=== PATIENT | male | born 1970 | race Caucasian/White ===

== ENCOUNTER 2024-06-27 10:22 | Emergency (ER) | payer OTHER, SELFPAY ==
[2024-06-27 10:22] VITALS: BP 138/88; PULSE 119; RESP 16; TEMP 35.9; O2SAT 100; BMI 27.1
[2024-06-27 11:01] LABS: Absolute Lymphocyte Count 0.71 X10^3/uL (0.83-4.51); Absolute Neutrophil Count 8.7 X10^3/uL (2.0-7.7); Basophil# 0.05 X10^3/uL; Basophil% 0.5 % (0-1); Eosinophil# 0.11 X10^3/uL; Eosinophils% 1.1 % (0-5); Hematocrit 41.7 % (40-54); Hemoglobin 13.8 g/dL (13.0-16.5); Lymphocyte # 0.71 X10^3/ul (0.83-4.51); Mean Corp Hgb Conc 33.1 g/dL (32-36); Mean Corpuscular Hgb 28.6 pg (27.0-32.0); Mean Corpuscular Volume 86.3 fL (80-94); Mean Platelet Vol. 8.3 fl (6.2-12.0); Monocyte# 0.51 X10^3/uL; NRBC Flagged by Analyzer 0 % (0-5); Neutrophil # 8.68 X10^3/uL (2.7-7.7); Neutrophil % 85.8 % (47-70); Platelet Count 387 K/mm3 (150-450); RBC Distribution Width CV 12.7 % (11.6-14.6); RBC Distribution Width SD 40.2 fl (35.1-43.9); Red Blood Count 4.83 M/mm3 (4.6-6.2); White Blood Count 10.1 K/mm3 (4.4-11.0)
[2024-06-27 11:06] LABS: ALB/GLOB Ratio 0.9 RATIO (0.9-2.4); AST(SGOT) 32 U/L (15-37); Alanine Aminotransfer ALT/SGPT 59 U/L (16-61); Albumin, Serum 3.4 g/dL (3.2-5.0); Alkaline Phosphatase 182 U/L (45-117); Anion Gap 4 (5-15); BUN 12 mg/dL (7-18); BUN/Creat Ratio 11.1 RATIO (10-20); Calcium,Total 9.3 mg/dL (8.5-10.1); Chloride 102 mmol/L (98-107); Creatinine, Serum 1.08 mg/dL (0.70-1.30); EST Glomerular Filtration Rate 76 mL/min (>60); Est Glom Filt Rate - Afr Amer 92 mL/min (>60); Estimated Creatinine Clearance 77.41 ml/min; Globulin 3.9 g/dL (2.2-4.2); Glucose 132 mg/dL (74-106); Potassium 3.4 mmol/L (3.5-5.1); Protein, Total 7.3 g/dL (6.4-8.2); Sodium Level 136 mmol/L (136-145)
--- NOTE | 2024-06-27 11:39 | EDS_ITS ---
HPI History of Present Illness Chief Complaint: Flank Pain Informant: patient Onset/Context/Timing Onset: Weeks (1) Context: Gradual Onset Timing: Continuous Quality: Aching Location: Left lower lumbar area Worsened by: Nothing Relieved by: Medication Narrative Narrative: Patient presents with back and flank pain that has been getting worse over the last week. Patient states it is mainly over the lower lumbar area on the left. The patient states it has been constant. Patient states nothing makes it better nothing makes it worse. Patient states he has been alternating Tylenol and ibuprofen every 3 hours without any improvement. Patient went to the emergency department in [place] 3 days ago and had a CT scan done there which was negative. Patient had lab work done there which was negative. Patient admits to some subjective fevers and chills. Patient admits to some nausea but denies any vomiting. Patient denies any dysuria, frequency, or hematuria. PFSH PFS Medical History (Updated 06/27/24 @ 15:[address] Kofi Posada DO) GERD (gastroesophageal reflux disease) Home Medications ?Medication ?Instructions ?Recorded ?Last Taken ?Type cyclobenzaprine 10 mg tablet 10 mg PO TID PRN PRN muscle spasm 06/27/24 Unknown History hydrocodone-acetaminophen 5-325mg 1 tab PO Q6H PRN PRN Pain 3 days 06/27/24 Unknown Rx 5mg-325mg #10 TABLETS ondansetron 4 mg disintegrating 4 mg PO Q8H PRN PRN Nausea #10 tabs 06/27/24 Unknown Rx tablet sumatriptan succinate 50 mg tablet 50 mg PO PRN PRN migraine 06/27/24 Unknown History Allergy/AdvReac Type Severity Reaction Status Date / Time No Known Allergies Allergy Verified 06/27/24 10:24 Surgical History (Updated 06/27/24 @ 11:[address] Kofi Posada DO) Hx of elbow surgery Social History (Updated 06/27/24 @ 11:[address] Kofi Posada DO) Smoking Status: Never smoker alcohol intake: current alcohol intake frequency: a few times a month ROS ROS ED Constitutional Constitutional ED: Reports chills, fever(s) and subjective Eyes Eyes: Denies blurry vision or change in vision ENT ENT ED: Denies rhinorrhea or sore throat Cardiovascular Cardiovascular: Denies chest pain or palpitations Respiratory/Chest Respiratory/Chest: Denies cough or dyspnea Gastrointestinal Gastrointestinal: Reports nausea; Denies vomiting Genitourinary Genitourinary ED: Denies dysuria or hematuria Musculoskeletal Musculoskeletal: Reports back pain; Denies neck pain Integumentary Denies abscess or rash Neurologic Neurologic: Reports headache(s); Denies weakness Allergic/Immunologic Allergic/Immunologic ED: Denies mouth swelling or urticaria EXAM Physical Exam Const Vital Signs: 06/27/24 10:22 06/27/24 12:22 06/27/24 13:55 Temperature 96.7 F L Temperature Source Temporal Pulse Rate 119 H 74 69 Respiratory Rate 16 14 14 Blood Pressure 138/88 H 131/90 H 129/81 H Blood Pressure Mean 104 103 97 Pulse Ox 100 98 98 Oxygen Delivery Method Room Air Room Air Room Air 06/27/24 15:00 Temperature Temperature Source Pulse Rate 69 Respiratory Rate 14 Blood Pressure 126/78 H Blood Pressure Mean 94 Pulse Ox 98 Oxygen Delivery Method Positive well nourished and well developed General Appearance ED: well developed and NAD HEENT Reports moist mucous membranes Neck supple and no JVD Resp normal respiratory effort and clear to auscultation bilaterally Cardio regular rate and regular rhythm GI non-tender and non-distended Palpation: soft Back/Spine Back/Spine Narrative: There is tenderness over the left lower lumbar paraspinal area. There is no midline tenderness. There is no bony crepitance or step-off noted. Range of motion was limited in all motions of the lumbar spine secondary to pain. Strength is 5/5 bilaterally in upper and lower extremities. There are no sensory deficits noted. Extremity normal to inspection Neuro oriented x3, CN's II-XII intact bilaterally and no sensory deficits noted Sensorium / Orientation: alert Motor Exam: strength 5/5 throughout MDM MDM MDM Narrative Medical decision making narrative: Differential diagnosis includes musculoskeletal pain, ureteral calculus, pyelonephritis, diverticulitis, gastroenteritis, electrolyte abnormality, pancreatitis, and viral illness. CBC will be obtained to assess for leukocytosis and anemia. Comprehensive metabolic profile will be obtained to assess for hepatic function, renal function, and electrolyte abnormality. Urinalysis will be obtained to assess for urinary tract infection and hematuria. Lipase will be obtained to assess for pancreatitis. COVID-19, influenza, and RSV PCR will be obtained to assess for viral illness. Lab Data Attestation: I reviewed the patient's lab results. Lab results narrative: CBC was reviewed and was within normal limits. Comprehensive metabolic profile was reviewed and was essentially within normal limits. Lipase was reviewed and was slightly elevated at 89. Urinalysis was reviewed. There is no evidence of urinary tract infection or hematuria. Labs: Laboratory Results - last 24 hr 06/27/24 06/27/24 10:40 12:03 WBC 10.1 RBC 4.83 Hgb 13.8 Hct 41.7 MCV 86.3 MCH 28.6 MCHC 33.1 RDW Std Deviation 40.2 RDW Coeff of Kiya 12.7 Plt Count 387 MPV 8.3 Immature Gran % (Auto) 0.600 Neut % (Auto) 85.8 H Lymph % (Auto) 7.0 L [place] % (Auto) 5.0 Eos % (Auto) 1.1 Baso % (Auto) 0.5 Absolute Neuts (auto) 8.7 H Absolute Lymphs (auto) 0.71 L Nucleated RBC % 0 Sodium 136 Potassium 3.4 L Chloride 102 Carbon Dioxide 30.0 Anion Gap 4 L BUN 12 Creatinine 1.08 Estim Creat Clear Calc 77.41 Est GFR (MDRD) Af Amer 92 Est GFR (MDRD) Non-Af 76 BUN/Creatinine Ratio 11.1 Glucose 132 H Calcium 9.3 Total Bilirubin 0.60 AST 32 ALT 59 Alkaline Phosphatase 182 H Total Protein 7.3 Albumin 3.4 Globulin 3.9 Albumin/Globulin Ratio 0.9 Lipase 89 H Urine Color Yellow Urine Clarity Clear Urine pH 6.0 Ur Specific [place] 1.015 Urine Protein 30 H Urine Glucose (UA) Normal Urine Ketones Negative Urine Occult Blood 10 H Urine Nitrite Negative Urine Bilirubin Negative Urine Urobilinogen 4 H Ur Leukocyte Esterase 25 H Urine RBC 0-5 SEEN Urine WBC 0-5 SEEN Ur Squamous Epith Cells 0-5 SEEN Amorphous Sediment 1+ Urine Bacteria 1+ Urine Mucus 3+ Radiography Diagnostic Testing: Clinical Impression(s) from Imaging Studies Abdomen/Pelvis CT 06/27/24 13:50 IMPRESSION: (NOT LISTED IN ORDER OF SIGNIFICANCE) Mild constipation. No renal stones. Other findings as above. Electronically Signed: Enrique Glaser MD at 14:41 EDT , CT scan of the abdomen and pelvis was obtained. There is no acute abnormality noted. There is some mild constipation noted. There is no ureteral calculus. There is no free air or free fluid. This was interpreted by the radiologist and was also independently reviewed by myself. Treatment and Re-Evaluation :: Patient was given IV fluids, morphine, and Zofran. Patient was given a repeat dose of morphine. Patient was feeling better on reevaluation. Patient was advised of his findings. Patient was advised that his back pain could be coming from early inflammation of his pancreas. Patient was given prescriptions for Zofran and [place]. Patient was instructed to continue using laxatives as needed for his constipation. Patient was instructed to follow-up with his primary care physician in 5 to 7 days. Patient was instructed to return if worse in any way. Patient understood and was agreeable with the plan. All questions were answered. Discharge Plan Triage Chief Complaint: Flank Pain ED Provider: Kofi Posada Dx/Rx/DC Orders Clinical Impression: Low back pain, Elevated lipase Instructions: ED Pain, Acute, Uncertain Cause, ED Pancreatitis Prescriptions: New hydrocodone-acetaminophen 5-325 mg tablet 1 tab PO Q6H PRN PRN (Reason: Pain) 3 Days Qty: 10 0RF ondansetron 4 mg tablet,disintegrating 4 mg PO Q8H PRN PRN (Reason: Nausea) Qty: 10 0RF No Action cyclobenzaprine 10 mg tablet 10 mg PO TID PRN PRN (Reason: muscle spasm) sumatriptan succinate 50 mg tablet 50 mg PO PRN PRN (Reason: migraine) Primary Care Provider: Lonnie Mars Referrals: Lonnie Mars MD [Primary Care Provider] - 3-5 Days Print Language: Hungarian Disposition Disposition: Home, Self Care
[2024-06-27] MEDS: 0.9% Normal Saline (1000mL) 1,000 ML 1000 ML IV (11:56)
[2024-06-27] MEDS: Morphine 4 MG/ML Syringe IV ×2 (11:57→13:42)
[2024-06-27] MEDS: Ondansetron 4 MG/2 ML Vial IV (11:57)
[2024-06-27 12:11] LABS: Color, Urine Yellow (Yellow); Glucose, Dipstick Normal (Normal); Ketone-Dipstick Negative (Negative); Leukocyte Esterase-Dipstick 25 /ul (Negative); Nitrite-Dipstick Negative (Negative); Occult Blood-Urine 10 /ul (Negative); Protein-Dipstick 30 mg/dl (Negative); Specific Gravity, Urine 1.015 (1.002-1.030); Urine Bilirubin Dipstick Negative (Negative); Urine Clarity Clear (Clear); Urine Urobilinogen 4 mg/dl (Normal)
[2024-06-27 12:12] LABS: Lipase 89 U/L (13-75)
[2024-06-27 12:22] VITALS: BP 131/90; PULSE 74; RESP 14; O2SAT 98
[2024-06-27 12:24] LABS: Mucous, Urine 3+ /hpf (<or=2+); Squamous Epithelial Cells - UA 0-5 SEEN /hpf (0-5)
[2024-06-27 12:25] LABS: Amorphous Sediment 1+; Bacteria 1+ /hpf (None Seen); Red Blood Cells-Urine 0-5 SEEN /hpf (0-5); White Blood Cells 0-5 SEEN /hpf (0-5)
--- NOTE | 2024-06-27 13:50 | CT_ITS ---
STUDY: CT Abdomen And Pelvis W/O Contrast Injection 06/27/2024 2:38 PM REASON FOR EXAM: Male, 53 years old. ABDOMINAL PAIN Flank pain-LEFT TECHNIQUE: Transaxial images were obtained without oral contrast, and without intravenous contrast. Individualized dose optimization techniques were used for this CT. COMPARISON: None FINDINGS: Small left pleural effusion. The visualized portions of the heart are within normal limits. Unremarkable liver. Unremarkable gallbladder and extrahepatic biliary system. Unremarkable spleen. Unremarkable pancreas. Unremarkable bilateral adrenal glands. No acute findings of the right kidney. No acute findings of the left kidney. Unremarkable visualized stomach. Unremarkable small intestine. Stool in the ascending colon and transverse colon. The appendix is visualized and appears unremarkable. There are no acute findings of the abdominal aorta. Unremarkable inferior vena cava. Subcentimeter mesenteric lymph nodes. Unremarkable urinary bladder. There are prostatic calcifications. There is an umbilical hernia containing fat. Unremarkable osseous structures. CT/Abdomen/Pelvis without Cont IMPRESSION: (NOT LISTED IN ORDER OF SIGNIFICANCE) Mild constipation. No renal stones. Other findings as above. Electronically Signed: Enrique Glaser MD at 14:41 EDT ,
[2024-06-27 13:55] VITALS: BP 129/81; PULSE 69; RESP 14; O2SAT 98
[2024-06-27 15:00] VITALS: BP 126/78; PULSE 69; RESP 14; O2SAT 98
[2024-06-27 15:55] VITALS: BP 110/68; PULSE 72; RESP 14; TEMP 36.6; O2SAT 99
== END 2024-06-27 15:59 | disposition home or self-care (01) ==
PROVIDERS: Emergency Provider Emergency Medicine; PCP Family Medicine; Visit Provider Emergency Medicine
DX: M54.50 Low back pain, unspecified (principal); R10.9 Unspecified abdominal pain; Z11.52 Encounter for screening for COVID-19; R50.9 Fever, unspecified; K59.00 Constipation, unspecified; R74.8 Abnormal levels of other serum enzymes; K21.9 Gastro-esophageal reflux disease without esophagitis
CPT/HCPCS: 74176; 80053; 81001; 83690; 85025; 87631; 96361; 96374; 96375; 96376; 99283; J7030; A4216; J2405

== ENCOUNTER 2024-06-28 13:19 | Emergency (ER) | payer OTHER, SELFPAY ==
[2024-06-28 13:21] VITALS: BP 126/102; PULSE 98; RESP 16; TEMP 36.2; O2SAT 98; BMI 27.3
== END 2024-06-28 14:19 | disposition left against medical advice (07) ==
LOC: ED 14:23
PROVIDERS: PCP Family Medicine
DX: R10.9 Unspecified abdominal pain (principal); Z53.21 Procedure and treatment not carried out due to patient leaving prior to being seen by health care provider

== ENCOUNTER 2024-07-05 03:37 | Observation (INO) | payer OTHER, SELFPAY ==
[2024-07-05 03:38] VITALS: BP 145/92; PULSE 89; RESP 18; TEMP 36.8; O2SAT 98; BMI 26.4
[2024-07-05] MEDS: Ondansetron 4 MG/2 ML Vial IV (04:26)
[2024-07-05] MEDS: HYDROmorphone 1 MG/ML Syringe IV (04:26)
--- NOTE | 2024-07-05 04:33 | EDS_ITS ---
HPI History of Present Illness Chief Complaint: Back Informant: patient and spouse/S.O. Narrative Narrative: 53-year-old male presenting to the emergency department with back pain. 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 He had some constitutional symptoms including subjective fever which eventually developed into a left flank pain. He was seen at [facility] where he had a CT scan that was negative. He was seen in this emergency department on 27 June. At that time his lipase was minimally elevated he had 1+ bacteria but no overt infection and a CT with IV contrast was obtained which did not show acute pathology. He followed up with primary care and his urine culture was negative. He issues with constipation which she feels is related to the pain medication has been taken. He states he looks asymmetric with the left side appearing swollen compared to right. No further fevers. No known trauma. He notes decreased sensation in the skin in that left side abdomen left flank area. He states multiple people have suggested he could have Lyme's disease but he does not recall any tick bites no bull's-eye rash. He can occasionally find a position of comfort that is better than others but cannot stay in that position for very long. He denies any radicular symptoms. He denies any loss of bowel or bladder control. He does note some discomfort in the medial proximal left thigh which he attributes to altering the way that he ambulates currently. For constipation the patient has been using senna as well as magnesium citrate. [facility] Medical History GERD (gastroesophageal reflux disease) Home Medications ?Medication ?Instructions ?Recorded ?Last Taken ?Type cyclobenzaprine 10 mg tablet 10 mg PO TID PRN PRN muscle spasm 06/27/24 Unknown History hydrocodone-acetaminophen 5-325mg 1 tab PO Q6H PRN PRN Pain 3 days 06/27/24 Unknown Rx 5mg-325mg #10 TABLETS ondansetron 4 mg disintegrating 4 mg PO Q8H PRN PRN Nausea #10 tabs 06/27/24 Unknown Rx tablet sumatriptan succinate 50 mg tablet 50 mg PO PRN PRN migraine 06/27/24 Unknown History Allergy/AdvReac Type Severity Reaction Status Date / Time No Known Allergies Allergy Verified 07/05/24 03:37 Surgical History Hx of elbow surgery Social History Smoking Status: Never smoker alcohol intake: current alcohol intake frequency: a few times a month ROS ROS ED Constitutional Constitutional ED: Denies chills or weight loss Eyes Eyes: Denies change in vision or diplopia ENT ENT ED: Denies ear pain, rhinorrhea or sore throat Cardiovascular Cardiovascular: Denies chest pain, orthopnea, palpitations or racing heartbeat Respiratory/Chest Respiratory/Chest: Denies cough, dyspnea or orthopnea Gastrointestinal Gastrointestinal: Reports abdominal pain and constipation; Denies diarrhea, na usea or vomiting Genitourinary Genitourinary ED: Denies dysuria, hematuria or urinary frequency Musculoskeletal Musculoskeletal: Reports back pain; Denies arthralgias or myalgias Integumentary Denies abscess or rash Neurologic Neurologic: Reports paresthesias; Denies headache(s) or weakness Psychiatric Psychiatric: Denies anxiety, depression, suicidal ideation or suicidal thoughts Endocrine Endocrinology: Denies polydipsia, polyphagia or polyuria Allergic/Immunologic Allergic/Immunologic ED: Denies mouth swelling, tongue swelling or urticaria EXAM Physical Exam Const Vital Signs: 07/05/24 03:38 Temperature 98.2 F Temperature Source Oral Pulse Rate 89 Respiratory Rate 18 Blood Pressure 145/92 H Blood Pressure Mean 109 Pulse Ox 98 Oxygen Delivery Method Room Air Positive well nourished and well developed General Appearance ED: well developed; Negative for pallor HEENT Reports normocephalic, head/scalp atraumatic and moist mucous membranes Eyes PERRL and EOMs intact bilaterally Neck no lymphadenopathy, supple and no JVD Resp normal respiratory effort and clear to auscultation bilaterally Cardio regular rate, regular rhythm and no murmurs GI GI Narrative: Left lateral abdominal wall tender to palpation extending to the left flank. I do not appreciate focal swelling but does not appear as concave as the right. There is a very faint erythematous area that blanches in this area as well. The lumbar paraspinal musculature is tender to palpation. Pain seems to be worse with movement. Palpation: soft Back/Spine Cervical Spine: Negative for cervical spine tenderness Thoracic Spine / Upper Back: Negative for thoracic spinal tenderness Extremity normal to inspection General Extremety ED: Negative for edema General Extremity: Negative for edema Neuro oriented x3 and CN's II-XII intact bilaterally Neuro Narrative: Patient reports decreased sensation but no loss of sensation on the left side of the abdomen left flank area. +2 patellar and Achilles reflexes. Sensorium / Orientation: alert Sensory Exam: No sensory level loss detected Motor Exam: strength 5/5 throughout Psych mental status grossly normal Mood & Affect: Negative for depressed or tearful Skin no wounds General Skin Exam: elasticity normal; Negative for jaundice or pallor MDM MDM MDM Narrative Medical decision making narrative: Differential diagnosis includes but not limited to bowel obstruction intra- abdominal abscess retroperitoneal bleed psoas muscle abscess this renal cyst muscular spasm White count 10.7 hemoglobin 14.2 platelet count is 469. Sodium 135 potassium 3 point radiolabeled total bilirubin is 0.7 direct bilirubin 0.31 alkaline phosphatase 159 lipase 96 urinalysis shows 0 white cells 0-5 red cells rare bacteria negative nitrates. I did send off a Lyme screen. Patient received Zofran and a dose of Dilaudid. He required some supplemental oxygen after the Dilaudid. CT abdomen pelvis with oral and IV contrast was obtained. I do not see anything that should explain his symptoms. He has fluid-filled loops of bowel but he has been taking magnesium citrate stool softeners. I do not see any renal or splenic infarcts. No large fluid collections or cyst. Patient continues to have pain. I will give him some Toradol. I will speak with the hospitalist regarding admission as the patient and his do not feel comfortable with continued outpatient evaluation as he is not improving and no diagnoses have been found. History & Record Review Discussion w/independent historian: Patient and Family Lab Data Attestation: I reviewed the patient's lab results. Labs: Laboratory Results - last 24 hr 07/05/24 04:34 WBC 10.7 RBC 5.03 Hgb 14.2 Hct 43.0 MCV 85.5 MCH 28.2 MCHC 33.0 RDW Std Deviation 38.6 RDW Coeff of Kiya 12.4 Plt Count 469 H MPV 8.3 Immature Gran % (Auto) 0.500 Neut % (Auto) 82.9 H Lymph % (Auto) 11.0 L [place] % (Auto) 4.1 Eos % (Auto) 0.8 Baso % (Auto) 0.7 Absolute Neuts (auto) 8.9 H Absolute Lymphs (auto) 1.18 Nucleated RBC % 0 Sodium 135 L Potassium 3.1 L Chloride 97 L Carbon Dioxide 29.0 Anion Gap 9 BUN 14 Creatinine 1.00 Estim Creat Clear Calc 83.60 Est GFR (MDRD) Af Amer 101 Est GFR (MDRD) Non-Af 83 BUN/Creatinine Ratio 14.0 Glucose 121 H Calcium 9.6 Total Bilirubin 0.70 Direct Bilirubin 0.31 H AST 22 ALT 43 Alkaline Phosphatase 159 H Total Protein 8.1 Albumin 3.7 Globulin 4.4 H Lipase 96 H Urine Color Yellow Urine Clarity Clear Urine pH 8.0 Ur Specific [place] 1.015 Urine Protein 30 H Urine Glucose (UA) Normal Urine Ketones 50 H Urine Occult Blood 10 H Urine Nitrite Negative Urine Bilirubin Negative Urine Urobilinogen Normal Ur Leukocyte Esterase 25 H Urine RBC 0-5 SEEN Urine WBC 0 SEEN Ur Squamous Epith Cells 0 SEEN Urine Bacteria RARE Urine Mucus 0 SEEN Radiography Diagnostic Testing: Clinical Impression(s) from Imaging Studies Abdomen/Pelvis CT 07/05/24 05:11 IMPRESSION: Fluid distended small bowel and fluid levels in the colon nonspecific, can be seen with enteritis or gastroenteritis. Electronically Signed: Agatha Forrest MD at 7:44 EDT , Management Discussion w/another healthcare provider: Hospitalist Discharge Plan Triage Chief Complaint: Back ED Provider: Doni Irby Dx/Rx/DC Orders Clinical Impression: Left flank pain, Acute hypokalemia, Paresthesia Prescriptions: No Action cyclobenzaprine 10 mg tablet 10 mg PO TID PRN PRN (Reason: muscle spasm) sumatriptan succinate 50 mg tablet 50 mg PO PRN PRN (Reason: migraine) hydrocodone-acetaminophen 5-325 mg tablet 1 tab PO Q6H PRN PRN (Reason: Pain) 3 Days Qty: 10 0RF ondansetron 4 mg tablet,disintegrating 4 mg PO Q8H PRN PRN (Reason: Nausea) Qty: 10 0RF Primary Care Provider: Lonnie Mars Referrals: Lonnie Mars MD [Primary Care Provider] - Print Language: Romanian
[2024-07-05 04:42] LABS: Mucous, Urine 0 SEEN /hpf (<or=2+); Squamous Epithelial Cells - UA 0 SEEN /hpf (0-5); White Blood Cells 0 SEEN /hpf (0-5)
[2024-07-05 04:46] LABS: Absolute Lymphocyte Count 1.18 X10^3/uL (0.83-4.51); Absolute Neutrophil Count 8.9 X10^3/uL (2.0-7.7); Basophil# 0.07 X10^3/uL; Basophil% 0.7 % (0-1); Eosinophil# 0.09 X10^3/uL; Eosinophils% 0.8 % (0-5); Hemoglobin 14.2 g/dL (13.0-16.5); Lymphocyte # 1.18 X10^3/ul (0.83-4.51); Mean Corpuscular Hgb 28.2 pg (27.0-32.0); Mean Corpuscular Volume 85.5 fL (80-94); Mean Platelet Vol. 8.3 fl (6.2-12.0); Monocyte# 0.44 X10^3/uL; Monocyte% 4.1 % (0-10); NRBC Flagged by Analyzer 0 % (0-5); Neutrophil # 8.86 X10^3/uL (2.7-7.7); Neutrophil % 82.9 % (47-70); Platelet Count 469 K/mm3 (150-450); RBC Distribution Width CV 12.4 % (11.6-14.6); RBC Distribution Width SD 38.6 fl (35.1-43.9); Red Blood Count 5.03 M/mm3 (4.6-6.2); White Blood Count 10.7 K/mm3 (4.4-11.0)
[2024-07-05 04:47] LABS: Color, Urine Yellow (Yellow); Glucose, Dipstick Normal (Normal); Ketone-Dipstick 50 mg/dl (Negative); Leukocyte Esterase-Dipstick 25 /ul (Negative); Nitrite-Dipstick Negative (Negative); Occult Blood-Urine 10 /ul (Negative); Protein-Dipstick 30 mg/dl (Negative); Specific Gravity, Urine 1.015 (1.002-1.030); Urine Bilirubin Dipstick Negative (Negative); Urine Clarity Clear (Clear); Urine Urobilinogen Normal (Normal)
[2024-07-05 05:03] LABS: AST(SGOT) 22 U/L (15-37); Alanine Aminotransfer ALT/SGPT 43 U/L (16-61); Albumin, Serum 3.7 g/dL (3.2-5.0); Alkaline Phosphatase 159 U/L (45-117); Anion Gap 9 (5-15); BUN 14 mg/dL (7-18); Bilirubin, Direct 0.31 mg/dL (0.00-0.30); Calcium,Total 9.6 mg/dL (8.5-10.1); Chloride 97 mmol/L (98-107); EST Glomerular Filtration Rate 83 mL/min (>60); Est Glom Filt Rate - Afr Amer 101 mL/min (>60); Globulin 4.4 g/dL (2.2-4.2); Glucose 121 mg/dL (74-106); Lipase 96 U/L (13-75); Potassium 3.1 mmol/L (3.5-5.1); Protein, Total 8.1 g/dL (6.4-8.2); Sodium Level 135 mmol/L (136-145)
[2024-07-05 05:04] LABS: Bacteria RARE /hpf (None Seen); Red Blood Cells-Urine 0-5 SEEN /hpf (0-5)
--- NOTE | 2024-07-05 05:11 | CT_ITS ---
EXAM: CT Abdomen And Pelvis W/ Contrast Injection HISTORY: left abdominal pain ABD PAIN X3 WEEKS TECHNIQUE: Routine protocol CT abdomen pelvis. IV Contrast: Oral and amp; IV Gastrografin and amp; 100mL [id number]-[id number] . Oral Contrast: with. Sagittal and coronal images were reconstructed. RADIATION DOSAGE (If Supplied By Facility): CTDIvol = ( 12.5 ) mGy, DLP = ( 842.43 ) mGycm Individualized dose optimization techniques were used for this CT. COMPARISON: CT abdomen and pelvis 06/27/2024. LIMITATIONS: None. FINDINGS: LOWER CHEST: Dependent atelectasis in the lung bases. LIVER: Tiny cyst in the right lobe. GALLBLADDER/BILE DUCTS: Unremarkable. PANCREAS: Unremarkable. SPLEEN: Unremarkable. ADRENAL GLANDS: Unremarkable. KIDNEYS / URETERS: Unremarkable. BOWEL / MESENTERY: Fluid distended nondilated small bowel in the mid to lower abdomen. Nonspecific fluid levels in the colon to the rectum. No bowel obstruction. APPENDIX: Identified and normal. No evidence of acute appendicitis. PERITONEUM: No free air. No free fluid. VESSELS: Abdominal aorta is normal caliber. RETROPERITONEUM: Unremarkable. REPRODUCTIVE ORGANS: Unremarkable. BLADDER: Unremarkable. ABDOMINAL WALL: Unremarkable. BONES: No acute abnormality. OTHER: None. CT/Abdomen/Pelvis WITH Contrast IMPRESSION: Fluid distended small bowel and fluid levels in the colon nonspecific, can be seen with enteritis or gastroenteritis. Electronically Signed: Agatha Forrest MD at 7:44 EDT ,
[2024-07-05 07:37] VITALS: BP 111/89; PULSE 82; RESP 18; O2SAT 100
[2024-07-05] MEDS: Ketorolac 30 MG/ML Syringe IV (08:00)
--- NOTE | 2024-07-05 08:15 | PCM.HP.STD ---
HPI - General General Date of Admission: 07/05/24 Date of Service: 07/05/24 Chief Complaint: Intractable low back pain HPI Narrative NAM WILLINGHAM, is a 53 M who presented to [facility] ED on 07/05/2024 with intractable low back pain. Saw patient at bedside in the ED, present. Patient appeared to be in mild to moderate discomfort when I saw him due to ongoing low back pain. He stated the pain was primarily in the left low back and wrapping around the flank region. 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 The symptoms have now been ongoing since the end of May. He first went to [place] ED on 06/24. CT abdomen pelvis showed mild constipation but was otherwise negative for kidney stones or other acute pathology and noted no low thoracic or lumbar spinal issues. Was discharged home with recommendation for conservative treatment for pain and treatment for constipation. He then came to our ED on 06/27 with continuing symptoms. He had another CT abdomen pelvis done that again showed mild constipation but was otherwise unremarkable. He had some improvement with IV fluids, morphine and Zofran and was given prescription for [place] and Zofran and discharged home. He saw his primary on 07/01 who had x-rays of the thoracic and lumbar regions done that were unremarkable. Today he continues to report similar symptoms as before. States that nothing seems to make the back pain much better. The dose of IV morphine given to him in the ED here today did seem to help a little bit. He had another CT abdomen pelvis done that showed fluid-filled loops of bowel concerning for a possible gastroenteritis. However, was noted that patient took 2 doses of magnesium citrate over the past few days in addition to Senna to help facilitate bowel movements. Notes that he has had some soft and liquidy bowel movements over the past few days and does not feel distended or bloated in the abdomen. Does states that he has not been eating drinking much and has lost about 10 pounds. He denies any fevers or chills. Denies any recent traumas. Given his ongoing symptoms of unclear etiology, patient was admitted for further management. [facility] Medical History (Updated 07/06/24 @ 09:[address] Osmar Villeda, DO) GERD (gastroesophageal reflux disease) Home Medications ?Medication ?Instructions ?Recorded ?Last Taken ?Type cyclobenzaprine 10 mg tablet 10 mg PO TID PRN PRN muscle spasm 06/27/24 Unknown History hydrocodone-acetaminophen 5-325mg 1 tab PO Q6H PRN PRN Pain 3 days 06/27/24 07/04/24 Rx 5mg-325mg #10 TABLETS ondansetron 4 mg disintegrating 4 mg PO Q8H PRN PRN Nausea #10 tabs 06/27/24 06/28/24 Rx tablet sumatriptan succinate 50 mg tablet 50 mg PO PRN PRN migraine 06/27/24 Unknown History acetaminophen 325 mg tablet 650 mg PO Q6H 07/05/24 07/05/24 02:30 History (Tylenol) ibuprofen 200 mg tablet (Advil) 400 mg PO Q6H 07/05/24 Unknown History omeprazole 40 mg capsule,delayed 40 mg PO DAILY gerd 07/05/24 07/04/24 History release polyethylene glycol 3350 17 17 g PO DAILY 07/05/24 Unknown History gram/dose oral powder (Miralax) sennosides 8.6 mg-docusate sodium 1 tab-cap PO DAILY 07/05/24 Unknown History 50 mg tablet (Senna-S) sildenafil 50 mg tablet 50 mg PO PRN 07/05/24 Unknown History simethicone 80 mg chewable tablet 80 mg PO BID 07/05/24 Unknown History (Gas Relief 80 (simethicone)) Allergy/AdvReac Type Severity Reaction Status Date / Time No Known Allergies Allergy Verified 07/05/24 03:37 Surgical History (Updated 07/05/24 @ 13:50 by Taty Albarran) H/O vasectomy S/P dilatation of esophageal stricture Hx of elbow surgery Social History Smoking Status: Never smoker alcohol intake: current alcohol intake frequency: a few times a month ROS Constitutional Constitutional: Denies chills, fatigue, fever(s) or weakness Eyes Eyes: Denies change in vision Cardiovascular Cardiovascular: Denies chest pain Respiratory/Chest Respiratory/Chest: Denies shortness of breath at rest Gastrointestinal Gastrointestinal: Reports abdominal pain and loose stools; Denies constipation, diarrhea, nausea or vomiting Genitourinary Genitourinary: Denies dysuria Musculoskeletal Musculoskeletal: Reports back pain; Denies arthralgias, joint pain, joint swelling or myalgias Neurologic Neurologic: Denies dizziness, focal weakness or headache(s) Vital Signs Vital Signs Vital Signs: 07/05/24 03:38 07/05/24 07:37 Temperature 98.2 F Temperature Source Oral Pulse Rate 89 82 Respiratory Rate 18 18 Blood Pressure 145/92 H 111/89 H Blood Pressure Mean 109 96 Pulse Ox 98 100 Oxygen Delivery Method Room Air Nasal Cannula Oxygen Flow Rate (L/min) 2 Weight Weight: 78.8 kg Body Mass Index (BMI) 26.4 Physical Exam Const alert, oriented x3, no apparent distress and average body habitus Constitutional Narrative: Middle-age male, appears somewhat comfortable due to ongoing low back pain, otherwise sitting up in bed and conversing normally. General Appearance: cooperative HEENT normocephalic, head/scalp atraumatic, hearing grossly normal bilaterally and nasal mucous membranes and turbinates normal Eyes PERRL, EOMs intact bilaterally and conjunctivae normal Neck full ROM Chest inspection of chest normal Resp normal respiratory effort, normal air movement, no use of accessory muscles and clear to auscultation bilaterally Cardio regular rate, regular rhythm, no murmurs and peripheral pulses 2+ throughout GI GI Narrative: Abdomen mildly distended but otherwise soft and nontender. Hypoactive bowel sounds noted. Back/Spine Back/Spine Narrative: Mild tenderness to palpation in low back diffusely, worse in left paramuscular area. No significant decreased range of motion noted. No external abnormalities noted. Extremity normal to inspection, full ROM and no pedal edema Skin no rashes or lesions noted Neuro moves all extremities and no focal motor deficits Speech: speech normal Psych mental status grossly normal Mood & Affect: anxious Results Lab / Micro Data 07/06/24 06:00 07/06/24 06:00 Labs: Laboratory Results - last 24 hr 07/05/24 04:34: WBC 10.7, RBC 5.03, Hgb 14.2, Hct 43.0, MCV 85.5, MCH 28.2, MCHC 33.0, RDW Std Deviation 38.6, RDW Coeff of Kiya 12.4, Plt Count 469 H, MPV 8.3, Immature Gran % (Auto) 0.500, Neut % (Auto) 82.9 H, Lymph % (Auto) 11.0 L, [place] % (Auto) 4.1, Eos % (Auto) 0.8, Baso % (Auto) 0.7, Absolute Neuts (auto) 8.9 H, Absolute Lymphs (auto) 1.18, Nucleated RBC % 0, Sodium 135 L, Potassium 3.1 L, Chloride 97 L, Carbon Dioxide 29.0, Anion Gap 9, BUN 14, Creatinine 1.00, Estim Creat Clear Calc 83.60, Est GFR (MDRD) Af Amer 101, Est GFR (MDRD) Non-Af 83, BUN/Creatinine Ratio 14.0, Glucose 121 H, Calcium 9.6, Total Bilirubin 0.70, Direct Bilirubin 0.31 H, AST 22, ALT 43, Alkaline Phosphatase 159 H, Total Protein 8.1, Albumin 3.7, Globulin 4.4 H, Lipase 96 H, Urine Color Yellow, Urine Clarity Clear, Urine pH 8.0, Ur Specific [place] 1.015, Urine Protein 30 H, Urine Glucose (UA) Normal, Urine Ketones 50 H, Urine Occult Blood 10 H, Urine Nitrite Negative, Urine Bilirubin Negative, Urine Urobilinogen Normal, Ur Leukocyte Esterase 25 H, Urine RBC 0-5 SEEN, Urine WBC 0 SEEN, Ur Squamous Epith Cells 0 SEEN, Urine Bacteria RARE, Urine Mucus 0 SEEN Imaging Radiology Impression Abdomen/Pelvis CT 07/05/24 05:11 IMPRESSION: Fluid distended small bowel and fluid levels in the colon nonspecific, can be seen with enteritis or gastroenteritis. Electronically Signed: Agatha Forrest MD at 7:44 EDT , Assessment & Plan Assessment/Plan (1) Intractable low back pain: (2) Abdominal pain: (3) Elevated lipase: (4) Acute hypokalemia: PLAN: Plan Patient is a 53-year-old male who presented [facility] ED on 07/05/2024 with intractable low back pain. 1. Intractable low back pain ? Admit under inpatient status to [facility]. Unclear etiology at this time. MRI T-spine and L-spine on 07/05 were unremarkable. Will treat with scheduled tizanidine for now. If no improvement, may need to consider a pain management consult. 2. Mild abdominal pain with distention ? CT abdomen pelvis showed fluid-filled bowel loops possibly concerning for gastroenteritis, though patient notably had been taking magnesium citrate. Mild leukocytosis noted and patient reported subjective fevers. Stool studies and celiac studies ordered. Notably had colonoscopy done 2 to 3 years ago that was normal with recommended repeat in 10 years. Will treat with IV Zosyn for now. 3. Hypokalemia ? Potassium 3.1 on admit. Suspect due to poor p.o. intake recently. Mag and Phos ordered. Replete as needed. 4. Mild normocytic anemia ? Hemoglobin 14.2 on admit, dropped to 12.7 on hospital day 2 likely due to IV fluid resuscitation. MCV 86. Will send iron studies with ferritin, B12 and folate for further evaluation. 5. Elevated lipase ? Lipase 89 in the ED on 06/27 and lipase 96 in ED on this admission. Unclear etiology. Multiple CTs of abdomen pelvis recently with no pancreatic or right upper quadrant findings. Minimal alcohol use. Lipid profile ordered. Amylase ordered. DVT prophylaxis: Lovenox CODE STATUS: Full code, verified Expected disposition: Home, 2 to 3 days Total clinical time spent by myself addressing the patient's medical issues, reviewing all the data, and collaborating with patient's care team: 55 minutes. Charges/Coding Visit Charges Inpatient E&M: 09470 Init Hosp L2
--- NOTE | 2024-07-05 08:51 | ED.RN ---
Patient informed of need for stool sample. Patient stated he took mag citrate last night and cannot currently give stool sample.
[2024-07-05 10:24] VITALS: BP 131/89; PULSE 92; RESP 22; TEMP 37; O2SAT 100
[2024-07-05 11:07] VITALS: BMI 11.6
[2024-07-05 11:35] VITALS: BP 129/89; PULSE 79; RESP 16; TEMP 36.8; O2SAT 100
--- NOTE | 2024-07-05 12:30 | MRI_ITS ---
STUDY: MRI LUMBAR SPINE WITHOUT CONTRAST REASON FOR EXAM: Male, 53 years old. persis severe LBP w/ no signif findings on xray TECHNIQUE: Standardized fat and water weighted pulse sequences were obtained in the sagittal and axial planes. COMPARISON: None FINDINGS: T12-L1: Normal endplates. Normal disc height, hydration and morphology. Normal bilateral facet joints. Normal central canal and bilateral lateral recesses. Normal bilateral intervertebral neural foramina. Normal lumbar lordosis. There is no substantial scoliosis. Normal conus medullaris that terminates at the L1 level. L1-2: Normal endplates. Normal disc height, hydration and morphology. Normal bilateral facet joints. Normal central canal and bilateral lateral recesses. Normal bilateral intervertebral neural foramina. L2-3: Normal endplates. Normal disc height, hydration and morphology. Normal bilateral facet joints. Normal central canal and bilateral lateral recesses. Normal bilateral intervertebral neural foramina. L3-4: Normal endplates. Normal disc height, hydration and morphology. Normal bilateral facet joints. Normal central canal and bilateral lateral recesses. Normal bilateral intervertebral neural foramina. L4-5: Normal endplates. Normal disc height, hydration and morphology. Normal bilateral facet joints. Normal central canal and bilateral lateral recesses. Normal bilateral intervertebral neural foramina. L5-S1: Normal endplates. Normal disc height, hydration and morphology. Normal bilateral facet joints. Normal central canal and bilateral lateral recesses. Normal bilateral intervertebral neural foramina. Normal visualized sacral ala. Normal visualized paraspinous soft tissue structures. MRI/Spine Lumbar (Routine) IMPRESSION: Normal unenhanced MR examination of the lumbar spine. Electronically Signed: Kobe Smith MD at 0:14 EDT ,
--- NOTE | 2024-07-05 13:06 | RAD_ITS ---
STUDY: X-RAY CHEST REASON FOR EXAM: Male, 53 years old. Left effusion. Hypoxia. TECHNIQUE: 6 COMPARISON: None. FINDINGS: The lungs are clear and expanded. There is no demonstrated pleural abnormality. Normal size heart. Normal mediastinum and demetrio. Normal visualized pulmonary arteries. Normal visualized aortic arch and descending thoracic aorta. No abnormality of the visualized soft tissue structures of the upper abdomen. RAD/Chest 1 View (Portable) IMPRESSION: Normal x-ray examination of the chest. Electronically Signed: John Farha MD at 13:20 EDT ,
[2024-07-05] MEDS: Pantoprazole Sodium 40 MG in 0.9% Normal Saline (100mL MB+) 100 ML 330 MG IV ×2 (13:34→20:28)
[2024-07-05] MEDS: 0.9% Saline Lock 10 ML Syringe IV (13:34)
[2024-07-05] MEDS: Acetaminophen 325 MG Tablet 650 MG PO (13:35)
[2024-07-05] MEDS: Enoxaparin 40 MG/0.4 ML Syringe SC (13:35)
[2024-07-05] MEDS: tiZANidine HCl 2 MG Tablet 4 MG PO ×2 (13:35→20:28)
[2024-07-05] MEDS: Piperacil/Tazobactam 3.375 GM in 0.9% Normal Saline (50mL MB+) 50 ML IV ×2 (13:57→22:30)
[2024-07-05] MEDS: Morphine 2 MG/ML Syringe IV (14:49)
[2024-07-05] MEDS: Metoclopramide 10 MG/2 ML Vial 5 MG IV ×2 (14:49→20:28)
[2024-07-05] MEDS: Bisacodyl 10 MG Suppository RC (14:50)
[2024-07-05] MEDS: LORazepam 0.5 MG Tablet PO (16:02)
[2024-07-05 16:03] VITALS: BP 102/70; PULSE 67; RESP 16; TEMP 36.7; O2SAT 95
[2024-07-05 20:15] VITALS: BP 132/80; PULSE 113; RESP 18; TEMP 37.3; O2SAT 100
[2024-07-05] MEDS: Senna Tablet 1 TABLET PO (20:28)
[2024-07-06] MEDS: Acetaminophen 325 MG Tablet 650 MG PO ×4 (03:21→22:14)
[2024-07-06 03:23] VITALS: BP 128/81; PULSE 96; RESP 18; TEMP 36.7; O2SAT 98
[2024-07-06] MEDS: Piperacil/Tazobactam 3.375 GM in 0.9% Normal Saline (50mL MB+) 50 ML IV ×2 (05:44→13:17)
[2024-07-06] MEDS: 0.9% Saline Lock 10 ML Syringe IV ×2 (05:44→22:16)
[2024-07-06] MEDS: tiZANidine HCl 2 MG Tablet 4 MG PO ×3 (05:48→22:13)
[2024-07-06 07:08] LABS: Hematocrit 38.5 % (40-54); Hemoglobin 12.7 g/dL (13.0-16.5); Mean Corpuscular Hgb 28.5 pg (27.0-32.0); Mean Corpuscular Volume 86.3 fL (80-94); Mean Platelet Vol. 8.5 fl (6.2-12.0); Platelet Count 400 K/mm3 (150-450); RBC Distribution Width CV 12.5 % (11.6-14.6); RBC Distribution Width SD 39.7 fl (35.1-43.9); Red Blood Count 4.46 M/mm3 (4.6-6.2); White Blood Count 12.2 K/mm3 (4.4-11.0)
[2024-07-06 07:18] VITALS: O2SAT 98
[2024-07-06 07:55] LABS: ALB/GLOB Ratio 0.8 RATIO (0.9-2.4); AST(SGOT) 18 U/L (15-37); Alanine Aminotransfer ALT/SGPT 29 U/L (16-61); Albumin, Serum 3.1 g/dL (3.2-5.0); Alkaline Phosphatase 130 U/L (45-117); Anion Gap 9 (5-15); BUN 11 mg/dL (7-18); BUN/Creat Ratio 10.3 RATIO (10-20); Chloride 99 mmol/L (98-107); Creatinine, Serum 1.07 mg/dL (0.70-1.30); EST Glomerular Filtration Rate 77 mL/min (>60); Est Glom Filt Rate - Afr Amer 93 mL/min (>60); Estimated Creatinine Clearance 78.13 ml/min; Globulin 3.9 g/dL (2.2-4.2); Glucose 108 mg/dL (74-106); Potassium 3.4 mmol/L (3.5-5.1); Sodium Level 135 mmol/L (136-145)
[2024-07-06 09:09] VITALS: BP 122/71; PULSE 89; RESP 18; TEMP 36.9; O2SAT 98
[2024-07-06] MEDS: Senna Tablet 1 TABLET PO ×2 (09:31→22:12)
[2024-07-06] MEDS: Pantoprazole Sodium 40 MG in 0.9% Normal Saline (100mL MB+) 100 ML 330 MG IV ×2 (09:31→22:12)
[2024-07-06 09:47] LABS: Amylase 66 U/L (25-115); Cholesterol 108 mg/dL (200); High Density Lipoprotein 30 mg/dL; Triglycerides 136 mg/dL; Very Low Density Lipoprotein 27 mg/dL (5-40)
[2024-07-06 10:28] LABS: Magnesium 2.5 mg/dL (1.6-2.6); Phosphorus 4.7 mg/dL (2.5-4.9)
[2024-07-06] MEDS: Dicyclomine 10 MG Capsule PO ×2 (10:29→15:11)
--- NOTE | 2024-07-06 11:33 | PCM.PN.HOSP ---
Reason for Visit Reason for Visit: Diagnoses Hypokalemia (07/05/24) Other low back pain (07/05/24) Unspecified abdominal pain (07/05/24) Abnormal levels of other serum enzymes (07/05/24) Subjective Subjective Saw patient at bedside this morning, present. Patient was sitting up in bedside chair and appeared moderately more comfortable today compared to yesterday. He continued report mild low back pain but improved from yesterday. He did have 2 primarily liquid bowel movements yesterday with the Dulcolax suppository, has had no further bowel movement since then. Given the negative MRI thoracic and lumbar spine yesterday, noted to them that musculoskeletal etiology is highly unlikely. Given his ongoing GI concerns, patient and requested that GI be consulted to assist with further evaluation. They noted that patient previously saw Dr. Milton several years ago and has apparently had esophageal dilations with him in the past. No other new concerns today. Objective Data Objective Data Vital Signs: Vital Signs Temp Pulse Resp BP Pulse Ox O2 Del Method O2 Flow Rate 98.4 F 89 18 122/71 H 98 Room Air 2 07/06/24 09:09 07/06/24 09:09 07/06/24 09:09 07/06/24 09:09 07/06/24 09:09 07/06/24 10:00 07/05/24 07:37 Oxygen Flow Rate (L/min) 2 Oxygen Delivery Method Room Air Weight: 76.5 kg Body Mass Index (BMI) 11.6 Intake & Output: Intake and Output for Last 24 Hours 07/04/24 07/05/24 07/06/24 23:59 23:59 23:59 Intake Total 270.00 / 270.00 210 / 210 Balance 270.00 / 270.00 210 / 210 Lab / Micro Data 07/06/24 06:00 07/06/24 06:00 Labs: Laboratory Results - last 24 hr 07/06/24 06:00: WBC 12.2 H, RBC 4.46 L, Hgb 12.7 L, Hct 38.5 L, MCV 86.3, MCH 28.5, MCHC 33.0, RDW Std Deviation 39.7, RDW Coeff of Kiya 12.5, Plt Count 400, MPV 8.5, Sodium 135 L, Potassium 3.4 L, Chloride 99, Carbon Dioxide 27.0, Anion Gap 9, BUN 11, Creatinine 1.07, Estim Creat Clear Calc 78.13, Est GFR (MDRD) Af Amer 93, Est GFR (MDRD) Non-Af 77, BUN/Creatinine Ratio 10.3, Glucose 108 H, Calcium 9.0, Phosphorus 4.7, Magnesium 2.5, Total Bilirubin 0.70, AST 18, ALT 29, Alkaline Phosphatase 130 H, Total Protein 7.0, Albumin 3.1 L, Globulin 3.9, Albumin/Globulin Ratio 0.8 L, Triglycerides 136, Cholesterol 108, LDL Cholesterol 51, VLDL Cholesterol 27, HDL Cholesterol 30 L, Amylase 66 Radiography Diagnostic Testing: Radiology Impression Lumbar Spine MRI 07/05/24 12:30 IMPRESSION: Normal unenhanced MR examination of the lumbar spine. Electronically Signed: Kobe Smith MD at 0:14 EDT , Chest X-Ray 07/05/24 13:06 IMPRESSION: Normal x-ray examination of the chest. Electronically Signed: John Farah MD at 13:20 EDT , Physical Exam Const alert, oriented x3, no apparent distress and average body habitus Constitutional Narrative: Middle-age male, appears much more comfortable today, sitting up in bedside chair, conversing normally, in no acute distress. General Appearance: cooperative HEENT normocephalic, head/scalp atraumatic, hearing grossly normal bilaterally and nasal mucous membranes and turbinates normal Eyes PERRL, EOMs intact bilaterally and conjunctivae normal Neck full ROM Chest inspection of chest normal Resp normal respiratory effort, normal air movement, no use of accessory muscles and clear to auscultation bilaterally Cardio regular rate, regular rhythm, no murmurs and peripheral pulses 2+ throughout GI GI Narrative: Abdomen mildly distended but otherwise soft and nontender. Hypoactive bowel sounds noted. Stable. Back/Spine Back/Spine Narrative: Mild tenderness to palpation in low back diffusely, improving. No significant decreased range of motion noted. No external abnormalities noted. Extremity normal to inspection, full ROM and no pedal edema Skin no rashes or lesions noted Neuro moves all extremities and no focal motor deficits Speech: speech normal Psych mental status grossly normal Assessment & Plan Assessment/Plan (1) Intractable low back pain: (2) Abdominal pain: (3) Elevated lipase: (4) Acute hypokalemia: PLAN: Plan Patient is a 53-year-old male who presented [facility] ED on 07/05/2024 with intractable low back pain. 1. Intractable low back pain ? Unclear etiology at this time. MRI T-spine and L-spine on 07/05 were unremarkable. Started on scheduled tizanidine on admission and patient does report improvement on hospital day 2. Will continue tizanidine and continue to monitor for now. 2. Mild abdominal pain with distention; concern for celiac disease ? GI consulted. CT abdomen pelvis showed fluid-filled bowel loops possibly concerning for gastroenteritis, though patient notably had been taking magnesium citrate. Mild leukocytosis noted and patient reported subjective fevers. Stool studies unremarkable. Celiac studies showed > 100 TTG IgG antibody, but negative TTG IgA antibody and slightly low IgA. Notably had colonoscopy done 2 to 3 years ago that was normal with recommended repeat in 10 years. Appreciate GI recs on further evaluation for possible celiac disease. Unclear if this could be related to suspected Lyme disease noted below. 3. Lyme disease ? Lyme disease IgG antibody and total antibody positive on 07/06. Testing was obtained on admission per patient's request as family and friends had noted his symptoms could fit with Lyme disease. Patient notably denies known tick bite or rash. Unclear if patient has active infection versus recent infection, or to what degree his symptoms could be related to possible Lyme disease. Treated with IV Zosyn on admission, switched to p.o. doxycycline on 07/06. 4. Hypokalemia ? Potassium 3.1 on admit. Suspect due to poor p.o. intake recently. Mag and Phos normal. Replete as needed. 5. Mild normocytic anemia ? Hemoglobin 14.2 on admit, dropped to 12.7 on hospital day 2 likely due to IV fluid resuscitation. MCV 86. Will send iron studies with ferritin, B12 and folate for further evaluation. 6. Elevated lipase ? Lipase 89 in the ED on 06/27 and lipase 96 in ED on this admission. Unclear etiology. Multiple CTs of abdomen pelvis recently with no pancreatic or right upper quadrant findings. Minimal alcohol use. Lipid profile unremarkable. Amylase normal. Appreciate further GI recs. DVT prophylaxis: Lovenox CODE STATUS: Full code, verified Expected disposition: Home, 2 to 3 days Total clinical time spent by myself addressing the patient's medical issues, reviewing all the data, and collaborating with patient's care team: 35 minutes. Charges/Coding Visit Charges Inpatient E&M: 41368 Subs Hosp L2
[2024-07-06] MEDS: Enoxaparin 40 MG/0.4 ML Syringe SC (13:17)
[2024-07-06 15:08] LABS: Lyme IGG CIA Positive (Negative); Lyme IGM CIA Positive (Negative); Lyme Scn Total Ab w/Rflx Positive (Negative)
[2024-07-06 15:16] VITALS: BP 95/67; PULSE 72; RESP 18; TEMP 36.3; O2SAT 96
[2024-07-06 16:10] LABS: Endomysial Antibody IgA Negative (Negative); Immunoglobulin A 78 mg/dL (90-386); t-Transglutaminase IgA <2 U/mL (0-3)
--- NOTE | 2024-07-06 17:32 | EX.PCM.CON.G ---
HPI Consult Data Date of Consult: 07/06/24 HPI Narrative Reason for Consultation: Abdominal pain HPI Narrative: NAM WILLINGHAM, is a 53-year-old male presenting to the emergency department with back pain. 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 He had some constitutional symptoms including subjective fever which eventually developed into a left flank pain. He was seen at [facility] where he had a CT scan that was negative. He was seen in this emergency department on 27 June. At that time his lipase was minimally elevated he had 1+ bacteria but no overt infection and a CT with IV contrast was obtained which did not show acute pathology. He had a repeat CT scan of the abdomen pelvis on 07/05/2024 that displayed Fluid distended small bowel and fluid levels in the colon nonspecific, can be seen with enteritis or gastroenteritis. He followed up with primary care and his urine culture was negative. He issues with constipation which she feels is related to the pain medication has been taken. He states he looks asymmetric with the left side appearing swollen compared to right. He also had a normal MRI of the spine on 07/05/2024. He notes decreased sensation in the skin in that left side abdomen left flank area. He states multiple people have suggested he could have Lyme's disease but he does not recall any tick bites no bull's-eye rash. He can occasionally find a position of comfort that is better than others but cannot stay in that position for very long. He denies any radicular symptoms. He denies any loss of bowel or bladder control. He does note some discomfort in the medial proximal left thigh which he attributes to altering the way that he ambulates currently. For constipation the patient has been using senna as well as magnesium citrate. He did undergo Lyme testing and was antibody positive. He had blood work to check for celiac disease when his hospitalization and he is very high for IgG titers of tissue transglutaminase but normal titers for IgA tissue transglutaminase. 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 [facility] Medical History (Updated 07/06/24 @ 09:[address] Osmar Villeda, DO) GERD (gastroesophageal reflux disease) Home Medications ?Medication ?Instructions ?Recorded ?Last Taken ?Type cyclobenzaprine 10 mg tablet 10 mg PO TID PRN PRN muscle spasm 06/27/24 Unknown History hydrocodone-acetaminophen 5-325mg 1 tab PO Q6H PRN PRN Pain 3 days 06/27/24 07/04/24 Rx 5mg-325mg #10 TABLETS ondansetron 4 mg disintegrating 4 mg PO Q8H PRN PRN Nausea #10 tabs 06/27/24 06/28/24 Rx tablet sumatriptan succinate 50 mg tablet 50 mg PO PRN PRN migraine 06/27/24 Unknown History acetaminophen 325 mg tablet 650 mg PO Q6H 07/05/24 07/05/24 02:30 History (Tylenol) ibuprofen 200 mg tablet (Advil) 400 mg PO Q6H 07/05/24 Unknown History omeprazole 40 mg capsule,delayed 40 mg PO DAILY gerd 07/05/24 07/04/24 History release polyethylene glycol 3350 17 17 g PO DAILY 07/05/24 Unknown History gram/dose oral powder (Miralax) sennosides 8.6 mg-docusate sodium 1 tab-cap PO DAILY 07/05/24 Unknown History 50 mg tablet (Senna-S) sildenafil 50 mg tablet 50 mg PO PRN 07/05/24 Unknown History simethicone 80 mg chewable tablet 80 mg PO BID 07/05/24 Unknown History (Gas Relief 80 (simethicone)) Allergy/AdvReac Type Severity Reaction Status Date / Time No Known Allergies Allergy Verified 07/05/24 03:37 Surgical History (Updated 07/05/24 @ 13:50 by Taty Albarran) H/O vasectomy S/P dilatation of esophageal stricture Hx of elbow surgery Social History Smoking Status: Never smoker alcohol intake: current alcohol intake frequency: a few times a month ROS Constitutional Constitutional: Denies chills, fatigue, fever(s) or weakness Eyes Eyes: Denies change in vision Cardiovascular Cardiovascular: Denies chest pain Respiratory/Chest Respiratory/Chest: Denies shortness of breath at rest Gastrointestinal Gastrointestinal: Reports abdominal pain and loose stools; Denies constipation, diarrhea, nausea or vomiting Genitourinary Genitourinary: Denies dysuria Musculoskeletal Musculoskeletal: Reports back pain; Denies arthralgias, joint pain, joint swelling or myalgias Neurologic Neurologic: Denies dizziness, focal weakness or headache(s) Physical Exam Const alert, oriented x3, no apparent distress and average body habitus General Appearance: cooperative HEENT normocephalic, head/scalp atraumatic, hearing grossly normal bilaterally and nasal mucous membranes and turbinates normal Eyes PERRL, EOMs intact bilaterally and conjunctivae normal Neck full ROM Chest inspection of chest normal Resp normal respiratory effort, normal air movement, no use of accessory muscles and clear to auscultation bilaterally Cardio regular rate, regular rhythm, no murmurs and peripheral pulses 2+ throughout GI GI Narrative: Abdomen mildly distended but otherwise soft and nontender. Hypoactive bowel sounds noted. Back/Spine Back/Spine Narrative: Mild tenderness to palpation in low back diffusely, worse in left paramuscular area. No significant decreased range of motion noted. No external abnormalities noted. Extremity normal to inspection, full ROM and no pedal edema Skin no rashes or lesions noted Neuro moves all extremities and no focal motor deficits Speech: speech normal Psych mental status grossly normal Mood & Affect: anxious Lab / Micro Data 07/06/24 06:00 07/06/24 06:00 Labs: Laboratory Results - last 24 hr 07/05/24 04:34: CSF Lyme IgM Antibody Positive, IgA 78 L, Endomysial IgA Ab Negative, Tiss Transglutamin IgG >100 H, Tiss Transglutamin IgA <2, Lyme Disease IgG Ab Positive, Lyme Total Antibody Positive, Lyme Disease Ab Note Comment H 07/06/24 06:00: WBC 12.2 H, RBC 4.46 L, Hgb 12.7 L, Hct 38.5 L, MCV 86.3, MCH 28.5, MCHC 33.0, RDW Std Deviation 39.7, RDW Coeff of Kiya 12.5, Plt Count 400, MPV 8.5, Sodium 135 L, Potassium 3.4 L, Chloride 99, Carbon Dioxide 27.0, Anion Gap 9, BUN 11, Creatinine 1.07, Estim Creat Clear Calc 78.13, Est GFR (MDRD) Af Amer 93, Est GFR (MDRD) Non-Af 77, BUN/Creatinine Ratio 10.3, Glucose 108 H, Calcium 9.0, Phosphorus 4.7, Magnesium 2.5, Total Bilirubin 0.70, AST 18, ALT 29, Alkaline Phosphatase 130 H, Total Protein 7.0, Albumin 3.1 L, Globulin 3.9, Albumin/Globulin Ratio 0.8 L, Triglycerides 136, Cholesterol 108, LDL Cholesterol 51, VLDL Cholesterol 27, HDL Cholesterol 30 L, Amylase 66 Imaging Radiology Impression Lumbar Spine MRI 07/05/24 12:30 IMPRESSION: Normal unenhanced MR examination of the lumbar spine. Electronically Signed: Kobe Smith MD at 0:14 EDT , Assessment & Plan Assessment/Plan (1) Abdominal pain: (2) Intractable low back pain: (3) Paresthesia: (4) Elevated lipase: (5) Acute hypokalemia: PLAN: Plan Patient is a 53-year-old male who presented [facility] ED on 07/05/2024 with intractable low back pain. Mild abdominal pain with distention; concern for celiac disease ? An autoimmune condition that can cause abdominal pain, bloating, diarrhea, and other digestive symptoms.?Other symptoms include muscle cramps, bone pain, joint pain, and a painful rash.?Some people with celiac disease may not have any symptoms. He has severe celiac disease by blood work due to his very high titers of IgG associated tissue transglutaminase. He equally would have high titers of tissue transglutaminase via IgA but he is IgA deficient. Celiac studies showed > 100 TTG IgG antibody, but negative TTG IgA antibody and slightly low IgA. He he is at risk for celiac disease crisis. He is also at risk for autoimmune enteropathy. He should be started on steroids. I would also check vitamin D levels because he could get bone pain due to malabsorption of fat-soluble vitamins in his small bowel. I will also check B12 and folic acid levels due to autoimmune gastritis (with antintrinsic factor and antiparietal cell antibodies) associated with celiac disease which could lead to some of his fatigue and weakness. A gluten-free diet (GFD) is the standard of care in the management of patients with celiac disease, but clinical and histological recovery are often delayed. In newly diagnosed patients, strict compliance to GFD is difficult to achieve; this is especially true in developing countries where gluten-free food is often difficult to obtain. Steroids, when used alone, can be effective in inducing recovery in patients with celiac disease.? I will start him on Solu-Medrol 40 mg in the hospital per day and transition to 40 mg/day x 1 month then 20 mg x 1 month then 10 mg x 1 month and then 5 mg x 1 month and stop. He should undergo an upper endoscopy with biopsies to establish Parker criteria for celiac disease. He should also have a capsule endoscopy as an outpatient. Lyme disease IgG antibody and total antibody positive on 07/06. Testing was obtained on admission per patient's request as family and friends had noted his symptoms could fit with Lyme disease. I do not think he has Lyme's disease. A false positive Lyme disease test can occur when the test detects antibodies that fight other bacteria or diseases, such as those caused by autoimmune disorders, rheumatologic conditions, or viral and bacterial infections. Other infections:?Acute infections, such as Betsy-Agustin virus (EBV), can cause false positives in Lyme disease tests. He should be checked for Betsy-Agustin virus with EBV IgG and IgM antibodies and PCR. He is current being treated with IV Zosyn on admission, switched to p.o. doxycycline on 07/06. Charges/Coding Visit Charges Inpatient E&M: 87471 Init Hosp L3
[2024-07-06] MEDS: Doxycycline 100 MG CAPSULE PO (20:09)
[2024-07-06 22:08] VITALS: BP 128/95; PULSE 88; RESP 18; TEMP 36.8; O2SAT 99
[2024-07-06 22:40] LABS: Vitamin B12 382 pg/mL (211-911)
[2024-07-06 22:55] LABS: Ferritin 636 ng/mL (26-388); Iron 56 ug/dL (65-175); Iron Binding Capacity,Total 236 ug/dL (250-450); PERCENT IRON SATURATION 23.7 % (15.0-55.0)
[2024-07-07] VITALS (14 sets, daily range): BP systolic 113–144; BP diastolic 68–91; PULSE 66–89; RESP 14–18; TEMP 36–36.7; O2SAT 96–100; BMI 25.4
[2024-07-07] MEDS: Acetaminophen 325 MG Tablet 650 MG PO ×2 (06:03→15:41)
[2024-07-07] MEDS: Dicyclomine 10 MG Capsule PO ×2 (06:03→14:48)
[2024-07-07] MEDS: tiZANidine HCl 2 MG Tablet 4 MG PO ×3 (06:04→21:07)
[2024-07-07] MEDS: Morphine 2 MG/ML Syringe IV (08:17)
[2024-07-07 08:31] LABS: Hematocrit 39.8 % (40-54); Hemoglobin 13.3 g/dL (13.0-16.5); Mean Corp Hgb Conc 33.4 g/dL (32-36); Mean Corpuscular Hgb 28.9 pg (27.0-32.0); Mean Corpuscular Volume 86.3 fL (80-94); Mean Platelet Vol. 8.4 fl (6.2-12.0); Platelet Count 423 K/mm3 (150-450); RBC Distribution Width CV 12.5 % (11.6-14.6); RBC Distribution Width SD 39.5 fl (35.1-43.9); Red Blood Count 4.61 M/mm3 (4.6-6.2); White Blood Count 4.7 K/mm3 (4.4-11.0)
[2024-07-07] MEDS: Pantoprazole Sodium 40 MG in 0.9% Normal Saline (100mL MB+) 100 ML 330 MG IV (08:40)
[2024-07-07 09:00] LABS: Anion Gap 10 (5-15); BUN 12 mg/dL (7-18); BUN/Creat Ratio 10.9 RATIO (10-20); Calcium,Total 9.2 mg/dL (8.5-10.1); Chloride 102 mmol/L (98-107); EST Glomerular Filtration Rate 75 mL/min (>60); Est Glom Filt Rate - Afr Amer 90 mL/min (>60); Glucose 97 mg/dL (74-106); Potassium 3.6 mmol/L (3.5-5.1); Sodium Level 137 mmol/L (136-145)
--- NOTE | 2024-07-07 11:04 | PCM.PN.HOSP ---
Reason for Visit Reason for Visit: Diagnoses Hypokalemia (07/06/24) Other low back pain (07/06/24) Unspecified abdominal pain (07/06/24) Paresthesia of skin (07/06/24) Abnormal levels of other serum enzymes (07/06/24) Subjective Subjective Saw patient at bedside this morning, present. Patient appeared similar this morning to yesterday. Appeared mildly fatigued but was otherwise sitting up fairly comfortably in bedside chair. He did have significant difficulty sleeping last night due to pain and had ongoing pain this morning. Was given a dose of IV morphine this morning with improvement in pain. He was asking about medications for sleep tonight. He otherwise is planned to have EGD this afternoon. No other new concerns today. Objective Data Objective Data Vital Signs: Vital Signs Temp Pulse Resp BP Pulse Ox O2 Del Method O2 Flow Rate 96.8 F L 69 16 118/88 H 99 Room Air 2 07/07/24 08:15 07/07/24 08:15 07/07/24 08:15 07/07/24 08:15 07/07/24 08:15 07/07/24 08:15 07/05/24 07:37 Oxygen Flow Rate (L/min) 2 Oxygen Delivery Method Room Air Weight: 76 kg Body Mass Index (BMI) 25.4 Intake & Output: Intake and Output for Last 24 Hours 07/05/24 07/06/24 07/07/24 23:59 23:59 23:59 Intake Total 270.00 / 270.00 970 / 970 Balance 270.00 / 270.00 970 / 970 Lab / Micro Data 07/07/24 08:16 07/07/24 08:16 Labs: Laboratory Results - last 24 hr 07/05/24 04:34: CSF Lyme IgM Antibody Positive, IgA 78 L, Endomysial IgA Ab Negative, Tiss Transglutamin IgG >100 H, Tiss Transglutamin IgA <2, Lyme Disease IgG Ab Positive, Lyme Total Antibody Positive, Lyme Disease Ab Note Comment H 07/06/24 06:00: Vitamin B12 382 07/06/24 22:16: Iron 56 L, TIBC 236 L, Iron Saturation 23.7, Ferritin 636 H, Folate 18.20 07/07/24 08:16: WBC 4.7, RBC 4.61, Hgb 13.3, Hct 39.8 L, MCV 86.3, MCH 28.9, MCHC 33.4, RDW Std Deviation 39.5, RDW Coeff of Kiya 12.5, Plt Count 423, MPV 8.4, Sodium 137, Potassium 3.6, Chloride 102, Carbon Dioxide 25.0, Anion Gap 10, BUN 12, Creatinine 1.10, Estim Creat Clear Calc 76.00, Est GFR (MDRD) Af Amer 90, Est GFR (MDRD) Non-Af 75, BUN/Creatinine Ratio 10.9, Glucose 97, Calcium 9.2 Micro: Microbiology 07/05/24 04:34 Blood Culture (Wb) - Anticubital Left Blood Culture - Preliminary No growth in 48 hours. Physical Exam Const alert, oriented x3, no apparent distress and average body habitus Constitutional Narrative: Middle-age male, mildly fatigued appearing but otherwise appears comfortable, sitting up in bedside chair, conversing normally, in no acute distress. Stable. General Appearance: cooperative HEENT normocephalic, head/scalp atraumatic, hearing grossly normal bilaterally and nasal mucous membranes and turbinates normal Eyes PERRL, EOMs intact bilaterally and conjunctivae normal Neck full ROM Chest inspection of chest normal Resp normal respiratory effort, normal air movement, no use of accessory muscles and clear to auscultation bilaterally Cardio regular rate, regular rhythm, no murmurs and peripheral pulses 2+ throughout GI GI Narrative: Abdomen nondistended, soft and nontender. Hypoactive bowel sounds noted. Improving. Back/Spine Back/Spine Narrative: Mild tenderness to palpation in low back diffusely, improved from admission. No significant decreased range of motion noted. No external abnormalities noted. Stable. Extremity normal to inspection, full ROM and no pedal edema Skin no rashes or lesions noted Neuro moves all extremities and no focal motor deficits Speech: speech normal Psych mental status grossly normal Assessment & Plan Assessment/Plan (1) Intractable low back pain: (2) Abdominal pain: (3) Elevated lipase: (4) Acute hypokalemia: PLAN: Plan Patient is a 53-year-old male who presented [facility] ED on 07/05/2024 with intractable low back pain. 1. Intractable low back pain ? Unclear etiology but suspect referred pain secondary to abdominal pain from likely celiac disease as noted below. MRI T-spine and L-spine on 07/05 were unremarkable. Started on scheduled tizanidine on admission and patient does report improvement. Continue tizanidine. Continue to monitor. 2. Mild abdominal pain with distention; suspected severe celiac disease ? GI following. CT abdomen pelvis showed fluid-filled bowel loops possibly concerning for gastroenteritis, though patient notably had been taking magnesium citrate. Mild leukocytosis noted and patient reported subjective fevers. Stool studies unremarkable. Celiac studies showed > 100 TTG IgG antibody which is strongly positive for celiac disease. 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 EGD planned for 07/07 for further evaluation. If celiac disease confirmed with EGD, planning to start steroids for treatment. 3. Concern for Lyme disease ? Lyme disease IgG antibody and total antibody positive on 07/06. Testing was obtained on admission per patient's request as family and friends had noted his symptoms could fit with Lyme disease. Patient notably denies known tick bite or rash. Suspected that patient either had prior infection or Lyme antibodies are positive due to cross reaction; low likelihood that patient has active infection. Will continue treatment with p.o. doxycycline for now but low threshold to discontinue. 4. Hypokalemia ? Potassium 3.1 on admit. Suspect due to poor p.o. intake recently. Mag and Phos normal. Replete as needed. 5. Mild normocytic anemia ? Hemoglobin 14.2 on admit, dropped to 12.7 on hospital day 2 likely due to IV fluid resuscitation. MCV 86. Iron studies consistent with anemia of chronic disease. No need to monitor further CBCs. 6. Elevated lipase ? Lipase 89 in the ED on 06/27 and lipase 96 in ED on this admission. Suspect this is related to his likely celiac disease as noted above. Notably no pancreatitis findings on CT abdomen pelvis, amylase normal and lipid panel unremarkable. Further management as above. DVT prophylaxis: Lovenox CODE STATUS: Full code, verified Expected disposition: Home, 1 to 2 days Total clinical time spent by myself addressing the patient's medical issues, reviewing all the data, and collaborating with patient's care team: 35 minutes. Charges/Coding Visit Charges Inpatient E&M: 06041 Subs Hosp L2
[2024-07-07] MEDS: Lactated Ringers 1,000 ML 15 ML IV (12:07)
--- NOTE | 2024-07-07 12:10 | PCM.PRE.AN2 ---
ASA Classification* ASA Classification ASA Classification: 2 Assessment & Plan Anesthesia* Anesthesia Assessment Anesthesia Assessment: Discussed sedation and/or anesthesia options, risks, benefits, and alternatives with patient/parents/legal guardian/POA. Questions invited. The patient/parents/legal guardian/POA seems to understand and agrees to proceed with anesthesia plan. Reviewed the physical assessment, medical history, allergy history and patient home medications list prior to surgery/procedure/anesthetic and documented any changes. Performed airway and anesthesia risk assessments. Anesthesia Type Anesthesia Type: MAC Anesthesia Focused Assessment* Temperature: 96.8 F Pulse Rate: 69 Blood Pressure: 118/88 Respiratory Rate: 16 Pulse Ox: 99 Airway Assessment Mouth opens: >3 cm Mallampati Score: II Focused Labs Anesthesia Preop lab: CBC WBC 4.7 K/mm3 (4.4-11.0) 07/07/24 08:16 RBC 4.61 M/mm3 (4.6-6.2) 07/07/24 08:16 Hgb 13.3 g/dL (13.0-16.5) 07/07/24 08:16 Hct 39.8 % (40-54) L 07/07/24 08:16 Plt Count 423 K/mm3 (150-450) 07/07/24 08:16 CHEMISTRY Potassium 3.6 mmol/L (3.5-5.1) 07/07/24 08:16 Sodium 137 mmol/L (136-145) 07/07/24 08:16 Magnesium 2.5 mg/dL (1.6-2.6) 07/06/24 06:00 Phosphorus 4.7 mg/dL (2.5-4.9) 07/06/24 06:00 BUN 12 mg/dL (7-18) 07/07/24 08:16 Creatinine 1.10 mg/dL (0.70-1.30) 07/07/24 08:16 Glucose 97 mg/dL (74-106) 07/07/24 08:16 COAG Pre-Assessment Diagnosis/Proposed Procedure Planned Operative Procedure(s): EGD Anesthesia History 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 When Was Last Pacemaker Check QUESTION #4 FULL TEXT: You/Your Family Experience fever (hyperthermia) with Anesthesia Last Oral Intake Last Oral intake: Last Oral Intake NPO since 00:00 07/07/24 11:36 Meds taken in AM with sips of No 07/07/24 11:36 water? 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 Female HX of Motion Sickness HX of N/V After Surgery Non-Smoker Duration of Surgery greater than 60 minutes Number of Risk Factors PONV Score Height & Weight Height & Weight: Anesthesia: Height & Weight Height 5 ft 8 in 07/07/24 11:36 Weight: 76 kg 07/07/24 11:36 Body Mass Index (BMI) 25.4 07/07/24 11:36 Respiratory Assessment Respiratory Assessment - rubber stamps and dies supervisor: Respiratory Tract Infection Hx - rubber stamps and dies supervisor Hx Respiratory Tract Infection No 07/07/24 01:43 STOP Sleep Apnea STOP Sleep Apnea - rubber stamps and dies supervisor: STOP Sleep Apnea - rubber stamps and dies supervisor Hx Hypertension No 07/05/24 11:07 Hx Sleep Apnea No 07/05/24 11:07 CPAP BIPAP Do you snore loudly (louder Yes 07/05/24 11:07 than talking or can be heard Do you often feel tired/ No 07/05/24 11:07 fatigued/ sleepy during daytime? Has anyone observed you stop No 07/05/24 11:07 breathing during sleep? STOP Results Negative 07/05/24 11:07 QUESTION #5 FULL TEXT : Do you snore loudly (louder than talking or can be heard through closed doors)? 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 Specify any problems Hx of Preganancy in last 3 N/A 07/05/24 11:07 Months Nurse Filling Out Transfusion [email or web address] 07/05/24 11:07 & Questions: Date: 07/05/24 07/05/24 11:07 Time: 13:47 07/05/24 11:07 Patient unable to answer at this time (ie. confused, unrespo /Reproduction History /Reproductive History - rubber stamps and dies supervisor: /Reproductive Hx- rubber stamps and dies supervisor Hx Now No 07/07/24 01:43 Gestational Age (in weeks): EDC: Hx Hx Para Hx Section SAB No 07/07/24 01:43 Active Medications Active Medications: Current Medications Generic Name Dose Route Start Last Admin Trade Name Freq PRN Reason Stop Dose Admin Acetaminophen 650 mg 07/05/24 11:04 07/07/24 06:03 Acetaminophen 325 Mg Tablet PO 650 mg Q6H PRN PRN Administration Pain 1-10 Or Fever>100.7 Dicyclomine HCl 10 mg 07/06/24 09:25 07/07/24 06:03 Dicyclomine 10 Mg Capsule PO 10 mg TIDAC HINA Administration Doxycycline Monohydrate 100 mg 07/06/24 17:20 07/06/24 20:09 Doxycycline 100 Mg Capsule PO 100 mg BID HINA Administration Enoxaparin Sodium 40 mg 07/05/24 11:04 07/07/24 07:52 Enoxaparin 40 Mg/0.4 Ml Syringe SC Not Given DAILY HNIA Pantoprazole Sodium 40 mg/ 110 mls @ 330 mls/hr 07/05/24 12:20 07/07/24 08:40 Sodium Chloride IV 330 mls/hr Q12 HINA Administration Lactated Ringer's 1,000 mls @ 15 mls/hr 07/07/24 12:15 07/07/24 12:07 IV 15 mls/hr .Q48H HINA Administration Lorazepam 0.5 mg 07/05/24 14:17 07/05/24 16:02 Lorazepam 0.5 Mg Tablet PO 0.5 mg X1 PRN Administration claustrophobia Melatonin 3 mg 07/05/24 11:04 Melatonin 3 Mg Tablet PO QHS PRN PRN INSOMNIA Ondansetron HCl 4 mg 07/05/24 11:04 Ondansetron 4 Mg/2 Ml Vial IV Q8H PRN PRN NAUSEA/VOMITING Senna 1 tablet 07/05/24 22:00 07/06/24 22:12 Senna Tablet PO 1 tablet BID HINA Administration Sodium Chloride 10 - 40 ml 07/05/24 11:52 07/06/24 22:16 0.9% Saline Lock 10 Ml Syringe IV 10 ml UD PRN Administration SALINE FLUSH Tizanidine HCl 4 mg 07/05/24 14:00 07/07/24 06:04 Tizanidine Hcl 2 Mg Tablet PO 4 mg TID HINA Administration PFSH Medical History GERD (gastroesophageal reflux disease) Home Medications ?Medication ?Instructions ?Recorded ?Last Taken ?Type cyclobenzaprine 10 mg tablet 10 mg PO TID PRN PRN muscle spasm 06/27/24 Unknown History hydrocodone-acetaminophen 5-325mg 1 tab PO Q6H PRN PRN Pain 3 days 06/27/24 07/04/24 Rx 5mg-325mg #10 TABLETS ondansetron 4 mg disintegrating 4 mg PO Q8H PRN PRN Nausea #10 tabs 06/27/24 06/28/24 Rx tablet sumatriptan succinate 50 mg tablet 50 mg PO PRN PRN migraine 06/27/24 Unknown History acetaminophen 325 mg tablet 650 mg PO Q6H 07/05/24 07/05/24 02:30 History (Tylenol) ibuprofen 200 mg tablet (Advil) 400 mg PO Q6H 07/05/24 Unknown History omeprazole 40 mg capsule,delayed 40 mg PO DAILY gerd 07/05/24 07/04/24 History release polyethylene glycol 3350 17 17 g PO DAILY 07/05/24 Unknown History gram/dose oral powder (Miralax) sennosides 8.6 mg-docusate sodium 1 tab-cap PO DAILY 07/05/24 Unknown History 50 mg tablet (Senna-S) sildenafil 50 mg tablet 50 mg PO PRN 07/05/24 Unknown History simethicone 80 mg chewable tablet 80 mg PO BID 07/05/24 Unknown History (Gas Relief 80 (simethicone)) Allergy/AdvReac Type Severity Reaction Status Date / Time No Known Allergies Allergy Verified 07/05/24 03:37 Surgical History H/O vasectomy S/P dilatation of esophageal stricture Hx of elbow surgery Social History Smoking Status: Never smoker alcohol intake: current alcohol intake frequency: a few times a month Review of Systems (Anesthesia) ROS Narrative System reviewed and no additional complaints, except as documented.
--- NOTE | 2024-07-07 13:15 | EGD_PTH ---
PATIENT: NAM WILLINGHAM LOC: [facility] U#:[id number] AGE/SX: 53/M ROOM: [facility] RE07/05/[address]: Dr. Osmar Villeda DO : 1970 BED: 1 DIS: 07/10/2024 SPEC #: [id number] RECD: 07/08/24 08:18 STATUS: CINDY REuLdivina #: [id number] WESTON: 07/07/24 13:[address]: Patrick Garcia DEPT: SURGICAL PATHOLOGY RECD BY: Royal Gutierrez ENTERED: 07/08/24 10:28 SP TYPE: EGD BIOPSY OTHR DR: DO Dr. Lonnie Chopra MD Tissues: A - Duodenum, NOS B - Esophagus, NOS Procedures: Special Stain Group I Surgery Specimen Level IV Alcian Blue/PAS (control) Comments: @ Ordering doctor for SUIV edited from to @ lulu ROBERSON at 07/08/24 1242 @ Submitting doctor edited from to @ by KAROL at 07/08/24 1242 HEADER OPERATION: EGD with biopsy PRE-OP DIAGNOSIS: Abdominal pain TISSUE SUBMITTED: A- Duodenum biopsy, B- Distal esophagus biopsy MICROSCOPIC DIAGNOSIS A. Duodenum, biopsy: Mild non-specific chronic inflammation and focal acute inflammation. B. Distal esophagus, biopsy: Gastroesophageal junctional mucosa with mild chronic inflammation. No evidence of goblet cell metaplasia. See comment. 07/09/2024 COMMENT B. Alcian blue/PAS stain with matched control is used in the evaluation of the specimen. MICROSCOPIC DESCRIPTION Slides are reviewed. GROSS DESCRIPTION A. Received in fixative is one container labeled with the patient's name and designated Duodenum biopsy. The specimen consists of multiple irregular fragments of light lewis soft tissue that in aggregate measure 1.0 x 0.5 x 0.1 cm. The specimen is totally submitted in one cassette. B. Received in fixative is one container labeled with the patient's name and designated Distal esophagus biopsy. The specimen consists of two irregular fragments of light lewis soft tissue that in aggregate measure 0.6 x 0.6 x 0.1 cm. The specimen is totally submitted in one cassette. 07/08/2024 TC:3 CPT:72732q6,57953
--- NOTE | 2024-07-07 13:29 | OP.EGD_ITS ---
Patient Name: Fede Turcios Procedure Date: 07/07/2024 1:05 PM Date of : 1970 Age: 53 Procedure: Upper GI endoscopy Indications: Epigastric abdominal pain, Failure to respond to medical treatment Providers: Patrick Garcia DO Medicines: Monitored Anesthesia Care Patient Profile: This is a 53 year old male. Refer to note in patient chart for documentation of history and physical. Patient has symptoms of acute epigastric abdominal pain. Complications: No immediate complications. Procedure: Pre-Anesthesia Assessment: - Prior to the procedure, a History and Physical was performed, and patient medications and allergies were reviewed. The patient is competent. The risks and benefits of the procedure and the sedation options and risks were discussed with the patient. All questions were answered and informed consent was obtained. Patient identification and proposed procedure were verified by the physician in the pre-procedure area. Mental Status Examination: alert and oriented. Airway Examination: normal oropharyngeal airway and neck mobility. Respiratory Examination: clear to auscultation. CV Examination: normal. Prophylactic Antibiotics: The patient does not require prophylactic antibiotics. Prior Anticoagulants: The patient has taken no anticoagulant or antiplatelet agents except for NSAID medication. ASA Grade Assessment: II - A patient with mild systemic disease. After reviewing the risks and benefits, the patient was deemed in satisfactory condition to undergo the procedure. The anesthesia plan was to use monitored anesthesia care (MAC). Immediately prior to administration of medications, the patient was re-assessed for adequacy to receive sedatives. The heart rate, respiratory rate, oxygen saturations, blood pressure, adequacy of pulmonary ventilation, and response to care were monitored throughout the procedure. The physical status of the patient was re-assessed after the procedure. After obtaining informed consent, the endoscope was passed under direct vision. Throughout the procedure, the patient's blood pressure, pulse, and oxygen saturations were monitored continuously. The Endoscope was introduced through the mouth, and advanced to the second part of duodenum. The upper GI endoscopy was accomplished without difficulty. The patient tolerated the procedure well. Scope In: 1:18:55 PM Scope Out: 1:23:50 PM Total Procedure Duration Time 0 hours 4 minutes 55 seconds Findings: The Z-line was irregular and was found 39 cm from the incisors. Biopsies were taken with a cold forceps for histology. Verification of patient identification for the specimen was done. Estimated blood loss was minimal. A few small hyperplastic polyps with no bleeding and no stigmata of recent bleeding were found in the gastric body. No gross lesions were noted in the second portion of the duodenum. Biopsies were taken with a cold forceps for histology. Verification of patient identification for the specimen was done. Estimated blood loss was minimal. Impression: - Z-line irregular, 39 cm from the incisors. Biopsied. - A few gastric polyps. - No gross lesions in the second portion of the duodenum. Biopsied. Recommendation: - Return patient to [facility] for ongoing care. - Advance diet as tolerated. - Continue present medications. - Await pathology results. Procedure Code(s): --- Professional --- 56248, Esophagogastroduodenoscopy, flexible, transoral; with biopsy, single or multiple CPT copyright 2021 [employer]. All rights reserved. The codes documented in this report are preliminary and upon track manager review may be revised to meet current compliance requirements. Patrick Garcia DO 07/07/2024 1:28:49 PM This report has been signed electronically. Number of Addenda: 0 Note Initiated On: 07/07/2024 1:05 PM
--- NOTE | 2024-07-07 13:29 | OP.CCLET_ITS ---
07/07/2024 Lonnie Mars [address] [place] [address] Re : Upper GI endoscopy procedure for Fede Turcios Dear Dr. Mars This procedure was performed on Sunday, July 07, 2024. My impressions and recommendations are as follows: Impressions : - Z-line irregular, 39 cm from the incisors. Biopsied. - A few gastric polyps. - No gross lesions in the second portion of the duodenum. Biopsied. Recommendations : - Return patient to [facility] for ongoing care. - Advance diet as tolerated. - Continue present medications. - Await pathology results. My findings are described in the full procedure note, which is enclosed. If I can be of further assistance, please feel free to contact me at . Sincerely, Patrick Garcia, 07/07/2024 1:28:49 PM This report has been signed electronically.
--- NOTE | 2024-07-07 13:31 | PCM.POST.ANE ---
Anesthesia: Postop Eval I Current Vital Signs Temperature: 98.1 F Pulse Rate: 74 Blood Pressure: 123/74 Respiratory Rate: 16 Pulse Ox: 99 Oxygen Delivery Method: Room Air Assessment Airway patent: Yes Spontaneous unlabored respirations: Yes Mental status: Asleep nausea: No Vomiting: No Anesthesia Complication: No Fluid Hydration Crystalloid volume administer (ml): 400 Total IV fluid infused: 400 Progress Note Anesthesia document: Postop Eval 1 completed: Yes
--- NOTE | 2024-07-07 13:33 | PCM.POSTANE2 ---
Anesthesia Postop Eval I Sum Postop Eval Completion status Anesthesia document: Postop Eval 1 completed: Yes Anesthesia Postop Eval I Summary Anesthesia Postop Eval I Summary: Anesthesia Postop Eval I: Assessment Summary Airway patent Yes 07/07/24 13:32 [email or web address] Spontaneous unlabored Yes 07/07/24 13:32 [email or web address] respirations Mental status Asleep 07/07/24 13:32 [email or web address] nausea No 07/07/24 13:32 [email or web address] Vomiting No 07/07/24 13:32 [email or web address] Anesthesia Postop Eval I: Fluid Summary Crystalloid volume administer 400 07/07/24 13:32 [email or web address] (ml) Colloids volume administered ( ml) Blood Product volume administered (ml) Total IV fluid infused 400 07/07/24 13:32 [email or web address] Anesthesia Postop Eval I: Summary Notes Anesthesia Complication No 07/07/24 13:32 [email or web address] Anesthesia Complication Comment: Post-operative progress note Anesthesia: Postop Eval II Evaluation Mental status: Awake Pain Level: 0 nausea: No Vomiting: No
[2024-07-07] MEDS: ALPRAZolam 0.25 MG Tablet 0.125 MG PO ×2 (14:49→21:44)
[2024-07-07] MEDS: Senna Tablet 1 TABLET PO ×2 (14:50→21:04)
--- NOTE | 2024-07-07 15:30 | CASEMGMT ---
RN CM INTRAOPERATIVE NEURO TECH CM met with patient and for initial transition planning/care coordination assessment, after they returned to room, after ambulating in hallway. RN CM?introduced self and role at [facility]. Pt voices understanding and consents to assessment?at this time. Pt is A/O at this time and answers all questions appropriately. Care providers, pharmacy, and demographics verified/updated at this time. Strata:?1 PCP: Dr Mars Specialists: none Preferred Pharmacy: [facility] Insurance: MMO Prescription Benefit: yes LNOK: , Kelsey Living Arrangements: Lives w/. Independent. Transportation:Pt states drives self and states no transportation concerns at this time. DME: Denies using any DME and denies needs. HHC/SNF: No hx of either. No needs identified. Pt wishes to return home and states has no concerns with going home at time of discharge. CM?to follow for any discharge planning/needs. PLAN: Home Stella VOGEL RN, CM
[2024-07-07] MEDS: Doxycycline 100 MG CAPSULE PO ×2 (15:40→21:07)
[2024-07-07 18:01] LABS: Erythrocyte Sedimentation Rate 54 mm/hr (0-20)
[2024-07-07] MEDS: traZODone 50 MG Tablet PO (21:06)
[2024-07-08] VITALS (9 sets, daily range): BP systolic 102–122; BP diastolic 70–78; PULSE 70–77; RESP 14–16; TEMP 36–36.8; O2SAT 94–100; BMI 25.4
[2024-07-08] MEDS: tiZANidine HCl 2 MG Tablet 4 MG PO ×3 (05:35→22:53)
[2024-07-08] MEDS: ALPRAZolam 0.25 MG Tablet 0.125 MG PO ×3 (05:35→23:01)
[2024-07-08] MEDS: Dicyclomine 10 MG Capsule PO ×3 (05:36→16:38)
--- NOTE | 2024-07-08 10:00 | NM_ITS ---
CLINICAL: 53-year-old male with history of abdominal pain. SEMI-SOLID PHASE 99m Tc SULFUR COLLOID GASTRIC EMPTYING STUDY COMPARISON: CT of the abdomen-pelvis report 07/05/2024 FINDINGS: The patient was administered 1.0 mCi of 99m Tc sulfur colloid mixed with oatmeal and consumed per os. Image acquisitions in the anterior-posterior projections were obtained for 60 minutes. There is prompt visualization of the stomach. There is no gastroesophageal reflux identified. First order kinetics are maintained throughout the duration of the acquisitions. The T ? linear fit was extrapolated to be 147.37 minutes, (Normal: 12-56 minutes). NM/Gastric Emptying Study IMPRESSION: 1. ABNORMAL 99m Tc sulfur colloid semi-solid phase (oatmeal) gastric emptying imaging examination. A. There is delayed semi-solid phase gastric emptying compared to normal controls with maintained first order kinetics throughout all components of the examination. (Azael et al, J Nucl Med Tech 38: 186, 2010). Electronically Signed: Willi Mg DO at 12:18 EDT ,
--- NOTE | 2024-07-08 12:48 | PCM.PN.HOSP ---
Reason for Visit Reason for Visit: Diagnoses Hypokalemia (07/06/24) Other low back pain (07/06/24) Unspecified abdominal pain (07/06/24) Paresthesia of skin (07/06/24) Abnormal levels of other serum enzymes (07/06/24) Subjective Subjective Saw patient at bedside this morning, present. Patient appears more comfortable and less fatigued this morning than previous days. States that he feels the best today as he had during this admission. Was able to get a good amount of sleep last night for the first time in several weeks. Completed gastric emptying study this morning without significant issue and was looking forward to having lunch soon. No other new concerns today. Objective Data Objective Data Vital Signs: Vital Signs Temp Pulse Resp BP Pulse Ox O2 Del Method O2 Flow Rate 98.2 F 70 14 118/70 94 Room Air 2 07/08/24 08:30 07/08/24 08:30 07/08/24 08:30 07/08/24 08:30 07/08/24 10:00 07/08/24 10:00 07/07/24 12:10 Oxygen Flow Rate (L/min) 2 Oxygen Delivery Method Room Air Weight: 76 kg Body Mass Index (BMI) 25.4 Intake & Output: Intake and Output for Last 24 Hours 07/06/24 07/07/24 07/08/24 23:59 23:59 23:59 Intake Total 970 / 970 830 / 830 360 / 360 Output Total 800 / 800 400 / 400 Balance 970 / 970 30 / 30 -40 / -40 Lab / Micro Data 07/07/24 08:16 07/07/24 08:16 Labs: Laboratory Results - last 24 hr 07/07/24 08:16: ESR 54 H, C-React Prot Ext Range 115.00 H Micro: Microbiology 07/05/24 04:34 Blood Culture (Wb) - Anticubital Left Blood Culture - Preliminary No growth in 48 hours. Radiography Diagnostic Testing: Radiology Impression Gastric Emptying Nuclear Medicine 07/08/24 10:00 IMPRESSION: 1. ABNORMAL 99m Tc sulfur colloid semi-solid phase (oatmeal) gastric emptying imaging examination. A. There is delayed semi-solid phase gastric emptying compared to normal controls with maintained first order kinetics throughout all components of the examination. (Azael gonzalez al, J Nucl Med Tech 38: 186, 2010). Electronically Signed: Willi Mg, DO at 12:18 EDT , Physical Exam Const alert, oriented x3, no apparent distress and average body habitus Constitutional Narrative: Middle-age male, energy improved and more comfortable appearing today, sitting up in bedside chair, conversing normally, in no acute distress. General Appearance: cooperative HEENT normocephalic, head/scalp atraumatic, hearing grossly normal bilaterally and nasal mucous membranes and turbinates normal Eyes PERRL, EOMs intact bilaterally and conjunctivae normal Neck full ROM Chest inspection of chest normal Resp normal respiratory effort, normal air movement, no use of accessory muscles and clear to auscultation bilaterally Cardio regular rate, regular rhythm, no murmurs and peripheral pulses 2+ throughout GI GI Narrative: Abdomen nondistended, soft and nontender. Hypoactive bowel sounds noted. Stable. Back/Spine Back/Spine Narrative: No significant decreased range of motion noted. No external abnormalities noted. Stable. Extremity normal to inspection, full ROM and no pedal edema Skin no rashes or lesions noted Neuro moves all extremities and no focal motor deficits Speech: speech normal Psych mental status grossly normal Assessment & Plan Assessment/Plan (1) Intractable low back pain: (2) Abdominal pain: (3) Elevated lipase: (4) Acute hypokalemia: PLAN: Plan Patient is a 53-year-old male who presented [facility] ED on 07/05/2024 with intractable low back pain. 1. Abdominal pain, suspected celiac disease, concern for mild gastroparesis ? GI following. CT abdomen pelvis showed fluid-filled bowel loops possibly concerning for gastroenteritis, though patient notably had been taking magnesium citrate. Mild leukocytosis noted and patient reported subjective fevers. Stool studies unremarkable. Celiac studies showed > 100 TTG IgG antibody which is strongly positive for celiac disease. 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 Inflammatory markers significantly elevated. EGD on 07/07 showed no significant bowel changes aside from a few small hyperplastic polyps; biopsies were obtained. Gastric emptying study completed on 07/08, read pending. Started on IV Solu-Medrol, IV Reglan, p.o. dicyclomine and p.o. Xanax on 07/07 with good improvement in symptoms. Will continue these treatments for now. Appreciate further GI recs. 2. Intractable low back pain ? Unclear etiology but suspect referred pain secondary to abdominal pain from likely celiac disease as noted below. MRI T-spine and L-spine on 07/05 were unremarkable. Started on scheduled tizanidine on admission and patient does report improvement. Continue tizanidine. Continue to monitor. 3. Concern for Lyme disease ? Lyme disease IgG antibody and total antibody positive on 07/06. Testing was obtained on admission per patient's request as family and friends had noted his symptoms could fit with Lyme disease. Patient notably denies known tick bite or rash. Suspected that patient either had prior infection or Lyme antibodies are positive due to cross reaction; low likelihood that patient has active infection. Further lab workup pending. Will continue treatment with p.o. doxycycline for now but low threshold to discontinue. 4. Hypokalemia ? Potassium 3.1 on admit. Suspect due to poor p.o. intake recently. Mag and Phos normal. Replete as needed. 5. Mild normocytic anemia ? Hemoglobin 14.2 on admit, dropped to 12.7 on hospital day 2 likely due to IV fluid resuscitation. MCV 86. Iron studies consistent with anemia of chronic disease. No need to monitor further CBCs. 6. Elevated lipase ? Lipase 89 in the ED on 06/27 and lipase 96 in ED on this admission. Suspect this is related to his likely celiac disease as noted above. Notably no pancreatitis findings on CT abdomen pelvis, amylase normal and lipid panel unremarkable. Further management as above. DVT prophylaxis: Lovenox CODE STATUS: Full code, verified Expected disposition: Home, 1 to 2 days Total clinical time spent by myself addressing the patient's medical issues, reviewing all the data, and collaborating with patient's care team: 35 minutes. Charges/Coding Visit Charges Inpatient E&M: 31411 Subs Hosp L2
[2024-07-08] MEDS: 0.9% Saline Lock 10 ML Syringe IV ×4 (14:04→22:53)
[2024-07-08] MEDS: Pantoprazole Sodium 40 MG Tablet PO (14:05)
[2024-07-08] MEDS: Senna Tablet 1 TABLET PO (14:05)
[2024-07-08] MEDS: Doxycycline 100 MG CAPSULE PO ×2 (14:33→22:53)
--- NOTE | 2024-07-08 18:12 | EX.PCM.PN.GI ---
Subjective Subjective Patient is doing a lot better. He notes his nausea to be a 3 out of 10. He notes his abdominal pain to be a 4 out of 10. He did undergo gastric emptying study today. FINDINGS: The patient was administered 1.0 mCi of 99m Tc sulfur colloid mixed with oatmeal and consumed per os. Image acquisitions in the anterior-posterior projections were obtained for 60 minutes. There is prompt visualization of the stomach. There is no gastroesophageal reflux identified. First order kinetics are maintained throughout the duration of the acquisitions. The T ? linear fit was extrapolated to be 147.37 minutes, (Normal: 12-56 minutes). NM/Gastric Emptying Study IMPRESSION: 1. ABNORMAL 99m Tc sulfur colloid semi-solid phase (oatmeal) gastric emptying imaging examination. A. There is delayed semi-solid phase gastric emptying compared to normal controls with maintained first order kinetics throughout all components of the examination. Objective Data Objective Data Vital Signs: Vital Signs Temp Pulse Resp BP Pulse Ox O2 Del Method O2 Flow Rate 98.0 F 72 14 122/78 H 95 Room Air 2 07/08/24 13:52 07/08/24 13:52 07/08/24 13:52 07/08/24 13:52 07/08/24 13:53 07/08/24 13:53 07/07/24 12:10 Oxygen Flow Rate (L/min) 2 Oxygen Delivery Method Room Air Weight: 167 lb 8.821 oz Body Mass Index (BMI) 25.4 Intake & Output: Intake and Output for Last 24 Hours 07/06/24 07/07/24 07/08/24 23:59 23:59 23:59 Intake Total 970 / 970 830 / 830 360 / 360 Output Total 800 / 800 400 / 400 Balance 970 / 970 30 / 30 -40 / -40 Lab / Micro Data 07/07/24 08:16 07/07/24 08:16 Labs: Laboratory Results - last 24 hr 07/07/24 08:16: C-React Prot Ext Range 115.00 H Micro: Microbiology 07/05/24 04:34 Blood Culture (Wb) - Anticubital Left Blood Culture - Preliminary No growth in 48 hours. Radiography Diagnostic Testing: Radiology Impression Gastric Emptying Nuclear Medicine 07/08/24 10:00 IMPRESSION: 1. ABNORMAL 99m Tc sulfur colloid semi-solid phase (oatmeal) gastric emptying imaging examination. A. There is delayed semi-solid phase gastric emptying compared to normal controls with maintained first order kinetics throughout all components of the examination. (Azael et al, J Nucl Med Tech 38: 186, 2010). Electronically Signed: Willi Mg, at 12:18 EDT , Physical Exam Const alert, oriented x3, no apparent distress and average body habitus General Appearance: cooperative HEENT normocephalic, head/scalp atraumatic, hearing grossly normal bilaterally and nasal mucous membranes and turbinates normal Eyes PERRL, EOMs intact bilaterally and conjunctivae normal Neck full ROM Chest inspection of chest normal Resp normal respiratory effort, normal air movement, no use of accessory muscles and clear to auscultation bilaterally Cardio regular rate, regular rhythm, no murmurs and peripheral pulses 2+ throughout GI GI Narrative: Abdomen mildly distended but otherwise soft and nontender. Hypoactive bowel sounds noted. Back/Spine Back/Spine Narrative: Mild tenderness to palpation in low back diffusely, worse in left paramuscular area. No significant decreased range of motion noted. No external abnormalities noted. Extremity normal to inspection, full ROM and no pedal edema Skin no rashes or lesions noted Neuro moves all extremities and no focal motor deficits Speech: speech normal Psych mental status grossly normal Mood & Affect: anxious Assessment & Plan Assessment/Plan (1) Abdominal pain: (2) Intractable low back pain: (3) Paresthesia: (4) Elevated lipase: (5) Acute hypokalemia: PLAN: Plan Patient is a 53-year-old male who presented [facility] ED on 07/05/2024 with intractable low back pain. Mild abdominal pain with distention; concern for celiac disease ? An autoimmune condition that can cause abdominal pain, bloating, diarrhea, and other digestive symptoms.?Other symptoms include muscle cramps, bone pain, joint pain, and a painful rash.?Some people with celiac disease may not have any symptoms. He has severe celiac disease by blood work due to his very high titers of IgG associated tissue transglutaminase. He equally would have high titers of tissue transglutaminase via IgA but he is IgA deficient. Celiac studies showed > 100 TTG IgG antibody, but negative TTG IgA antibody and slightly low IgA. He he is at risk for celiac disease crisis. He is also at risk for autoimmune enteropathy. He should be started on steroids. I would also check vitamin D levels because he could get bone pain due to malabsorption of fat-soluble vitamins in his small bowel. I will also check B12 and folic acid levels due to autoimmune gastritis (with antintrinsic factor and antiparietal cell antibodies) associated with celiac disease which could lead to some of his fatigue and weakness. A gluten-free diet (GFD) is the standard of care in the management of patients with celiac disease, but clinical and histological recovery are often delayed. In newly diagnosed patients, strict compliance to GFD is difficult to achieve; this is especially true in developing countries where gluten-free food is often difficult to obtain. Steroids, when used alone, can be effective in inducing recovery in patients with celiac disease.? I will start him on Solu-Medrol 40 mg in the hospital per day and transition to 40 mg/day x 1 month then 20 mg x 1 month then 10 mg x 1 month and then 5 mg x 1 month and stop. He should undergo an upper endoscopy with biopsies to establish Parker criteria for celiac disease. He should also have a capsule endoscopy as an outpatient. Lyme disease IgG antibody and total antibody positive on 07/06. Testing was obtained on admission per patient's request as family and friends had noted his symptoms could fit with Lyme disease. I do not think he has Lyme's disease. A false positive Lyme disease test can occur when the test detects antibodies that fight other bacteria or diseases, such as those caused by autoimmune disorders, rheumatologic conditions, or viral and bacterial infections. Other infections:?Acute infections, such as Betsy-Agustin virus (EBV), can cause false positives in Lyme disease tests. He should be checked for Betsy-Agustin virus with EBV IgG and IgM antibodies and PCR. He is current being treated with IV Zosyn on admission, switched to p.o. doxycycline on 07/06. 07/08/2024-his inflammatory markers in particular his ESR and CRP were significantly elevated. Also he had abnormal gastric emptying study. 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 He tolerated steroids without any problems. I will start him on low-dose of metoclopramide therapy in hopes to transition him to oral metoclopramide therapy as an outpatient and then repeat his gastric emptying study. Awaiting autoimmune workup for autoimmune enteropathy associated with severe celiac disease. Continue medical therapy. Charges/Coding Visit Charges Inpatient E&M: 13362 [facility] Hosp L3
[2024-07-08] MEDS: Metoclopramide 10 MG/2 ML Vial 5 MG IV ×2 (18:55→22:53)
[2024-07-08] MEDS: Azithromycin 500 MG in Dextrose 5%-Water (250mL Bag) 250 ML 250 MG IV (21:30)
[2024-07-08] MEDS: traZODone 50 MG Tablet PO (22:53)
[2024-07-08] MEDS: Polyethylene Glycol 3350 17 GM PACKET PO (22:53)
[2024-07-08] MEDS: Senna/Docusate Sodium 1 Tablet 2 TABLET PO (22:53)
[2024-07-08] MEDS: Acetaminophen 325 MG Tablet 650 MG PO (22:55)
[2024-07-09 03:18] VITALS: BP 102/65; PULSE 59; RESP 14; TEMP 36.3; O2SAT 99
[2024-07-09 06:10] LABS: Calprotectin, Stool 75 ug/g (0-120)
[2024-07-09] MEDS: Metoclopramide 10 MG/2 ML Vial 5 MG IV ×3 (06:10→16:55)
[2024-07-09] MEDS: ALPRAZolam 0.25 MG Tablet 0.125 MG PO ×3 (06:10→22:16)
[2024-07-09] MEDS: 0.9% Saline Lock 10 ML Syringe IV ×3 (06:11→22:17)
[2024-07-09] MEDS: tiZANidine HCl 2 MG Tablet 4 MG PO ×3 (06:11→22:16)
[2024-07-09] MEDS: Dicyclomine 10 MG Capsule PO ×3 (06:11→16:52)
[2024-07-09 06:34] LABS: Hematocrit 36.4 % (40-54); Hemoglobin 12.4 g/dL (13.0-16.5); Mean Corp Hgb Conc 34.1 g/dL (32-36); Mean Corpuscular Hgb 29.1 pg (27.0-32.0); Mean Corpuscular Volume 85.4 fL (80-94); Mean Platelet Vol. 8.6 fl (6.2-12.0); Platelet Count 438 K/mm3 (150-450); RBC Distribution Width CV 12.4 % (11.6-14.6); RBC Distribution Width SD 38.6 fl (35.1-43.9); Red Blood Count 4.26 M/mm3 (4.6-6.2); White Blood Count 8.6 K/mm3 (4.4-11.0)
[2024-07-09 06:54] LABS: Anion Gap 8 (5-15); BUN 18 mg/dL (7-18); BUN/Creat Ratio 18.6 RATIO (10-20); Chloride 108 mmol/L (98-107); Creatinine, Serum 0.97 mg/dL (0.70-1.30); EST Glomerular Filtration Rate 86 mL/min (>60); Est Glom Filt Rate - Afr Amer 104 mL/min (>60); Estimated Creatinine Clearance 86.19 ml/min; Glucose 109 mg/dL (74-106); Potassium 4.3 mmol/L (3.5-5.1); Sodium Level 139 mmol/L (136-145)
[2024-07-09 07:42] LABS: Amylase 76 U/L (25-115); Lipase 87 U/L (13-75)
[2024-07-09 08:35] LABS: Erythrocyte Sedimentation Rate 35 mm/hr (0-20)
[2024-07-09] MEDS: Pantoprazole Sodium 40 MG Tablet PO (09:18)
[2024-07-09] MEDS: Polyethylene Glycol 3350 17 GM PACKET PO ×2 (09:18→22:17)
[2024-07-09] MEDS: Azithromycin 500 MG in Dextrose 5%-Water (250mL Bag) 250 ML 250 MG IV (09:18)
[2024-07-09] MEDS: Senna/Docusate Sodium 1 Tablet 2 TABLET PO ×2 (09:18→22:16)
[2024-07-09 09:20] VITALS: BP 117/74; PULSE 73; RESP 15; TEMP 36.1; O2SAT 100
--- NOTE | 2024-07-09 12:04 | PCM.PN.HOSP ---
Reason for Visit Reason for Visit: Diagnoses Hypokalemia (07/06/24) Other low back pain (07/06/24) Unspecified abdominal pain (07/06/24) Paresthesia of skin (07/06/24) Abnormal levels of other serum enzymes (07/06/24) Subjective Subjective Saw patient at bedside this morning, present. Patient appeared similar today to yesterday. Was sitting up comfortably in bedside chair, in no acute distress. Patient did have mild discomfort with eating yesterday evening and notably did some degree of gastroparesis noted on the gastric emptying study. Medication changes made by Dr. Garcia to optimize treatment for the gastroparesis and nutrition assisting with providing options for patient for nutrition here. He otherwise is doing well, no other new concerns today. Objective Data Objective Data Vital Signs: Vital Signs Temp Pulse Resp BP Pulse Ox O2 Del Method O2 Flow Rate 97 F L 73 15 117/74 100 Room Air 2 07/09/24 09:20 07/09/24 09:20 07/09/24 09:20 07/09/24 09:20 07/09/24 09:20 07/09/24 09:20 07/07/24 12:10 Oxygen Flow Rate (L/min) 2 Oxygen Delivery Method Room Air Weight: 76 kg Body Mass Index (BMI) 25.4 Intake & Output: Intake and Output for Last 24 Hours 07/07/24 07/08/24 07/09/24 23:59 23:59 23:59 Intake Total 830 / 830 615 / 615 255 / 255 Output Total 800 / 800 400 / 400 Balance 30 / 30 215 / 215 255 / 255 Lab / Micro Data 07/09/24 05:58 07/09/24 05:58 Labs: Laboratory Results - last 24 hr 07/05/24 14:02: Stool Calprotectin 75 07/09/24 05:58: WBC 8.6, RBC 4.26 L, Hgb 12.4 L, Hct 36.4 L, MCV 85.4, MCH 29.1, MCHC 34.1, RDW Std Deviation 38.6, RDW Coeff of Kiya 12.4, Plt Count 438, MPV 8.6, ESR 35 H, Sodium 139, Potassium 4.3, Chloride 108 H, Carbon Dioxide 23.0, Anion Gap 8, BUN 18, Creatinine 0.97, Estim Creat Clear Calc 86.19, Est GFR (MDRD) Af Amer 104, Est GFR (MDRD) Non-Af 86, BUN/Creatinine Ratio 18.6, Glucose 109 H, Calcium 9.0, C-React Prot Ext Range 24.80 H, Amylase 76, Lipase 87 H Micro: Microbiology 07/05/24 04:34 Blood Culture (Wb) - Anticubital Left Blood Culture - Preliminary No growth in 48 hours. Radiography Diagnostic Testing: Radiology Impression Gastric Emptying Nuclear Medicine 07/08/24 10:00 IMPRESSION: 1. ABNORMAL 99m Tc sulfur colloid semi-solid phase (oatmeal) gastric emptying imaging examination. A. There is delayed semi-solid phase gastric emptying compared to normal controls with maintained first order kinetics throughout all components of the examination. (Azael et al, J Nucl Med Tech 38: 186, 2010). Electronically Signed: Willi Mg DO at 12:18 EDT , Physical Exam Const alert, oriented x3, no apparent distress and average body habitus Constitutional Narrative: Middle-age male, energy improved and comfortable appearing, sitting up in bedside chair, conversing normally, in no acute distress. Stable. General Appearance: cooperative HEENT normocephalic, head/scalp atraumatic, hearing grossly normal bilaterally and nasal mucous membranes and turbinates normal Eyes PERRL, EOMs intact bilaterally and conjunctivae normal Neck full ROM Chest inspection of chest normal Resp normal respiratory effort, normal air movement, no use of accessory muscles and clear to auscultation bilaterally Cardio regular rate, regular rhythm, no murmurs and peripheral pulses 2+ throughout GI GI Narrative: Abdomen nondistended, soft and nontender. Hypoactive bowel sounds noted. Stable. Back/Spine Back/Spine Narrative: No significant decreased range of motion noted. No external abnormalities noted. Stable. Extremity normal to inspection, full ROM and no pedal edema Skin no rashes or lesions noted Neuro moves all extremities and no focal motor deficits Speech: speech normal Psych mental status grossly normal Assessment & Plan Assessment/Plan (1) Intractable low back pain: (2) Abdominal pain: (3) Elevated lipase: (4) Acute hypokalemia: PLAN: Plan Patient is a 53-year-old male who presented [facility] ED on 07/05/2024 with intractable low back pain. 1. Severe celiac disease with mild gastroparesis ? GI following. CT abdomen pelvis showed fluid-filled bowel loops possibly concerning for gastroenteritis, though patient notably had been taking magnesium citrate. Mild leukocytosis noted and patient reported subjective fevers. Stool studies unremarkable. Celiac studies showed > 100 TTG IgG antibody which is strongly positive for celiac disease. 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 Inflammatory markers significantly elevated. EGD on 07/07 showed no significant bowel changes aside from a few small hyperplastic polyps; biopsies were obtained. 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 Treating with IV Solu-Medrol, IV Reglan, p.o. dicyclomine and p.o. Xanax with good improvement in symptoms. Will continue these treatments for now. Appreciate further GI recs. 2. Intractable low back pain ? Unclear etiology but suspect referred pain secondary to abdominal pain from likely celiac disease as noted below. MRI T-spine and L-spine on 07/05 were unremarkable. Started on scheduled tizanidine on admission and patient does report improvement. Continue tizanidine. Continue to monitor. 3. Concern for Lyme disease ? Lyme disease IgG antibody and total antibody positive on 07/06. Testing was obtained on admission per patient's request as family and friends had noted his symptoms could fit with Lyme disease. Patient notably denies known tick bite or rash. Suspected that patient either had prior infection or Lyme antibodies are positive due to cross reaction; low likelihood that patient has active infection. Further lab workup pending. Doxycycline discontinued on 07/09. 4. Hypokalemia ? Potassium 3.1 on admit. Suspect due to poor p.o. intake recently. Mag and Phos normal. Replete as needed. 5. Mild normocytic anemia ? Hemoglobin 14.2 on admit, dropped to 12.7 on hospital day 2 likely due to IV fluid resuscitation. MCV 86. Iron studies consistent with anemia of chronic disease. No need to monitor further CBCs. 6. Elevated lipase ? Lipase 89 in the ED on 06/27 and lipase 96 in ED on this admission. Suspect this is related to his likely celiac disease as noted above. Notably no pancreatitis findings on CT abdomen pelvis, amylase normal and lipid panel unremarkable. Further management as above. DVT prophylaxis: Lovenox CODE STATUS: Full code, verified Expected disposition: Home, 1 to 2 days Total clinical time spent by myself addressing the patient's medical issues, reviewing all the data, and collaborating with patient's care team: 35 minutes. Charges/Coding Visit Charges Inpatient E&M: 40866 Subs Hosp L2
[2024-07-09 14:10] LABS: Anti-Centromere B Ab <0.2 AI (0.0-0.9); Anti-Chromatin <0.2 AI (0.0-0.9); Anti-Jo <0.2 AI (0.0-0.9); Anti-Scleroderma-70 AB 0.2 AI (0.0-0.9); Anti-dsDNA Ab 1 IU/mL (0-9); RNP Ab <0.2 AI (0.0-0.9); SJOGREN'S Anti-SS-A test < 0.2 AI (0.0-0.9); SJOGREN'S Anti-SS-B test < 0.2 AI (0.0-0.9); Smith Ab <0.2 AI (0.0-0.9)
[2024-07-09 14:45] VITALS: BP 112/70; PULSE 79; RESP 12; TEMP 36.4; O2SAT 99
--- NOTE | 2024-07-09 18:54 | PN.GI_ITS ---
Subjective Subjective Patient's and daughter are at bedside. He is doing a lot better. He has been walking around the halls. He has been tolerating IV azithromycin, IV Solu- Medrol and IV Reglan. He also had a bowel movement today. Objective Data Objective Data Vital Signs: Vital Signs Temp Pulse Resp BP Pulse Ox O2 Del Method O2 Flow Rate 97.5 F L 79 12 112/70 99 Room Air 2 07/09/24 14:45 07/09/24 14:45 07/09/24 14:45 07/09/24 14:45 07/09/24 14:45 07/09/24 14:45 07/07/24 12:10 Oxygen Flow Rate (L/min) 2 Oxygen Delivery Method Room Air Weight: 167 lb 8.821 oz Body Mass Index (BMI) 25.4 Intake & Output: Intake and Output for Last 24 Hours 07/07/24 07/08/24 07/09/24 23:59 23:59 23:59 Intake Total 830 / 830 615 / 615 735 / 735 Output Total 800 / 800 400 / 400 Balance 215 / 215 735 / 735 Lab / Micro Data 07/09/24 05:58 07/09/24 05:58 Labs: Laboratory Results - last 24 hr 07/05/24 14:02: Stool Calprotectin 75 07/08/24 06:45: MILDRED-1 Antibody <0.2, SS-A/Ro IgG Antibody < 0.2, SS-B/La IgG Antibody < 0.2, Sm (Bet[place]court) Antibody <0.2, CRITICAL CARE CLINICAL NURSE SPECIALIST Antibody <0.2, Scl-70 Scleroderma Ab 0.2, Double Strand DNA Ab 1, Antichromatin Antibodies <0.2, Centromere B Antibody <0.2 07/09/24 05:58: WBC 8.6, RBC 4.26 L, Hgb 12.4 L, Hct 36.4 L, MCV 85.4, MCH 29.1, MCHC 34.1, RDW Std Deviation 38.6, RDW Coeff of Kiya 12.4, Plt Count 438, MPV 8.6, ESR 35 H, Sodium 139, Potassium 4.3, Chloride 108 H, Carbon Dioxide 23.0, Anion Gap 8, BUN 18, Creatinine 0.97, Estim Creat Clear Calc 86.19, Est GFR (MDRD) Af Amer 104, Est GFR (MDRD) Non-Af 86, BUN/Creatinine Ratio 18.6, Glucose 109 H, Calcium 9.0, C-React Prot Ext Range 24.80 H, Amylase 76, Lipase 87 H Micro: Microbiology 07/05/24 04:34 Blood Culture (Wb) - Anticubital Left Blood Culture - Preliminary No growth in 48 hours. Physical Exam Const alert, oriented x3, no apparent distress and average body habitus General Appearance: cooperative HEENT normocephalic, head/scalp atraumatic, hearing grossly normal bilaterally and nasal mucous membranes and turbinates normal Eyes PERRL, EOMs intact bilaterally and conjunctivae normal Neck full ROM Chest inspection of chest normal Resp normal respiratory effort, normal air movement, no use of accessory muscles and clear to auscultation bilaterally Cardio regular rate, regular rhythm, no murmurs and peripheral pulses 2+ throughout GI GI Narrative: Abdomen nondistended, soft and nontender. Hypoactive bowel sounds noted. Stable. Back/Spine Back/Spine Narrative: No significant decreased range of motion noted. No external abnormalities noted. Stable. Extremity normal to inspection, full ROM and no pedal edema Skin no rashes or lesions noted Neuro moves all extremities and no focal motor deficits Speech: speech normal Psych mental status grossly normal Assessment & Plan Assessment/Plan (1) Abdominal pain: (2) Intractable low back pain: (3) Paresthesia: (4) Elevated lipase: (5) Acute hypokalemia: PLAN: Plan Patient is a 53-year-old male who presented [facility] ED on 07/05/2024 with intractable low back pain. Mild abdominal pain with distention; concern for celiac disease ? An autoimmune condition that can cause abdominal pain, bloating, diarrhea, and other digestive symptoms.?Other symptoms include muscle cramps, bone pain, joint pain, and a painful rash.?Some people with celiac disease may not have any symptoms. He has severe celiac disease by blood work due to his very high titers of IgG associated tissue transglutaminase. He equally would have high titers of tissue transglutaminase via IgA but he is IgA deficient. Celiac studies showed > 100 TTG IgG antibody, but negative TTG IgA antibody and slightly low IgA. He he is at risk for celiac disease crisis. He is also at risk for autoimmune enteropathy. He should be started on steroids. I would also check vitamin D levels because he could get bone pain due to malabsorption of fat-soluble vitamins in his small bowel. I will also check B12 and folic acid levels due to autoimmune gastritis (with antintrinsic factor and antiparietal cell antibodies) associated with celiac disease which could lead to some of his fatigue and weakness. A gluten-free diet (GFD) is the standard of care in the management of patients with celiac disease, but clinical and histological recovery are often delayed. In newly diagnosed patients, strict compliance to GFD is difficult to achieve; this is especially true in developing countries where gluten-free food is often difficult to obtain. Steroids, when used alone, can be effective in inducing recovery in patients with celiac disease.? I will start him on Solu-Medrol 40 mg in the hospital per day and transition to 40 mg/day x 1 month then 20 mg x 1 month then 10 mg x 1 month and then 5 mg x 1 month and stop. He should undergo an upper endoscopy with biopsies to establish Parker criteria for celiac disease. He should also have a capsule endoscopy as an outpatient. Lyme disease IgG antibody and total antibody positive on 07/06. Testing was obtained on admission per patient's request as family and friends had noted his symptoms could fit with Lyme disease. I do not think he has Lyme's disease. A false positive Lyme disease test can occur when the test detects antibodies that fight other bacteria or diseases, such as those caused by autoimmune disorders, rheumatologic conditions, or viral and bacterial infections. Other infections:?Acute infections, such as Betsy-Agustin virus (EBV), can cause false positives in Lyme disease tests. He should be checked for Betsy-Agustin virus with EBV IgG and IgM antibodies and PCR. He is current being treated with IV Zosyn on admission, switched to p.o. doxycycline on 07/06. 07/08/2024-his inflammatory markers in particular his ESR and CRP were significantly elevated. Also he had abnormal gastric emptying study. 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 He tolerated steroids without any problems. I will start him on low-dose of metoclopramide therapy in hopes to transition him to oral metoclopramide therapy as an outpatient and then repeat his gastric emptying study. Awaiting autoimmune workup for autoimmune enteropathy associated with severe celiac disease. Continue medical therapy. 07/09/2024-he should have his steroids switched to p.o. with prednisone 40 mg a day, Protonix 40 mg p.o. twice daily, Reglan 5 mg p.o. every 6 hours and azithromycin 500 mg daily. If he can tolerate eating a gastroparesis diet and medical therapy then he can be discharged to home. I also told his about Ensure clear and other gluten-free things that he can take it on a daily basis. He is having a very good response to medical therapy. His ESR is decreasing nicely as well as his CRP. Some of his autoimmune labs are negative but still waiting rest of the workup. He would likely need to be transitioned to either budesonide or azathioprine as an outpatient. Charges/Coding Visit Charges Inpatient E&M: 07701 Subs Hosp L3
[2024-07-09 22:00] VITALS: BP 123/94; PULSE 73; RESP 16; TEMP 36.7; O2SAT 100
[2024-07-09] MEDS: traZODone 50 MG Tablet PO (22:16)
[2024-07-09] MEDS: Acetaminophen 325 MG Tablet 650 MG PO (22:16)
[2024-07-10] MEDS: Metoclopramide 10 MG/2 ML Vial 5 MG IV ×2 (00:27→05:19)
[2024-07-10 03:26] VITALS: BP 111/73; PULSE 61; RESP 18; TEMP 36.7; O2SAT 98
[2024-07-10] MEDS: tiZANidine HCl 2 MG Tablet 4 MG PO ×2 (05:20→13:20)
[2024-07-10] MEDS: ALPRAZolam 0.25 MG Tablet 0.125 MG PO ×2 (05:20→13:20)
[2024-07-10] MEDS: Dicyclomine 10 MG Capsule PO ×2 (05:20→11:23)
[2024-07-10 09:10] VITALS: BP 121/71; PULSE 72; RESP 18; TEMP 36.7; O2SAT 98
[2024-07-10] MEDS: Azithromycin 250 MG Tablet 500 MG PO (09:10)
[2024-07-10] MEDS: Pantoprazole Sodium 40 MG Tablet PO (09:10)
[2024-07-10] MEDS: Metoclopramide 5 MG TABLET PO (11:23)
--- NOTE | 2024-07-10 12:32 | DCINST_ITS ---
Discharge Instructions Diet Discharge Diet: - (Gastroparesis diet) Activity Discharge Activity: No Restrictions Return to work on:: 07/19/24 Follow Up Care Test Results: Test results from this visit will be discussed in further detail at your follow- up appointment, if applicable. Discharge Plan Admission Admit Date/Time: 07/06/24 16:27 Primary Reason for Your Visit: Abdominal pain and back pain Attending Provider: Osmar Villeda Primary Care Provider: Lonnie Mars Instructions Additional Instructions / Restrictions: Please take all the new medications as noted below. Please note that they have been filled for 14 days each and if refills are needed, please reach out to Dr. Garcia's office and he can refill these for you.. His office will call to schedule a follow-up appointment; if they have not called by early this coming week, please call them to ensure an appointment has been scheduled. Discharge Orders/Prescriptions Prescriptions: New tizanidine 2 mg Tablet 4 mg PO TID PRN (Reason: muscle spasticity) 14 Days Qty: 28 0RF azithromycin 250 mg Tablet 500 mg PO DAILY 14 Days Qty: 28 0RF prednisone 20 mg Tablet 40 mg PO BREAKFAST 14 Days Qty: 28 0RF alprazolam 0.25 mg Tablet 0.125 mg PO TID 14 Days Qty: 21 0RF metoclopramide HCl 5 mg Tablet 5 mg PO TIDAC 14 Days Qty: 42 0RF dicyclomine 10 mg Capsule 10 mg PO TIDAC 14 Days Qty: 42 0RF trazodone 50 mg Tablet 50 mg PO QHS PRN (Reason: sleep) 14 Days Qty: 14 0RF omeprazole 20 mg capsule,delayed release(DR/EC) 20 mg PO BID 14 Days Qty: 28 0RF Continued sildenafil 50 mg tablet 50 mg PO PRN sumatriptan succinate 50 mg tablet 50 mg PO PRN PRN (Reason: migraine) Discontinued omeprazole 40 mg capsule,delayed release(DR/EC) 40 mg PO DAILY acetaminophen [Tylenol] 325 mg tablet 650 mg PO Q6H ibuprofen [Advil] 200 mg tablet 400 mg PO Q6H simethicone [Gas Relief 80 (simethicone)] 80 mg tablet,chewable 80 mg PO BID Rx Instructions: after meals sennosides-docusate sodium [Senna-S] 8.6-50 mg tablet 1 tab-cap PO DAILY polyethylene glycol 3350 [Miralax] 17 gram/dose powder 17 g PO DAILY cyclobenzaprine 10 mg tablet 10 mg PO TID PRN PRN (Reason: muscle spasm) hydrocodone-acetaminophen 5-325 mg tablet 1 tab PO Q6H PRN PRN (Reason: Pain) 3 Days Qty: 10 0RF ondansetron 4 mg tablet,disintegrating 4 mg PO Q8H PRN PRN (Reason: Nausea) Qty: 10 0RF Referrals / Follow Up: Lonnie Mars MD [Primary Care Provider] - Friend,DO Patrick [Med Staff - Active Staff] - Disposition Disposition (needs filled in before D/C Order can be placed): Home, Self Care
--- NOTE | 2024-07-10 12:38 | PCM.DC.SUM ---
Providers Date of Admission: 07/05/24 Date of Discharge: 07/10/24 Primary Care Physician: Dr. Lonnie Mars MD Consultations 07/06/24 11:33 Consult: Gastroenterology Routine Consulting Provider: [facility] Reason for Consult: persistent abd pain of unclear etiol, h/o esoph dilation w/ Kuldip EMERGENT Consult: No MD Notified: Yes Date Notified: 07/06/24 Time Notified: 11:48 Method of Notification: Text Reason For Visit: PERSISTENT ABDOMINAL PAIN W/ CONCERN FOR GASTROENT Diagnosis Discharge Diagnosis (1) Abdominal pain: Status: Acute Code(s): R10.9 - Unspecified abdominal pain (2) Intractable low back pain: Status: Acute Code(s): M54.59 - Other low back pain (3) Paresthesia: Status: Acute Code(s): R20.2 - Paresthesia of skin (4) Elevated lipase: Status: Inactive Code(s): R74.8 - Abnormal levels of other serum enzymes (5) Acute hypokalemia: Status: Acute Code(s): E87.6 - Hypokalemia Medications at Discharge Home Medications sumatriptan succinate 50 mg tablet 50 mg PO PRN PRN migraine 06/27/24 sildenafil 50 mg tablet 50 mg PO PRN 07/05/24 alprazolam 0.25 mg tablet 0.125 mg (1/2 x 0.25 mg) PO TID 14 days #21 tabs 07/10/24 azithromycin 500 mg tablet 500 mg PO DAILY 7 days #7 tabs 07/10/24 dicyclomine 10 mg capsule 10 mg PO TIDAC 14 days #42 caps 07/10/24 metoclopramide HCl 5 mg tablet 5 mg PO TIDAC 14 days #42 tabs 07/10/24 omeprazole 20 mg capsule,delayed release 20 mg PO BID 14 days #28 caps 07/10/24 prednisone 20 mg tablet 40 mg (2 x 20 mg) PO BREAKFAST 14 days #28 tabs 07/10/24 tizanidine 2 mg tablet 4 mg (2 x 2 mg) PO TID PRN muscle spasticity 14 days #28 tabs 07/10/24 trazodone 50 mg tablet 50 mg PO QHS PRN sleep 14 days #14 tabs 07/10/24 Hospital Course Operations None Procedures EGD and - (CT abdomen pelvis, lumbar spine MRI, chest x-ray, gastric emptying study) Summary of Care Provided Minutes Spent on Discharge: 35 Hospital Course: Patient is a 53-year-old male who presented [facility] ED on 07/05/2024 with intractable low back pain and abdominal pain. Hospital course as noted below. Patient discharged home in stable condition on 07/10. 1. Severe celiac disease with mild gastroparesis ? GI followed. CT abdomen pelvis showed fluid-filled bowel loops possibly concerning for gastroenteritis, though patient notably had been taking magnesium citrate. Mild leukocytosis noted and patient reported subjective fevers. Stool studies unremarkable. Celiac studies showed > 100 TTG IgG antibody which is strongly positive for celiac disease. 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 Inflammatory markers significantly elevated. EGD on 07/07 showed no significant bowel changes aside from a few small hyperplastic polyps; biopsies were obtained. 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 Treated with IV Solu-Medrol, IV Reglan, IV azithromycin, p.o. dicyclomine and p.o. Xanax with good improvement in symptoms. Discharged on prednisone, Reglan, dicyclomine, Xanax, azithromycin and omeprazole as recommended by GI. Close outpatient follow-up with GI after discharge. 2. Intractable low back pain, improved ? Suspected referred pain secondary to abdominal pain from likely celiac disease as noted below. MRI T-spine and L-spine on 07/05 were unremarkable. Started on scheduled tizanidine on admission and patient with some improvement. Most improvement was noted with treatment for celiac disease as above. Prescribed short course of tizanidine as needed on discharge. 3. Concern for Lyme disease ? Lyme disease IgG antibody and total antibody positive on 07/06. Testing was obtained on admission per patient's request as family and friends had noted his symptoms could fit with Lyme disease. Patient notably denies known tick bite or rash. Suspected that patient either had prior infection or Lyme antibodies are positive due to cross reaction; low likelihood that patient has active infection. Further lab workup pending. Doxycycline discontinued on 07/09. 4. Hypokalemia ? Potassium 3.1 on admit. Suspect due to poor p.o. intake recently. Mag and Phos normal. Repleted as needed. 5. Mild normocytic anemia ? Hemoglobin 14.2 on admit, dropped to 12.7 on hospital day 2 likely due to IV fluid resuscitation. MCV 86. Iron studies consistent with anemia of chronic disease. Hemoglobin remained stable around 13 during hospitalization. 6. Elevated lipase ? Lipase 89 in the ED on 06/27 and lipase 96 in ED on this admission. Suspect this is related to his likely celiac disease as noted above. Notably no pancreatitis findings on CT abdomen pelvis, amylase normal and lipid panel unremarkable. Total clinical time spent by myself addressing the patient's medical issues, reviewing all the data, and collaborating with patient's care team: 35 minutes. Physical Exam Const alert, oriented x3, no apparent distress and average body habitus Constitutional Narrative: Middle-age male, energy improved and comfortable appearing, sitting up in bedside chair, conversing normally, in no acute distress. Stable. General Appearance: cooperative HEENT normocephalic, head/scalp atraumatic, hearing grossly normal bilaterally and nasal mucous membranes and turbinates normal Eyes PERRL, EOMs intact bilaterally and conjunctivae normal Neck full ROM Chest inspection of chest normal Resp normal respiratory effort, normal air movement, no use of accessory muscles and clear to auscultation bilaterally Cardio regular rate, regular rhythm, no murmurs and peripheral pulses 2+ throughout GI GI Narrative: Abdomen nondistended, soft and nontender. Stable. Back/Spine Back/Spine Narrative: No significant decreased range of motion noted. No external abnormalities noted. Stable. Extremity normal to inspection, full ROM and no pedal edema Skin no rashes or lesions noted Neuro moves all extremities and no focal motor deficits Speech: speech normal Psych mental status grossly normal Weight / BMI Weight Weight: 76 kg Body Mass Index (BMI) 25.4 ABG / Lab / Microbiology Data 07/09/24 05:58 07/09/24 05:58 Laboratory: Laboratory Results - last 24 hr 07/08/24 06:45: MILDRED-1 Antibody <0.2, SS-A/Ro IgG Antibody < 0.2, SS-B/La IgG Antibody < 0.2, Sm ([place]) Antibody <0.2, HE[employer] PL[employer] MANAGER Antibody <0.2, Scl-70 Scleroderma Ab 0.2, Double Strand DNA Ab 1, Antichromatin Antibodies <0.2, Centromere B Antibody <0.2 Microbiology: Microbiology 07/05/24 04:34 Blood Culture (Wb) - Anticubital Left Blood Culture - Final No growth in 5 days. D/C Instructions Discharge Diet: - (Gastroparesis diet) Return to work on: 07/19/24 Meaningful Use Info Meaningful Use Meaningful Use Diagnoses (Choose all that apply): None applicable Ischemic Stroke Statin Dosing Therapy Reference: STATIN DOSE THERAPY REFERENCE: * Patients > 75 years receive moderate or high dose statin therapy. * Patients 75 years or YOUNGER should receive HIGH intensity statin dose unless contraindicated. You will be required to document reason for non-treatment if statin daily dose does not meet guidelines. HIGH DOSE STATIN THERAPY DAILY Atorvastatin > than or = to 40 mg Rosuvastatin > than or = to 20 mg Amlodipine + Atorvastatin > than or = to 2.5/40 mg Ezetimibe + Simvastatin 10/80 mg Simvastatin 80mg Discharge Plan Admission Admit Date/Time: 07/06/24 16:27 Primary Reason for Your Visit: Abdominal pain and back pain Attending Provider: Osmar Villeda Primary Care Provider: Lonnie Mars Instructions Forms: Work / School Excuse Additional Instructions / Restrictions: Please take all the new medications as noted below. Please note that they have been filled for 14 days each and if refills are needed, please reach out to Dr. Garcia's office and he can refill these for you.. His office will call to schedule a follow-up appointment; if they have not called by early this coming week, please call them to ensure an appointment has been scheduled. Discharge Orders/Prescriptions Prescriptions: New tizanidine 2 mg Tablet 4 mg PO TID PRN (Reason: muscle spasticity) 14 Days Qty: 28 0RF prednisone 20 mg Tablet 40 mg PO BREAKFAST 14 Days Qty: 28 0RF alprazolam 0.25 mg Tablet 0.125 mg PO TID 14 Days Qty: 21 0RF metoclopramide HCl 5 mg Tablet 5 mg PO TIDAC 14 Days Qty: 42 0RF dicyclomine 10 mg Capsule 10 mg PO TIDAC 14 Days Qty: 42 0RF trazodone 50 mg Tablet 50 mg PO QHS PRN (Reason: sleep) 14 Days Qty: 14 0RF omeprazole 20 mg capsule,delayed release(DR/EC) 20 mg PO BID 14 Days Qty: 28 0RF azithromycin 500 mg tablet 500 mg PO DAILY 7 Days Qty: 7 0RF Continued sildenafil 50 mg tablet 50 mg PO PRN sumatriptan succinate 50 mg tablet 50 mg PO PRN PRN (Reason: migraine) Discontinued omeprazole 40 mg capsule,delayed release(DR/EC) 40 mg PO DAILY acetaminophen [Tylenol] 325 mg tablet 650 mg PO Q6H ibuprofen [Advil] 200 mg tablet 400 mg PO Q6H simethicone [Gas Relief 80 (simethicone)] 80 mg tablet,chewable 80 mg PO BID Rx Instructions: after meals sennosides-docusate sodium [Senna-S] 8.6-50 mg tablet 1 tab-cap PO DAILY polyethylene glycol 3350 [Miralax] 17 gram/dose powder 17 g PO DAILY cyclobenzaprine 10 mg tablet 10 mg PO TID PRN PRN (Reason: muscle spasm) hydrocodone-acetaminophen 5-325 mg tablet 1 tab PO Q6H PRN PRN (Reason: Pain) 3 Days Qty: 10 0RF ondansetron 4 mg tablet,disintegrating 4 mg PO Q8H PRN PRN (Reason: Nausea) Qty: 10 0RF Referrals / Follow Up: Lonnie Mars MD [Primary Care Provider] - Patrick Garcia DO [Med Staff - Active Staff] - Disposition Disposition (needs filled in before D/C Order can be placed): Home, Self Care Charges/Coding Visit Charges Inpatient E&M: 63861 Disch Hosp >30min
[2024-07-10 13:22] VITALS: BP 120/87; PULSE 72; RESP 18; TEMP 36.6; O2SAT 100
[2024-07-12 14:08] LABS: IgG, Quant 952 mg/dL (603-1613); Immunoglobulin G, Subclass 1 480 mg/dL (248-810); Immunoglobulin G, Subclass 2 359 mg/dL (130-555); Immunoglobulin G, Subclass 3 70 mg/dL (15-102); Immunoglobulin G, Subclass 4 21 mg/dL (2-96)
[2024-07-12 17:07] LABS: ACCA 15 units (0-90); ALCA 4 units (0-60); AMCA 46 units (0-100); Albumin 3.2 g/dL (2.9-4.4); Alpha-1-Globulins 0.4 g/dL (0.0-0.4); Alpha-2-Globulins 1.1 g/dL (0.4-1.0); Chromogranin A 61.7 ng/mL (0.0-101.8); Cytoplasmic Ab (C-ANCA) <1:20 titer (Neg:<1:20); Gastrin, Serum 52 pg/mL (0-115); Immunoglobulin A 72 mg/dL (90-386); Immunoglobulin G 931 mg/dL (603-1613); Immunoglobulin M 220 mg/dL (20-172); PROEL- TOTAL PROTEIN 6.5 g/dL (6.0-8.5); Perinuclear Ab (P-ANCA) <1:20 titer (Neg:<1:20); gASCA 27 units (0-50)
== END 2024-07-10 14:12 | disposition home or self-care (01) | DRG 392 ==
LOC: ED 04:10 → PCU 10:43
PROVIDERS: Internal Medicine Gastroenterology; Admitting Provider Hospitalist; Emergency Provider Emergency Medicine; PCP Family Medicine; Visit Provider Hospitalist
PROC: 0DJ08ZZ Inspection of Upper Intestinal Tract, Via Natural or Artificial Opening Endoscopic (ICD-10-PCS; CPT 43235; principal; 2024-07-07 13:10)
DX: K90.0 Celiac disease (principal); D63.8 Anemia in other chronic diseases classified elsewhere; E87.6 Hypokalemia; K31.7 Polyp of stomach and duodenum; K31.84 Gastroparesis; K21.9 Gastro-esophageal reflux disease without esophagitis; R20.2 Paresthesia of skin; M54.59 Other low back pain; A69.20 Lyme disease, unspecified
CPT/HCPCS: 43239; 36415; 71045; 72148; 74177; 78264; 80048; 80053; 80061; 80076; 81001; 82150; 82384; 82607; 82728; 82746; 82784; 82787; 82941; 83516; 83540; 83550; 83690; 83735; 83993; 84100; 84165; 85025; 85027; 85652; 86036; 86140; 86225; 86235; 86255; 86256; 86316; 86334; 86618; 86671; 87040; 88305; 88312; 96365; 96366; 96367; 96372; 96375; 96376; 97802; 97803; 99221; 99285; A9541; Q9967; A4216; G0378; J2405

== ENCOUNTER → 2024-07-20 | Outpatient (CLI) | payer OTHER, SELFPAY ==
[2024-07-20 15:39] LABS: Erythrocyte Sedimentation Rate 2 mm/hr (0-20)
[2024-07-20 16:05] LABS: CRP < 2.90 mg/L (0.0-3.0)
[2024-07-22 16:11] LABS: Endomysial Antibody IgA Negative (Negative); Immunoglobulin A 74 mg/dL (90-386); t-Transglutaminase IgA <2 U/mL (0-3)
== END | disposition home or self-care (01) ==
LOC: LAB 14:36
PROVIDERS: PCP Family Medicine; Referring Provider Student in an Organized Health Care Education/Training Program; Visit Provider Student in an Organized Health Care Education/Training Program
DX: K90.0 Celiac disease (principal)
CPT/HCPCS: 36415; 82784; 83516; 85652; 86140; 86255

== ENCOUNTER → 2024-08-05 | Outpatient (CLI) | payer OTHER, SELFPAY ==
--- NOTE | 2024-08-05 13:07 | RAD_ITS ---
INDICATION: agile capsule EXAMINATION/TECHNIQUE: X-RAY - XR Abdomen 1 View COMPARISON: No relevant prior comparison study available FINDINGS: BOWEL GAS PATTERN: Non-obstructive. No bowel or stomach distention. There is a radiopaque capsule overlying the right upper quadrant of the abdomen. FREE AIR: Not assessed on a single supine view. ORGANOMEGALY: Not seen. CALCIFICATIONS: No abnormal calcifications observed. LOWER CHEST: No acute pathology. BONES AND SOFT TISSUES: No acute pathology. RAD/Abdomen Single View IMPRESSION: Radiopaque capsule overlies the right upper quadrant of the abdomen. Exact location difficult to define on these images. This could be at the hepatic flexure of the colon or in the small bowel in this region. Electronically Signed: Michael Olivera MD at 23:56 EDT ,
== END | disposition home or self-care (01) ==
PROVIDERS: PCP Family Medicine; Referring Provider Student in an Organized Health Care Education/Training Program; Visit Provider Student in an Organized Health Care Education/Training Program
DX: K31.84 Gastroparesis (principal)
CPT/HCPCS: 74018

== ENCOUNTER → 2024-08-30 | Outpatient (CLI) | payer OTHER, SELFPAY | END | disposition home or self-care (01) | LOC: NM 09:57 | PROVIDERS: PCP Family Medicine; Referring Provider Student in an Organized Health Care Education/Training Program; Visit Provider Student in an Organized Health Care Education/Training Program | DX: K31.84 Gastroparesis (principal) | CPT/HCPCS: 78264; A9541 ==

== ENCOUNTER → 2024-09-06 | Outpatient (CLI) | payer OTHER, SELFPAY ==
--- NOTE | 2024-09-06 09:10 | MRI_ITS ---
INDICATION: K90.0 - Celiac disease EXAMINATION: MRI - MR Enterography Abdomen/Pelvis WO/W Contrast TECHNIQUE: Multiplanar and multisequence MR images of the abdomen were obtained. IV Contrast Dosage and Agent: 14 cc clariscan COMPARISON: CT scan of the abdomen and pelvis of 07/05/2024 FINDINGS: The examination is tailored to evaluate the GI tract. GI TRACT: Normal in caliber, mucosal pattern and distribution of small bowel loops without evidence of dilatation of small bowel obstruction. Unremarkable terminal ileum without evidence of inflammatory changes or thickening. The colon is nondistended. No focal inflammatory process is seen. Additional findings: LOWER CHEST: Grossly unremarkable. LIVER: Small cysts in the visualized portions of the liver. GALLBLADDER AND BILIARY TREE: No definite gallstones. No intra- or extrahepatic biliary ductal dilation. PANCREAS: No focal cystic or solid mass. SPLEEN: Not enlarged. ADRENAL GLANDS: No nodules. KIDNEYS AND URETERS: No evidence of hydronephrosis. PERITONEUM: No ascites . LYMPH NODES: No enlarged mesenteric or retroperitoneal lymph nodes. VESSELS: Aorta is non-dilated. MRI/Enterography Abd/Pel IMPRESSION: Normal in caliber small bowel loops and colon without evidence of inflammatory changes Electronically Signed: Vic Lizarraga MD at 11:29 EST ,
[2024-09-06 10:06] VITALS: BP 119/85; PULSE 68; RESP 18; O2SAT 97; BMI 24.0
[2024-09-06] MEDS: Glucagon 1 MG/ML Syringe IV (12:05)
[2024-09-06] MEDS: 0.9% Saline Lock 10 ML Syringe IV (12:07)
[2024-09-06 12:23] VITALS: BP 132/84; PULSE 86; RESP 18; O2SAT 99
== END | disposition home or self-care (01) ==
LOC: MRI 09:07
PROVIDERS: PCP Family Medicine; Referring Provider Student in an Organized Health Care Education/Training Program; Visit Provider Student in an Organized Health Care Education/Training Program
DX: K90.0 Celiac disease (principal)
CPT/HCPCS: 74183; 96374; A9575; A4216; J1610

== ENCOUNTER → 2025-02-03 | Outpatient (CLI) | payer OTHER, SELFPAY ==
[2025-02-08 07:07] LABS: Deamidated Gliadin IgA 4 units (0-19); Deamidated Gliadin IgG 3 units (0-19); Endomysial Antibody IgA Negative (Negative); Immunoglobulin A 54 mg/dL (90-386); t-Transglutaminase IgA <2 U/mL (0-3)
== END | disposition home or self-care (01) ==
LOC: LAB 15:57
PROVIDERS: PCP Family Medicine; Referring Provider Internal Medicine Gastroenterology; Visit Provider Internal Medicine Gastroenterology
DX: K31.84 Gastroparesis (principal); K90.0 Celiac disease; K21.9 Gastro-esophageal reflux disease without esophagitis
CPT/HCPCS: 36415; 82784; 83516; 86255

== ENCOUNTER 2025-08-16 07:44 | Outpatient (CLI) | payer OTHER, SELFPAY ==
--- OUTSIDE RECORDS SUMMARY | 2025-08-16 08:08 | XMS RPT_ITS | CCD ---
Author Organization [facility] Care Team Providers Care Hand Booked Folder And Stitcher Name Role Phone Cora Mars MD Primary Care Provider CORA MARS Consulting Unavailable LACIE VALENTINO MD Attending Unavailable LACIE VALENTINO MD Primary Care Unavailable LACIE VALENTINO MD Admitting Unavailable PROVIDER, UNKNOWN Consulting Unavailable Cora Mars MD Primary Care Provider MONI RIBEIRO Referring Unavailable CORA MARS Primary Care Unavailable CORA MARS Attending Unavailable CORA MARS Primary Care Unavailable CORA MARS Attending Unavailable CORA MARS Primary Care Unavailable CORA MARS Primary Care Unavailable CORA MARS Attending Unavailable CORA MARS Primary Care Unavailable PAU NICHOLS Referring Unavailable CORA MARS Primary Care Unavailable PAU NICHOLS Referring Unavailable PAU NICHOLS Attending Unavailable CORA MARS Primary Care Unavailable Quintin MANAGER HOME [employer].Moni BELL Unavailable [phone] Blake MANAGER HOME [employer]ALTHCARE.Leighton BELL Unavailable [phone] Dr. Cora Mars MD Primary Care Provider Friend Dr. Patrick UNDERWOOD Attending Provider Friend Dr. Patrick UNDERWOOD Referring Provider Patrick Garcia Referring Unavailable Patrick Garcia Attending Unavailable Cora Mars Primary Care Unavailable Emma Wallace Referring Unavailable Emma Wallace Attending Unavailable Cora Mars Primary Care Unavailable Kofi Posada Attending Unavailable Cora Mars Primary Care Unavailable Osmar Villeda Admitting Unavailable Osmar Villeda Attending Unavailable Osmar Villeda Consulting Unavailable Cora Mars Primary Care Unavailable Emma Wallace Attending Unavailable Jerad, Cora Primary Care Unavailable Elderrajat, Cora Referring Unavailable FriendPatrick Attending Unavailable Jerad, Cora Primary Care Unavailable Elderrajat, Cora Referring Unavailable Emma Wallace Attending Unavailable Emma Wallace Referring Unavailable Elderrajat, Cora Primary Care Unavailable Osmar Villeda Admitting Unavailable Elderrajat, Cora Primary Care Unavailable Osmar Villeda Attending Unavailable Friend, Patrick Attending Unavailable Elderrajat, Cora Primary Care Unavailable Elderrajat, Cora Referring Unavailable Friend, Patrick Attending Unavailable Osmar Villeda Referring Unavailable Provider, Ed Physician Attending Unavailab le Elderrajat, Cora Primary Care Unavailable Emma Wallace Referring Unavailable Emma Wallace Attending Unavailable Jerad, Cora Primary Care Unavailable Emma Wallace Referring Unavailable Emma Wallace Attending Unavailable Elderrajat, Cora Primary Care Unavailable Osmar Villeda Attending Unavailable Osmar Villeda Consulting Unavailable Osmar Villeda Admitting Unavailable Jerad, Cora Primary Care Unavailable Friend, Patrick Attending Unavailable Osmar Villeda Referring Unavailable Elderrajat, Cora Primary Care Unavailable Medications Current Medications Medication Drug Class(es) Dates Sig (Normalized) Sig (Original) ALPRAZolam 0.25 mg oral tablet (6 sources) Benzodiazepine Start: 07-10-2024 End: 09-06-2024 take 0.125 mg by mouth every eight hours as needed ALPRAZolam (XANAX) 0.25 mg tablet Take 0.125 mg by mouth three times a day as needed. 07/10/2024 Active azithromycin 500 mg oral tablet (6 sources) Macrolide Antimicrobial Start: 07-10-2024 End: 09-06-2024 take 1 tablet by mouth once daily azithromycin (ZITHROMAX) 500 mg tablet Take 500 mg by mouth once daily. 07/10/2024 Active betamethasone 0.5 mg/ml / clotrimazole 10 mg/ml topical cream (20 sources) Azole Antifungal, Corticosteroid Start: 04-23-2022 End: 03-24-2023 clotrimazole-betame thasone (LOTRISONE) cream Indications: Dermatitis Apply to affected area twice daily. 30 g 2 03/24/2023 Active Comment on above: Apply to affected ar ea twice daily. cyclobenzaprine hydrochloride 10 mg oral tablet (12 sources) Muscle Relaxant Start: 06-24-2024 End: 07-10-2024 take 1 tablet by mouth every eight hours as needed cyclobenzaprine (FLEXERIL) 10 mg tablet Take 1 tablet by mouth three times a day as needed for muscle spasm. 30 tablet 1 06/24/2024 Active dicyclomine hydrochloride 10 mg oral capsule (6 sources) Anticholinergic Start: 07-10-2024 End: 09-06-2024 take 1 capsule by mouth three times daily at mealtime dicyclomine (BENTYL) 10 mg capsule Take 10 mg by mouth three times a day with meals. 07/10/2024 Active docusate sodium 50 mg / sennosides, halfway 8.6 mg oral tablet (6 sources) Start: 07-16-2024 take 1 tablet by mouth once as needed for constipation senna-docusate (SENNA-S) 8.6-50 mg per tablet Take 1 tablet by mouth as needed for constipation. 07/16/2024 Active Start: 07-05-2024 End: 07-10-2024 Sennosides-Docusate Sodium ( Senna-S) 8.6-50 mg tablet Discontinued 1 NMA PO DAILY July 05, 2024 12:00am July 10, 2024 12:35pm magnesium citrate 58.2 mg/ml oral solution (10 sources) Start: 06-29-2024 magnesium citrate solution Indications: Acute constipation Drink 1/3 of bottle, wait 4hrs for results. If no stool, drink next 1/3 bottle. Wait 4hrs. No results, then drink last 1/3 of bottle. For severe constipation. 06/29/2024 Active metoclopramide 5 mg oral tablet (8 sources) Dopamine-2 Receptor Antagonist Start: 07-10-2024 End: 09-01-2024 take 1 tablet by mouth three times daily at mealtime metoclopramide HCl (REGLAN) 5 mg tablet Take 5 mg by mouth three times a day with meals. 07/10/2024 Active omeprazole 20 mg delayed release oral capsule (20 sources) Proton Pump Inhibitor Start: 07-10-2024 End: 09-06-2024 take 1 capsule by mouth twice daily Omeprazole 20 mg capsule,delayed release(DR/EC) Active 20 mg PO TWICE A DAY 180 September 06, 2024 9:47am Start: 10-15-2021 End: 07-10-2024 take 1 capsule by mouth once daily Omeprazole 40 mg capsule,delayed release(/SHAI) Discontinued 40 mg PO DAILY July 05, 2024 12:00am July 10, 2024 12:34pm Comment on above: TAKE 1 CAPSULE DAILY BEFORE EATING Take 1 capsule by mo ut daily before breakfast. polyethylene glycol 3350 82847 mg powder for oral solution (6 sources) Osmotic Laxative Start: 07-16-2024 polyethylene glycol 3350 (MIRALAX) 17 gram/dose powder Take 17 g by mouth as needed for constipation. Dissolve dose in 4 - 8 ounces of liquid and take as directed. 07/16/2024 Active Start: 07-05-2024 End: 07-10-2024 Polyethylene Glycol 3350 (Mi ralax) 17 gram/dose powder Discontinued 17 g PO DAILY July 05, 2024 12:00am July 10, 2024 12:34pm predniSONE 10 mg oral tablet (6 sources) Start: 09-09-2024 take 3 tablets by mouth once daily Prednisone 10 mg tablet Active 30 mg PO daily September 09, 2024 1:00am Start: 09-06-2024 End: 09-09-2024 Prednisone 20 mg tablet Discontinued 30 mg PO WITH BREAKFAST September 06, 2024 1:00am September 09, 2024 9:29am Start: 08-02-2024 End: 09-01-2024 take 3 tablets by mouth once daily Prednisone 10 mg tablet Discontinued 30 mg PO daily August 02, 2024 12:00am August 31, 2024 1:00am September 01, 2024 1:08am Start: 07-10-2024 End: 09-06-2024 take 2 tablets by mouth at breakfast Prednisone 20 mg tablet Discontinued 40 mg PO WITH BREAKFAST September 06, 2024 9:47am September 06, 2024 11:04am sildenafil 50 mg oral tablet (20 sources) Phosphodiesterase 5 Inhibitor Start: 04-15-2025 sildenafil (VIAGRA) 50 mg tablet Indications: ED (erectile dysfunction) of organic origin Take 1 tablet by mouth as needed. 18 tablet 3 04/15/2025 Active Start: 08-15-2023 End: 12-01-2024 Sildenafil 50 mg tablet Acti ve 50 mg PO NEEDED July 05, 2024 12:00am Start: 10-16-2021 sildenafil ( AGRA) 50 mg tablet Indications: ED (erectile dysfunction) of organic origin Take 1 tablet by mouth as needed. 18 tablet 3 10/16/2021 Active Comment on above: Take 1 tablet by luciano th as needed. SUMAtriptan 50 mg oral tablet (20 sources) Serotonin-1b and Serotonin-1d Receptor Agonist Start: 10-16-20 End: 06-10-20 SUMAtriptan (IMITREX) 50 mg tablet Indications: Migraine without status migrainosus, not intractable, unspecified migraine type Take 1 tablet by mouth as needed for migraine headache (see administration instructions) for up to 28 days. 18 tablet 3 05/13/2025 06/10/2025 Active Comment on above: Take 1 tablet by luciano th as needed for migraine headache (see administration instructions) for up to 28 days. Take 50 mg by mouth as needed. tiZANidine 2 mg oral tablet (6 sources) Central alpha-2 Adrenergic Agonist Start: 07-10-20 take 1 tablet by mouth every eight hours as needed tiZANidine (ZANAFLEX) 2 mg tablet Take 2 mg by mouth three times a day as needed. 07/10/2024 Active traZODone hydrochloride 50 mg oral tablet (6 sources) Serotonin Reuptake Inhibitor Start: 07-10-20 take 1 tablet by mouth once daily at bedtime traZODone (DESYREL) 50 mg tablet Take 50 mg by mouth daily at bedtime. 07/10/2024 Active Completed/Discontinued Medications Medication Drug Class(es) Dates Sig (Normalized) Sig (Original) acetaminophen 325 mg oral tablet (1 source) Start: 07-05-2024 End: 07-10-2024 take 2 tablets by mouth every six hours Acetaminophen (Tylenol) 325 mg tablet Discontinued 650 mg PO EVERY 6 HOURS July 05, 2024 12:00am July 10, 2024 12:33pm acetaminophen 325 mg / HYDROcodone bitartrate 5 mg oral tablet (1 source) Opioid Agonist Start: 06-27-2024 End: 07-10-2024 Hydrocodone-Aceta minophen 5-325 mg tablet Discontinued 1 {tbl} PO EVERY 6 HOURS NEEDED as needed for Pain 10 June 27, 2024 July 10, 2024 12:34pm ibuprofen 200 mg oral tablet (1 source) Nonsteroidal Anti-inflammatory Drug Start: 07-05-2024 End: 07-10-2024 take 2 tablets by mouth every six hours Ibuprofen (Advil) 200 mg tablet Discontinued 400 mg PO EVERY 6 HOURS July 05, 2024 12:00am July 10, 2024 12:34pm ondansetron 4 mg disintegrating oral tablet (1 source) Serotonin-3 Receptor Antagonist Start: 06-27-2024 End: 07-10-2024 take 1 tablet by mouth every eight hours as needed for nausea Ondansetron 4 mg tablet,disintegra ting Discontinued 4 mg PO EVERY 8 HOURS NEEDED as needed for Nausea June 27, 2024 12:00am July 10, 2024 12:34pm simethicone 80 mg chewable tablet (1 source) Start: 07-05-2024 End: 07-10-2024 Simethicone (Gas Relief 80 (Simethicone)) 80 mg tablet,chewable Discontinued 80 mg PO TWICE A DAY July 05, 2024 12:00am July 10, 2024 12:35pm after meals tadalafil 10 mg oral tablet (5 sources) Phosphodiesterase 5 Inhibitor Start: 01-23-2021 End: 11-20-2023 Tadalafil (CIALIS) 10 mg tablet Indications: ED (erectile dysfunction) of organic origin Take 1 tablet by mouth as needed. Take one pill 30-60 minutes prior to sexual activity 18 tablet 3 01/23/2021 11/20/2023 Discontinued Comment on above: Take 1 tablet by [facility] as needed. Take one pill 30-60 minutes prior to sexual activity Problems Active Problems Problem Classification Problem Date Documented Da te Episodic/Chronic Abdominal pain (8 sources) Abdominal pain; Translations: [Unspecified abdominal pain] Onset: 4 06-22-2024 Episodic Allergic reactions (2 sources) Inflammatory dermatosis; Translations: [Dermatitis, unspecified] Episodic Disorders of lipid metabolism (1 source) Hyperlipidemia; Translations: [Hyperlipidemia, unspecified] 11-20-2023 Chronic Esophageal disorders (20 sources) Gastroesophageal reflux disease; Translations: [Gastro-esophageal reflux disease without esophagitis] Onset: 2 10-30-2011 Chronic Fluid and electrolyte disorders (2 sources) Acute hypokalemia; Translations: [Hypokalemia] Onset: 5 07-18-2024 Episodic Genitourinary symptoms and ill-defined conditions (2 sources) Abnormal urine; Translations: [Unspecified abnormal findings in urine] Onset: 4 06-29-2024 Episodic Headache; including migraine (20 sources) Migraine; Translations: [Migraine, unspecified, not intractable, without status migrainosus] Onset: 2 10-30-2011 Chronic Noninfectious gastroenteritis (1 source) Noninfective gastroenteritis and colitis, unspecified; Translations: [Other and unspecified noninfectious gastroenteritis and colitis] 07-16-2024 Episodic Other disorders of stomach and duodenum (2 sources) Gastroparesis syndrome; Translations: [Gastroparesis] 07-16-2024 Episodic Other disorders of stomach and duodenum (1 source) Gastroparesis; Translations: [Gastroparesis] Onset: 5 Episodic Other gastrointestinal disorders (2 sources) Celiac disease; Translations: [Celiac disease] 07-16-2024 Chronic Other gastrointestinal disorders (1 source) Celiac disease; Translations: [Celiac disease] Onset: 4 Chronic Other gastrointestinal disorders (1 source) Acute constipation; Translations: [Constipation, unspecified] 06-29-2024 Episodic Other gastrointestinal disorders (1 source) Constipation, unspecified; Translations: [Acute constipation] Onset: 4 Episodic Other liver diseases (1 source) High lipase level in serum; Translations: [Abnormal levels of other serum enzymes] 07-05-2024 Episodic Other liver diseases (1 source) Abnormal levels of other serum enzymes; Translations: [Abnormal levels of other serum enzymes] Onset: 5 Episodic Other male genital disorders (2 sources) Secondary erectile dysfunction; Translations: [Male erectile dysfunction, unspecified] 03-25-2024 Chronic Other nervous system disorders (1 source) Paresthesia; Translations: [Paresthesia of skin] 07-18-2024 Episodic Other screening for suspected conditions (not mental disorders or infectious disease) (1 source) Patient encounter status; Translations: [Encounter for screening for malignant neoplasm of prostate] 11-20-2023 Episodic Residual codes; unclassified (1 source) Family history of prostate cancer; Translations: [Family history of malignant neoplasm of prostate] 11-20-2023 Episodic Spondylosis; intervertebral disc disorders; other back problems (7 sources) Acute low back pain; Translations: [Acute low back pain, unspecified back pain laterality, unspecified whether sciatica present] Onset: 4 06-29-2024 Episodic Unclassified (1 source) Acute low back pain, unspecified back pain laterality, unspecified whether sciatica present; Translations: [Acute low back pain, unspecified back pain laterality, unspecified whether sciatica present] Onset: 4 Unclassified (1 source) Other low back pain; Translations: [Other low back pain] Onset: 5 Viral infection (1 source) Viral disease; Translations: [Viral infection, unspecified] 06-22-2024 Episodic Past or Other Problems Problem Classification Problem Date Documented Da te Episodic/Chronic Other nervous system disorders (1 source) Paresthesia of skin; Translations: [Paresthesia of skin] Onset: 07-13-2024 Episodic Results Test Name Value Interpretation Reference Range Facility Gastroenterology Visit Repor ton 02-11-2025 Gastroenterology Visit Report [facility] Gastroenterology [address] [place] [address] OFFICE VISIT Date of Service: 02/11/25 MR#: [id number] Acct: [id number] Name: FEDE TURCIOS Rep #: [id number] : 1970 Provider: Patrick Garcia DO Age/Sex: 54/M Location: [facility] Status: Signed Intake Vital Signs 09/06/24 10:06 Height 5 ft 8 in Intake Visit Reasons: FU Allergies No Known Allergies Allergy (Verified 07/20/24 13:36) Medications ???Medication ???Instructions ???Recorded ???Confirmed ???Type sumatriptan succinate 50 mg tablet 50 mg PO PRN PRN migraine 02/11/25 History sildenafil 50 mg tablet 50 mg PO PRN 07/05/24 02/11/25 His tory tizanidine 2 mg tablet 4 mg (2 x 2 mg) PO TID PRN muscle 07/10/24 02/11/25 Rx spasticity 14 days #28 tabs trazodone 50 mg tablet 50 mg PO QHS PRN sleep 14 days #14 07/10/24 02/11/25 Rx tabs omeprazole 20 mg capsule,delayed 20 mg PO BID 3 months #180 caps 02/11/25 Rx release PFSH Medical History GERD (gastroesophageal reflux disease) Surgical History H/O vasectomy S/P dilatation of esophageal stricture Hx of elbow surgery Social History Smoking Status: Never smoker alcohol intake: current alcohol intake frequency: a few times a month HPI HPI Details: FEDE TURCIOS, is a 54 M who presents to the office today for follow up. EGD 07.07.24 Z-line irregular, 39 cm from the incisors. Biopsied. A few gastric polyps. No gross lesions in the second portion of the duodenum. Biopsied. GET 9..24 abnormal 147 minutes GET 11..24 abnormal 59.50 minutes OV 11..24 pt reports that his MRI is scheduled for today after this appt. Pt reports that he is feeling well, occasionally will have some breakthrough HB, but that omeprazole seems to be effective. MREnterography 09.06.24 Normal in caliber small bowel loops and colon without evidence of inflammatory changes OV 4.25.25 pt reports that he is feeling well overall and denies GI symptoms of concern at this time. Continues with Omeprazole 20mg BID. ROS Const Constitutional: No fatigue, fever(s) or weight change ENT ENT: No difficulty swallowing Gastro GI: No abdominal pain, belching, bloating, change in bowel habits, change in stool character, coffee ground emesis, constipation, cramping, diarrhea, heartburn, difficulty swallowing, feeling full early, excessive flatus, incontinent of stools, Vomiting blood/hematemesis, Blood in stool, loose stools, Black,tarry stools, nausea/dyspepsia, pain with swallowing, vomiting or other Musc Musculoskeletal: No joint pain Skin Skin: No yellowing of the eye or itchy eyes Psych Psychiatric: No anxiety and No depression Endo Endocrine: No fatigue or weight change Aller/Imm Allergy/Immunologic: No itchy eyes Socrates/Lymp Hematologic/Lymphatic: No easy bleeding or easy bruising Exam Const General: cooperative and comfortable Nutritional Appearance: average body habitus and well nourished HENMT Head: normal to inspection Ears: hearing grossly normal bilaterally Nose: external nose normal Face and sinus: normal facial exam Eyes General: appearance normal, both eyes and all related structures Neck Neck: normal visual inspection Chest Chest palpation inspection: normal inspection of the chest Resp Effort Inspection: normal respiratory effort GI Inspection: normal to inspection Palpation: no hepatosplenomegaly Skin General: no rashes or lesions noted Neuro General: patient alert Extrem General: normal to inspection Psych Affect: normal affect Assessment and Plan Assessment and Plan (1) Celiac disease: Status: Acute Plan: Pt is a 53 yo male here for f/u after [facility] admission for severe celiac disease. Since his discharge he has been doing better adhering to a gluten free diet. He continues taking PPI BID, prednisone 40 mg daily, reglan 5 mg TID, dicyclomine 10mg TID, and alprazolam .125 mg TID. He does not like being on medications and has questions about discontinuing any of them. I let him know he may decrease both the dicyclomine and alprazolam if he feels he does ok with out it. He will need to continue the reglan for at least 8 weeks as his gastroparesis was so severe. We will then order another GES to asses if his motility has improved after the course. He underwent another gastric emptying study and it shows drastic improvement along with his tissue transglutaminase improving to 64 and now it is down to 7. He underwent a agile capsule and it got stuck in his small bowel. Therefore did not undergo the real video capsule. We will have him follow-up after he undergoes MR ent (more content not included)... Normal [facility] Celiac AB,Comprehensiveon ANTIGLIADIN IGA 4 units Normal 0-19 [facility] Comment on above: Result Comment: Nega tive 0 - 19 Weak Positive 20 - 30 Moderate to Strong Positive >30 Performed By: #### L 3410.2350 #### [facility] [address] [place], [address] ANTIGLIADIN IGG 3 units Normal 0-19 [facility] Comment on above: Result Comment: Nega tive 0 - 19 Weak Positive 20 - 30 Moderate to Strong Positive >30 Performed By: #### L 3410.2350 #### [facility] [address] [place], [address] ENDOMYSIAL IGA Negative Normal Negative [facility] Comment on above: Performed By: #### L 3410.2350 #### [facility] [address] [place], [address] IMMUNOGLOB A QN 54 mg/dL Low 90-386 [facility] Comment on above: Result Comment: Perf ormed at: [facility] [id number] Sound Engineer: Ayaan Zaldivar PhD, Phone: [phone] Performed By: #### L [id number] #### [facility] [address] [place], [address] tTG IGA <2 Normal 0-3 [facility] Comment on above: Result Comment: Nega tive 0 - 3 Weak Positive 4 - 10 Positive >10 Tissue Transglutaminase (tTG) has been identified as the endomysial antigen. Studies have demonstr- ated that endomysial IgA antibodies have over 99% specificity for gluten sensitive enteropathy. Performed By: #### L 3410.2350 #### [facility] [address] [place], [address] tTG IGG 7 U/mL Abnormal 0-5 [facility] Comment on above: Result Comment: Nega tive 0 - 5 Weak Positive 6 - 9 Positive >9 Performed By: #### L 3410.2350 #### [facility] [address] [place], [address] Deamidated gliadin IgA antib rosalva assayOrdered By: Patrick Garcia on 02-03-2025 Anti-Gliadin IgA Antibody 4 units 0-19 [facility] Comment on above: Negative 0 - 19 Weak Positive 20 - 30 Moderate to Strong Positive >30 Deamidated gliadin IgG antib rosalva assayOrdered By: Patrickdaiana Garcia on 02-03-2025 Anti-Gliadin IgG Antibody 3 units 0-19 [facility] Comment on above: Negative 0 - 19 Weak Positive 20 - 30 Moderate to Strong Positive >30 Endomysial IgA antibody assa yOrdered By: Patrickdaiana Garcia on 02-03-2025 Endomysial IgA Antibody Negative Negative [facility] No Panel InformationOrdered By: Patrickdaiana Garcia on 02-03-2025 Tissue Transglutaminase IgG Ab 7 U/mL High 0-5 [facility] Comment on above: Negative 0 - 5 Weak Positive 6 - 9 Positive >9 Serum immunoglobulin A measu rementOrdered By: Patrickdaiana Garcia on 02-03-2025 Immunoglobulin A 54 mg/dL Low 90-386 [facility] Comment on above: Performed at: [place] [id number] Director: Ayaan Zaldivar PhD, Phone: [phone] tTG IgA Qn (S)Ordered By: Ra maryjane Garcia on 02-03-2025 Tissue Transglutaminase IgA Ab <2 U/mL 0-3 [facility] Comment on above: Negative 0 - 3 Weak Positive 4 - 10 Positive >10 Tissue Transglutaminase (tTG) has been identified as the endomysial antigen. Studies have demonstr- ated that endomysial IgA antibodies have over 99% specificity for gluten sensitive enteropathy. Enterography Abd/Robert 09-06 Enterography Abd/Pel [facility] [address] [place] [id number] Enterography Abd/Pel MR#: [id number] Acct: [id number] Name: FEDE TURCIOS Rep #: [id number] : 1970 M 54 From: Vic Enriquez PCP: Dr. Cora Mars MD Status: REG CLI Study: Enterography Abd/Pel Date of Exam: 09/06/24 Exam# [id number] Ordering Dr: Emma Wallace PA [id number] INDICATION: K90.0 - Celiac disease EXAMINATION: MRI - MR Enterography Abdomen/Pelvis WO/W Contrast TECHNIQUE: Multiplanar and multisequence MR images of the abdomen were obtained. IV Contrast Dosage and Agent: 14 cc clariscan COMPARISON: CT scan of the abdomen and pelvis of 07/05/2024 FINDINGS: The examination is tailored to evaluate the GI tract. GI TRACT: Normal in caliber, mucosal pattern and distribution of small bowel loops without evidence of dilatation of small bowel obstruction. Unremarkable terminal ileum without evidence of inflammatory changes or thickening. The colon is nondistended. No focal inflammatory process is seen. Additional findings: LOWER CHEST: Grossly unremarkable. LIVER: Small cysts in the visualized portions of the liver. GALLBLADDER AND BILIARY TREE: No definite gallstones. No intra- or extrahepatic biliary ductal dilation. PANCREAS: No focal cystic or solid mass. SPLEEN: Not enlarged. ADRENAL GLANDS: No nodules. KIDNEYS AND URETERS: No evidence of hydronephrosis. PERITONEUM: No ascites . LYMPH NODES: No enlarged mesenteric or retroperitoneal lymph nodes. VESSELS: Aorta is non-dilated. MRI/Enterography Abd/Pel IMPRESSION: Normal in caliber small bowel loops and colon without evidence of inflammatory changes Electronically Signed: Vic Lizarraga MD at 11:29 EST , CC: Dr. Cora Mars MD; ALICIA Fontanez Professional Nurse: Signed Normal [facility] Gastroenterology Visit Repor ton 09-06-2024 Gastroenterology Visit Report [facility] Gastroenterology [address] [place] [place] [address] OFFICE VISIT Date of Service: 09/06/24 MR#: [id number] Acct: [id number] Name: FEDE TURCIOS Rep #: [id number] : 1970 Provider: Patrick Friend, Age/Sex: 54/M Location: [facility] Status: Signed Intake Vital Signs 07/09/24 16:03 Height 5 ft 8 in Intake Visit Reasons: 2 M FU Chief Complaint: celiac disease Allergies No Known Allergies Allergy (Verified 07/20/24 13:36) Medications ???Medication ???Instructions ???Recorded ???Confirmed ???Type sumatriptan succinate 50 mg tablet 50 mg PO PRN PRN migraine 06/27/24 09/06/24 History sildenafil 50 mg tablet 50 mg PO PRN 07/05/24 09/06/24 History tizanidine 2 mg tablet 4 mg (2 x 2 mg) PO TID PRN muscle 07/10/24 09/06/24 Rx spasticity 14 days #28 tabs trazodone 50 mg tablet 50 mg PO QHS PRN sleep 14 days #14 07/10/24 09/06/24 Rx tabs omeprazole 20 mg capsule,delayed 20 mg PO BID 3 months #180 caps 09/06/24 09/06/24 Rx release prednisone 20 mg tablet 30 mg PO BREAKFAST 09/06/24 09/06/24 History PFSH Medical History GERD (gastroesophageal reflux disease) Surgical History H/O vasectomy S/P dilatation of esophageal stricture Hx of elbow surgery Social History Smoking Status: Never smoker alcohol intake: current alcohol intake frequency: a few times a month HPI HPI Chief Complaint: celiac disease Details: FEDE TURCIOS, is a 54 M who presents to the office today for follow up. EGD 07.07.24 Z-line irregular, 39 cm from the incisors. Biopsied. A few gastric polyps. No gross lesions in the second portion of the duodenum. Biopsied. GET 9.19.24 abnormal 147 minutes GET 11..24 abnormal 59.50 minutes OV ..24 pt reports that his MRI is scheduled for today after this appt. Pt reports that he is feeling well, occasionally will have some breakthrough HB, but that omeprazole seems to be effective. ROS Const Constitutional: Positive for fatigue; No fever(s) or weight change ENT ENT: No difficulty swallowing Gastro GI: Positive for heartburn; No abdominal pain, belching, bloating, change in bowel habits, change in stool character, coffee ground emesis, constipation, cramping, diarrhea, difficulty swallowing, feeling full early, excessive flatus, incontinent of stools, Vomiting blood/hematemesis, Blood in stool, loose stools, Black,tarry stools, nausea/dyspepsia, pain with swallowing, vomiting or other Musc Musculoskeletal: No joint pain Skin Skin: No yellowing of the eye or itchy eyes Psych Psychiatric: Positive for anxiety and No depression Endo Endocrine: Positive for fatigue; No weight change Aller/Imm Allergy/Immunologic: No itchy eyes Socrates/Lymp Hematologic/Lymphatic: No easy bleeding or easy bruising Exam Const General: cooperative and comfortable Nutritional Appearance: average body habitus and well nourished HENMT Head: normal to inspection Ears: hearing grossly normal bilaterally Nose: external nose normal Face and sinus: normal facial exam Eyes General: appearance normal, both eyes and all related structures Neck Neck: normal visual inspection Chest Chest palpation inspection: normal inspection of the chest Resp Effort Inspection: normal respiratory effort GI Inspection: normal to inspection Palpation: no hepatosplenomegaly Skin General: no rashes or lesions noted Neuro General: patient alert Extrem General: normal to inspection Psych Affect: normal affect Assessment and Plan Assessment and Plan (1) Celiac disease: Status: Acute Plan: Pt is a 53 yo male here for f/u after [facility] admission for severe celiac disease. Since his discharge he has been doing better adhering to a gluten free diet. He continues taking PPI BID, prednisone 40 mg daily, reglan 5 mg TID, dicyclomine 10mg TID, and alprazolam .125 mg TID. He does not like being on medications and has questions about discontinuing any of them. I let him know he may decrease both the dicyclomine and alprazolam if he feels he does ok with out it. He will need to continue the reglan for at least 8 weeks as his gastroparesis was so severe. We will then order another GES to asses if his motility has improved after the course. He underwent another gastric emptying study and it shows drastic improvement along with his tissue transglutaminase improving to 64. He underwent a agile capsule and it got stuck in his small bowel. Therefore did not undergo the real video capsule. We will have him follow-up after he undergoes MR enterography. He did very well with prednisone therapy and is currently down to 30 mg a day. We missy (more content not included)... Normal [facility] Gastric Emptying Studyon Gastric Emptying Study [facility] Imaging Services [address] [place] [address] Gastric Emptying Study MR#: [id number] Acct: [id number] Name: FEDE TURCIOS Rep #: [id number] : 1970 M 54 From: Willi Huynh PCP: Dr. Cora Mars MD Status: REG CLI Study: Gastric Emptying Study Date of Exam: 08/30/24 Exam# [id number] Ordering Dr: Emma Wallace [id number] CLINICAL: 54-year-old male with history of clinical gastroparesis. SEMI-SOLID PHASE 99m Tc SULFUR COLLOID GASTRIC EMPTYING STUDY COMPARISON: Previous semisolid phase gastric emptying examination dated 07/08/2024 FINDINGS: The patient was administered 1.2 mCi of 99m Tc sulfur colloid mixed with oatmeal and consumed per os. Image acquisitions in the anterior-posterior projections were obtained for 60 minutes. There is prompt visualization of the stomach. There is no gastroesophageal reflux identified. First order kinetics are maintained throughout the duration of the acquisitions. The T ? linear fit was calculated to be 59.51 minutes compared to 147.37 minutes defined on the prior examination dated 07/08/2024, (Normal: 12-56 minutes). NM/Gastric Emptying Study IMPRESSION: 1. ABNORMAL 99m Tc sulfur colloid semi-solid phase (oatmeal) gastric emptying imaging examination. A. There is delayed semi-solid phase gastric emptying compared to normal controls with maintained first order kinetics throughout all components of the examination. (Santos, J Nucl Med Tech 38: 186, 2010). B. Overall compared to the previous gastric emptying examination dated 07/08/2024, there is interim improvement in defined semisolid phase gastric emptying as described above. Electronically Signed: Willi Mg DO at 10:07 EST , CC: Dr. Cora Mars MD; ALICIA Fontanez Professional Nurse: Signed Normal [facility] Abdomen Single Viewon 2023 Abdomen Single View [facility] Imaging Services [address] [place] [address] Abdomen Single View MR#: [id number] Acct: [id number] Name: FEDE TURCIOS Rep #: [id number] : 1970 M 53 From: Michael galvan MD PCP: Dr. Cora Mars MD Status: REG CLI Study: Abdomen Single View Date of Exam: 08/05/24 Exam# [id number] Ordering Dr: Emma Wallace [id number] INDICATION: agile capsule EXAMINATION/TECHNIQUE: X-RAY - XR Abdomen 1 View COMPARISON: No relevant prior comparison study available FINDINGS: BOWEL GAS PATTERN: Non-obstructive. No bowel or stomach distention. There is a radiopaque capsule overlying the right upper quadrant of the abdomen. FREE AIR: Not assessed on a single supine view. ORGANOMEGALY: Not seen. CALCIFICATIONS: No abnormal calcifications observed. LOWER CHEST: No acute pathology. BONES AND SOFT TISSUES: No acute pathology. RAD/Abdomen Single View IMPRESSION: Radiopaque capsule overlies the right upper quadrant of the abdomen. Exact location difficult to define on these images. This could be at the hepatic flexure of the colon or in the small bowel in this region. Electronically Signed: Michael Olivera MD at 23:56 EDT , CC: Dr. Cora Mars MD; ALICIA Fontanez Professional Nurse: Signed Normal [facility] Celiac Disease Profileon ENDOMYSIAL IGA Negative Normal Negative [facility] Comment on above: Performed By: #### L 500.2500, L100.0100, L500.3400, L501.2450, L7000.5300 #### [facility] Laboratory [address] [place], [place], [id number] IMMUNOGLOB A QN 74 mg/dL Low 90-386 [facility] Comment on above: Performed By: #### L 500.2500, L100.0100, L500.3400, L501.2450, L7000.5300 #### [facility] Laboratory [address] [place], [place], [id number] tTG IGA <2 Normal 0-3 [facility] Comment on above: Result Comment: Nega tive 0 - 3 Weak Positive 4 - 10 Positive >10 Tissue Transglutaminase (tTG) has been identified as the endomysial antigen. Studies have demonstr- ated that endomysial IgA antibodies have over 99% specificity for gluten sensitive enteropathy. Performed By: #### L 500.2500, L100.0100, L500.3400, L501.2450, L7000.5300 #### [facility] Laboratory [address] [place], [place], [id number] tTG IGG 68 U/mL Abnormal 0-5 [facility] Comment on above: Result Comment: Nega tive 0 - 5 Weak Positive 6 - 9 Positive >9 Performed at: [address] [id number] Sound Engineer: Ayaan Zaldivar PhD, Phone: [phone] Performed By: #### L 500.2500, L100.0100, L500.3400, L501.2450, L7000.5300 #### [facility] Laboratory [address] [place], [address] CRPon 07-20-2024 C-REACTIVE PROT < 2.90 Normal 0.0-3.0 [facility] Comment on above: Result Comment: C-Re active Protein (CRP) provides useful information for the diagnosis, therapy and monitoring of inflammatory processes and associated diseases. For the evaluation of Relative Risk for Cardiovascular Disease, a High Sensitivity CRP (HSCRP) should be ordered. Performed By: #### L 500.2500, L100.0100, L500.3400, L501.2450, L7000.5300 #### [facility] Laboratory [address] [place], [address] Erythrocyte Sed Rateon 07-20 SED RATE 2 mm/hr Normal 0-20 [facility] Comment on above: Performed By: #### L 500.2500, L100.0100, L500.3400, L501.2450, L7000.5300 #### [facility] Laboratory [address] [place], [address] Gastroenterology Visit Repor ton 07-20-2024 Gastroenterology Visit Report [facility] Gastroenterology [address] [place] [address] OFFICE VISIT Date of Service: 07/20/24 MR#: [id number] Acct: [id number] Name: FEDE TURCIOS Rep #: [id number] : 1970 Provider: ALICIA Fontanez Age/Sex: 53/M Location: [facility] Status: Signed Intake Vital Signs 07/09/24 16:03 Height 5 ft 8 in Intake Visit Reasons: Hospital FU Chief Complaint: celiac disease Allergies No Known Allergies Allergy (Verified 07/20/24 13:36) Medications ???Medication ???Instructions ???Recorded ???Confirmed ???Type sumatriptan succinate 50 mg tablet 50 mg PO PRN PRN migraine 06/27/24 07/20/24 History sildenafil 50 mg tablet 50 mg PO PRN 07/05/24 07/20/24 History alprazolam 0.25 mg tablet 0.125 mg (1/2 x 0.25 mg) PO TID 14 07/10/24 07/20/24 Rx days #21 tabs azithromycin 500 mg tablet 500 mg PO DAILY 7 days #7 tabs 07/10/24 07/20/24 Rx dicyclomine 10 mg capsule 10 mg PO TIDAC 14 days #42 caps 07/10/24 07/20/24 Rx metoclopramide HCl 5 mg tablet 5 mg PO TIDAC 14 days #42 tabs 07/10/24 07/20/24 Rx omeprazole 20 mg capsule,delayed 20 mg PO BID 14 days #28 caps 07/10/24 07/20/24 Rx release prednisone 20 mg tablet 40 mg (2 x 20 mg) PO BREAKFAST 14 07/10/24 07/20/24 Rx days #28 tabs tizanidine 2 mg tablet 4 mg (2 x 2 mg) PO TID PRN muscle 07/10/24 07/20/24 Rx spasticity 14 days #28 tabs trazodone 50 mg tablet 50 mg PO QHS PRN sleep 14 days #14 07/10/24 07/20/24 Rx tabs PFSH Medical History GERD (gastroesophageal reflux disease) Surgical History H/O vasectomy S/P dilatation of esophageal stricture Hx of elbow surgery Social History Smoking Status: Never smoker alcohol intake: current alcohol intake frequency: a few times a month HPI HPI Chief Complaint: celiac disease Details: FEDE TURCIOS, is a 53 M who presents to the office today for hospital f/u. Pt was hospitalized 07.05.24-07.10.24 here at [facility] for abdominal pain of unknown etiology. He was subsequently found to have severe celiac disease and severe gastroparesis. Since then he has been following a strict gluten free diet. He continues to take the prednisone 40 mg daily, omeprazole 20 mg BID, Reglan 5 mg TID, alprazolam .125. mg TID and dicyclomine 10 mg TID. His abdominal pain is improving since when he was first admitted but he stil continues to have some. He has not been sleeping well for the past month due to his pain and has been taking Trazodone but recently stopped it. He has been having constipation and has to take miralax BID as well as Senna to have a bm daily. Prior to this illness he was not taking medications and it has been a hard transition for him to be on so many medications. He would like to reduce his daily medications if possible. He has been eating very soft and bland foods and is wondering if he can start to add more foods back in. EGD 07.07.24; Z-line irregular, 39 cm from the incisors. Biopsied. - A few gastric polyps. - No gross lesions in the second portion of the duodenum. Biopsied GES 07.08.24; abnormal 147 minutes ROS Const Constitutional: Positive for weight change; No fatigue or fever(s) ENT ENT: No difficulty swallowing Gastro GI: Positive for abdominal pain and constipation; No belching, bloating, change in bowel habits, change in stool character, coffee ground emesis, cramping, diarrhea, heartburn, difficulty swallowing, feeling full early, excessive flatus, incontinent of stools, Vomiting blood/hematemesis, Blood in stool, loose stools, Black,tarry stools, nausea/dyspepsia, pain with swallowing, vomiting or other Musc Musculoskeletal: Positive for back pain and muscle weakness; No joint pain Skin Skin: No yellowing of the eye or itchy eyes Psych Psychiatric: No anxiety and No depression Endo Endocrine: Positive for weight change; No fatigue Aller/Imm Allergy/Immunologic: No itchy eyes Socrates/Lymp Hematologic/Lymphatic: No easy bleeding or easy bruising Exam Const General: cooperative and comfortable Nutritional Appearance: average body habitus and well nourished [facility] Head: normal to inspection Ears: hearing grossly normal bilaterally Nose: external nose normal Face and sinus: normal facial exam Eyes General: appearance normal, both eyes and all related structures Neck Neck: normal visual inspection Chest Chest palpation inspection: normal inspection of the chest Resp Effort Inspection: normal respiratory effort GI Inspection: normal to inspection Palpation: no hepatosplenomegaly Skin General: no rashes or lesions noted Neuro General: patient alert Extrem General: normal to inspection Psyc (more content not included)... Normal [facility] CNOVon 07-16-2024 CNOV Office Visit (FAMPWS ) -- FEDE TURCIOS ([id number]) 1970 M Date Time Provider Department 07/16/24 2:20 PM CORA MARS During your visit today, we recorded the following information about you: Pulse Respiration Blood pressure Weight 72/minute 16/minute 110/60 73.6 kg Cora Mars MD 07/16/2024 3:24 PM Signed Transitional Care Management TCM Eligibility Documentation The following information was gathered during patient outreach 07/13/2024 Date of Outreach: Outreach Attempt 1: Contact Made Date of Discharge 07/10/2024 Provider Documentation Fede Turcios is a 53 year old male here today for a follow up from recent hospitalization. I have reviewed the patient's hospital course including discharge summary, discharge medications , and follow up needs with the patient and any family members present at today's visit. HPI Pt here today for a 7 day TCM. Was admitted after several visits to ER; diagnosed with celiac crises with inflammation in GI tract and gastroparesis. Doing much better now; on gluten free diet, low fiber, easily digested; prednisone for 3-4 months, bentyl, reglan, etc. Continues to lose weight. Pt is off work till 07/19/24. Follows with Gastro Dr. Friend next week. Had upper GI done 07/07/24 with bx done for a few gastric polyps. -Pt discharged from [facility] on 07/10/24. -Admitted for: Date of Admission: 07/05/24 Date of Discharge: 07/10/24 Diagnosis Discharge Diagnosis (1) Abdominal pain: Status: Acute R10.9 - Unspecified abdominal pain (2) Intractable low back pain: Status: Acute M54.59 - Other low back pain (3) Paresthesia: Status: Acute R20.2 - Paresthesia of skin (4) Elevated lipase: Status: Inactive R74.8 - Abnormal levels of other serum enzymes (5) Acute hypokalemia: Status: Acute E87.6 - Hypokalemia Hospital Course: Patient is a 53-year-old male who presented [facility] ED on 07/05/2024 with intractable low back pain and abdominal pain. Hospital course as noted below. Patient discharged home in stable condition on 07/10. 1. Severe celiac disease with mild gastroparesis - GI followed. CT abdomen pelvis showed fluid-filled bowel loops possibly concerning for gastroenteritis, though patient notably had been taking magnesium citrate. Mild leukocytosis noted and patient reported subjective fevers. Stool studies unremarkable. Celiac studies showed > 100 TTG IgG antibody which is strongly positive for celiac disease. 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 Inflammatory markers significantly elevated. EGD on 07/07 showed no significant bowel changes aside from a few small hyperplastic polyps; biopsies were obtained. 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 Treated with IV Solu-Medrol, IV Reglan, IV azithromycin, p.o. dicyclomine and p.o. Xanax with good improvement in symptoms. Discharged on prednisone, Reglan, dicyclomine, Xanax, azithromycin and omeprazole as recommended by GI. Close outpatient follow-up with GI after discharge. 2. Intractable low back pain, improved - Suspected referred pain secondary to abdominal pain from likely celiac disease as noted below. MRI T-spine and L-spine on 07/05 were unremarkable. Started on scheduled tizanidine on admission and patient with some improvement. Most improvement was noted with treatment for celiac disease as above. Prescribed short course of tizanidine as needed on discharge. 3. Concern for Lyme disease - Lyme disease IgG antibody and total antibody positive on 07/06. Testing was obtained on admission per patient's request as family and friends had noted his symptoms could fit with Lyme disease. Patient notably denies known tick bite or rash. Suspected that patient either had prior infection or Lyme antibodies are positive due to cross reaction; low likelihood that patient has active infection. Further lab workup pending. Doxycycline discontinued on 07/09. 4. Hypokalemia - Potassium 3.1 on admit. Suspect due to poor p.o. intake recently. Mag and Phos normal. Repleted as needed. 5. Mild normocytic anemia - Hemoglobin 14.2 on admit, dropped to 12.7 on hospital day 2 likely due to IV fluid resuscitation. MCV 86. Iron studies consistent with anemia of chronic disease. Hemoglobin remained stable around 13 during hospitalization. 6. Elevated lipase - Lipase 89 in the ED on 06/27 and lipase 96 in ED on this admission. Suspect this is related to his likely celiac disease as noted above. Notably no pancreatitis findings on CT abdomen pelvis, amylase normal and lipid panel unremarkable. EGD 07/07/24: Findings: The Z-line was irregular and was found 39 cm from the incisors. Biopsies were taken with a cold force (more content not included)... Normal [facility] ANCAon 07-12-2024 Atypical pANCA <1:20 Normal Neg:<1:20 [facility] Comment on above: Order Comment: N Result Comment: The atypical pANCA pattern has been observed in a significant percentage of patients with ulcerative colitis, primary sclerosing cholangitis and autoimmune hepatitis. Performed By: #### L 3300.1800, L3100.5440, L501.6710, L2100.0000, L3100.3425, L3100.4810, L101.9900, L3300.1200 ####[facility] [address] [place], [place], [id number] Cytoplasmic Ab <1:20 Normal Neg:<1:20 [facility] Comment on above: Order Comment: N Performed By: #### L 3300.1800, L3100.5440, L501.6710, L2100.0000, L3100.3425, L3100.4810, L101.9900, L3300.1200 ####[facility] [address] [place], [address] Perinuclear Ab. <1:20 Normal Neg:<1:20 [facility] Comment on above: Order Comment: N Result Comment: The presence of positive fluorescence exhibiting P-ANCA or C-ANCA patterns alone is not specific for the diagnosis of Kwabena's Granulomatosis (WG) or microscopic polyangiitis. Decisions about treatment should not be based solely on ANCA IFA results. The International ANCA [employer] Consensus recommends follow up testing of positive sera with both DC- 3 and MPO-ANCA enzyme immunoassays. As many as 5% serum samples are positive only by EIA. Ref. AM J Clin Pathol 1999;111:507-513. Performed By: #### L 3300.1800, L3100.5440, L501.6710, L2100.0000, L3100.3425, L3100.4810, L101.9900, L3300.1200 ####[facility] [address] [place], [address] Gastrin, Serumon 07-12-2024 GASTRIN 52 pg/mL Normal 0-115 [facility] Comment on above: Order Comment: N Result Comment: Siem ens Immulite 2000 Immunochemiluminometric assay (ICMA) Values obtained with different assay methods or kits cannot be used interchangeably. Results cannot be interpreted as absolute evidence of the presence or absence of malignant disease. Performed By: #### L 3300.1800, L3100.5440, L501.6710, L2100.0000, L3100.3425, L3100.4810, L101.9900, L3300.1200 ####[facility] [address] [place], [address] BRYAN + Protein Elect, Serumon 07-12-2024 Albumin [Mass/Vol] 3.2 g/dL Normal 2.9-4.4 [facility] Comment on above: Order Comment: N Performed By: #### L 3300.1800, L3100.5440, L501.6710, L2100.0000, L3100.3425, L3100.4810, L101.9900, L3300.1200 ####[facility] [address] [place], [address] Albumin/Globulin [Mass ratio] 1.0 {ratio} Normal 0.7-1.7 [facility] Comment on above: Order Comment: N Performed By: #### L 3300.1800, L3100.5440, L501.6710, L2100.0000, L3100.3425, L3100.4810, L101.9900, L3300.1200 ####[facility] [address] [place], [address] [id number] 0.4 g/dL Normal 0.0-0.4 [facility] Comment on above: Order Comment: N Performed By: #### L 3300.1800, L3100.5440, L501.6710, L2100.0000, L3100.3425, L3100.4810, L101.9900, L3300.1200 ####[facility] [address] [place], [address] [id number] 1.1 g/dL High 0.4-1.0 [facility] Comment on above: Order Comment: N Performed By: #### L 3300.1800, L3100.5440, L501.6710, L2100.0000, L3100.3425, L3100.4810, L101.9900, L3300.1200 ####[facility] [facility] [address] [place], [address] BETA GLOBULIN 0.8 g/dL Normal 0.7-1.3 [facility] Comment on above: Order Comment: N Performed By: #### L 3300.1800, L3100.5440, L501.6710, L2100.0000, L3100.3425, L3100.4810, L101.9900, L3300.1200 ####[facility] [address] [place], [address] GAMMA GLOBULIN 1.0 g/dL Normal 0.4-1.8 [facility] Comment on above: Order Comment: N Performed By: #### L 3300.1800, L3100.5440, L501.6710, L2100.0000, L3100.3425, L3100.4810, L101.9900, L3300.1200 ####[facility] [address] [place], [address] Globulin (S) [Mass/Vol] 3.3 g/dL Normal 2.2-3.9 [facility] Comment on above: Order Comment: N Performed By: #### L 3300.1800, L3100.5440, L501.6710, L2100.0000, L3100.3425, L3100.4810, L101.9900, L3300.1200 ####[facility] [address] [place], [address] BRYAN RESULT,S Comment Normal . [facility] Comment on above: Order Comment: N Result Comment: No m onoclonality detected. Performed By: #### L 3300.1800, L3100.5440, L501.6710, L2100.0000, L3100.3425, L3100.4810, L101.9900, L3300.1200 ####[facility] [address] [place], [address] IMMUNOGLOB A QN 72 mg/dL Low 90-386 [facility] Comment on above: Order Comment: N Performed By: #### L 3300.1800, L3100.5440, L501.6710, L2100.0000, L3100.3425, L3100.4810, L101.9900, L3300.1200 ####[facility] [address] [place], [address] IMMUNOGLOB G QN 931 mg/dL Normal 603-1613 [facility] Comment on above: Order Comment: N Performed By: #### L 3300.1800, L3100.5440, L501.6710, L2100.0000, L3100.3425, L3100.4810, L101.9900, L3300.1200 ####[facility] [address] [place], [address] IMMUNOGLOB M QN 220 mg/dL High 20-172 [facility] Comment on above: Order Comment: N Performed By: #### L 3300.1800, L3100.5440, L501.6710, L2100.0000, L3100.3425, L3100.4810, L101.9900, L3300.1200 ####[facility] [address] [place], [address] M-Elieser Not Observed Normal Not Observed [facility] Comment on above: Order Comment: N Performed By: #### L 3300.1800, L3100.5440, L501.6710, L2100.0000, L3100.3425, L3100.4810, L101.9900, L3300.1200 ####[facility] [address] [place], [address] NOTE: Comment Normal . [facility] Comment on above: Order Comment: N Result Comment: Prot ein electrophoresis scan will follow via computer, mail, or hospital education coordinator delivery. Performed By: #### L 3300.1800, L3100.5440, L501.6710, L2100.0000, L3100.3425, L3100.4810, L101.9900, L3300.1200 ####[facility] [address] [place], [address] Protein [Mass/Vol] 6.5 g/dL Normal 6.0-8.5 [facility] Comment on above: Order Comment: N Performed By: #### L 3300.1800, L3100.5440, L501.6710, L2100.0000, L3100.3425, L3100.4810, L101.9900, L3300.1200 ####[facility] [address] [place], [address] IgG Subclasseson 07-12-2024 IgG, SUBCLASS 1 480 mg/dL Normal 248-810 [facility] Comment on above: Performed By: #### L 500.2500, L100.0100, L500.3400, L501.2450, L7000.5300 #### [facility] [address] [place], [address] IgG, SUBCLASS 2 359 mg/dL Normal 130-555 [facility] Comment on above: Performed By: #### L 500.2500, L100.0100, L500.3400, L501.2450, L7000.5300 #### [facility] [address] [place], [address] IgG, SUBCLASS 3 70 mg/dL Normal 15-102 [facility] Comment on above: Performed By: #### L 500.2500, L100.0100, L500.3400, L501.2450, L7000.5300 #### [facility] [address] [place], [address] IgG, SUBCLASS 4 21 mg/dL Normal 2-96 [facility] Comment on above: Result Comment: Perf ormed at: [facility] [address] [id number] Sound Engineer: Ayaan Zaldivar PhD, Phone: [phone] Performed By: #### L 500.2500, L100.0100, L500.3400, L501.2450, L7000.5300 #### [facility] [address] [place], [address] IGG,QUANT 952 mg/dL Normal 603-1613 [facility] Comment on above: Performed By: #### L 500.2500, L100.0100, L500.3400, L501.2450, L7000.5300 #### [facility] [address] [place], [address] L2100.0000on 07-12-2024 ACCA 15 units Normal 0-90 [facility] Comment on above: Order Comment: N Result Comment: Nega tive: <80 Equivocal: 80-90 Positive: >90 Performed By: #### L 3300.1800, L3100.5440, L501.6710, L2100.0000, L3100.3425, L3100.4810, L101.9900, L3300.1200 ####[facility] [address] [place], [address] ALCA 4 units Normal 0-60 [facility] Comment on above: Order Comment: N Result Comment: Nega tive:<55 Equivocal: 55-60 Positive: >60 Performed By: #### L 3300.1800, L3100.5440, L501.6710, L2100.0000, L3100.3425, L3100.4810, L101.9900, L3300.1200 ####[facility] [address] [place], [place], [phone] AMCA 46 units Normal 0-100 [facility] Comment on above: Order Comment: N Result Comment: Nega tive: <90 Equivocal: 90-100 Positive: >100 This test was developed and its performance characteristics determined by [employer]. It has not been cleared or approved by the Food and Drug Administration. The FDA has determined that such clearance or approval is not necessary. Performed By: #### L 3300.1800, L3100.5440, L501.6710, L2100.0000, L3100.3425, L3100.4810, L101.9900, L3300.1200 ####[facility] [address] [place], [place], [id number] Atypical pANCA Negative Normal Negative [facility] Comment on above: Order Comment: N Performed By: #### L 3300.1800, L3100.5440, L501.6710, L2100.0000, L3100.3425, L3100.4810, L101.9900, L3300.1200 ####[facility] [address] [place], [place], [id number] COMMENT Comment Normal . [facility] Comment on above: Order Comment: N Result Comment: Mariam john is not suggestive of Inflammatory Bowel Disease Performed By: #### L 3300.1800, L3100.5440, L501.6710, L2100.0000, L3100.3425, L3100.4810, L101.9900, L3300.1200 ####[facility] [address] [place], [place], [phone] Hasmukh 27 units Normal 0-50 [facility] Comment on above: Order Comment: N Result Comment: Nega tive: <45 Equivocal: 45-50 Positive: >50 Performed By: #### L 3300.1800, L3100.5440, L501.6710, L2100.0000, L3100.3425, L3100.4810, L101.9900, L3300.1200 ####[facility] [address] [place], [address] L3100.4810on 07-12-2024 Chromogranin A 61.7 ng/mL Normal 0.0-101.8 [facility] Comment on above: Order Comment: N Result Comment: Sales Planning Manager mogranin A performed by [employer] methodology Values obtained with different assay methods or kits cannot be used interchangeably. Performed at: [address] [id number] Sound Engineer: Ayaan Zaldivar PhD, Phone: [phone] Performed at: [address] [id number] Sound Engineer: Yesika Barton MD, Phone: [phone] Performed By: #### L 3300.1800, L3100.5440, L501.6710, L2100.0000, L3100.3425, L3100.4810, L101.9900, L3300.1200 ####[facility] [address] [place], [address] Culture, Blood (WB)on 2023 CUB Blood cultures x2 fr om two different sites No growth in 5 days. Normal [facility] Comment on above: Performed By: #### M 200.1000 ####[facility] [address] [place], [address] Discharge Instructionon 06-21 Discharge Instruction [facility] Medical Records Department [address] [place] [address] Instructions for Home/Discharge Instructions 07/10/24 1232 MR#: [id number] Acct: [id number] Name: FEDE TURCIOS Rep #: [id number] : 1970 53 From: Osmar Villeda DO PCP: Dr. Cora Mars MD Status:ADM IN Discharge Instructions Diet Discharge Diet: - (Gastroparesis diet) Activity Discharge Activity: No Restrictions Return to work on:: 07/19/24 Follow Up Care Test Results: Test results from this visit will be discussed in further detail at your follow-up appointment, if applicable. Discharge Plan Admission Admit Date/Time: 07/06/24 16:27 Primary Reason for Your Visit: Abdominal pain and back pain Attending Provider: Osmar Villeda Primary Care Provider: Cora Mars Instructions Additional Instructions / Restrictions: Please take all the new medications as noted below. Please note that they have been filled for 14 days each and if refills are needed, please reach out to Dr. Garcia's office and he can refill these for you.. His office will call to schedule a follow-up appointment; if they have not called by early this coming week, please call them to ensure an appointment has been scheduled. Discharge Orders/Prescriptions Prescriptions: New tizanidine 2 mg Tablet 4 mg PO TID PRN (Reason: muscle spasticity) 14 Days Qty: 28 0RF azithromycin 250 mg Tablet 500 mg PO DAILY 14 Days Qty: 28 0RF prednisone 20 mg Tablet 40 mg PO BREAKFAST 14 Days Qty: 28 0RF alprazolam 0.25 mg Tablet 0.125 mg PO TID 14 Days Qty: 21 0RF metoclopramide HCl 5 mg Tablet 5 mg PO TIDAC 14 Days Qty: 42 0RF dicyclomine 10 mg Capsule 10 mg PO TIDAC 14 Days Qty: 42 0RF trazodone 50 mg Tablet 50 mg PO QHS PRN (Reason: sleep) 14 Days Qty: 14 0RF omeprazole 20 mg capsule,delayed release(DR/EC) 20 mg PO BID 14 Days Qty: 28 0RF Continued sildenafil 50 mg tablet 50 mg PO PRN sumatriptan succinate 50 mg tablet 50 mg PO PRN PRN (Reason: migraine) Discontinued omeprazole 40 mg capsule,delayed release(DR/EC) 40 mg PO DAILY acetaminophen [Tylenol] 325 mg tablet 650 mg PO Q6H ibuprofen [Advil] 200 mg tablet 400 mg PO Q6H simethicone [Gas Relief 80 (simethicone)] 80 mg tablet,chewable 80 mg PO BID Rx Instructions: after meals sennosides-docusate sodium [Senna-S] 8.6-50 mg tablet 1 tab-cap PO DAILY polyethylene glycol 3350 [Miralax] 17 gram/dose powder 17 g PO DAILY cyclobenzaprine 10 mg tablet 10 mg PO TID PRN PRN (Reason: muscle spasm) hydrocodone-acetaminophen 5-325 mg tablet 1 tab PO Q6H PRN PRN (Reason: Pain) 3 Days Qty: 10 0RF ondansetron 4 mg tablet,disintegrating 4 mg PO Q8H PRN PRN (Reason: Nausea) Qty: 10 0RF Referrals / Follow Up: Cora Mars MD [Primary Care Provider] - Friend,DO Patrick [Med Staff - Active Staff] - Disposition Disposition (needs filled in before D/C Order can be placed): Home, Self Care 07/10/24 2933 Osmar Villeda DO CC: Dr. Cora Mars MD Signed Normal [facility] SANFORD Comprehensive Panelon SANFORD TABLE Comment Normal . [facility] Comment on above: Result Comment: Auto antibody Disease Association Condition Frequency --------- Antinuclear Antibody, SLE, mixed connective Direct (SANFORD-D) tissue diseases --------- dsDNA SLE 40 - 60% --------- Chromatin Drug induced SLE 90% SLE 48 - 97% --------- SSA (Ro) SLE 25 - 35% Sjogren's Syndrome 40 - 70% Lupus 100% --------- SSB (La) SLE 10% Sjogren's Syndrome 30% --------- Sm (anti-Bettencourt) SLE 15 - 30% --------- SECURITY GUARD Mixed Connective Tissue Disease 95% (U1 nRNP, SLE 30 - 50% anti-ribonucleoprotein) Polymyositis and/or Dermatomyositis 20% --------- Scl-70 (antiDNA Scleroderma (diffuse) 20 - 35% topoisomerase) Crest 13% --------- Juliet-1 Polymyositis and/or Dermatomyositis 20 - 40% --------- Centromere B Scleroderma - Crest variant 80% Performed at: - [address] [id number] Sound Engineer: Ayaan Zaldivar PhD, Phone: [phone] Performed By: #### L 3300.1800, L3100.5440, L501.6710, L2100.0000, L3100.3425, L3100.4810, L101.9900, L3300.1200 ####[facility] [address] [place], [place], [phone] ANTI-CENT B AB <0.2 Normal 0.0-0.9 [facility] Comment on above: Performed By: #### L 3300.1800, L3100.5440, L501.6710, L2100.0000, L3100.3425, L3100.4810, L101.9900, L3300.1200 ####[facility] [address] [place], [place], [phone] ANTI-DNA (DS)AB 1 IU/mL Normal 0-9 [facility] Comment on above: Result Comment: Nega tive <5 Equivocal 5 - 9 Positive >9 Performed By: #### L 3300.1800, L3100.5440, L501.6710, L2100.0000, L3100.3425, L3100.4810, L101.9900, L3300.1200 ####[facility] [address] [place], [address] ANTI-JULIET-1 <0.2 Normal 0.0-0.9 [facility] Comment on above: Performed By: #### L 3300.1800, L3100.5440, L501.6710, L2100.0000, L3100.3425, L3100.4810, L101.9900, L3300.1200 ####[facility] [address] [place], [place], [phone] ANTI-SS-A < 0.2 Normal 0.0-0.9 [facility] Comment on above: Performed By: #### L 3300.1800, L3100.5440, L501.6710, L2100.0000, L3100.3425, L3100.4810, L101.9900, L3300.1200 ####[facility] [address] [place], [address] ANTI-SS-B < 0.2 Normal 0.0-0.9 [facility] Comment on above: Performed By: #### L 3300.1800, L3100.5440, L501.6710, L2100.0000, L3100.3425, L3100.4810, L101.9900, L3300.1200 ####[facility] [address] [place], [address] ANTICHROMATIN <0.2 Normal 0.0-0.9 [facility] Comment on above: Performed By: #### L 3300.1800, L3100.5440, L501.6710, L2100.0000, L3100.3425, L3100.4810, L101.9900, L3300.1200 ####[facility] [address] [place], [place], [phone] ANTISCLERODERM 0.2 AI Normal 0.0-0.9 [facility] Comment on above: Performed By: #### L 3300.1800, L3100.5440, L501.6710, L2100.0000, L3100.3425, L3100.4810, L101.9900, L3300.1200 ####[facility] [address] [place] [address] SECURITY GUARD Ab <0.2 Normal 0.0-0.9 [facility] Comment on above: Performed By: #### L 3300.1800, L3100.5440, L501.6710, L2100.0000, L3100.3425, L3100.4810, L101.9900, L3300.1200 ####[facility] [address] [place] [id number] BETTENCOURT Ab <0.2 Normal 0.0-0.9 [facility] Comment on above: Performed By: #### L 3300.1800, L3100.5440, L501.6710, L2100.0000, L3100.3425, L3100.4810, L101.9900, L3300.1200 ####[facility] [address] [place], [address] Amylaseon 07-09-2024 ALVA 76 U/L Normal 25-115 [facility] Comment on above: Performed By: #### L 500.2500, L100.0100, L500.3400, L501.2450, L7000.5300 #### [facility] [address] [place], [address] Basic Metabolic Profile (BMP )on 07-09-2024 BUN/CRE 18.6 RATIO Normal -20 [facility] Comment on above: Performed By: #### L 500.2500, L100.0100, L500.3400, L501.2450, L7000.5300 #### [facility] [address] [place], [address] CA,Total 9.0 mg/dL Normal 8.5-10.1 [facility] Comment on above: Performed By: #### L 500.2500, L100.0100, L500.3400, L501.2450, L7000.5300 #### [facility] [address] [place], [address] Chloride [Moles/Vol] 108 mmol/L High 98-107 [facility] Comment on above: Performed By: #### L 500.2500, L100.0100, L500.3400, L501.2450, L7000.5300 #### [facility] [address] [place], [address] CO2 [Moles/Vol] 23.0 mmol/L Normal 21.0-32.0 [facility] Comment on above: Performed By: #### L 500.2500, L100.0100, L500.3400, L501.2450, L7000.5300 #### [facility] [address] [place], [address] Creatinine [Mass/Vol] 0.97 mg/dL Normal 0.70-1.30 [facility] Comment on above: Result Comment: The validity of the calculated GFR GFRAA in patients over 70 years has not been determined. Clinical correlation is essential. Performed By: #### L 500.2500, L100.0100, L500.3400, L501.2450, L7000.5300 #### [facility] [address] [place], [address] ECRCL 86.19 ml/min Normal [facility] Comment on above: Performed By: #### L 500.2500, L100.0100, L500.3400, L501.2450, L7000.5300 #### [facility] [address] [place], [address] EST GFR - AA 104 mL/min Normal >60 [facility] Comment on above: Result Comment: Afri can Guamanian GFR Calc Performed By: #### L 500.2500, L100.0100, L500.3400, L501.2450, L7000.5300 #### [facility] [address] [place], [address] GAP 8 Normal 5-15 [facility] Comment on above: Performed By: #### L 500.2500, L100.0100, L500.3400, L501.2450, L7000.5300 #### [facility] [address] [place], [address] GFR/1.73 sq M.predicted among non-blacks MDRD (S/P/Bld) [Vol rate/Area] 86 mL/min/{1.73_m2} Normal >60 [facility] Comment on above: Result Comment: Non- GFR Calc Performed By: #### L 500.2500, L100.0100, L500.3400, L501.2450, L7000.5300 #### [facility] [address] [place], [address] Glucose [Mass/Vol] 109 mg/dL High 74-106 [facility] Comment on above: Result Comment: Fast ing Glucose result from 100 to 125 mg/dL suggests IMPAIRED HOMEOSTASIS per A.D.A. criteria. Performed By: #### L 500.2500, L100.0100, L500.3400, L501.2450, L7000.5300 #### [facility] [address] [place], [address] Potassium [Moles/Vol] 4.3 mmol/L Normal 3.5-5.1 [facility] Comment on above: Performed By: #### L 500.2500, L100.0100, L500.3400, L501.2450, L7000.5300 #### [facility] [address] [place], [address] Sodium [Moles/Vol] 139 mmol/L Normal 136-145 [facility] Comment on above: Performed By: #### L 500.2500, L100.0100, L500.3400, L501.2450, L7000.5300 #### [facility] [address] [place], [address] Urea nitrogen [Mass/Vol] 18 mg/dL Normal 7-18 [facility] Comment on above: Performed By: #### L 500.2500, L100.0100, L500.3400, L501.2450, L7000.5300 #### [facility] [address] [place], [address] CBC-Complete Blood Cnt No Di ffon 07-09-2024 Erythrocyte distribution width (RBC) [Ratio] 12.4 % Normal 11.6-14.6 [facility] Comment on above: Performed By: #### L 500.2500, L100.0100, L500.3400, L501.2450, L7000.5300 #### [facility] [address] [place], [address] Hematocrit (Bld) [Volume fraction] 36.4 % Low 40-54 [facility] Comment on above: Performed By: #### L 500.2500, L100.0100, L500.3400, L501.2450, L7000.5300 #### [facility] [address] [place], [address] Hemoglobin (Bld) [Mass/Vol] 12.4 g/dL Low 13.0-16.5 [facility] Comment on above: Performed By: #### L 500.2500, L100.0100, L500.3400, L501.2450, L7000.5300 #### [facility] [address] [place], [address] MCH (RBC) [Entitic mass] 29.1 pg Normal 27.0-32.0 [facility] Comment on above: Performed By: #### L 500.2500, L100.0100, L500.3400, L501.2450, L7000.5300 #### [facility] [address] [place], [address] MCHC (RBC) [Mass/Vol] 34.1 g/dL Normal 32-36 [facility] Comment on above: Performed By: #### L 500.2500, L100.0100, L500.3400, L501.2450, L7000.5300 #### [facility] [address] [place], [address] MCV (RBC) [Entitic vol] 85.4 fL Normal 80-94 [facility] Comment on above: Performed By: #### L 500.2500, L100.0100, L500.3400, L501.2450, L7000.5300 #### [facility] [address] [place], [address] Platelet mean volume (Bld) [Entitic vol] 8.6 fL Normal 6.2-12.0 [facility] Comment on above: Performed By: #### L 500.2500, L100.0100, L500.3400, L501.2450, L7000.5300 #### [facility] [address] [place], [address] Platelets (Bld) [#/Vol] 438 10*3/uL Normal 150-450 [facility] Comment on above: Performed By: #### L 500.2500, L100.0100, L500.3400, L501.2450, L7000.5300 #### [facility] [address] [place], [address] RBC (Bld) [#/Vol] 4.26 10*6/uL Low 4.6-6.2 [facility] Comment on above: Performed By: #### L 500.2500, L100.0100, L500.3400, L501.2450, L7000.5300 #### [facility] [address] [place], [address] RDW SD 38.6 fl Normal 35.1-43.9 [facility] Comment on above: Performed By: #### L 500.2500, L100.0100, L500.3400, L501.2450, L7000.5300 #### [facility] [address] [place], [address] WBC (Bld) [#/Vol] 8.6 10*3/uL Normal 4.4-11.0 [facility] Comment on above: Performed By: #### L 500.2500, L100.0100, L500.3400, L501.2450, L7000.5300 #### [facility] [address] [place], [address] CRPon 07-09-2024 C-REACTIVE PROT 24.80 mg/L High 0.0-3.0 [facility] Comment on above: Result Comment: C-Re active Protein (CRP) provides useful information for the diagnosis, therapy and monitoring of inflammatory processes and associated diseases. For the evaluation of Relative Risk for Cardiovascular Disease, a High Sensitivity CRP (HSCRP) should be ordered. Performed By: #### L 500.2500, L100.0100, L500.3400, L501.2450, L7000.5300 #### [facility] [address] [place], [place], [id number] Calprotectin, Stoolon [address] 75 ug/g Normal 0-120 [facility] Comment on above: Result Comment: Conc entration Interpretation Follow-Up < 5 - 50 ug/g Normal None >50 -120 ug/g Borderline Re-evaluate in 4-6 weeks >120 ug/g Abnormal Repeat as clinically indicated Performed at: [address] [id number] Sound Engineer: Yesika Barton MD, Phone: [phone] Performed By: #### L 500.2500, L100.0100, L500.3400, L501.2450, L7000.5300 #### [facility] [address] [place], [address] Erythrocyte Sed Rateon 07-09 SED RATE 35 mm/hr High 0-20 [facility] Comment on above: Performed By: #### L 500.2500, L100.0100, L500.3400, L501.2450, L7000.5300 #### [facility] [address] [place], [address] Lipaseon 07-09-2024 Lipase [Catalytic activity/Vol] 87 U/L High 13-75 [facility] Comment on above: Result Comment: Catherine medina note: LIPASE revised reference range effective 23. New Lipase methodology. Expected to produce lower values than the previous assay method. NEW Reference Range: 13 - 75 U/L Performed By: #### L 500.2500, L100.0100, L500.3400, L501.2450, L7000.5300 #### [facility] [address] [place], [address] MR/PN.[facility] 07-09-2024 MR/PN.[facility] Medical Records Department [address] [place] [address] Progress Note - 07/09/24 1854 MR#: [id number] Acct: [id number] Name: FEDE TURCIOS Rep #: [id number] : 1970 53 From: Patrick Friend DO PCP: Dr. Cora Mars MD Status:ADM IN Location: [place] [address] Subjective Subjective Patient's and daughter are at bedside. He is doing a lot better. He has been walking around the halls. He has been tolerating IV azithromycin, IV Solu-Medrol and IV Reglan. He also had a bowel movement today. Objective Data Objective Data Vital Signs: Vital Signs Temp Pulse Resp BP Pulse Ox O2 Del Method O2 Flow Rate 97.5 F L 79 12 112/70 99 Room Air 2 07/09/24 14:45 07/09/24 14:45 07/09/24 14:45 07/09/24 14:45 07/09/24 14:45 07/09/24 14:45 07/07/24 12:10 Oxygen Flow Rate (L/min) 2 Oxygen Delivery Method Room Air Weight: 167 lb 8.821 oz Body Mass Index (BMI) 25.4 Intake Output: Intake and Output for Last 24 Hours 07/07/24 07/08/24 07/09/24 23:59 23:59 23:59 Intake Total 830 / 830 615 / 615 735 / 735 Output Total 800 / 800 400 / 400 Balance 215 / 215 735 / 735 Lab / Micro Data 07/09/24 05:58 07/09/24 05:58 Labs: Laboratory Results - last 24 hr 07/05/24 14:02: Stool Calprotectin 75 07/08/24 06:45: JULIET-1 Antibody <0.2, SS-A/Ro IgG Antibody < 0.2, SS-B/La IgG Antibody < 0.2, Sm (Bettencourt) Antibody <0.2, SECURITY GUARD Antibody <0.2, Scl-70 Scleroderma Ab 0.2, Double Strand DNA Ab 1, Antichromatin Antibodies <0.2, Centromere B Antibody <0.2 07/09/24 05:58: WBC 8.6, RBC 4.26 L, Hgb 12.4 L, Hct 36.4 L, MCV 85.4, MCH 29.1, MCHC 34.1, RDW Std Deviation 38.6, RDW Coeff of Kiya 12.4, Plt Count 438, MPV 8.6, ESR 35 H, Sodium 139, Potassium 4.3, Chloride 108 H, Carbon Dioxide 23.0, Anion Gap 8, BUN 18, Creatinine 0.97, Estim Creat Clear Calc 86.19, Est GFR (MDRD) Af Amer 104, Est GFR (MDRD) Non-Af 86, BUN/Creatinine Ratio 18.6, Glucose 109 H, Calcium 9.0, C-React Prot Ext Range 24.80 H, Amylase 76, Lipase 87 H Micro: Microbiology 07/05/24 04:34 Blood Culture (Wb) - Anticubital Left Blood Culture - Preliminary No growth in 48 hours. Physical Exam Const alert, oriented x3, no apparent distress and average body habitus General Appearance: cooperative HEENT normocephalic, head/scalp atraumatic, hearing grossly normal bilaterally and nasal mucous membranes and turbinates normal Eyes PERRL, EOMs intact bilaterally and conjunctivae normal Neck full ROM Chest inspection of chest normal Resp normal respiratory effort, normal air movement, no use of accessory muscles and clear to auscultation bilaterally Cardio regular rate, regular rhythm, no murmurs and peripheral pulses 2+ throughout GI GI Narrative: Abdomen nondistended, soft and nontender. Hypoactive bowel sounds noted. Stable. Back/Spine Back/Spine Narrative: No significant decreased range of motion noted. No external abnormalities noted. Stable. Extremity normal to inspection, full ROM and no pedal edema Skin no rashes or lesions noted Neuro moves all extremities and no focal motor deficits Speech: speech normal Psych mental status grossly normal Assessment Plan Assessment/Plan (1) Abdominal pain: (2) Intractable low back pain: (3) Paresthesia: (4) Elevated lipase: (5) Acute hypokalemia: PLAN: Plan Patient is a 53-year-old male who presented [facility] ED on 07/05/2024 with intractable low back pain. Mild abdominal pain with distention; concern for celiac disease ??? An autoimmune condition that can cause abdominal pain, bloating, diarrhea, and other digestive symptoms.???Other symptoms include muscle cramps, bone pain, joint pain, and a painful rash.???Some people with celiac disease may not have any symptoms. He has severe celiac disease by blood work due to his very high titers of IgG associated tissue transglutaminase. He equally would have high titers of tissue transglutaminase via IgA but he is IgA deficient. Celiac studies showed > 100 TTG IgG antibody, but negative TTG IgA antibody and slightly low IgA. He he is at risk for celiac disease crisis. He is also at risk for autoimmune enteropathy. He should be started on steroids. I would also check vitamin D levels because he could get bone pain due to malabsorption of fat-soluble vitamins in his small bowel. I will also check B12 and folic acid levels due to autoimmune gastritis (with antintrinsic factor and antiparietal cell antibodies) associated with celiac disease which could lead to some of his fatigue and weakness. A gluten-free diet (GFD) is the standard of care in the management of patients with celiac disease, but clinical and histological recovery are often delayed. In newly diagnosed patients, strict compliance to GFD is difficult to achieve; this is especially (more content not included)... Normal [facility] Gastric Emptying Studyon Gastric Emptying Study [facility] Imaging Services [address] [place] [address] Gastric Emptying Study MR#: [id number] Acct: [id number] Name: FEDE TURCIOS Rep #: [id number] : 1970 M 53 From: Willi Huynh PCP: Dr. Cora Mars MD Status: ADM IN Study: Gastric Emptying Study Date of Exam: 07/08/24 Exam# [id number] Ordering Dr: Patrick Garcia DO [id number] CLINICAL: 53-year-old male with history of abdominal pain. SEMI-SOLID PHASE 99m Tc SULFUR COLLOID GASTRIC EMPTYING STUDY COMPARISON: CT of the abdomen-pelvis report 07/05/2024 FINDINGS: The patient was administered 1.0 mCi of 99m Tc sulfur colloid mixed with oatmeal and consumed per os. Image acquisitions in the anterior-posterior projections were obtained for 60 minutes. There is prompt visualization of the stomach. There is no gastroesophageal reflux identified. First order kinetics are maintained throughout the duration of the acquisitions. The T ? linear fit was extrapolated to be 147.37 minutes, (Normal: 12-56 minutes). NM/Gastric Emptying Study IMPRESSION: 1. ABNORMAL 99m Tc sulfur colloid semi-solid phase (oatmeal) gastric emptying imaging examination. A. There is delayed semi-solid phase gastric emptying compared to normal controls with maintained first order kinetics throughout all components of the examination. (Azael et al, J Nucl Med Tech 38: 186, 2010). Electronically Signed: Willi Mg DO at 12:18 EDT Reading Location ID and State: [facility] / [place] Tel , Service support , CC: Dr. Osmar Villeda DO; Dr. Cora Mars MD; Patrick Garcia DO Professional Nurse: Signed [facility] MR/PN.GIon 07-08-2024 MR/PN.[facility] Medical Records Department [address] [place] [address] Progress Note - GI 07/08/24 1812 MR#: [id number] Acct: [id number] Name: FEDE TURCIOS Rep #: [id number] : 1970 53 From: Patrick Garcia DO PCP: Dr. Cora Mars MD Status:ADM IN Location: [facility] [id number] Subjective Subjective Patient is doing a lot better. He notes his nausea to be a 3 out of 10. He notes his abdominal pain to be a 4 out of 10. He did undergo gastric emptying study today. FINDINGS: The patient was administered 1.0 mCi of 99m Tc sulfur colloid mixed with oatmeal and consumed per os. Image acquisitions in the anterior-posterior projections were obtained for 60 minutes. There is prompt visualization of the stomach. There is no gastroesophageal reflux identified. First order kinetics are maintained throughout the duration of the acquisitions. The T ? linear fit was extrapolated to be 147.37 minutes, (Normal: 12-56 minutes). NM/Gastric Emptying Study IMPRESSION: 1. ABNORMAL 99m Tc sulfur colloid semi-solid phase (oatmeal) gastric emptying imaging examination. A. There is delayed semi-solid phase gastric emptying compared to normal controls with maintained first order kinetics throughout all components of the examination. Objective Data Objective Data Vital Signs: Vital Signs Temp Pulse Resp BP Pulse Ox O2 Del Method O2 Flow Rate 98.0 F 72 14 122/78 H 95 Room Air 2 07/08/24 13:52 07/08/24 13:52 07/08/24 13:52 07/08/24 13:52 07/08/24 13:53 07/08/24 13:53 07/07/24 12:10 Oxygen Flow Rate (L/min) 2 Oxygen Delivery Method Room Air Weight: 167 lb 8.821 oz Body Mass Index (BMI) 25.4 Intake Output: Intake and Output for Last 24 Hours 07/06/24 07/07/24 07/08/24 23:59 23:59 23:59 Intake Total 970 / 970 830 / 830 360 / 360 Output Total 800 / 800 400 / 400 Balance 970 / 970 30 / 30 -40 / -40 Lab / Micro Data 07/07/24 08:16 07/07/24 08:16 Labs: Laboratory Results - last 24 hr 07/07/24 08:16: C-React Prot Ext Range 115.00 H Micro: Microbiology 07/05/24 04:34 Blood Culture (Wb) - Anticubital Left Blood Culture - Preliminary No growth in 48 hours. Radiography Diagnostic Testing: Radiology Impression Gastric Emptying Nuclear Medicine 07/08/24 10:00 IMPRESSION: 1. ABNORMAL 99m Tc sulfur colloid semi-solid phase (oatmeal) gastric emptying imaging examination. A. There is delayed semi-solid phase gastric emptying compared to normal controls with maintained first order kinetics throughout all components of the examination. (Azael et al, J Nucl Med Tech 38: 186, 2010). Electronically Signed: Willi Mg, at 12:18 EDT , Physical Exam Const alert, oriented x3, no apparent distress and average body habitus General Appearance: cooperative HEENT normocephalic, head/scalp atraumatic, hearing grossly normal bilaterally and nasal mucous membranes and turbinates normal Eyes PERRL, EOMs intact bilaterally and conjunctivae normal Neck full ROM Chest inspection of chest normal Resp normal respiratory effort, normal air movement, no use of accessory muscles and clear to auscultation bilaterally Cardio regular rate, regular rhythm, no murmurs and peripheral pulses 2+ throughout GI GI Narrative: Abdomen mildly distended but otherwise soft and nontender. Hypoactive bowel sounds noted. Back/Spine Back/Spine Narrative: Mild tenderness to palpation in low back diffusely, worse in left paramuscular area. No significant decreased range of motion noted. No external abnormalities noted. Extremity normal to inspection, full ROM and no pedal edema Skin no rashes or lesions noted Neuro moves all extremities and no focal motor deficits Speech: speech normal Psych mental status grossly normal Mood Affect: anxious Assessment Plan Assessment/Plan (1) Abdominal pain: (2) Intractable low back pain: (3) Paresthesia: (4) Elevated lipase: (5) Acute hypokalemia: PLAN: Plan Patient is a 53-year-old male who presented [facility] ED on 07/05/2024 with intractable low back pain. Mild abdominal pain with distention; concern for celiac disease ??? An autoimmune condition that can cause abdominal pain, bloating, diarrhea, and other digestive symptoms.???Other symptoms include muscle cramps, bone pain, joint pain, and a painful rash.???Some people with celiac disease may not have any symptoms. He has severe celiac disease by blood work due to his very high titers of IgG associated tissue transglutaminase. He equally would have high titers of tissue transglutaminase via IgA but he is IgA deficient. Celiac studies showed > 100 TTG IgG antibo (more content not included)... Normal [facility] Basic Metabolic Profile (BMP )on 07-07-2024 BUN/CRE 10.9 RATIO Normal 10-20 [facility] Comment on above: Performed By: #### L 500.2500, L100.0100, L500.3400, L501.2450, L7000.5300 #### [facility] [address] [facility] [address] [place],Total 9.2 mg/dL Normal 8.5-10.1 [facility] Comment on above: Performed By: #### L 500.2500, L100.0100, L500.3400, L501.2450, L7000.5300 #### [facility] [address] [facility] [address] Chloride [Moles/Vol] 102 mmol/L Normal 98-107 [facility] Comment on above: Performed By: #### L 500.2500, L100.0100, L500.3400, L501.2450, L7000.5300 #### [facility] [address] [place], [address] CO2 [Moles/Vol] 25.0 mmol/L Normal 21.0-32.0 [facility] Comment on above: Performed By: #### L 500.2500, L100.0100, L500.3400, L501.2450, L7000.5300 #### [facility] [address] [place], [address] Creatinine [Mass/Vol] 1.10 mg/dL Normal 0.70-1.30 [facility] Comment on above: Result Comment: The validity of the calculated GFR GFRAA in patients over 70 years has not been determined. Clinical correlation is essential. Performed By: #### L 500.2500, L100.0100, L500.3400, L501.2450, L7000.5300 #### [facility] [address] [place], [address] ECRCL 76.00 ml/min Normal [facility] Comment on above: Performed By: #### L 500.2500, L100.0100, L500.3400, L501.2450, L7000.5300 #### [facility] [address] [place], [address] EST GFR - AA 90 mL/min Normal >60 [facility] Comment on above: Result Comment: Afri can Guamanian GFR Calc Performed By: #### L 500.2500, L100.0100, L500.3400, L501.2450, L7000.5300 #### [facility] [address] [place], [address] GAP 10 Normal 5-15 [facility] Comment on above: Performed By: #### L 500.2500, L100.0100, L500.3400, L501.2450, L7000.5300 #### [facility] [address] [place], [address] GFR/1.73 sq M.predicted among non-blacks MDRD (S/P/Bld) [Vol rate/Area] 75 mL/min/{1.73_m2} Normal >60 [facility] Comment on above: Result Comment: Non- GFR Calc Performed By: #### L 500.2500, L100.0100, L500.3400, L501.2450, L7000.5300 #### [facility] [address] [place], [address] Glucose [Mass/Vol] 97 mg/dL Normal 74-106 [facility] Comment on above: Performed By: #### L 500.2500, L100.0100, L500.3400, L501.2450, L7000.5300 #### [facility] [address] [place], [address] Potassium [Moles/Vol] 3.6 mmol/L Normal 3.5-5.1 [facility] Comment on above: Performed By: #### L 500.2500, L100.0100, L500.3400, L501.2450, L7000.5300 #### [facility] [address] [place], [address] Sodium [Moles/Vol] 137 mmol/L Normal 136-145 [facility] Comment on above: Performed By: #### L 500.2500, L100.0100, L500.3400, L501.2450, L7000.5300 #### [facility] [address] [place], [address] Urea nitrogen [Mass/Vol] 12 mg/dL Normal 7-18 [facility] Comment on above: Performed By: #### L 500.2500, L100.0100, L500.3400, L501.2450, L7000.5300 #### [facility] [address] [place], [address] CBC-Complete Blood Cnt No Di ffon 07-07-2024 Erythrocyte distribution width (RBC) [Ratio] 12.5 % Normal 11.6-14.6 [facility] Comment on above: Performed By: #### L 500.2500, L100.0100, L500.3400, L501.2450, L7000.5300 #### [facility] [address] [place], [address] Hematocrit (Bld) [Volume fraction] 39.8 % Low 40-54 [facility] Comment on above: Performed By: #### L 500.2500, L100.0100, L500.3400, L501.2450, L7000.5300 #### [facility] [address] [place], [address] Hemoglobin (Bld) [Mass/Vol] 13.3 g/dL Normal 13.0-16.5 [facility] Comment on above: Performed By: #### L 500.2500, L100.0100, L500.3400, L501.2450, L7000.5300 #### [facility] [address] [place], [address] MCH (RBC) [Entitic mass] 28.9 pg Normal 27.0-32.0 [facility] Comment on above: Performed By: #### L 500.2500, L100.0100, L500.3400, L501.2450, L7000.5300 #### [facility] [address] [place], [address] MCHC (RBC) [Mass/Vol] 33.4 g/dL Normal 32-36 [facility] Comment on above: Performed By: #### L 500.2500, L100.0100, L500.3400, L501.2450, L7000.5300 #### [facility] [address] [place], [address] MCV (RBC) [Entitic vol] 86.3 fL Normal 80-94 [facility] Comment on above: Performed By: #### L 500.2500, L100.0100, L500.3400, L501.2450, L7000.5300 #### [facility] [address] [place], [address] Platelet mean volume (Bld) [Entitic vol] 8.4 fL Normal 6.2-12.0 [facility] Comment on above: Performed By: #### L 500.2500, L100.0100, L500.3400, L501.2450, L7000.5300 #### [facility] [address] [place], [address] Platelets (Bld) [#/Vol] 423 10*3/uL Normal 150-450 [facility] Comment on above: Performed By: #### L 500.2500, L100.0100, L500.3400, L501.2450, L7000.5300 #### [facility] [address] [place], [address] RBC (Bld) [#/Vol] 4.61 10*6/uL Normal 4.6-6.2 [facility] Comment on above: Performed By: #### L 500.2500, L100.0100, L500.3400, L501.2450, L7000.5300 #### [facility] [address] [place], [address] RDW SD 39.5 fl Normal 35.1-43.9 [facility] Comment on above: Performed By: #### L 500.2500, L100.0100, L500.3400, L501.2450, L7000.5300 #### [facility] [address] [place], [address] WBC (Bld) [#/Vol] 4.7 10*3/uL Normal 4.4-11.0 [facility] Comment on above: Performed By: #### L 500.2500, L100.0100, L500.3400, L501.2450, L7000.5300 #### [facility] [address] [place], [address] CRPon 07-07-2024 C-REACTIVE PROT 115.00 mg/L High 0.0-3.0 [facility] Comment on above: Result Comment: C-Re active Protein (CRP) provides useful information for the diagnosis, therapy and monitoring of inflammatory processes and associated diseases. For the evaluation of Relative Risk for Cardiovascular Disease, a High Sensitivity CRP (HSCRP) should be ordered. Performed By: #### L 3300.1800, L3100.5440, L501.6710, L2100.0000, L3100.3425, L3100.4810, L101.9900, L3300.1200 ####[facility] [address] [place], [address] Catecholamines, Plasmaon DOPAMINE Normal [facility] Comment on above: Result Comment: QNS PER [facility]. RE-ORDER IF STILL NEEDED. PT HAS BEEN DISHCARGED Performed By: #### L 3430.0100 #### [facility] [address] [place], [address] EPINEPHRINE Normal [facility] Comment on above: Result Comment: QNS PER [facility]. RE-ORDER IF STILL NEEDED. PT HAS BEEN DISHCARGED Performed By: #### L 3430.0100 #### [facility] [address] [place], [address] NOREPINEPHRINE Normal [facility] Comment on above: Result Comment: QNS PER [facility]. RE-ORDER IF STILL NEEDED. PT HAS BEEN DISHCARGED Performed By: #### L 3430.0100 #### [facility] [address] [place], [address] EGD Reporton 07-07-2024 EGD Report [facility] Medical Records Department [address] [place] [address] EGD Report MR#: [id number] Acct: [id number] Name: FEDE TURCIOS Rep #: [id number] : 1970 53 From: Patrick Garcia DO PCP: Dr. Cora Mars MD Status:ADM IN Patient Name: Fede Turcios Procedure Date: 07/07/2024 1:05 PM Date of : 1970 Age: 53 Procedure: Upper GI endoscopy Indications: Epigastric abdominal pain, Failure to respond to medical treatment Providers: Patrick Garcia DO Medicines: Monitored Anesthesia Care Patient Profile: This is a 53 year old male. Refer to note in patient chart for documentation of history and physical. Patient has symptoms of acute epigastric abdominal pain. Complications: No immediate complications. Procedure: Pre-Anesthesia Assessment: - Prior to the procedure, a History and Physical was performed, and patient medications and allergies were reviewed. The patient is competent. The risks and benefits of the procedure and the sedation options and risks were discussed with the patient. All questions were answered and informed consent was obtained. Patient identification and proposed procedure were verified by the physician in the pre-procedure area. Mental Status Examination: alert and oriented. Airway Examination: normal oropharyngeal airway and neck mobility. Respiratory Examination: clear to auscultation. CV Examination: normal. Prophylactic Antibiotics: The patient does not require prophylactic antibiotics. Prior Anticoagulants: The patient has taken no anticoagulant or antiplatelet agents except for NSAID medication. ASA Grade Assessment: II - A patient with mild systemic disease. After reviewing the risks and benefits, the patient was deemed in satisfactory condition to undergo the procedure. The anesthesia plan was to use monitored anesthesia care (MAC). Immediately prior to administration of medications, the patient was re-assessed for adequacy to receive sedatives. The heart rate, respiratory rate, oxygen saturations, blood pressure, adequacy of pulmonary ventilation, and response to care were monitored throughout the procedure. The physical status of the patient was re-assessed after the procedure. After obtaining informed consent, the endoscope was passed under direct vision. Throughout the procedure, the patient's blood pressure, pulse, and oxygen saturations were monitored continuously. The Endoscope was introduced through the mouth, and advanced to the second part of duodenum. The upper GI endoscopy was accomplished without difficulty. The patient tolerated the procedure well. Scope In: 1:18:55 PM Scope Out: 1:23:50 PM Total Procedure Duration Time 0 hours 4 minutes 55 seconds Findings: The Z-line was irregular and was found 39 cm from the incisors. Biopsies were taken with a cold forceps for histology. Verification of patient identification for the specimen was done. Estimated blood loss was minimal. A few small hyperplastic polyps with no bleeding and no stigmata of recent bleeding were found in the gastric body. No gross lesions were noted in the second portion of the duodenum. Biopsies were taken with a cold forceps for histology. Verification of patient identification for the specimen was done. Estimated blood loss was minimal. Impression: - Z-line irregular, 39 cm from the incisors. Biopsied. - A few gastric polyps. - No gross lesions in the second portion of the duodenum. Biopsied. Recommendation: - Return patient to hospital [facility] for ongoing care. - Advance diet as tolerated. - Continue present medications. - Await pathology results. Procedure Code(s): --- Professional --- 92060, Esophagogastroduodenoscopy , flexible, transoral; with biopsy, single or multiple CPT copyright 2021 [employer]. All rights reserved. The codes documented in this report are preliminary and upon event specialist food demonstrator review may be revised to meet current compliance requirements. Patrick Garcia DO 07/07/2024 1:28:49 PM This report has been signed electronically. Number of Addenda: 0 Note Initiated On: 07/07/2024 1:05 PM 07/07/24 1329 Date Patrick Garcia DO Cosignanita Signature: Date (if indicated) CC: Dr. Cora Mars MD; Patrick Garcia DO Date Dictated: 07/07/24 1305 Date Transcribed: Professional Nurse: RF Signed Normal [facility] Erythrocyte Sed Rateon 07-07 SED RATE 54 mm/hr High 0-20 [facility] Comment on above: Performed By: #### L 3300.1800, L3100.5440, L501.6710, L2100.0000, L3100.3425, L3100.4810, L101.9900, L3300.1200 ####[facility] [address] [facility] [place], [address] MR/POSTOP.ANEon 07-07-2024 MR/POSTOP.[facility] Medical Records Department [address] [place] [address] Anesthesia Postop Eval I 07/07/24 1331 MR#: [id number] Acct: [id number] Name: FEDE TURCIOS Rep #: [id number] : 1970 53 From: John Ramon PCP: Dr. Cora Mars MD Status:ADM IN Y Race: C Location: [place] [address] Anesthesia: Postop Eval I Current Vital Signs Temperature: 98.1 F Pulse Rate: 74 Blood Pressure: 123/74 Respiratory Rate: 16 Pulse Ox: 99 Oxygen Delivery Method: Room Air Assessment Airway patent: Yes Spontaneous unlabored respirations: Yes Mental status: Asleep nausea: No Vomiting: No Anesthesia Complication: No Fluid Hydration Crystalloid volume administer (ml): 400 Total IV fluid infused: 400 Progress Note Anesthesia document: Postop Eval 1 completed: Yes 07/07/24 1332 Date John Kitchen Signature: Date CC: Signed Normal [facility] MR/PJYYJOSE0gd 07-07-2024 MR/POSTOPAN2 [facility] Medical Records Department [address] [place] [address] Anesthesia Postop Eval II 07/07/24 1333 MR#: [id number] Acct: [id number] Name: FEDE TURCIOS Rep #: [id number] : 1970 53 From: Kofi Hernandes MD PCP: Dr. Cora Mars MD Status:ADM IN Y Race: C Location: [place] [address] Anesthesia Postop Eval I Sum Postop Eval Completion status Anesthesia document: Postop Eval 1 completed: Yes Anesthesia Postop Eval I Summary Anesthesia Postop Eval I Summary: Anesthesia Postop Eval I: Assessment Summary Airway patent Yes 07/07/24 13:32 [email or web address] Spontaneous unlabored Yes 07/07/24 13:32 [email or web address] respirations Mental status Asleep 07/07/24 13:32 [email or web address] nausea No 07/07/24 13:32 [email or web address] Vomiting No 07/07/24 13:32 [email or web address] Anesthesia Postop Eval I: Fluid Summary Crystalloid volume administer 400 07/07/24 13:32 [email or web address] (ml) Colloids volume administered ( ml) Blood Product volume administered (ml) Total IV fluid infused 400 07/07/24 13:32 [email or web address] Anesthesia Postop Eval I: Summary Notes Anesthesia Complication No 07/07/24 13:32 [email or web address] Anesthesia Complication Comment: Post-operative progress note Anesthesia: Postop Eval II Evaluation Mental status: Awake Pain Level: 0 nausea: No Vomiting: No 07/07/24 1333 Date Kofi Kitchen Signature: Date CC: Signed Normal [facility] Special Stain Group Ion - Special Stain Group I -------- Patient Age/Sex Location Account Attending Physician FEDE TURCIOS 53/M [facility] [id number] Dr. Osmar Villeda DO Specimen: [id number] Received: 07/08/24 Status: CINDY Jones Num: [id number] Spec Type: EGD BIOPSY Subm Dr: Patrick Garcia DO HEADER OPERATION: EGD with biopsy PRE-OP DIAGNOSIS: Abdominal pain TISSUE SUBMITTED: A- Duodenum biopsy, B- Distal esophagus biopsy MICROSCOPIC DIAGNOSIS A. Duodenum, biopsy: Mild non-specific chronic inflammation and focal acute inflammation. B. Distal esophagus, biopsy: Gastroesophageal junctional mucosa with mild chronic inflammation. No evidence of goblet cell metaplasia. See comment. AM. 07/09/2024 COMMENT B. Alcian blue/PAS stain with matched control is used in the evaluation of the specimen. MICROSCOPIC DESCRIPTION Slides are reviewed. GROSS DESCRIPTION A. Received in fixative is one container labeled with the patient's name and designated Duodenum biopsy. The specimen consists of multiple irregular fragments of light lewis soft tissue that in aggregate measure 1.0 x 0.5 x 0.1 cm. The specimen is totally submitted in one cassette. B. Received in fixative is one container labeled with the patient's name and designated Distal esophagus biopsy. The specimen consists of two irregular fragments of light lewis soft tissue that in aggregate measure 0.6 x 0.6 x 0.1 cm. The specimen is totally submitted in one cassette. 07/08/2024 TC:3 CPT:16665u9,49637 Patient Age/Sex Location Account Attending Physician FEDE TURCIOS 53/M [facility] [id number] Dr. Osmar Villeda, DO Signed (signature on file) Dr. Gigi Jon, 07/09/24 1218 Normal [facility] Comment on above: Performed By: #### P SSI ####[facility] [address] [place], [address] Amylaseon 07-06-2024 ALVA 66 U/L Normal 25-115 [facility] Comment on above: Performed By: #### L 501.2400, L500.4100 ####[facility] [address] [place], [address] CBC-Complete Blood Cnt No Di ffon 07-06-2024 Erythrocyte distribution width (RBC) [Ratio] 12.5 % Normal 11.6-14.6 [facility] Comment on above: Performed By: #### L 100.0500, L500.4050 ####[facility] [address] [place], [address] Hematocrit (Bld) [Volume fraction] 38.5 % Low 40-54 [facility] Comment on above: Performed By: #### L 100.0500, L500.4050 ####[facility] [address] [place], [address] Hemoglobin (Bld) [Mass/Vol] 12.7 g/dL Low 13.0-16.5 [facility] Comment on above: Performed By: #### L 100.0500, L500.4050 ####[facility] [address] [place], [address] MCH (RBC) [Entitic mass] 28.5 pg Normal 27.0-32.0 [facility] Comment on above: Performed By: #### L 100.0500, L500.4050 ####[facility] [address] [place], [address] MCHC (RBC) [Mass/Vol] 33.0 g/dL Normal 32-36 [facility] Comment on above: Performed By: #### L 100.0500, L500.4050 ####[facility] [address] [place], [address] MCV (RBC) [Entitic vol] 86.3 fL Normal 80-94 [facility] Comment on above: Performed By: #### L 100.0500, L500.4050 ####[facility] [address] [place], [address] Platelet mean volume (Bld) [Entitic vol] 8.5 fL Normal 6.2-12.0 [facility] Comment on above: Performed By: #### L 100.0500, L500.4050 ####[facility] [address] [place], [address] Platelets (Bld) [#/Vol] 400 10*3/uL Normal 150-450 [facility] Comment on above: Performed By: #### L 100.0500, L500.4050 ####[facility] [address] [place], [address] RBC (Bld) [#/Vol] 4.46 10*6/uL Low 4.6-6.2 [facility] Comment on above: Performed By: #### L 100.0500, L500.4050 ####[facility] [address] [place], [address] RDW SD 39.7 fl Normal 35.1-43.9 [facility] Comment on above: Performed By: #### L 100.0500, L500.4050 ####[facility] [address] [place], [address] WBC (Bld) [#/Vol] 12.2 10*3/uL High 4.4-11.0 [facility] Comment on above: Performed By: #### L 100.0500, L500.4050 ####[facility] [address] [place], [address] Celiac Disease Profileon ENDOMYSIAL IGA Negative Normal Negative [facility] Comment on above: Performed By: #### L 500.2500, L100.0100, L500.3400, L501.2450, L7000.5300 #### [facility] Laboratory [address] [place], [address] IMMUNOGLOB A QN 78 mg/dL Low 90-386 [facility] Comment on above: Performed By: #### L 500.2500, L100.0100, L500.3400, L501.2450, L7000.5300 #### [facility] [address] [place], [address] tTG IGA <2 Normal 0-3 [facility] Comment on above: Result Comment: Nega tive 0 - 3 Weak Positive 4 - 10 Positive >10 Tissue Transglutaminase (tTG) has been identified as the endomysial antigen. Studies have demonstr- ated that endomysial IgA antibodies have over 99% specificity for gluten sensitive enteropathy. Performed By: #### L 500.2500, L100.0100, L500.3400, L501.2450, L7000.5300 #### [facility] Laboratory [address] [place], [address] tTG IGG >100 Abnormal 0-5 [facility] Comment on above: Result Comment: Nega tive 0 - 5 Weak Positive 6 - 9 Positive >9 Performed at: [address] [id number] Sound Engineer: Ayaan Zaldivar PhD, Phone: [phone] Performed By: #### L 500.2500, L100.0100, L500.3400, L501.2450, L7000.5300 #### [facility] Laboratory [address] [place], [address] Comprehensive Metabolic Prof ilon 07-06-2024 Albumin [Mass/Vol] 3.1 g/dL Low 3.2-5.0 [facility] Comment on above: Performed By: #### L 100.0500, L500.4050 ####[facility] [address] [place], [place], [address] Albumin/Globulin [Mass ratio] 0.8 {ratio} Low 0.9-2.4 [facility] Comment on above: Performed By: #### L 100.0500, L500.4050 ####[facility] [address] [place], [address] ALK P 130 U/L High 45-117 [facility] Comment on above: Performed By: #### L 100.0500, L500.4050 ####[facility] [address] [place], [address] ALT [Catalytic activity/Vol] 29 U/L Normal 16-61 [facility] Comment on above: Performed By: #### L 100.0500, L500.4050 ####[facility] [address] [place], [address] AST [Catalytic activity/Vol] 18 U/L Normal 15-37 [facility] Comment on above: Performed By: #### L 100.0500, L500.4050 ####[facility] [address] [place], [address] Bilirubin [Mass/Vol] 0.70 mg/dL Normal 0.20-1.00 [facility] Comment on above: Result Comment: For patients on eltrombopag therapy, use of Dimension Alexander TBIL is not recommended. Performed By: #### L 100.0500, L500.4050 ####[facility] [address] [place], [address] BUN/CRE 10.3 RATIO Normal 10-20 [facility] Comment on above: Performed By: #### L 100.0500, L500.4050 ####[facility] [address] [place], [address] CA,Total 9.0 mg/dL Normal 8.5-10.1 [facility] Comment on above: Performed By: #### L 100.0500, L500.4050 ####[facility] [address] [place], [address] Chloride [Moles/Vol] 99 mmol/L Normal 98-107 [facility] Comment on above: Performed By: #### L 100.0500, L500.4050 ####[facility] [address] [place], [address] CO2 [Moles/Vol] 27.0 mmol/L Normal 21.0-32.0 [facility] Comment on above: Performed By: #### L 100.0500, L500.4050 ####[facility] [address] [place], [address] Creatinine [Mass/Vol] 1.07 mg/dL Normal 0.70-1.30 [facility] Comment on above: Result Comment: The validity of the calculated GFR GFRAA in patients over 70 years has not been determined. Clinical correlation is essential. Performed By: #### L 100.0500, L500.4050 ####[facility] [address] [place], [address] ECRCL 78.13 ml/min Normal [facility] Comment on above: Performed By: #### L 100.0500, L500.4050 ####[facility] [address] [place], [address] EST GFR - AA 93 mL/min Normal >60 [facility] Comment on above: Result Comment: Afri can [place] GFR Calc Performed By: #### L 100.0500, L500.4050 ####[facility] [address] [place], [address] GAP 9 Normal 5-15 [facility] Comment on above: Performed By: #### L 100.0500, L500.4050 ####[facility] [address] [place], [address] GFR/1.73 sq M.predicted among non-blacks MDRD (S/P/Bld) [Vol rate/Area] 77 mL/min/{1.73_m2} Normal >60 [facility] Comment on above: Result Comment: Non- GFR Calc Performed By: #### L 100.0500, L500.4050 ####[facility] [address] [place], [address] Globulin (S) [Mass/Vol] 3.9 g/dL Normal 2.2-4.2 [facility] Comment on above: Performed By: #### L 100.0500, L500.4050 ####[facility] [address] [place], [address] Glucose [Mass/Vol] 108 mg/dL High 74-106 [facility] Comment on above: Result Comment: Fast ing Glucose result from 100 to 125 mg/dL suggests IMPAIRED HOMEOSTASIS per A.D.A. criteria. Performed By: #### L 100.0500, L500.4050 ####[facility] [address] [place], [address] Potassium [Moles/Vol] 3.4 mmol/L Low 3.5-5.1 [facility] Comment on above: Performed By: #### L 100.0500, L500.4050 ####[facility] [address] [place], [address] Sodium [Moles/Vol] 135 mmol/L Low 136-145 [facility] Comment on above: Performed By: #### L 100.0500, L500.4050 ####[facility] [address] [place], [address] T PROT 7.0 g/dL Normal 6.4-8.2 [facility] Comment on above: Performed By: #### L 100.0500, L500.4050 ####[facility] [address] [place], [address] Urea nitrogen [Mass/Vol] 11 mg/dL Normal 7-18 [facility] Comment on above: Performed By: #### L 100.0500, L500.4050 ####[facility] [address] [place], [address] Ferritinon 07-06-2024 Ferritin [Mass/Vol] 636 ng/mL High 26-388 [facility] Comment on above: Order Comment: Has Alejandra jordan had X-rays with Contrast this admission? NN Performed By: #### L 500.2500, L100.0100, L500.3400, L501.2450, L7000.5300 #### [facility] Laboratory [address] [place], [place], [address] Folates, (Folic Acid)on 06-20 FOLATES 18.20 ng/mL Normal 3.1-55.4 [facility] Comment on above: Order Comment: Has Alejandra jordan had X-rays with Contrast this admission? NN Performed By: #### L 500.2500, L100.0100, L500.3400, L501.2450, L7000.5300 #### [facility] [address] [place], [place], [address] Iron+Iron Binding Capacityon 07-06-2024 Iron [Mass/Vol] 56 ug/dL Low 65-175 [facility] Comment on above: Order Comment: Has Alejandra jordan had X-rays with Contrast this admission? NN Performed By: #### L 500.2500, L100.0100, L500.3400, L501.2450, L7000.5300 #### [facility] [address] [place], [place], [id number] (775) IRON SATURATION 23.7 Normal 15.0-55.0 [facility] Comment on above: Order Comment: Has Alejandra jordan had X-rays with Contrast this admission? NN Performed By: #### L 500.2500, L100.0100, L500.3400, L501.2450, L7000.5300 #### [facility] [address] [place], [address] TIBC 236 ug/dL Low 250-450 [facility] Comment on above: Order Comment: Has Alejandra jordan had X-rays with Contrast this admission? NN Performed By: #### L 500.2500, L100.0100, L500.3400, L501.2450, L7000.5300 #### [facility] [address] [place], [address] Lipid Profileon 07-06-2024 Cholesterol [Mass/Vol] 108 mg/dL Normal 200 [facility] Comment on above: Result Comment: <200 mg/dL Desirable 200-240 mg/dL Borderline >240 mg/dL High Risk Performed By: #### L 501.2400, L500.4100 ####[facility] [address] [place], [address] Cholesterol in HDL [Mass/Vol] 30 mg/dL Low [facility] Comment on above: Result Comment: The drugs N-Acetylcysteine and Metamizole may falsely depress this assay. Reference Range HDL <40 mg/dL Low HDL Cholesterol HDL >or= 60 mg/dL High HDL Cholesterol Performed By: #### L 501.2400, L500.4100 ####[facility] [address] [place], [address] Cholesterol in LDL [Mass/Vol] 51 mg/dL Normal 0-130 [facility] Comment on above: Performed By: #### L 501.2400, L500.4100 ####[facility] [address] [place], [address] Cholesterol in VLDL [Mass/Vol] 27 mg/dL Normal 5-40 [facility] Comment on above: Performed By: #### L 501.2400, L500.4100 ####[facility] [address] [place], [address] Triglyceride [Mass/Vol] 136 mg/dL Normal [facility] Comment on above: Result Comment: The drugs N-Acetylcysteine and Metamizole may falsely depress this assay. Serum Triglycerides Reference Interval Normal <150 mg/dL Borderline high 150 - 199 mg/dL High 200 - 499 mg/dL Very High > or = 500 mg/dL Performed By: #### L 501.2400, L500.4100 ####[facility] [address] [place], [address] Lyme Screen W/Reflex WBon Lyme IGG MAYANK Positive Normal Negative [facility] Comment on above: Performed By: #### L 500.2500, L100.0100, L500.3400, L501.2450, L7000.5300 #### [facility] [address] [place], [address] Lyme IGM MAYANK Positive Normal Negative [facility] Comment on above: Performed By: #### L 500.2500, L100.0100, L500.3400, L501.2450, L7000.5300 #### [facility] [address] [place], [address] LYME SCREEN Ab Positive Normal Negative [facility] Comment on above: Result Comment: Evid ence of Lyme antibodies; confirmation indicated. See Lyme IgG and Lyme IgM results (reflex testing), and Lyme interpretation for final interpretation of the Lyme serology reflex algorithm. Performed By: #### L 500.2500, L100.0100, L500.3400, L501.2450, L7000.5300 #### [facility] [address] [place], [address] LYME SCREEN Ab Comment Abnormal . [facility] Comment on above: Result Comment: Lyme IgM/IgG Abs Detected Results are consistent with B. burgdorferi infection (Lyme disease) in the recent or remote past. IgG-class antibodies may remain detectable for months to years following resolution of infection. Results should not be used to monitor or establish adequate response to therapy. Response to therapy is confirmed through resolution of clinical symptoms; additional laboratory testing should not be performed. If both tests are equivocal consider repeat testing in 7 to 14 days if clinically warranted. Performed at: [address] [id number] Sound Engineer: Ayaan Zaldivar PhD, Phone: [phone] Performed By: #### L 500.2500, L100.0100, L500.3400, L501.2450, L7000.5300 #### [facility] [address] [place], [address] MR/CON.PCM.GIon 07-06-2024 MR/CON.PCM.GI [facility] Medical Records Department [address] [place] [address] Consultation - GI 07/06/24 1732 MR#: [id number] Acct: [id number] Name: FEDE TURCIOS Rep #: [id number] : 1970 53 From: Patrick Friend DO PCP: Dr. Cora Mars MD Status:ADM IN Location: [place] [id number] HPI Consult Data Date of Consult: 07/06/24 HPI Narrative Reason for Consultation: Abdominal pain HPI Narrative: FEDE TURCIOS, is a 53-year-old male presenting to the emergency department with back pain. 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 He had some constitutional symptoms including subjective fever which eventually developed into a left flank pain. He was seen at [facility] where he had a CT scan that was negative. He was seen in this emergency department on 27 June. At that time his lipase was minimally elevated he had 1+ bacteria but no overt infection and a CT with IV contrast was obtained which did not show acute pathology. He had a repeat CT scan of the abdomen pelvis on 07/05/2024 that displayed Fluid distended small bowel and fluid levels in the colon nonspecific, can be seen with enteritis or gastroenteritis. He followed up with primary care and his urine culture was negative. He issues with constipation which she feels is related to the pain medication has been taken. He states he looks asymmetric with the left side appearing swollen compared to right. He also had a normal MRI of the spine on 07/05/2024. He notes decreased sensation in the skin in that left side abdomen left flank area. He states multiple people have suggested he could have Lyme's disease but he does not recall any tick bites no bull's-eye rash. He can occasionally find a position of comfort that is better than others but cannot stay in that position for very long. He denies any radicular symptoms. He denies any loss of bowel or bladder control. He does note some discomfort in the medial proximal left thigh which he attributes to altering the way that he ambulates currently. For constipation the patient has been using senna as well as magnesium citrate. He did undergo Lyme testing and was antibody positive. He had blood work to check for celiac disease when his hospitalization and he is very high for IgG titers of tissue transglutaminase but normal titers for IgA tissue transglutaminase. 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 [facility] Medical History (Updated 07/06/24 @ 09:[address] Osmar Villeda, DO) GERD (gastroesophageal reflux disease) Home Medications ???Medication ???Instructions ???Recorded ???Last Taken ???Type cyclobenzaprine 10 mg tablet 10 mg PO TID PRN PRN muscle spasm 06/27/24 Unknown History hydrocodone-acetaminophen 5-325mg 1 tab PO Q6H PRN PRN Pain 3 days 06/27/24 07/04/24 Rx 5mg-325mg #10 TABLETS ondansetron 4 mg disintegrating 4 mg PO Q8H PRN PRN Nausea #10 tabs 06/27/24 06/28/24 Rx tablet sumatriptan succinate 50 mg tablet 50 mg PO PRN PRN migraine 06/27/24 Unknown History acetaminophen 325 mg tablet 650 mg PO Q6H 07/05/24 07/05/24 02:30 History (Tylenol) ibuprofen 200 mg tablet (Advil) 400 mg PO Q6H 07/05/24 Unknown History omeprazole 40 mg capsule,delayed 40 mg PO DAILY gerd 07/05/24 07/04/24 History release polyethylene glycol 3350 17 17 g PO DAILY 07/05/24 Unknown History gram/dose oral powder (Miralax) sennosides 8.6 mg-docusate sodium 1 tab-cap PO DAILY 07/05/24 Unknown History 50 mg tablet (Senna-S) sildenafil 50 mg tablet 50 mg PO PRN 07/05/24 Unknown History simethicone 80 mg chewable tablet 80 mg PO BID 07/05/24 Unknown History (Gas Relief 80 (simethicone)) Allergy/AdvReac Type Severity Reaction Status Date / Time No Known Allergies Allergy Verified 07/05/24 03:37 Surgical History (Updated 07/05/24 @ 13:50 by Taty Albarran) H/O vasectomy S/P dilatation of esophageal stricture Hx of elbow surgery Social History Smoking Status: Never smoker alcohol intake: current alcohol intake frequency: a few times a month ROS Constitutional Constitutional: Denies chills, fatigue, fever(s) or weakness Eyes Eyes: Denies change in vision Cardiovascular Cardiovascular: Denies chest pain Respiratory/Chest Respiratory/Chest: Denies shortness of breath at rest Gastrointestinal Gastrointestinal: Reports abdominal pain and loose stools; Denies constipation, diarrhea, nausea or vomiting Genitourinary Genitourinary: Denies dysuria Musculoskeletal Musculoskeletal: Reports back pain; Denies arthralgias, joint pain, joint swelling or myalgias Neurologic Neurologic: Denies dizziness, focal weakness or headache(s) Physical Exam Const alert, oriented x3, no apparent distress and average body habitus General Appearance: cooperative HEENT (more content not included)... Normal [facility] Magnesiumon 07-06-2024 Magnesium [Mass/Vol] 2.5 mg/dL Normal 1.6-2.6 [facility] Comment on above: Performed By: #### L 500.2500, L100.0100, L500.3400, L501.2450, L7000.5300 #### [facility] Laboratory [address] [place], [place], [id number] Phosphoruson 07-06-2024 Phosphate [Mass/Vol] 4.7 mg/dL Normal 2.5-4.9 [facility] Comment on above: Performed By: #### L 500.2500, L100.0100, L500.3400, L501.2450, L7000.5300 #### [facility] Laboratory [address] [facility] [address]. [place], [place], [id number] Vitamin B12on 07-06-2024 Cobalamin (Vitamin B12) [Mass/Vol] 382 pg/mL Normal 211-911 [facility] Comment on above: Performed By: #### L 500.2500, L100.0100, L500.3400, L501.2450, L7000.5300 #### [facility] Laboratory [address] [place], [address] Abdomen/Pelvis WITH Contrast on 07-05-2024 Abdomen/Pelvis WITH Contrast [facility] Imaging Services [address] [place] [address] Abdomen/Pelvis WITH Contrast MR#: [id number] Acct: [id number] Name: FEDE TURCIOS Rep #: [id number] : 1970 M 53 From: Agatha Enriquez PCP: Dr. Cora Mars MD Status: REG ER Study: Abdomen/Pelvis WITH Contrast Date of Exam: Exam# [id number] Ordering Dr: Doni Irby DO [id number] EXAM: CT Abdomen And Pelvis W/ Contrast Injection HISTORY: left abdominal pain ABD PAIN X3 WEEKS TECHNIQUE: Routine protocol CT abdomen pelvis. IV Contrast: Oral and amp; IV Gastrografin and amp; 100mL [id number]-[id number] . Oral Contrast: with. Sagittal and coronal images were reconstructed. RADIATION DOSAGE (If Supplied By Facility): CTDIvol = ( 12.5 ) mGy, DLP = ( 842.43 ) mGycm Individualized dose optimization techniques were used for this CT. COMPARISON: CT abdomen and pelvis 06/27/2024. LIMITATIONS: None. FINDINGS: LOWER CHEST: Dependent atelectasis in the lung bases. LIVER: Tiny cyst in the right lobe. GALLBLADDER/BILE DUCTS: Unremarkable. PANCREAS: Unremarkable. SPLEEN: Unremarkable. ADRENAL GLANDS: Unremarkable. KIDNEYS / URETERS: Unremarkable. BOWEL / MESENTERY: Fluid distended nondilated small bowel in the mid to lower abdomen. Nonspecific fluid levels in the colon to the rectum. No bowel obstruction. APPENDIX: Identified and normal. No evidence of acute appendicitis. PERITONEUM: No free air. No free fluid. VESSELS: Abdominal aorta is normal caliber. RETROPERITONEUM: Unremarkable. REPRODUCTIVE ORGANS: Unremarkable. BLADDER: Unremarkable. ABDOMINAL WALL: Unremarkable. BONES: No acute abnormality. OTHER: None. CT/Abdomen/Pelvis WITH Contrast IMPRESSION: Fluid distended small bowel and fluid levels in the colon nonspecific, can be seen with enteritis or gastroenteritis. Electronically Signed: Agatha Forrest MD at 7:44 EDT , CC: Dr. Doni Irby DO; Dr. Cora Mars MD Professional Nurse: Signed Normal [facility] Basic Metabolic Profile (BMP )on 07-05-2024 BUN/CRE 14.0 RATIO Normal 10-20 [facility] Comment on above: Performed By: #### L 500.2500, L100.0100, L500.3400, L501.2450, L7000.5300 #### [facility] Laboratory [address] [place], [address] CA,Total 9.6 mg/dL Normal 8.5-10.1 [facility] Comment on above: Performed By: #### L 500.2500, L100.0100, L500.3400, L501.2450, L7000.5300 #### [facility] Laboratory [address] [place], [address] Chloride [Moles/Vol] 97 mmol/L Low 98-107 [facility] Comment on above: Performed By: #### L 500.2500, L100.0100, L500.3400, L501.2450, L7000.5300 #### [facility] Laboratory [address] [place], [address] CO2 [Moles/Vol] 29.0 mmol/L Normal 21.0-32.0 [facility] Comment on above: Performed By: #### L 500.2500, L100.0100, L500.3400, L501.2450, L7000.5300 #### [facility] Laboratory [address] [place], [address] Creatinine [Mass/Vol] 1.00 mg/dL Normal 0.70-1.30 [facility] Comment on above: Result Comment: The validity of the calculated GFR GFRAA in patients over 70 years has not been determined. Clinical correlation is essential. Performed By: #### L 500.2500, L100.0100, L500.3400, L501.2450, L7000.5300 #### [facility] Laboratory [address] [place], [address] ECRCL 83.60 ml/min Normal [facility] Comment on above: Performed By: #### L 500.2500, L100.0100, L500.3400, L501.2450, L7000.5300 #### [facility] Laboratory [address] [place], [address] EST GFR - AA 101 mL/min Normal >60 [facility] Comment on above: Result Comment: Afri can Guamanian GFR Calc Performed By: #### L 500.2500, L100.0100, L500.3400, L501.2450, L7000.5300 #### [facility] Laboratory [address] [place], [address] GAP 9 Normal 5-15 [facility] Comment on above: Performed By: #### L 500.2500, L100.0100, L500.3400, L501.2450, L7000.5300 #### [facility] Laboratory [address] [place], [address] GFR/1.73 sq M.predicted among non-blacks MDRD (S/P/Bld) [Vol rate/Area] 83 mL/min/{1.73_m2} Normal >60 [facility] Comment on above: Result Comment: Non- GFR Calc Performed By: #### L 500.2500, L100.0100, L500.3400, L501.2450, L7000.5300 #### [facility] Laboratory [address] [place], [address] Glucose [Mass/Vol] 121 mg/dL High 74-106 [facility] Comment on above: Result Comment: Fast ing Glucose result from 100 to 125 mg/dL suggests IMPAIRED HOMEOSTASIS per A.D.A. criteria. Performed By: #### L 500.2500, L100.0100, L500.3400, L501.2450, L7000.5300 #### [facility] [address] [place], [address] Potassium [Moles/Vol] 3.1 mmol/L Low 3.5-5.1 [facility] Comment on above: Performed By: #### L 500.2500, L100.0100, L500.3400, L501.2450, L7000.5300 #### [facility] [address] [place], [address] Sodium [Moles/Vol] 135 mmol/L Low 136-145 [facility] Comment on above: Performed By: #### L 500.2500, L100.0100, L500.3400, L501.2450, L7000.5300 #### [facility] [address] [place], [address] Urea nitrogen [Mass/Vol] 14 mg/dL Normal 7-18 [facility] Comment on above: Performed By: #### L 500.2500, L100.0100, L500.3400, L501.2450, L7000.5300 #### [facility] Laboratory [address] [place], [address] CBC W/Diff, Automatedon - Absolute Lymph 1.18 X10 3/uL Normal 0.83-4.51 [facility] Comment on above: Performed By: #### L 500.2500, L100.0100, L500.3400, L501.2450, L7000.5300 #### [facility] Laboratory [address] [place], [address] Absolute Neut 8.9 X10 3/uL High 2.0-7.7 [facility] Comment on above: Performed By: #### L 500.2500, L100.0100, L500.3400, L501.2450, L7000.5300 #### [facility] Laboratory [address] [place], [address] Basophils/100 WBC (Bld) 0.7 % Normal 0-1 [facility] Comment on above: Performed By: #### L 500.2500, L100.0100, L500.3400, L501.2450, L7000.5300 #### [facility] Laboratory [address] [place], [address] Eosinophils/100 WBC (Bld) 0.8 % Normal 0-5 [facility] Comment on above: Performed By: #### L 500.2500, L100.0100, L500.3400, L501.2450, L7000.5300 #### [facility] [address] [place], [address] Erythrocyte distribution width (RBC) [Ratio] 12.4 % Normal 11.6-14.6 [facility] Comment on above: Performed By: #### L 500.2500, L100.0100, L500.3400, L501.2450, L7000.5300 #### [facility] [address] [place], [address] Hematocrit (Bld) [Volume fraction] 43.0 % Normal 40-54 [facility] Comment on above: Performed By: #### L 500.2500, L100.0100, L500.3400, L501.2450, L7000.5300 #### [facility] Laboratory [address] [place], [address] Hemoglobin (Bld) [Mass/Vol] 14.2 g/dL Normal 13.0-16.5 [facility] Comment on above: Performed By: #### L 500.2500, L100.0100, L500.3400, L501.2450, L7000.5300 #### [facility] [address] [place], [address] IG% 0.500 Normal 0.0-0.9 [facility] Comment on above: Result Comment: IG% - Immature Granulocytes (promyelocytes, myelocytes and metamyelocytes) > 1% indicates that a LEFT SHIFT is Present. Performed By: #### L 500.2500, L100.0100, L500.3400, L501.2450, L7000.5300 #### [facility] Laboratory [address] [place], [address] Lymphocytes/100 WBC (Bld) 11.0 % Low 19-41 [facility] Comment on above: Performed By: #### L 500.2500, L100.0100, L500.3400, L501.2450, L7000.5300 #### [facility] [address] [place], [address] MCH (RBC) [Entitic mass] 28.2 pg Normal 27.0-32.0 [facility] Comment on above: Performed By: #### L 500.2500, L100.0100, L500.3400, L501.2450, L7000.5300 #### [facility] Laboratory [address] [place], [address] MCHC (RBC) [Mass/Vol] 33.0 g/dL Normal 32-36 [facility] Comment on above: Performed By: #### L 500.2500, L100.0100, L500.3400, L501.2450, L7000.5300 #### [facility] [address] [place], [address] MCV (RBC) [Entitic vol] 85.5 fL Normal 80-94 [facility] Comment on above: Performed By: #### L 500.2500, L100.0100, L500.3400, L501.2450, L7000.5300 #### [facility] Laboratory [address] [place], [address] Monocytes/100 WBC (Bld) 4.1 % Normal 0-10 [facility] Comment on above: Performed By: #### L 500.2500, L100.0100, L500.3400, L501.2450, L7000.5300 #### [facility] Laboratory [address] [place], [address] Neutrophils/100 WBC (Bld) 82.9 % High 47-70 [facility] Comment on above: Performed By: #### L 500.2500, L100.0100, L500.3400, L501.2450, L7000.5300 #### [facility] Laboratory [address] [place], [address] Nucleated RBC (Bld) [#/Vol] 0 10*3/uL Normal 0-5 [facility] Comment on above: Performed By: #### L 500.2500, L100.0100, L500.3400, L501.2450, L7000.5300 #### [facility] Laboratory [address] [place], [address] Platelet mean volume (Bld) [Entitic vol] 8.3 fL Normal 6.2-12.0 [facility] Comment on above: Performed By: #### L 500.2500, L100.0100, L500.3400, L501.2450, L7000.5300 #### [facility] Laboratory [address] [place], [address] Platelets (Bld) [#/Vol] 469 10*3/uL High 150-450 [facility] Comment on above: Performed By: #### L 500.2500, L100.0100, L500.3400, L501.2450, L7000.5300 #### [facility] Laboratory [address] [place], [address] RBC (Bld) [#/Vol] 5.03 10*6/uL Normal 4.6-6.2 [facility] Comment on above: Performed By: #### L 500.2500, L100.0100, L500.3400, L501.2450, L7000.5300 #### [facility] Laboratory [address] [place], [address] RDW SD 38.6 fl Normal 35.1-43.9 [facility] Comment on above: Performed By: #### L 500.2500, L100.0100, L500.3400, L501.2450, L7000.5300 #### [facility] Laboratory [address] [place], [address] WBC (Bld) [#/Vol] 10.7 10*3/uL Normal 4.4-11.0 [facility] Comment on above: Performed By: #### L 500.2500, L100.0100, L500.3400, L501.2450, L7000.5300 #### [facility] Laboratory [address] [place], [address] Chest 1 View (Portable)on Chest 1 View (Portable) [facility] Imaging Services [address] [place] [address] Chest 1 View (Portable) MR#: [id number] Acct: [id number] Name: FEDE TURCIOS Rep #: [id number] : 1970 M 53 From: John Farah MD PCP: Dr. Cora Mars MD Status: ADM INDIGO Study: Chest 1 View (Portable) Date of Exam: 07/05/24 Exam# [id number] Ordering Dr: Osmar Villeda DO [id number] STUDY: X-RAY CHEST REASON FOR EXAM: Male, 53 years old. Left effusion. Hypoxia. TECHNIQUE: 6 COMPARISON: None. FINDINGS: The lungs are clear and expanded. There is no demonstrated pleural abnormality. Normal size heart. Normal mediastinum and demetrio. Normal visualized pulmonary arteries. Normal visualized aortic arch and descending thoracic aorta. No abnormality of the visualized soft tissue structures of the upper abdomen. RAD/Chest 1 View (Portable) IMPRESSION: Normal x-ray examination of the chest. Electronically Signed: John Farah MD at 13:20 EDT Reading Location ID and State: [facility] [facility] [place] , Service support , CC: Dr. Osmra Villeda DO; Dr. Cora Mars MD Professional Nurse: Signed Normal [facility] Emergency Department Summary on 07-05-2024 Emergency Department Summary [facility] Medical Records Department [address] [place] [address] Emergency Department Summary 07/05/24 MR#: [id number] Acct: [id number] Name: FEDE TURCIOS Rep #: [id number] : 1970 53 From: Doni Irby DO PCP: Dr. Cora Mars MD Status:REG ER Location: ED HPI History of Present Illness Chief Complaint: Back Informant: patient and spouse/S.O. Narrative Narrative: 53-year-old male presenting to the emergency department with back pain. 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 He had some constitutional symptoms including subjective fever which eventually developed into a left flank pain. He was seen at [facility] where he had a CT scan that was negative. He was seen in this emergency department on 27 June. At that time his lipase was minimally elevated he had 1+ bacteria but no overt infection and a CT with IV contrast was obtained which did not show acute pathology. He followed up with primary care and his urine culture was negative. He issues with constipation which she feels is related to the pain medication has been taken. He states he looks asymmetric with the left side appearing swollen compared to right. No further fevers. No known trauma. He notes decreased sensation in the skin in that left side abdomen left flank area. He states multiple people have suggested he could have Lyme's disease but he does not recall any tick bites no bull's- eye rash. He can occasionally find a position of comfort that is better than others but cannot stay in that position for very long. He denies any radicular symptoms. He denies any loss of bowel or bladder control. He does note some discomfort in the medial proximal left thigh which he attributes to altering the way that he ambulates currently. For constipation the patient has been using senna as well as magnesium citrate. [facility] Medical History GERD (gastroesophageal reflux disease) Home Medications ???Medication ???Instructions ???Recorded ???Last Taken ???Type cyclobenzaprine 10 mg tablet 10 mg PO TID PRN PRN muscle spasm 06/27/24 Unknown History hydrocodone-acetaminophen 5-325mg 1 tab PO Q6H PRN PRN Pain 3 days 06/27/24 Unknown Rx 5mg-325mg #10 TABLETS ondansetron 4 mg disintegrating 4 mg PO Q8H PRN PRN Nausea #10 tabs 06/27/24 Unknown Rx tablet sumatriptan succinate 50 mg tablet 50 mg PO PRN PRN migraine 06/27/24 Unknown History Allergy/AdvReac Type Severity Reaction Status Date / Time No Known Allergies Allergy Verified 07/05/24 03:37 Surgical History Hx of elbow surgery Social History Smoking Status: Never smoker alcohol intake: current alcohol intake frequency: a few times a month ROS ROS ED Constitutional Constitutional ED: Denies chills or weight loss Eyes Eyes: Denies change in vision or diplopia ENT ENT ED: Denies ear pain, rhinorrhea or sore throat Cardiovascular Cardiovascular: Denies chest pain, orthopnea, palpitations or racing heartbeat Respiratory/Chest Respiratory/Chest: Denies cough, dyspnea or orthopnea Gastrointestinal Gastrointestinal: Reports abdominal pain and constipation; Denies diarrhea, nausea or vomiting Genitourinary Genitourinary ED: Denies dysuria, hematuria or urinary frequency Musculoskeletal Musculoskeletal: Reports back pain; Denies arthralgias or myalgias Integumentary Denies abscess or rash Neurologic Neurologic: Reports paresthesias; Denies headache(s) or weakness Psychiatric Psychiatric: Denies anxiety, depression, suicidal ideation or suicidal thoughts Endocrine Endocrinology: Denies polydipsia, polyphagia or polyuria Allergic/Immunologic Allergic/Immunologic ED: Denies mouth swelling, tongue swelling or urticaria EXAM Physical Exam Const Vital Signs: 07/05/24 03:38 Temperature 98.2 F Temperature Source Oral Pulse Rate 89 Respiratory Rate 18 Blood Pressure 145/92 H Blood Pressure Mean 109 Pulse Ox 98 Oxygen Delivery Method Room Air Positive well nourished and well developed General Appearance ED: well developed; Negative for pallor HEENT Reports normocephalic, head/scalp atraumatic and moist mucous membranes Eyes PERRL and EOMs intact bilaterally Neck no lymphadenopathy, supple and no JVD Resp normal respiratory effort and clear to auscultation bilaterally Cardio regular rate, regular rhythm and no murmurs GI GI Narrative: Left lateral abdominal wall tender to palpation extending to the left flank. I do not appreciate focal swelling but does not appear as concave as the right. There is a very faint erythematous area that blanches in this a (more content not included)... Normal [facility] H AND P Exam - Hospitaliston 07-05-2024 H&P Exam - Hospitalist [facility] Medical Records Department [address] [place] [address] H P Exam - Hospitalist 07/05/24 0815 MR#: [id number] Acct: [id number] Name: FEDE TURICOS Rep #: [id number] : 1970 53 From: Osmar Villeda DO PCP: Dr. Cora Mars MD Status:ADM INDIGO [id number] - General General Date of Admission: 07/05/24 Date of Service: 07/05/24 Chief Complaint: Intractable low back pain HPI Narrative FEDE TURCIOS, is a 53 M who presented to [facility] ED on 07/05/2024 with intractable low back pain. Saw patient at bedside in the ED, present. Patient appeared to be in mild to moderate discomfort when I saw him due to ongoing low back pain. He stated the pain was primarily in the left low back and wrapping around the flank region. 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 The symptoms have now been ongoing since the end of May. He first went to [facility] ED on 06/24. CT abdomen pelvis showed mild constipation but was otherwise negative for kidney stones or other acute pathology and noted no low thoracic or lumbar spinal issues. Was discharged home with recommendation for conservative treatment for pain and treatment for constipation. He then came to our ED on 06/27 with continuing symptoms. He had another CT abdomen pelvis done that again showed mild constipation but was otherwise unremarkable. He had some improvement with IV fluids, morphine and Zofran and was given prescription for [place] and Zofran and discharged home. He saw his primary on 07/01 who had x-rays of the thoracic and lumbar regions done that were unremarkable. Today he continues to report similar symptoms as before. States that nothing seems to make the back pain much better. The dose of IV morphine given to him in the ED here today did seem to help a little bit. He had another CT abdomen pelvis done that showed fluid- filled loops of bowel concerning for a possible gastroenteritis. However, was noted that patient took 2 doses of magnesium citrate over the past few days in addition to Senna to help facilitate bowel movements. Notes that he has had some soft and liquidy bowel movements over the past few days and does not feel distended or bloated in the abdomen. Does states that he has not been eating drinking much and has lost about 10 pounds. He denies any fevers or chills. Denies any recent traumas. Given his ongoing symptoms of unclear etiology, patient was admitted for further management. [facility] Medical History (Updated 07/06/24 @ 09:[address] Osmar Mosteller, DO) GERD (gastroesophageal reflux disease) Home Medications ???Medication ???Instructions ???Recorded ???Last Taken ???Type cyclobenzaprine 10 mg tablet 10 mg PO TID PRN PRN muscle spasm 06/27/24 Unknown History hydrocodone-acetaminophen 5-325mg 1 tab PO Q6H PRN PRN Pain 3 days 06/27/24 07/04/24 Rx 5mg-325mg #10 TABLETS ondansetron 4 mg disintegrating 4 mg PO Q8H PRN PRN Nausea #10 tabs 06/27/24 06/28/24 Rx tablet sumatriptan succinate 50 mg tablet 50 mg PO PRN PRN migraine 06/27/24 Unknown History acetaminophen 325 mg tablet 650 mg PO Q6H 07/05/24 07/05/24 02:30 History (Tylenol) ibuprofen 200 mg tablet (Advil) 400 mg PO Q6H 07/05/24 Unknown History omeprazole 40 mg capsule,delayed 40 mg PO DAILY gerd 07/05/24 07/04/24 History release polyethylene glycol 3350 17 17 g PO DAILY 07/05/24 Unknown History gram/dose oral powder (Miralax) sennosides 8.6 mg-docusate sodium 1 tab-cap PO DAILY 07/05/24 Unknown History 50 mg tablet (Senna-S) sildenafil 50 mg tablet 50 mg PO PRN 07/05/24 Unknown History simethicone 80 mg chewable tablet 80 mg PO BID 07/05/24 Unknown History (Gas Relief 80 (simethicone)) Allergy/AdvReac Type Severity Reaction Status Date / Time No Known Allergies Allergy Verified 07/05/24 03:37 Surgical History (Updated 07/05/24 @ 13:50 by Taty Albarran) H/O vasectomy S/P dilatation of esophageal stricture Hx of elbow surgery Social History Smoking Status: Never smoker alcohol intake: current alcohol intake frequency: a few times a month ROS Constitutional Constitutional: Denies chills, fatigue, fever(s) or weakness Eyes Eyes: Denies change in vision Cardiovascular Cardiovascular: Denies chest pain Respiratory/Chest Respiratory/Chest: Denies shortness of breath at rest Gastrointestinal Gastrointestinal: Reports abdominal pain and loose stools; Denies constipation, diarrhea, nausea or vomiting Genitourinary Genitourinary: Denies dysuria Musculoskeletal Musculoskeletal: Reports back pain; Denies arthralgias, joint pain, joint swelling or myalgias Neurologic Neurologic: Denies dizziness, focal weakness or headache(s) Vital Signs Vital Signs Vital Signs: (more content not included)... Normal [facility] Lipaseon 07-05-2024 Lipase [Catalytic activity/Vol] 96 U/L High 13-75 [facility] Comment on above: Result Comment: Catherine medina note: LIPASE revised reference range effective 23. New Lipase methodology. Expected to produce lower values than the previous assay method. NEW Reference Range: 13 - 75 U/L Performed By: #### L 500.2500, L100.0100, L500.3400, L501.2450, L7000.5300 #### [facility] Laboratory [address] [place], [address] Liver Profileon 07-05-2024 Albumin [Mass/Vol] 3.7 g/dL Normal 3.2-5.0 [facility] Comment on above: Performed By: #### L 500.2500, L100.0100, L500.3400, L501.2450, L7000.5300 #### [facility] [address] [place], [address] ALK P 159 U/L High 45-117 [facility] Comment on above: Performed By: #### L 500.2500, L100.0100, L500.3400, L501.2450, L7000.5300 #### [facility] [address] [place], [address] ALT [Catalytic activity/Vol] 43 U/L Normal 16-61 [facility] Comment on above: Performed By: #### L 500.2500, L100.0100, L500.3400, L501.2450, L7000.5300 #### [facility] [address] [place], [address] AST [Catalytic activity/Vol] 22 U/L Normal 15-37 [facility] Comment on above: Performed By: #### L 500.2500, L100.0100, L500.3400, L501.2450, L7000.5300 #### [facility] [address] [place], [address] Bilirubin [Mass/Vol] 0.70 mg/dL Normal 0.20-1.00 [facility] Comment on above: Result Comment: For patients on eltrombopag therapy, use of Dimension Alexander TBIL is not recommended. Performed By: #### L 500.2500, L100.0100, L500.3400, L501.2450, L7000.5300 #### [facility] [address] [place], [address] Bilirubin.direct [Mass/Vol] 0.31 mg/dL High 0.00-0.30 [facility] Comment on above: Performed By: #### L 500.2500, L100.0100, L500.3400, L501.2450, L7000.5300 #### [facility] [address] [place], [address] Globulin (S) [Mass/Vol] 4.4 g/dL High 2.2-4.2 [facility] Comment on above: Performed By: #### L 500.2500, L100.0100, L500.3400, L501.2450, L7000.5300 #### [facility] [address] [place], [address] T PROT 8.1 g/dL Normal 6.4-8.2 [facility] Comment on above: Performed By: #### L 500.2500, L100.0100, L500.3400, L501.2450, L7000.5300 #### [facility] [address] [place], [address] Spine Lumbar (Routine)on Spine Lumbar (Routine) [facility] Imaging Services [address] [place] [address] Spine Lumbar (Routine) MR#: [id number] Acct: [id number] Name: FEDE TURCIOS Rep #: [id number] : 1970 M 53 From: Kobe Enriquez PCP: Dr. Cora Mars MD Status: ADM INDIGO Study: Spine Lumbar (Routine) Date of Exam: 07/05/24 Exam# [id number] Ordering Dr: Osmar Villeda DO [id number] STUDY: MRI LUMBAR SPINE WITHOUT CONTRAST REASON FOR EXAM: Male, 53 years old. persis severe LBP w/ no signif findings on xray TECHNIQUE: Standardized fat and water weighted pulse sequences were obtained in the sagittal and axial planes. COMPARISON: None FINDINGS: T12-L1: Normal endplates. Normal disc height, hydration and morphology. Normal bilateral facet joints. Normal central canal and bilateral lateral recesses. Normal bilateral intervertebral neural foramina. Normal lumbar lordosis. There is no substantial scoliosis. Normal conus medullaris that terminates at the L1 level. L1-2: Normal endplates. Normal disc height, hydration and morphology. Normal bilateral facet joints. Normal central canal and bilateral lateral recesses. Normal bilateral intervertebral neural foramina. L2-3: Normal endplates. Normal disc height, hydration and morphology. Normal bilateral facet joints. Normal central canal and bilateral lateral recesses. Normal bilateral intervertebral neural foramina. L3-4: Normal endplates. Normal disc height, hydration and morphology. Normal bilateral facet joints. Normal central canal and bilateral lateral recesses. Normal bilateral intervertebral neural foramina. L4-5: Normal endplates. Normal disc height, hydration and morphology. Normal bilateral facet joints. Normal central canal and bilateral lateral recesses. Normal bilateral intervertebral neural foramina. L5-S1: Normal endplates. Normal disc height, hydration and morphology. Normal bilateral facet joints. Normal central canal and bilateral lateral recesses. Normal bilateral intervertebral neural foramina. Normal visualized sacral ala. Normal visualized paraspinous soft tissue structures. MRI/Spine Lumbar (Routine) IMPRESSION: Normal unenhanced MR examination of the lumbar spine. Electronically Signed: Kobe Smith MD at 0:14 EDT , CC: Dr. Osmar Villeda DO; Dr. Cora Mars MD Professional Nurse: Signed Normal [facility] Urinalysis, Completeon 07-05 BACTERIA RARE Normal None Seen [facility] Comment on above: Order Comment: CLEAN CATCH Performed By: #### L 500.2500, L100.0100, L500.3400, L501.2450, L7000.5300 #### [facility] [address] [place], [address] RBC 0-5 SEEN Normal 0-5 [facility] Comment on above: Order Comment: CLEAN CATCH Performed By: #### L 500.2500, L100.0100, L500.3400, L501.2450, L7000.5300 #### [facility] [address] [place], [address] EPI,SQUAMOUS 0 SEEN Normal 0-5 [facility] Comment on above: Order Comment: CLEAN CATCH Performed By: #### L 500.2500, L100.0100, L500.3400, L501.2450, L7000.5300 #### [facility] [address] [place], [address] Mucus Ql (Urine sed) 0 SEEN Normal [facility] Comment on above: Order Comment: CLEAN CATCH Performed By: #### L 500.2500, L100.0100, L500.3400, L501.2450, L7000.5300 #### [facility] [address] [place], [address] WBC 0 SEEN Normal 0-5 [facility] Comment on above: Order Comment: CLEAN CATCH Performed By: #### L 500.2500, L100.0100, L500.3400, L501.2450, L7000.5300 #### [facility] [address] [place], [address] No Panel Informationon 07-01 Radiology Study observation (narrative) [facility] XR LUMBAR PARS 4V AP/LAT/OBL X2on 07-01-2024 XR LUMBAR PARS 4V AP/LAT/OBL X2 * * *Final Report* * * DATE OF EXAM: Jul 01 2024 10:21AM WOX 5233 - XR LUMBAR PARS 4V AP/LAT/OBL X2 / PROCEDURE REASON: Acute bilateral back pain, unspecified back location * * * * Physician Interpretation * * * * EXAM TITLE: XR LUMBAR PARS 4V AP/LAT/OBL X2 EXAM DATE/TIME: 07/01/2024 10:21 AM COMPARISON: None. CLINICAL INDICATION/HISTORY: Acute back pain. TECHNIQUE: AP and oblique views of the lumbar spine are presented. FINDINGS: There are five [id number]-jnm-pssfwwy lumbar vertebrae. No fracture or subluxations are noted. The disc spaces are well preserved. There is no significant osteophyte formation. IMPRESSION: Negative lumbar spine X-ray. Professional Nurse: NOEMI Transcribe Date/Time: Jul 01 2024 10:21A Dictated by : NEHA CHAPMAN MD This examination was interpreted and the report reviewed and electronically signed by: NEHA CHAPMAN MD on Jul 01 2024 10:24AM EST [id number] Normal [facility] XR Lumbar spine AP and Later al and obliqueon 07-01-2024 IMPRESSION: Negative lumbar spine X-ray. Professional Nurse: NOEMI Transcribe Date/Time: Jul 01 2024 10:21A Dictated by : NEHA CHAPMAN MD This examination was interpreted and the report reviewed and electronically signed by: NEHA CHAPMAN MD on Jul 01 2024 10:24AM [facility] DIVISION OF RADIOLOGY * * *Final Report* * * DATE OF EXAM: Jul 01 2024 10:21AM WOX 5233 - XR LUMBAR PARS 4V AP/LAT/OBL X2 / PROCEDURE REASON: Acute bilateral back pain, unspecified back location * * * * Physician Interpretation * * * * EXAM TITLE: XR LUMBAR PARS 4V AP/LAT/OBL X2 EXAM DATE/TIME: 07/01/2024 10:21 AM COMPARISON: None. CLINICAL INDICATION/HISTORY: Acute back pain. TECHNIQUE: AP and oblique views of the lumbar spine are presented. FINDINGS: There are five jkn-qcl-hnqdfig lumbar vertebrae. No fracture or subluxations are noted. The disc spaces are well preserved. There is no significant osteophyte formation. DIVISION OF RADIOLOGY Provider, Vivek Gonzalez [facility] - 07/01/2024 * * *Final Report* * * DATE OF EXAM: Jul 01 2024 10:21AM WOX 5233 - XR LUMBAR PARS 4V AP/LAT/OBL X2 / PROCEDURE REASON: Acute bilateral back pain, unspecified back location * * * * Physician Interpretation * * * * EXAM TITLE: XR LUMBAR PARS 4V AP/LAT/OBL X2 EXAM DATE/TIME: 07/01/2024 10:21 AM COMPARISON: None. CLINICAL INDICATION/HISTORY: Acute back pain. TECHNIQUE: AP and oblique views of the lumbar spine are presented. FINDINGS: There are five nvv-klf-fndklkh lumbar vertebrae. No fracture or subluxations are noted. The disc spaces are well preserved. There is no significant osteophyte formation. IMPRESSION IMPRESSION: Negative lumbar spine X-ray. Professional Nurse: PSCB Transcribe Date/Time: Jul 01 2024 10:21A Dictated by : NEHA CHAPMAN MD This examination was interpreted and the report reviewed and electronically signed by: NEHA CHAPMAN MD on Jul 01 2024 10:24AM [facility] XR Lumbar spine AP and Later al and obliqueOrdered By: [facility] Provider on 07-01-2024 [facility] XR THORACIC 3V AP/LAT/SWIMME RSon 07-01-2024 XR THORACIC 3V AP/LAT/SWIMMERS * * *Final Report* * * DATE OF EXAM: Jul 01 2024 10:21AM WOX 5261 - XR THORACIC 3V AP/LAT/SWIMMERS / PROCEDURE REASON: Acute bilateral back pain, unspecified back location * * * * Physician Interpretation * * * * EXAM TITLE: XR THORACIC 3V AP/LAT/SWIMMERS EXAM DATE/TIME: 07/01/2024 10:21 AM COMPARISON: None. CLINICAL INDICATION/HISTORY: Back pain. TECHNIQUE: AP, swimmer's and lateral views of the thoracic spine are presented FINDINGS: No fractures or subluxations are noted. The disc spaces are grossly preserved. Mild to moderate osteophyte formation is noted. There is no paraspinal mass or bony destructive process. IMPRESSION: Thoracic spine degenerative changes. Professional Nurse: NOEMI Transcribe Date/Time: Jul 01 2024 10:25A Dictated by : NEHA CHAPMAN MD This examination was interpreted and the report reviewed and electronically signed by: NEHA CHAPMAN MD on Jul 01 2024 10:28AM EST [id number] Normal [facility] XR Thoracic spine AP and Lat eral and Swimmerson 07-01-2024 IMPRESSION: Thoracic spine degenerative changes. Professional Nurse: NOEMI Transcribe Date/Time: Jul 01 2024 10:25A Dictated by : NEHA CHAPMAN MD This examination was interpreted and the report reviewed and electronically signed by: NEHA CHAPMAN MD on Jul 01 2024 10:28AM EST DIVISION OF RADIOLOGY * * *Final Report* * * DATE OF EXAM: Jul 01 2024 10:21AM WOX 5261 - XR THORACIC 3V AP/LAT/SWIMMERS / PROCEDURE REASON: Acute bilateral back pain, unspecified back location * * * * Physician Interpretation * * * * EXAM TITLE: XR THORACIC 3V AP/LAT/SWIMMERS EXAM DATE/TIME: 07/01/2024 10:21 AM COMPARISON: None. CLINICAL INDICATION/HISTORY: Back pain. TECHNIQUE: AP, swimmer's and lateral views of the thoracic spine are presented FINDINGS: No fractures or subluxations are noted. The disc spaces are grossly preserved. Mild to moderate osteophyte formation is noted. There is no paraspinal mass or bony destructive process. DIVISION OF RADIOLOGY Provider, Vivek Palmer - 07/01/2024 * * *Final Report* * * DATE OF EXAM: Jul 01 2024 10:21AM WOX 5261 - XR THORACIC 3V AP/LAT/SWIMMERS / PROCEDURE REASON: Acute bilateral back pain, unspecified back location * * * * Physician Interpretation * * * * EXAM TITLE: XR THORACIC 3V AP/LAT/SWIMMERS EXAM DATE/TIME: 07/01/2024 10:21 AM COMPARISON: None. CLINICAL INDICATION/HISTORY: Back pain. TECHNIQUE: AP, swimmer's and lateral views of the thoracic spine are presented FINDINGS: No fractures or subluxations are noted. The disc spaces are grossly preserved. Mild to moderate osteophyte formation is noted. There is no paraspinal mass or bony destructive process. IMPRESSION IMPRESSION: Thoracic spine degenerative changes. Professional Nurse: NOEMI Transcribe Date/Time: Jul 01 2024 10:25A Dictated by : NEHA CHAPMAN MD This examination was interpreted and the report reviewed and electronically signed by: NEHA CHAPMAN MD on Jul 01 2024 10:28AM [facility] Telephone (INTMWS) -- FEDE TURCIOS ([id number]) 1970 M Date Time Provider Department 06/30/24 PAU NICHOLS INTWS During your visit today, we recorded the following information about you: Veronica Joshi LPN 06/30/2024 11:42 AM Signed Patient calling re: PSA, Urine culture, advised results are still In Process, office will call when finalized. Patient did take Magnesium Citrate, he did have liquidy bm through night, 2 this am. Stopped taking Sherborn d/t constipation, back to Tylenol/Ibuprofen every 3 hours d/t back pain, using heating pad to back. Asking if he needs to continue Magnesium Citrate, concerned about back pain returning. What is the next step. Please review AND advise. Pau Castillo LPN, APRN.[employer]ORING MACHINE OPERATOR DOUBLE [employer] 07/01/2024 8:42 AM Signed Please let patient know his UA and culture are negative. Also his PSA is normal. Have his bm's all been liquid or has he had formed stools? Edith Husain MA 07/01/2024 10:10 AM Signed Pt notified and states all of his stools have been liquid. He is on his way to get his back x ray now JAZMYNE Mitchell Danielle, APRN.BORING MACHINE OPERATOR [employer] 07/01/2024 10:45 AM Signed Please let patient know xrays show mild degenerative changes of the thoracic spine but is otherwise normal. I have placed a referral to gastroenterology and have faxed it to Dr. Milton's office as requested. Edith Husain MA 07/01/2024 3:43 PM Signed Pt notified and verbalized understanding. Pt states he is still having numbness and bloating. He is asking if there is anything else that can be done in the meantime? And if you think it is all gastrointestinal related? Please advise Pau Nichols APRN.[facility] 07/01/2024 4:43 PM Signed I think this is gastrointestinal related but he will know more after seeing Dr. Milton. His labs, urine, CT and xrays have all been negative. Cherise Lugo MA 07/02/2024 8:53 AM Signed Message left for pt to call back for results. Kaela Cheema MA, RN 07/02/2024 9:08 AM Signed Pt returned call and given provider's message below with verbalized understanding. Allergies As of Date: 06/30/2024 (No Known Allergies) Date Reviewed: 06/29/2024 Reviewed by: Edith Husain MA - Fully Assessed Reason for Visit: Results [95] Patient Update [1234] Primary Visit Diagnosis:Generalized abdominal pain [R10.84] Order(s):CONSULT TO GASTROENTEROLOGY [9010] Order #: [id number]: 1 FUTURE Prescriptions as of 07/02/2024 - magnesium citrate solution Drink 1/3 of bottle, wait 4hrs for results. If no stool, drink next 1/3 bottle. Wait 4hrs. No results, then drink last 1/3 of bottle. For severe constipation. - cyclobenzaprine (FLEXERIL) 10 mg tablet Take 1 tablet by mouth three times a day as needed for muscle spasm. - omeprazole (PRILOSEC) 40 mg capsule Take 1 capsule by mouth daily before breakfast. - SUMAtriptan (IMITREX) 50 mg tablet Take 1 tablet (50 mg) by mouth as needed for migraine headache (see administration instructions) for up to 28 days. - sildenafil (VIAGRA) 50 mg tablet Take 1 tablet by mouth as needed. - clotrimazole-betamethasone (LOTRISONE) cream Apply to affected area twice daily. Problem List As Of Date 06/30/2024 Noted Resolved GERD (gastroesophageal reflux disease) [K21.9] 10/30/2011 S/P dilatation of esophageal stricture [Z98.890*10/30/2011 Migraine [G43.909] 10/30/2011 Encounter Status:Closed by Kaela LOCKETT on 07/02/24 Normal [facility] Bacteria Ur Culton 4 Bacteria identified Cx Nom (U) ORGANISM ID: 1 <10,000 CFU/ml Normal urogenital lseley Normal [facility] Comment on above: Performed By: #### 6 30-4 ####[facility] LABCLIA [id number] [address] STATES OF [facility] CNOVon 06-29-2024 CNOV Office Visit (FAMPWS ) -- FEDE TURCIOS ([id number]) 1970 M Date Time Provider Department 06/29/24 2:20 PM PAU NICHOLS During your visit today, we recorded the following information about you: Pulse Blood pressure Weight 90/minute 134/91 79.4 kg Pau Nichols, CATALINO.BORING MACHINE OPERATOR DOUBLE [employer] 06/29/2024 3:03 PM Signed Chief Complaint Patient presents with: ER F/U HPI Fede Turcios is a 53 year old male who presents here today for Above Complaints.. Patient presents for ER follow up. Patient reports he was seen at [facility] 06/22 and was told everything was normal. Seen at [facility] 06/27 and had an abnormal UA and Ct that showed constipation. Has been taking dulcolax, senna, miralax with no BM. Patient reports he has been taking advil and tylenol with no improvement of pain. Past medical history, appointments, medications, allergies reviewed. 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 Milton 03/20/2004: ESOPHAGOSCOPY FLEX BALLOON DILAT <30 MM DIAM Comment: Esophageal dilatation; Dr Milton Family History FAMILY HISTORY Problem Relation Age of Onset Hypertension Mother Coronary Artery Disease Mother 2 Heart attacks Heart Mother CABG in February 2017 Cancer Father 62 Prostate Hypertension Father 60 Diabetes Father 69 Cancer Paternal Grandfather Pancreatic Patient Allergies ALLERGIES No Known Allergies Current Medications Current Outpatient Medications on File Prior to Visit Medication Sig cyclobenzaprine (FLEXERIL) 10 mg tablet Take 1 tablet by mouth three times a day as needed for muscle spasm. omeprazole (PRILOSEC) 40 mg capsule Take 1 capsule by mouth daily before breakfast. SUMAtriptan (IMITREX) 50 mg tablet Take 1 tablet (50 mg) by mouth as needed for migraine headache (see administration instructions) for up to 28 days. sildenafil (VIAGRA) 50 mg tablet Take 1 tablet by mouth as needed. clotrimazole-betamethasone (LOTRISONE) cream Apply to affected area twice daily. No current facility-administered medications on file prior to visit. Social History Social History Tobacco Use Smoking status: Never Smokeless tobacco: Never Substance Use Topics Alcohol use: Yes Comment: socially Drug use: No Review of Symptoms REVIEW OF SYSTEMS SEE HPI EXAM: BP 134/91 Pulse 90 Wt 79.4 kg (175 lb) BMI 26.61 kg/m? General Appearance: Well appearing, alert, in no acute distress, well-hydrated, well nourished.. Lungs: Lungs clear to auscultation. No wheezing, rhonchi, rales.. Heart: RRR without murmur, gallop, or rubs. No ectopy. Abdomen: Negative findings: symmetric, no masses palpable, and no organomegaly, Positive findings: tenderness mild and voluntary guarding generalized. Health Maintenance List Depression Screening Never done Anxiety Screening Never done Hepatitis B Vaccine(1 of 3 - 19+ 3-dose series) Never done DTaP,Tdap,Td Vaccine(2 - Td or Tdap) due on 02/22/2015 Shingrix Vaccine(1 of 2) Never done Covid-19 Vaccine(4 - season) due on 06/20/2024 Influenza Vaccine(1) due on 06/20/2024 Hepatitis C Screening due on 11/20/2024 HIV Screening due on 11/20/2024 Lipid Screening due on 10/16/2026 Diabetes Screening due on 06/28/2027 Colorectal Cancer Screening due on 12/20/2031 ASSESSMENT/PLAN: 1. Abnormal urine - ICD9: 791.9, ICD10: R82.90 (primary diagnosis) - UA DIP, URINE (POC) positive ketone, blood, urobili - URINALYSIS, WITH MICROSCOPIC - URINE CULTURE 2. Acute constipation - ICD9: 564.00, ICD10: K59.00 - MAGNESIUM CITRATE ORAL SOLUTION 3. 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 #:[id number] 1-LAB magnesium citrate solutionDrink 1/3 of bottle, wait 4hrs for results. If no stool, drink next 1/3 bottle. Wait 4hrs. No results, then drink last 1/3 of bottle. For severe constipation.Disp: Rfl: URINALYSIS, WITH MICROSCOPIC [SQUAWMIC] Order #: [id number] FUTURE URINE CULTURE [SQURCUL] Orde (more content not included)... Normal [facility] PSA/PROSTATE SPECIFIC ANTIGE N SCREENINGon 06-29-2024 Prostate specific Ag [Mass/Vol] 0.94 ng/mL Normal <2.60 [facility] Comment on above: Order Comment: Speci men Type: BLOOD SPECIMENOrdering Facility: [facility] Address: [address] [place] [address] Result Comment: Tota l PSA test methodology used is the Electrochemiluminescence Immunoassay by [employer]. Total PSA values by differing methodologies cannot be interchanged. Performed By: #### P SAS1 ####[facility] LABCLIA [id number] [place] [address] [place] A UA DIP, URINE (POC)on 2023 BILIRUBIN UA (POCT) Negative Negative [facility] CLARITY UA (POCT) Clear [facility] COLOR UA (POCT) Yellow [facility] GLUCOSE UA (POCT) Negative Negative mg/dL [facility] Hemoglobin Ql (U) Trace-intact Abnormal Negative [facility] Interpretation and review of laboratory results Abnormal [facility] KETONE UA (POCT) 80 mg/dL Abnormal Negative [facility] LEUKOCYTES UA (POCT) Negative [facility] NITRITE UA (POCT) Negative Negative [facility] PH UA (POCT) 6.5 4.5 - 8.0 [facility] Protein Ql (U) Negative Negative mg/dL [facility] SPECIFIC GRAVITY UA (POCT) 1.010 1.005 - 1.030 [facility] UROBILINOGEN UA (POCT) 4.0 Abnormal Normal E.U./dL [facility] Location:[address], [place], [place], [address] [place] [address] POINT OF CARE [facility] Urinalysis complete panel (U )on 06-29-2024 Bacteria LM.HPF (Urine sed) [#/Area] Negative Normal Negative [facility] Comment on above: Order Comment: Speci men Type: URINE SPECIMENOrdering Facility: [facility] Address: [address] [place] [address] Performed By: #### 2 4356-8 ####[facility] LABCLIA [id number] [place] [address] [place] Bilirubin Ql (U) Negative Normal Negative [facility] Comment on above: Order Comment: Speci men Type: URINE SPECIMENOrdering Facility: [facility] Address: [address] [place] [address] Performed By: #### 2 4356-8 ####[facility] LABCLIA [id number] [place] [address] [place] Clarity (Unsp spec) Clear Normal Clear [facility] Comment on above: Order Comment: Speci men Type: URINE SPECIMENOrdering Facility: [facility] Address: [address] [place] [address] Performed By: #### 2 4356-8 ####[facility] LABCLIA [id number] [place] [address] [place] Color (U) Yellow Normal Yellow [facility] Comment on above: Order Comment: Speci men Type: URINE SPECIMENOrdering Facility: [facility] Address: [address] [place] [address] Performed By: #### 2 4356-8 ####[facility] LABCLIA [id number] [place] [address] [place] Epithelial cells LM.HPF (Urine sed) [#/Area] None Seen Normal [facility] Comment on above: Order Comment: Speci men Type: URINE SPECIMENOrdering Facility: [facility] Address: [address] [place] [address] Performed By: #### 2 4356-8 ####[facility] LABCLIA [id number] [place] [address] [place] Glucose Test strip (U) [Mass/Vol] Negative Normal Negative [facility] Comment on above: Order Comment: Speci men Type: URINE SPECIMENOrdering Facility: [facility] Address: [address] [place] [address] Performed By: #### 2 4356-8 ####[facility] LABCLIA [id number] [place] [address] [place] Hemoglobin Ql (U) Negative Normal Negative [facility] Comment on above: Order Comment: Speci men Type: URINE SPECIMENOrdering Facility: [facility] Address: [address] [place] [address] Performed By: #### 2 4356-8 ####[facility] LABCLIA [id number] [place] [address] [place] Hyaline casts (Urine sed) [#/Area] 0 /[LPF] Normal 0 /LPF [facility] Comment on above: Order Comment: Speci men Type: URINE SPECIMENOrdering Facility: [facility] Address: [address] [place] [address] Performed By: #### 2 4356-8 ####[facility] LABCLIA [id number] [place] [address] [place] Ketones Ql (U) 2+ Abnormal Negative [facility] Comment on above: Order Comment: Speci men Type: URINE SPECIMENOrdering Facility: [facility] Address: [address] [place], [place] [address] Performed By: #### 2 4356-8 ####[facility] LABCLIA [id number] [place] [address] [place] Leukocyte esterase Test strip Ql (U) Negative Normal Negative [facility] Comment on above: Order Comment: Speci men Type: URINE SPECIMENOrdering Facility: [facility] Address: [address] [place] [address] Performed By: #### 2 4356-8 ####[facility] LABCLIA [id number] [place] [address] [place] Nitrite Ql (U) Negative Normal Negative [facility] Comment on above: Order Comment: Speci men Type: URINE SPECIMENOrdering Facility: [facility] Address: [address] [place] [address] Performed By: #### 2 4356-8 ####[facility] LABIA [id number] [place] [address] [place] pH (U) 6.5 [pH] Normal <8.5 [facility] Comment on above: Order Comment: Speci men Type: URINE SPECIMENOrdering Facility: [facility] Address: [address] [place] [address] Performed By: #### 2 4356-8 ####[facility] LABIA [id number] [place] [address] [place] Protein (U) [Mass/Vol] Negative Normal Negative [facility] Comment on above: Order Comment: Speci men Type: URINE SPECIMENOrdering Facility: [facility] Address: [address] [place] [address] Performed By: #### 2 4356-8 ####[facility] LABIA [id number] [place] [address] [place] RBC LM.HPF (Urine sed) [#/Area] 0-2 /HPF Normal 0-2 /HPF [facility] Comment on above: Order Comment: Speci men Type: URINE SPECIMENOrdering Facility: [facility] Address: [address] [place] [address] Performed By: #### 2 4356-8 ####[facility] LABIA [id number] [place] [address] [place] Specific gravity (U) [Rel density] 1.009 Normal 1.005-1.030 [facility] Comment on above: Order Comment: Speci men Type: URINE SPECIMENOrdering Facility: [facility] Address: [address] [place] [address] Performed By: #### 2 4356-8 ####[facility] LABIA [id number] [place] [address] [place] Urobilinogen Ql (U) 1.0 EU/dL Normal 0.2-1.0 EU/dL [facility] Comment on above: Order Comment: Speci men Type: URINE SPECIMENOrdering Facility: [facility] Address: [address] [place] [address] Performed By: #### 2 4356-8 ####[facility] LABIA [id number] [place] [address] [place] WBC LM.HPF (Urine sed) [#/Area] 0-5 /HPF Normal 0-5 /HPF [facility] Comment on above: Order Comment: Speci men Type: URINE SPECIMENOrdering Facility: [facility] Address: [address] [place] [address] Performed By: #### 2 4356-8 ####[facility] [id number] [place] [address] [place] Amylase SerPl-cCncon 024 Amylase [Catalytic activity/Vol] 77 U/L Normal 30-104 [facility] Comment on above: Order Comment: Speci men Type: BLOOD SPECIMENOrdering Facility: [facility] Address: [address] [place] [address] Performed By: #### 2 4323-8, 3040-3, 1798-8 ####[facility] LABIA [id number] [place] [address] [place] CBC W Auto Differential pane l (Bld)on 06-28-2024 Basophils (Bld) [#/Vol] 0.05 10*3/uL NINF [facility] Basophils/100 WBC (Bld) 0.5 % [facility] Differential cell count method Nom (Bld) Auto [facility] Eosinophils (Bld) [#/Vol] 0.12 10*3/uL [facility] Eosinophils/100 WBC (Bld) 1.3 % [facility] Erythrocyte distribution width (RBC) [Ratio] 12.4 % 11.5 - 15.0 % [facility] Hematocrit (Bld) [Volume fraction] 41.4 % 39.0 - 51.0 % [facility] Hemoglobin (Bld) [Mass/Vol] 13.8 g/dL 13.0 - 17.0 g/dL [facility] Immature granulocytes (Bld) [#/Vol] 0.06 10*3/uL [facility] Immature granulocytes/100 WBC (Bld) 0.6 % [facility] Interpretation and review of laboratory results Abnormal [facility] Lymphocytes (Bld) [#/Vol] 1.06 10*3/uL [facility] Lymphocytes/100 WBC (Bld) 11.3 % [facility] MCH (RBC) [Entitic mass] 29.4 pg 26.0 - 34.0 pg [facility] MCHC (RBC) [Mass/Vol] 33.3 g/dL 30.5 - 36.0 g/dL [facility] MCV (RBC) [Entitic vol] 88.1 fL 80.0 - 100.0 fL [facility] Monocytes (Bld) [#/Vol] 0.48 10*3/uL [facility] Monocytes/100 WBC (Bld) 5.1 % [facility] Neutrophils (Bld) [#/Vol] 7.63 10*3/uL High [facility] Neutrophils/100 WBC (Bld) 81.2 % [facility] Nucleated RBC (Bld) [#/Vol] [facility] Nucleated RBC/100 WBC (Bld) [Ratio] 0.0 % /100 WBC [facility] Platelet mean volume (Bld) [Entitic vol] 8.7 fL Low 9.0 - 12.7 fL [facility] Platelets (Bld) [#/Vol] 416 10*3/uL High [facility] RBC (Bld) [#/Vol] 4.70 10*6/uL 4.20 - 6.0 0 m/uL [facility] WBC (Bld) [#/Vol] 9.40 10*3/uL [facility] Basophils (Bld) [#/Vol] 0.05 10*3/uL Normal <0.11 [facility] Comment on above: Order Comment: Speci men Type: BLOOD SPECIMENOrdering Facility: [facility] Address: [address] [place] [address] Performed By: #### 5 7021-8 ####[facility] LABCLIA [id number] [place] [address] [place] Basophils/100 WBC (Bld) 0.5 % Normal [facility] Comment on above: Order Comment: Speci men Type: BLOOD SPECIMENOrdering Facility: [facility] Address: [address] [place] [address] Performed By: #### 5 7021-8 ####[facility] LABCLIA [id number] [place] [address] [place] Differential cell count method Nom (Bld) Auto Normal [facility] Comment on above: Order Comment: Speci men Type: BLOOD SPECIMENOrdering Facility: [facility] Address: [address] [place] [address] Performed By: #### 5 7021-8 ####[facility] LABCLIA [id number] [place] [address] [place] Eosinophils (Bld) [#/Vol] 0.12 10*3/uL Normal <0.46 [facility] Comment on above: Order Comment: Speci men Type: BLOOD SPECIMENOrdering Facility: [facility] Address: [address] [place] [address] Performed By: #### 5 7021-8 ####[facility] LABCLIA [id number] [place] [address] [place] Eosinophils/100 WBC (Bld) 1.3 % Normal [facility] Comment on above: Order Comment: Speci men Type: BLOOD SPECIMENOrdering Facility: [facility] Address: [address] [place] [address] Performed By: #### 5 7021-8 ####[facility] LABCLIA [id number] [place] [address] [place] Erythrocyte distribution width (RBC) [Ratio] 12.4 % Normal 11.5-15.0 [facility] Comment on above: Order Comment: Speci men Type: BLOOD SPECIMENOrdering Facility: [facility] Address: [address] [place] [address] Performed By: #### 5 7021-8 ####[facility] LABCLIA [id number] [place] [address] [place] Hematocrit (Bld) [Volume fraction] 41.4 % Normal 39.0-51.0 [facility] Comment on above: Order Comment: Speci men Type: BLOOD SPECIMENOrdering Facility: [facility] Address: [address] [place] [address] Performed By: #### 5 7021-8 ####[facility] LABCLIA [id number] [place] [address] [place] Hemoglobin (Bld) [Mass/Vol] 13.8 g/dL Normal 13.0-17.0 [facility] Comment on above: Order Comment: Speci men Type: BLOOD SPECIMENOrdering Facility: [facility] Address: [address] [place] [address] Performed By: #### 5 7021-8 ####[facility] LABCLIA [id number] [place] [address] [place] Immature granulocytes (Bld) [#/Vol] 0.06 10*3/uL Normal <0.10 [facility] Comment on above: Order Comment: Speci men Type: BLOOD SPECIMENOrdering Facility: [facility] Address: [address] [place] [address] Performed By: #### 5 7021-8 ####[facility] LABCLIA [id number] [place] [address] [place] Immature granulocytes/100 WBC (Bld) 0.6 % Normal [facility] Comment on above: Order Comment: Speci men Type: BLOOD SPECIMENOrdering Facility: [facility] Address: [address] [place] [address] Performed By: #### 5 7021-8 ####[facility] LABCLIA [id number] [place] [address] [place] Lymphocytes (Bld) [#/Vol] 1.06 10*3/uL Normal 1.00-4.00 [facility] Comment on above: Order Comment: Speci men Type: BLOOD SPECIMENOrdering Facility: [facility] Address: [address] [place] [address] Performed By: #### 5 7021-8 ####[facility] LABCLIA [id number] [place] [address] [place] Lymphocytes/100 WBC (Bld) 11.3 % Normal [facility] Comment on above: Order Comment: Speci men Type: BLOOD SPECIMENOrdering Facility: [facility] Address: [address] [place] [address] Performed By: #### 5 7021-8 ####[facility] LABCLIA [id number] [place] [address] [place] MCH (RBC) [Entitic mass] 29.4 pg Normal 26.0-34.0 [facility] Comment on above: Order Comment: Speci men Type: BLOOD SPECIMENOrdering Facility: [facility] Address: [address] [place] [address] Performed By: #### 5 7021-8 ####[facility] LABCLIA [id number] [place] [address] [place] MCHC (RBC) [Mass/Vol] 33.3 g/dL Normal 30.5-36.0 [facility] Comment on above: Order Comment: Speci men Type: BLOOD SPECIMENOrdering Facility: [facility] Address: [address] [place] [address] Performed By: #### 5 7021-8 ####[facility] LABIA [id number] [place] [address] [place] MCV (RBC) [Entitic vol] 88.1 fL Normal 80.0-100.0 [facility] Comment on above: Order Comment: Speci men Type: BLOOD SPECIMENOrdering Facility: [facility] Address: [address] [place] [address] Performed By: #### 5 7021-8 ####[facility] LABIA [id number] [place] [address] [place] Monocytes (Bld) [#/Vol] 0.48 10*3/uL Normal <0.87 [facility] Comment on above: Order Comment: Speci men Type: BLOOD SPECIMENOrdering Facility: [facility] Address: [address] [place] [address] Performed By: #### 5 7021-8 ####[facility] LABIA [id number] [place] [address] [place] Monocytes/100 WBC (Bld) 5.1 % Normal [facility] Comment on above: Order Comment: Speci men Type: BLOOD SPECIMENOrdering Facility: [facility] Address: [address] [place] [address] Performed By: #### 5 7021-8 ####[facility] LABIA [id number] [place] [address] [place] Neutrophils (Bld) [#/Vol] 7.63 10*3/uL High 1.45-7.50 [facility] Comment on above: Order Comment: Speci men Type: BLOOD SPECIMENOrdering Facility: [facility] Address: [address] [place] [address] Performed By: #### 5 7021-8 ####[facility] LABCLIA [id number] [place] [address] [place] Neutrophils/100 WBC (Bld) 81.2 % Normal [facility] Comment on above: Order Comment: Speci men Type: BLOOD SPECIMENOrdering Facility: [facility] Address: [address] [place] [address] Performed By: #### 5 7021-8 ####[facility] LABCLIA [id number] [place] [address] [place] Nucleated RBC (Bld) [#/Vol] 10*3/uL Normal <0.01 [facility] Comment on above: Order Comment: Speci men Type: BLOOD SPECIMENOrdering Facility: [facility] Address: [address] [place] [address] Performed By: #### 5 7021-8 ####[facility] LABIA [id number] [place] [address] [place] Nucleated RBC/100 WBC (Bld) [Ratio] 0.0 /100 WBC Normal [facility] Comment on above: Order Comment: Speci men Type: BLOOD SPECIMENOrdering Facility: [facility] Address: [address] [place] [address] Performed By: #### 5 7021-8 ####[facility] LABIA [id number] [place] [address] [place] Platelet mean volume (Bld) [Entitic vol] 8.7 fL Low 9.0-12.7 [facility] Comment on above: Order Comment: Speci men Type: BLOOD SPECIMENOrdering Facility: [facility] Address: [address] [place] [address] Performed By: #### 5 7021-8 ####[facility] LABIA [id number] [place] [address] [place] Platelets (Bld) [#/Vol] 416 10*3/uL High 150-400 [facility] Comment on above: Order Comment: Speci men Type: BLOOD SPECIMENOrdering Facility: [facility] Address: [address] [place] [address] Performed By: #### 5 7021-8 ####[facility] LABCLIA [id number] [place] [address] [place] RBC (Bld) [#/Vol] 4.70 10*6/uL Normal 4.20-6.00 [facility] Comment on above: Order Comment: Speci men Type: BLOOD SPECIMENOrdering Facility: [facility] Address: [address] [place] [address] Performed By: #### 5 7021-8 ####[facility] LABCLIA [id number] [place] [address] [place] WBC (Bld) [#/Vol] 9.40 10*3/uL Normal 3.70-11.00 [facility] Comment on above: Order Comment: Speci men Type: BLOOD SPECIMENOrdering Facility: [facility] Address: [address] [place] [address] Performed By: #### 5 7021-8 ####[facility] LABIA [id number] [place] [address] [place] [facility] FEDE TURCIOS ([id number]) 1970 M Date Time Provider Department 06/28/24 CORA MARS [facility] During your visit today, we recorded the following information about you: Aurora Hodges RN 06/28/2024 11:30 AM Signed Patient has ER Follow-Up visit scheduled with Moni Ribeiro CNP for this , 07/01/24. states patient was seen at [facility] ER yesterday with back/flank pain and possible pancreatitis. Imaging and Labs were completed and pt was discharged home and told to follow up with PCP. calling to state patient remains in extreme pain and they are asking if they should wait until they see Moni on for a possible Gastro referral, or if a Gastro referral should be placed now, if appropriate, since patient was just seen by Dr. Mars on 06/22/24? Please advise , Kelsey, if able. [phone] Thank you. Moni Ribeiro APRN.CNP 06/28/2024 11:37 AM Signed Can you please call the patient's back and let her know that if he is in extreme pain he needs to go back to the ER. I looked over the CT scan which was normal. Lipase was mildly elevated. Gastroenterology may take some time to get into. Unfortunately we do not have any local chief merchandising officer except for Dr. Garcia at [facility] hospital. I would be happy to place repeat lipase labs to ensure that this is not worsening. Please let me know what they prefer. JESSICA Paez Barbara, LPN 06/28/2024 11:55 AM Signed Patient notified of CT and Lab results, verbalizes understanding of instructions. Pt stated he took one of the pain meds that he got from the ER and it dulls it some. Pt also stated to put in another Lipase lab order. He is going to have take back to ER to have Gastro look at him. CHRISTIAN Casillas Ashley, APRN.CNP 06/28/2024 1:13 PM Signed Lab orders have been placed. Moni Ribeiro APRN.CNP Allergies As of Date: 06/28/2024 (No Known Allergies) Date Reviewed: 06/22/2024 Reviewed by: Julienne Simental MA - Fully Assessed Reason for Visit: Patient Update [1234] Primary Visit Diagnosis:Generalized abdominal pain [R10.84] Order(s):COMPLETE BLOOD COUNT AND DIFFERENTIAL [SQCBCDIF] Order #: [id number] FUTURE COMPREHENSIVE METABOLIC PANEL [SQCMP] Order #: [id number] FUTURE LIPASE [SQLIPA] Order #: [id number] FUTURE AMYLASE [SQAMYL] Order #: [id number] FUTURE Prescriptions as of 06/28/2024 - cyclobenzaprine (FLEXERIL) 10 mg tablet Take 1 tablet by mouth three times a day as needed for muscle spasm. - omeprazole (PRILOSEC) 40 mg capsule Take 1 capsule by mouth daily before breakfast. - SUMAtriptan (IMITREX) 50 mg tablet Take 1 tablet (50 mg) by mouth as needed for migraine headache (see administration instructions) for up to 28 days. - sildenafil (VIAGRA) 50 mg tablet Take 1 tablet by mouth as needed. - clotrimazole-betamethasone (LOTRISONE) cream Apply to affected area twice daily. Problem List As Of Date 06/28/2024 Noted Resolved GERD (gastroesophageal reflux disease) [K21.9] 10/30/2011 S/P dilatation of esophageal stricture [Z98.890*10/30/2011 Migraine [G43.909] 10/30/2011 Encounter Status:Closed by MONI RIBEIRO on 06/28/24 Normal [facility] Comprehensive metabolic 2000 panelon 06-28-2024 Albumin [Mass/Vol] 4.2 g/dL Normal 3.9-4.9 [facility] Comment on above: Order Comment: Speci men Type: BLOOD SPECIMENOrdering Facility: [facility] Address: [address] [place] [address] Performed By: #### 2 4323-8, 3039-12, 1798-05 ####[facility] LABCLIA [id number] [place] [address] [place] ALP [Catalytic activity/Vol] 169 U/L High 38-113 [facility] Comment on above: Order Comment: Speci men Type: BLOOD SPECIMENOrdering Facility: [facility] Address: [address] [place] [address] Performed By: #### 2 4323-8, 3, 1798-05 ####[facility] LABCLIA [id number] [place] [id number] [place] ALT [Catalytic activity/Vol] 47 U/L Normal 10-54 [facility] Comment on above: Order Comment: Speci men Type: BLOOD SPECIMENOrdering Facility: [facility] Address: [address] [place] [address] Performed By: #### 2 4323-8, 3039-3, 1798-05 ####[facility] LABCLIA [id number] [place] [address] [place] Anion gap [Moles/Vol] 12 mmol/L Normal 8-15 [facility] Comment on above: Order Comment: Speci men Type: BLOOD SPECIMENOrdering Facility: [facility] Address: [address] [place] [address] Performed By: #### 2 4323-8, 3, 1798-05 ####[facility] LABIA [id number] [place] [address] [place] AST [Catalytic activity/Vol] 30 U/L Normal 14-40 [facility] Comment on above: Order Comment: Speci men Type: BLOOD SPECIMENOrdering Facility: [facility] Address: [address] [place] [address] Performed By: #### 2 4323-8, 3, 1798-05 ####[facility] LABIA [id number] [place] [address] [place] Bilirubin [Mass/Vol] 0.6 mg/dL Normal 0.2-1.[address] [facility] Comment on above: Order Comment: Speci men Type: BLOOD SPECIMENOrdering Facility: [facility] Address: [address] [place] [address] Performed By: #### 2 4323-8, 3039-3, 1798-05 ####[facility] LABCLIA [id number] [address] [id number], [place] [address] [place] Calcium [Mass/Vol] 9.2 mg/dL Normal 8.5-10.2 [facility] Comment on above: Order Comment: Speci men Type: BLOOD SPECIMENOrdering Facility: [facility] Address: [address] [place] [address] Performed By: #### 2 4323-8, 3039-3, 1798-05 ####[facility] LABCLIA [id number] [place] [address] [place] Chloride [Moles/Vol] 96 mmol/L Low 98-[address] [facility] Comment on above: Order Comment: Speci men Type: BLOOD SPECIMENOrdering Facility: [facility] Address: [address] [place] [address] Performed By: #### 2 4323-8, 3, 1798-05 ####[facility] LABCLIA [id number] [place] [address] [place] CO2 [Moles/Vol] 27 mmol/L Normal 22-30 [facility] Comment on above: Order Comment: Speci men Type: BLOOD SPECIMENOrdering Facility: [facility] Address: [address] [place] [address] Performed By: #### 2 4323-8, 3, 1798-05 ####[facility] LABCLIA [id number] [place] [address] [place] Creatinine [Mass/Vol] 0.99 mg/dL Normal 0.73-1.22 [facility] Comment on above: Order Comment: Speci men Type: BLOOD SPECIMENOrdering Facility: [facility] Address: [address] [place] [address] Performed By: #### 2 4323-8, 3, 1798-05 ####[facility] LABCLIA [id number] [place] [id number] [place] Creatinine and Glomerular filtration rate.predicted panel (S/P/Bld) 92 mL/min/1.73m??? Normal >=60 [facility] Comment on above: Order Comment: Francie wheeler Type: BLOOD SPECIMENOrdering Facility: [facility] Address: [address] [place] [address] Result Comment: Adrienne mated Glomerular Filtration Rate (eGFR) is calculated using the 2020 CKD-EPI creatinine equation. This equation utilizes serum creatinine, sex, and age as parameters. The creatinine assay has traceable calibration to isotope dilution-mass spectrometry. Refer to KDIGO guidelines for clinical interpretation. In patients with unstable renal function, e.g. those with acute kidney injury, the eGFR may not accurately reflect actual GFR. Performed By: #### 2 4323-8, 3039-3, 1798-05 ####[facility] LABIA [id number] [place] [address] [place] Glucose [Mass/Vol] 94 mg/dL Normal 74-99 [facility] Comment on above: Order Comment: Francie wheeler Type: BLOOD SPECIMENOrdering Facility: [facility] Address: [address] [place] [address] Result Comment: The [place] Diabetes Association (ADA) provides guidance for cutoff values for fasting glucose and random glucose. The ADA defines fasting as no caloric intake for at least 8 hours. Fasting plasma glucose results between 100 to 125 mg/dL indicate increased risk for diabetes (prediabetes). Fasting plasma glucose results greater than or equal to 126 mg/dL meet the criteria for diagnosis of diabetes. In the absence of unequivocal hyperglycemia, results should be confirmed by repeat testing. In a patient with classic symptoms of hyperglycemia or hyperglycemic crisis, random plasma glucose results greater than or equal to 200 mg/dL meet the criteria for diagnosis of diabetes. Reference: Standards of Medical Care in Diabetes 2016, [place] Diabetes Association. Diabetes Care. 2016.39(Suppl 1). Performed By: #### 2 4323-8, 0-3, 1798-05 ####[facility] LABIA [id number] [address] [address] [place] Potassium [Moles/Vol] 3.9 mmol/L Normal 3.7-5.1 [facility] Comment on above: Order Comment: Speci men Type: BLOOD SPECIMENOrdering Facility: [facility] Address: [address] [place] [address] Performed By: #### 2 4323-8, 3, 1798-05 ####[facility] LABCLIA [id number] [address] [address] [place] Protein [Mass/Vol] 7.2 g/dL Normal 6.3-8.0 [facility] Comment on above: Order Comment: Speci men Type: BLOOD SPECIMENOrdering Facility: [facility] Address: [address] [place] [address] Performed By: #### 2 4323-8, 3, 1798-05 ####[facility] LABCLIA [id number] [place] [address] [place] Sodium [Moles/Vol] 135 mmol/L Low 136-144 [facility] Comment on above: Order Comment: Speci men Type: BLOOD SPECIMENOrdering Facility: [facility] Address: [address] [place] [address] Performed By: #### 2 4323-8, 3, 1798-05 ####[facility] LABCLIA [id number] [place] [address] [place] Urea nitrogen [Mass/Vol] 12 mg/dL Normal 9-24 [facility] Comment on above: Order Comment: Speci men Type: BLOOD SPECIMENOrdering Facility: [facility] Address: [address] [place] [address] Performed By: #### 2 4323-8, 3, 1798-05 ####[facility] LABCLIA [id number] [address] [address] [place] Lipase SerPl-cCncon 06-28-20 24 Lipase [Catalytic activity/Vol] 60 U/L Normal 16-61 [facility] Comment on above: Order Comment: Speci men Type: BLOOD SPECIMENOrdering Facility: [facility] Address: [address] [place] [address] Performed By: #### 2 4323-8, 3040-3, 1798-8 ####[facility] LABCLIA [id number] [id number] [id number] [place] Abdomen/Pelvis without Conto n 06-27-2024 Abdomen/Pelvis without Cont [facility] Imaging Services [address] [place] [address] Abdomen/Pelvis without Cont MR#: [id number] Acct: [id number] Name: FEDE TURCIOS Rep #: [id number] : 1970 M 53 From: Enrique Enriquez PCP: Dr. Cora Mars MD Status: [facility] ER Study: Abdomen/Pelvis without Cont Date of Exam: 06/12 Exam# [id number] Ordering Dr: Kofi Posada DO [id number] STUDY: CT Abdomen And Pelvis W/O Contrast Injection 06/27/2024 2:38 PM REASON FOR EXAM: Male, 53 years old. ABDOMINAL PAIN Flank pain-LEFT TECHNIQUE: Transaxial images were obtained without oral contrast, and without intravenous contrast. Individualized dose optimization techniques were used for this CT. COMPARISON: None FINDINGS: Small left pleural effusion. The visualized portions of the heart are within normal limits. Unremarkable liver. Unremarkable gallbladder and extrahepatic biliary system. Unremarkable spleen. Unremarkable pancreas. Unremarkable bilateral adrenal glands. No acute findings of the right kidney. No acute findings of the left kidney. Unremarkable visualized stomach. Unremarkable small intestine. Stool in the ascending colon and transverse colon. The appendix is visualized and appears unremarkable. There are no acute findings of the abdominal aorta. Unremarkable inferior vena cava. Subcentimeter mesenteric lymph nodes. Unremarkable urinary bladder. There are prostatic calcifications. There is an umbilical hernia containing fat. Unremarkable osseous structures. CT/Abdomen/Pelvis without Cont IMPRESSION: (NOT LISTED IN ORDER OF SIGNIFICANCE) Mild constipation. No renal stones. Other findings as above. Electronically Signed: Enrique Glaser MD at 14:41 EDT Reading Location ID and State: [facility] [place] , Service support , CC: Dr. Kfoi Posada, DO; Dr. Cora Mars MD Professional Nurse: Signed Normal [facility] CBC W/Diff, Automatedon 09-0 Absolute Lymph 0.71 X10 3/uL Low 0.83-4.51 [facility] Comment on above: Performed By: #### L 500.2500, L100.0100, L500.3400, L501.2450, L7000.5300 #### [facility] Laboratory [address] [place], [address] Absolute Neut 8.7 X10 3/uL High 2.0-7.7 [facility] Comment on above: Performed By: #### L 500.2500, L100.0100, L500.3400, L501.2450, L7000.5300 #### [facility] [address] [place], [address] Basophils/100 WBC (Bld) 0.5 % Normal 0-1 [facility] Comment on above: Performed By: #### L 500.2500, L100.0100, L500.3400, L501.2450, L7000.5300 #### [facility] [address] [place], [address] Eosinophils/100 WBC (Bld) 1.1 % Normal 0-5 [facility] Comment on above: Performed By: #### L 500.2500, L100.0100, L500.3400, L501.2450, L7000.5300 #### [facility] [address] [place], [address] Erythrocyte distribution width (RBC) [Ratio] 12.7 % Normal 11.6-14.6 [facility] Comment on above: Performed By: #### L 500.2500, L100.0100, L500.3400, L501.2450, L7000.5300 #### [facility] [address] [place], [address] Hematocrit (Bld) [Volume fraction] 41.7 % Normal 40-54 [facility] Comment on above: Performed By: #### L 500.2500, L100.0100, L500.3400, L501.2450, L7000.5300 #### [facility] [address] [place], [address] Hemoglobin (Bld) [Mass/Vol] 13.8 g/dL Normal 13.0-16.5 [facility] Comment on above: Performed By: #### L 500.2500, L100.0100, L500.3400, L501.2450, L7000.5300 #### [facility] [address] [place], [address] IG% 0.600 Normal 0.0-0.9 [facility] Comment on above: Result Comment: IG% - Immature Granulocytes (promyelocytes, myelocytes and metamyelocytes) > 1% indicates that a LEFT SHIFT is Present. Performed By: #### L 500.2500, L100.0100, L500.3400, L501.2450, L7000.5300 #### [facility] [address] [place], [address] Lymphocytes/100 WBC (Bld) 7.0 % Low 19-41 [facility] Comment on above: Performed By: #### L 500.2500, L100.0100, L500.3400, L501.2450, L7000.5300 #### [facility] [address] [place], [address] MCH (RBC) [Entitic mass] 28.6 pg Normal 27.0-32.0 [facility] Comment on above: Performed By: #### L 500.2500, L100.0100, L500.3400, L501.2450, L7000.5300 #### [facility] [address] [place], [address] MCHC (RBC) [Mass/Vol] 33.1 g/dL Normal 32-36 [facility] Comment on above: Performed By: #### L 500.2500, L100.0100, L500.3400, L501.2450, L7000.5300 #### [facility] [address] [place], [address] MCV (RBC) [Entitic vol] 86.3 fL Normal 80-94 [facility] Comment on above: Performed By: #### L 500.2500, L100.0100, L500.3400, L501.2450, L7000.5300 #### [facility] [address] [place], [address] Monocytes/100 WBC (Bld) 5.0 % Normal 0-10 [facility] Comment on above: Performed By: #### L 500.2500, L100.0100, L500.3400, L501.2450, L7000.5300 #### [facility] [address] [place], [address] Neutrophils/100 WBC (Bld) 85.8 % High 47-70 [facility] Comment on above: Performed By: #### L 500.2500, L100.0100, L500.3400, L501.2450, L7000.5300 #### [facility] [address] [place], [address] Nucleated RBC (Bld) [#/Vol] 0 10*3/uL Normal 0-5 [facility] Comment on above: Performed By: #### L 500.2500, L100.0100, L500.3400, L501.2450, L7000.5300 #### [facility] [address] [place], [address] Platelet mean volume (Bld) [Entitic vol] 8.3 fL Normal 6.2-12.0 [facility] Comment on above: Performed By: #### L 500.2500, L100.0100, L500.3400, L501.2450, L7000.5300 #### [facility] [address] [place], [address] Platelets (Bld) [#/Vol] 387 10*3/uL Normal 150-450 [facility] Comment on above: Performed By: #### L 500.2500, L100.0100, L500.3400, L501.2450, L7000.5300 #### [facility] [address] [place], [address] RBC (Bld) [#/Vol] 4.83 10*6/uL Normal 4.6-6.2 [facility] Comment on above: Performed By: #### L 500.2500, L100.0100, L500.3400, L501.2450, L7000.5300 #### [facility] [address] [place], [address] RDW SD 40.2 fl Normal 35.1-43.9 [facility] Comment on above: Performed By: #### L 500.2500, L100.0100, L500.3400, L501.2450, L7000.5300 #### [facility] [address] [place], [address] WBC (Bld) [#/Vol] 10.1 10*3/uL Normal 4.4-11.0 [facility] Comment on above: Performed By: #### L 500.2500, L100.0100, L500.3400, L501.2450, L7000.5300 #### [facility] [address] [place], [address] Comprehensive Metabolic Prof ilon 06-27-2024 Albumin [Mass/Vol] 3.4 g/dL Normal 3.2-5.0 [facility] Comment on above: Performed By: #### L 500.2500, L100.0100, L500.3400, L501.2450, L7000.5300 #### [facility] [address] [place], [address] Albumin/Globulin [Mass ratio] 0.9 {ratio} Normal 0.9-2.4 [facility] Comment on above: Performed By: #### L 500.2500, L100.0100, L500.3400, L501.2450, L7000.5300 #### [facility] [address] [place], [address] ALK P 182 U/L High 45-117 [facility] Comment on above: Performed By: #### L 500.2500, L100.0100, L500.3400, L501.2450, L7000.5300 #### [facility] [address] [place], [address] ALT [Catalytic activity/Vol] 59 U/L Normal 16-61 [facility] Comment on above: Performed By: #### L 500.2500, L100.0100, L500.3400, L501.2450, L7000.5300 #### [facility] [address] [place], [address] AST [Catalytic activity/Vol] 32 U/L Normal 15-37 [facility] Comment on above: Performed By: #### L 500.2500, L100.0100, L500.3400, L501.2450, L7000.5300 #### [facility] [address] [place], [address] Bilirubin [Mass/Vol] 0.60 mg/dL Normal 0.20-1.00 [facility] Comment on above: Result Comment: For patients on eltrombopag therapy, use of Dimension Alexander TBIL is not recommended. Performed By: #### L 500.2500, L100.0100, L500.3400, L501.2450, L7000.5300 #### [facility] [address] [place], [address] BUN/CRE 11.1 RATIO Normal 10-20 [facility] Comment on above: Performed By: #### L 500.2500, L100.0100, L500.3400, L501.2450, L7000.5300 #### [facility] [address] [place], [address] CA,Total 9.3 mg/dL Normal 8.5-10.1 [facility] Comment on above: Performed By: #### L 500.2500, L100.0100, L500.3400, L501.2450, L7000.5300 #### [facility] [address] [place], [address] Chloride [Moles/Vol] 102 mmol/L Normal 98-107 [facility] Comment on above: Performed By: #### L 500.2500, L100.0100, L500.3400, L501.2450, L7000.5300 #### [facility] [address] [place], [address] CO2 [Moles/Vol] 30.0 mmol/L Normal 21.0-32.0 [facility] Comment on above: Performed By: #### L 500.2500, L100.0100, L500.3400, L501.2450, L7000.5300 #### [facility] [address] [place], [address] Creatinine [Mass/Vol] 1.08 mg/dL Normal 0.70-1.30 [facility] Comment on above: Result Comment: The validity of the calculated GFR GFRAA in patients over 70 years has not been determined. Clinical correlation is essential. Performed By: #### L 500.2500, L100.0100, L500.3400, L501.2450, L7000.5300 #### [facility] [address] [place], [address] ECRCL 77.41 ml/min Normal [facility] Comment on above: Performed By: #### L 500.2500, L100.0100, L500.3400, L501.2450, L7000.5300 #### [facility] [address] [place], [address] EST GFR - AA 92 mL/min Normal >60 [facility] Comment on above: Result Comment: Afri can [place] GFR Calc Performed By: #### L 500.2500, L100.0100, L500.3400, L501.2450, L7000.5300 #### [facility] [address] [place], [address] GAP 4 Low 5-15 [facility] Comment on above: Performed By: #### L 500.2500, L100.0100, L500.3400, L501.2450, L7000.5300 #### [facility] [address] [place], [address] GFR/1.73 sq M.predicted among non-blacks MDRD (S/P/Bld) [Vol rate/Area] 76 mL/min/{1.73_m2} Normal >60 [facility] Comment on above: Result Comment: Non- GFR Calc Performed By: #### L 500.2500, L100.0100, L500.3400, L501.2450, L7000.5300 #### [facility] [address] [place], [address] Globulin (S) [Mass/Vol] 3.9 g/dL Normal 2.2-4.2 [facility] Comment on above: Performed By: #### L 500.2500, L100.0100, L500.3400, L501.2450, L7000.5300 #### [facility] [address] [place], [address] Glucose [Mass/Vol] 132 mg/dL High 74-106 [facility] Comment on above: Result Comment: Fast ing Glucose result greater than or equal to 126 mg/dL suggests DIABETES MELLITUS per A.D.A. criteria. Performed By: #### L 500.2500, L100.0100, L500.3400, L501.2450, L7000.5300 #### [facility] [address] [place], [address] Potassium [Moles/Vol] 3.4 mmol/L Low 3.5-5.1 [facility] Comment on above: Performed By: #### L 500.2500, L100.0100, L500.3400, L501.2450, L7000.5300 #### [facility] [address] [place], [address] Sodium [Moles/Vol] 136 mmol/L Normal 136-145 [facility] Comment on above: Performed By: #### L 500.2500, L100.0100, L500.3400, L501.2450, L7000.5300 #### [facility] [address] [place], [address] T PROT 7.3 g/dL Normal 6.4-8.2 [facility] Comment on above: Performed By: #### L 500.2500, L100.0100, L500.3400, L501.2450, L7000.5300 #### [facility] [address] [place], [address] Urea nitrogen [Mass/Vol] 12 mg/dL Normal 7-18 [facility] Comment on above: Performed By: #### L 500.2500, L100.0100, L500.3400, L501.2450, L7000.5300 #### [facility] [address] [place], [address] Emergency Department Summary on 06-27-2024 Emergency Department Summary [facility] Medical Records Department [address] [place] [address] Emergency Department Summary 06/27/24 MR#: [id number] Acct: [id number] Name: FEDE TURCIOS Rep #: [id number] : 1970 53 From: Kofi Posada DO PCP: Dr. Cora Mars MD Status:DEP ER Location: ED HPI History of Present Illness Chief Complaint: Flank Pain Informant: patient Onset/Context/Timing Onset: Weeks (1) Context: Gradual Onset Timing: Continuous Quality: Aching Location: Left lower lumbar area Worsened by: Nothing Relieved by: Medication Narrative Narrative: Patient presents with back and flank pain that has been getting worse over the last week. Patient states it is mainly over the lower lumbar area on the left. The patient states it has been constan t. Patient states nothing makes it better nothing makes it worse. Patient states he has been alternating Tylenol and ibuprofen every 3 hours without any improvement. Patient went to the emergency department in [place] 3 days ago and had a CT scan done there which was negative. Patient had lab work done there which was negative. Patient admits to some subjective fevers and chills. Patient admits to some nausea but denies any vomiting. Patient denies any dysuria, frequency, or hematuria. [facility] Medical History (Updated 06/27/24 @ 15:[address] Kofi Posada, ) GERD (gastroesophageal reflux disease) Home Medications ???Medication ???Instructions ???Recorded ???Last Taken ???Type cyclobenzaprine 10 mg tablet 10 mg PO TID PRN PRN muscle spasm 06/27/24 Unknown History hydrocodone-acetaminophen 5-325mg 1 tab PO Q6H PRN PRN Pain 3 days 06/27/24 Unknown Rx 5mg-325mg #10 TABLETS ondansetron 4 mg disintegrating 4 mg PO Q8H PRN PRN Nausea #10 tabs 06/27/24 Unknown Rx tablet sumatriptan succinate 50 mg tablet 50 mg PO PRN PRN migraine 06/27/24 Unknown History Allergy/AdvReac Type Severity Reaction Status Date / Time No Known Allergies Allergy Verified 06/27/24 10:24 Surgical History (Updated 06/27/24 @ 11:[address] Kofi Posada DO) Hx of elbow surgery Social History (Updated 06/27/24 @ 11:[address] Kofi Posada DO) Smoking Status: Never smoker alcohol intake: current alcohol intake frequency: a few times a month ROS ROS ED Constitutional Constitutional ED: Reports chills, fever(s) and subjective Eyes Eyes: Denies blurry vision or change in vision ENT ENT ED: Denies rhinorrhea or sore throat Cardiovascular Cardiovascular: Denies chest pain or palpitations Respiratory/Chest Respiratory/Chest: Denies cough or dyspnea Gastrointestinal Gastrointestinal: Reports nausea; Denies vomiting Genitourinary Genitourinary ED: Denies dysuria or hematuria Musculoskeletal Musculoskeletal: Reports back pain; Denies neck pain Integumentary Denies abscess or rash Neurologic Neurologic: Reports headache(s); Denies weakness Allergic/Immunologic Allergic/Immunologic ED: Denies mouth swelling or urticaria EXAM Physical Exam Const Vital Signs: 06/27/24 10:22 06/27/24 12:22 06/27/24 13:55 Temperature 96.7 F L Temperature Source Temporal Pulse Rate 119 H 74 69 Respiratory Rate 16 14 14 Blood Pressure 138/88 H 131/90 H 129/81 H Blood Pressure Mean 104 103 97 Pulse Ox 100 98 98 Oxygen Delivery Method Room Air Room Air Room Air 06/27/24 15:00 Temperature Temperature Source Pulse Rate 69 Respiratory Rate 14 Blood Pressure 126/78 H Blood Pressure Mean 94 Pulse Ox 98 Oxygen Delivery Method Positive well nourished and well developed General Appearance ED: well developed and NAD HEENT Reports moist mucous membranes Neck supple and no JVD Resp normal respiratory effort and clear to auscultation bilaterally Cardio regular rate and regular rhythm GI non-tender and non-distended Palpation: soft Back/Spine Back/Spine Narrative: There is tenderness over the left lower lumbar paraspinal area. There is no midline tenderness. There is no bony crepitance or step-off noted. Range of motion was limited in all motions of the lumbar spine secondary to pain. Strength is 5/5 bilaterally in upper and lower extremities. There are no sensory deficits noted. Extremity normal to inspection Neuro oriented x3, CN's II-XII intact bilaterally and no sensory deficits noted Sensorium / Orientation: alert Motor Exam: strength 5/5 throughout MDM MDM MDM Narrative Medical decision making narrative: Differential diagnosis includes musculoskeletal pain, ureteral calculus, pyelonephritis, diverticulitis, gastroenteritis, electrolyte abnormality, pancreatitis, and viral illness. CBC will be obtained to assess for leukocytosis and anemia. Comprehensive metabolic profile will be obtained to assess for hepatic function, (more content not included)... Normal [facility] Lipaseon 06-27-2024 Lipase [Catalytic activity/Vol] 89 U/L High 13-75 [facility] Comment on above: Result Comment: Catherine medina note: LIPASE revised reference range effective 23. New Lipase methodology. Expected to produce lower values than the previous assay method. NEW Reference Range: 13 - 75 U/L Performed By: #### L 501.2450 ####[facility] [id number] [place], [address] M100.678on 06-27-2024 M100.678 Pending SARS-CoV-2 (COVID 19) Negative INFLUENZA A Negative INFLUENZA B Negative RSV PCR Negative Normal [facility] Comment on above: Performed By: #### L 500.2500, L100.0100, L500.3400, L501.2450, L7000.5300 #### [facility] Laboratory [address] [place], [address] Urinalysis, Completeon 06-27 AMORPHOUS 1+ Normal [facility] Comment on above: Order Comment: COLLE CTOR TO SPECIFY Performed By: #### L 500.2500, L100.0100, L500.3400, L501.2450, L7000.5300 #### [facility] [address] [place], [address] BACTERIA 1+ /hpf Normal None Seen [facility] Comment on above: Order Comment: ROSALVA CTOR TO SPECIFY Performed By: #### L 500.2500, L100.0100, L500.3400, L501.2450, L7000.5300 #### [facility] [address] [place], [address] RBC 0-5 SEEN Normal 0-5 [facility] Comment on above: Order Comment: ROSALVA CTOR TO SPECIFY Performed By: #### L 500.2500, L100.0100, L500.3400, L501.2450, L7000.5300 #### [facility] [address] [place], [address] WBC 0-5 SEEN Normal 0-5 [facility] Comment on above: Order Comment: ROSALVA CTOR TO SPECIFY Performed By: #### L 500.2500, L100.0100, L500.3400, L501.2450, L7000.5300 #### [facility] [address] [place], [address] EPI,SQUAMOUS 0-5 SEEN Normal 0-5 [facility] Comment on above: Order Comment: ROSALVA CTOR TO SPECIFY Performed By: #### L 500.2500, L100.0100, L500.3400, L501.2450, L7000.5300 #### [facility] [address] [place], [address] Mucus Ql (Urine sed) 3+ /hpf Normal [facility] Comment on above: Order Comment: ROSALVA CTOR TO SPECIFY Performed By: #### L 500.2500, L100.0100, L500.3400, L501.2450, L7000.5300 #### [facility] [address] [place], [address] CBC + DIFFon 06-22-2024 Baso # 0.02 x10EE3/UL Normal 0.00 - 0.10 [facility] Comment on above: Performed By: #### 2 33852 #### [facility],[address] [place] [address] Basophils/100 WBC (Bld) 0.3 % Normal 0.0 - 2.0 [facility] Comment on above: Performed By: #### 2 40608 #### [facility],[address] [place] [address] CBC + DIFF Normal [facility] Comment on above: Result Comment: CBC- COMPLETE BLOOD COUNT Performed By: #### 2 48465 #### [place] [address] EO # 0.14 x10EE3/UL Normal 0.00 - 0.50 [facility] Comment on above: Performed By: #### 2 43871 #### [facility],[address] [place] [address] Eosinophils/100 WBC (Bld) 1.8 % Normal 0.0 - 7.0 [facility] Comment on above: Performed By: #### 2 73543 #### [facility],[address] [place] [address] Erythrocyte distribution width (RBC) [Ratio] 13.3 % Normal 12.0 - 15.6 [facility] Comment on above: Performed By: #### 2 39530 #### [facility],[address] [place] [address] Hematocrit (Bld) [Volume fraction] 41.7 % Normal 40.0 - 52.0 [facility] Comment on above: Performed By: #### 2 38553 #### [facility],[address] [place] [address] Hemoglobin (Bld) [Mass/Vol] 14.6 g/dL Normal 13.0 - 17.5 [facility] Comment on above: Performed By: #### 2 09012 #### [facility],[address] [place] [address] Lymph # 1.43 x10EE3/UL Normal 0.80 - 2.80 [facility] Comment on above: Performed By: #### 2 55995 #### [facility],[address] [place] [address] Lymphocytes/100 WBC (Bld) 18.2 % Low 20.0 - 45.0 [facility] Comment on above: Performed By: #### 2 22415 #### [facility],[address] [place] [address] MANUAL DIFF N/A Normal [facility] Comment on above: Performed By: #### 2 61695 #### [facility],[address] [place] [address] MCH (RBC) [Entitic mass] 30 pg Normal 27 - 33 [facility] Comment on above: Performed By: #### 2 68119 #### [facility],[address] [place] [address] MCHC 35 X10 3 Normal 32 - 36 [facility] Comment on above: Performed By: #### 2 71385 #### [facility],[address] [place], [place] [address] MCV (RBC) [Entitic vol] 86 fL Normal 81 - 98 [facility] Comment on above: Performed By: #### 2 73222 #### [facility],[address] [place], [place] [address] Crowley # 0.61 x10EE3/UL Normal 0.20 - 1.00 [facility] Comment on above: Performed By: #### 2 18529 #### [facility],[address] [place], [place] [address] MONOS % 7.8 % Normal 0.0 - 10.0 [facility] Comment on above: Performed By: #### 2 07773 #### [facility],[address] [place], [place] [address] Morphology Jaleel (Bld) [Interp] N/A Normal [facility] Comment on above: Performed By: #### 2 55278 #### [facility],[address] [place] [address] Neut # 5.63 x10EE3/UL Normal 1.50 - 7.10 [facility] Comment on above: Performed By: #### 2 43014 #### [facility],[address] [place] [address] Neutrophils/100 WBC (Bld) 72.0 % Normal 46.0 - 76.0 [facility] Comment on above: Performed By: #### 2 60872 #### [facility],[address] [place] [address] PLATELET 234 x10EE3/UL Normal 150 - 450 [facility] Comment on above: Performed By: #### 2 86144 #### [facility],[address] [place] [address] Platelet mean volume (Bld) [Entitic vol] 6.9 fL Normal 6.4 - 10.5 [facility] Comment on above: Result Comment: AUTO MATED DIFFERENTIAL Performed By: #### 2 60267 #### [facility],[address] [place], [place] [address] RBC 4.86 x 10EE6/UL Normal 4.50 - 6.00 [facility] Comment on above: Performed By: #### 2 30104 #### [facility],[address] [place], [place] [address] WBC 7.8 x 10EE3/UL Normal 4.5 - 10.8 [facility] Comment on above: Performed By: #### 2 10133 #### [facility],[address] [place], [place] [address] CMP with eGFRon 06-22-2024 AGE 53 years Normal [facility] Comment on above: Performed By: #### 2 68591 #### [facility],[address] [place] [address] 43691 Albumin [Mass/Vol] 3.7 g/dL Normal 3.4 - 5.0 [facility] Comment on above: Performed By: #### 2 45993 #### [facility],[address] [place] [address] 09725 Albumin/Globulin [Mass ratio] 1.0 {ratio} Normal 0.9 - 1.6 [facility] Comment on above: Performed By: #### 2 08650 #### [facility],[address] [place] [address] 66390 ALK PHOS 136 U/L High 46 - 116 [facility] Comment on above: Performed By: #### 2 75518 #### [facility],[address] [place] [address] 39423 ALT [Catalytic activity/Vol] 52 U/L Normal 16 - 63 [facility] Comment on above: Performed By: #### 2 10892 #### [facility],[address] [place] [address] 00554 Anion gap [Moles/Vol] 13 mmol/L Normal 10 - 20 [facility] Comment on above: Performed By: #### 2 25273 #### [facility],[address] [place] [address] 49556 AST [Catalytic activity/Vol] 27 U/L Normal 15 - 37 [facility] Comment on above: Performed By: #### 2 24946 #### [facility],[address] [place] [address] 85038 B/C RATIO 12 ratio Normal 0 - 30 [facility] Comment on above: Performed By: #### 2 89054 #### [facility],[address] [place] [address] 20314 Bilirubin [Mass/Vol] 1.0 mg/dL Normal 0.2 - 1.0 [facility] Comment on above: Performed By: #### 2 53198 #### [facility],[address] [place] [address] 72251 Calcium [Mass/Vol] 9.0 mg/dL Normal 8.5 - 10.1 [facility] Comment on above: Performed By: #### 2 18556 #### [facility],[address] [place] [address] 66997 Chloride [Moles/Vol] 100 mmol/L Normal 98 - 107 [facility] Comment on above: Performed By: #### 2 80291 #### [facility],[address] [place] [address] 26187 CMP with eGFR Normal [facility] Comment on above: Result Comment: COMP REHENSIVE METABOLIC PANEL Performed By: #### 2 70474 #### [facility],[address] [place] [address] 44384 CO2 [Moles/Vol] 29.8 mmol/L Normal 21.0 - 32.0 [facility] Comment on above: Performed By: #### 2 22698 #### [facility],[address] [place] [address] 19449 Creatinine [Mass/Vol] 1.17 mg/dL Normal 0.70 - 1.30 [facility] Comment on above: Performed By: #### 2 45283 #### [facility],[address] [place] [address] 81203 GFR/1.73 sq M.predicted among non-blacks MDRD (S/P/Bld) [Vol rate/Area] mL/min/{1.73_m2} Normal 60 - 999 [facility] Comment on above: Performed By: #### 2 92233 #### [facility],[address] [place] [address] 85499 Result Comment: ACCO RDING TO THE NATIONAL KIDNEY DISEASE EDUCATION PROGRAM(NKDE), A NORMAL eGFR IS A VALUE GREATER THAN OR EQUAL TO 60 ML/MIN/1.73 SQ METERS. CHRONIC KIDNEY DISEASE: <60mL/MIN/1.73 SQ METERS KIDNEY FAILURE: <15mL/MIN/1.73 SQ METERS THIS TEST SHOULD ONLY BE USED FOR PATIENTS 18 YEARS OF AGE AND OLDER. Globulin (S) [Mass/Vol] 3.7 g/dL Normal 1.5 - 3.8 [facility] Comment on above: Performed By: #### 2 55948 #### [facility],[address] [place] [address] 95461 Glucose [Mass/Vol] 111 mg/dL High 74 - 106 [facility] Comment on above: Performed By: #### 2 16601 #### [facility],[address] [place] [address] 88520 Potassium [Moles/Vol] 3.4 mmol/L Low 3.5 - 5.1 [facility] Comment on above: Performed By: #### 2 30364 #### [facility],[address] [place] [address] 45482 Protein [Mass/Vol] 7.4 g/dL Normal 6.4 - 8.2 [facility] Comment on above: Performed By: #### 2 91947 #### [facility],[address] [place] [address] 26446 Sodium [Moles/Vol] 139 mmol/L Normal 136 - 145 [facility] Comment on above: Performed By: #### 2 90591 #### [facility],[address] [place] [address] 14903 Urea nitrogen [Mass/Vol] 14 mg/dL Normal 7 - 18 [facility] Comment on above: Performed By: #### 2 25065 #### [facility],[address] [place] [address] 36648 CNOV[facility] 06-22-2024 [facility] -- FEDE TURCIOS ([id number]) 1970 M Date Time Provider Department 06/22/24 2:00 PM CORA MARS During your visit today, we recorded the following information about you: Temperature Pulse Respiration Blood pressure 97.2 degrees 68/minute 16/minute 104/70 Weight 80.1 kg Cora Mars MD 06/22/2024 2:51 PM Signed Chief Complaint Patient presents with: Hospital F/U HPI Fede Turcios is a 53 year old male who presents here today for an ED follow up. Pt here today with his . Started feeling unwell 5 days ago; tired, weak, poor appetite, mild nausea with no vomiting. No actual fever. Then developed left mid to lower back ba=apin, which moved around to his flank and then more anterior. Pt at this time is not having left sided flank pain, but when he called this morning he was still having this. At this time he reports occasionally still having the shivers. Notes feeling fatigued and tired, but this could be related to not sleeping all night. Denies any stomach or bowel issues, does have decreased appetite. ED Provider noted possible pancreas could be flared. feels he has more gas and is belching. Takes Prilosec 40 mg once daily. Pt seen at [facility] ED on 06/22/24 for flank pain that started two day prior. Pain described as constant, at times will shoot up to an 8/10. Denies any urinary symptoms, fevers or chills. Pt reports about 5 days ago he felt very tired and had chills at that time, but symptoms resolved. Denies any chest pain, sob or dizziness. No other concerns at this time. Pt does note occasional ETOH use. Pt had lab work up and CT of abd/pelv completed. Lipase was elevated at 140/ Pt denies any epigastric pain or abdominal tenderness. However, pt states he does drink alcohol couple times per week. Pt was advised to reduce alcohol consumption. Pt was given Dilaudid, Zofran and IV fluids in the ED. Pt advised to f/u with PCP. ED visit 06/22/24 labs and imaging: ALK PHOS 136 U/L High 46 - 116 [facility] LIPASE on 06-22-2024 Lipase [Catalytic activity/Vol] 148.0 U/L High 15.0 - 78.0 [facility] Imaging: CT ABDOMEN/PELVIS WITH CONTRAS 06/22/24: CONCLUSION: 1. There is no evidence of acute abdominal or pelvic abnormality. Dictated by: Mesha Pepe MD on 06/22/2024 at 3:54 Approved by: Mesha Pepe MD on 06/22/2024 at 4:29 Past medical history, appointments, medications, allergies reviewed. 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 Milton 03/20/2004: ESOPHAGOSCOPY FLEX BALLOON DILAT <30 MM DIAM Comment: Esophageal dilatation; Dr Milton Family History FAMILY HISTORY Problem Relation Age of Onset Hypertension Mother Coronary Artery Disease Mother 2 Heart attacks Heart Mother CABG in February 2017 Cancer Father 62 Prostate Hypertension Father 60 Diabetes Father 69 Cancer Paternal Grandfather Pancreatic Patient Allergies ALLERGIES No Known Allergies Current Medications Current Outpatient Medications on File Prior to Visit Medication Sig omeprazole (PRILOSEC) 40 mg capsule Take 1 capsule by mouth daily before breakfast. SUMAtriptan (IMITREX) 50 mg tablet Take 1 tablet (50 mg) by mouth as needed for migraine headache (see administration instructions) for up to 28 days. sildenafil (VIAGRA) 50 mg tablet Take 1 tablet by mouth as needed. clotrimazole-betamethasone (LOTRISONE) cream Apply to affected area twice daily. SUMAtriptan (IMITREX) 50 mg tablet Take 50 mg by mouth as needed. No current facility-administered medications on file prior to visit. Social History Social History Tobacco Use Smoking status: Never Smokeless tobacco: Never Substance Use Topics Alcohol use: Yes Comment: socially Drug use: No EXAM: BP 104/70 (BP Site: Right Arm, BP Position: Sitting, BP Cuff Size: Regular Adult) Pulse 68 Temp 36.2 ?C (97.2 ?F) (Tympanic) Resp 16 Wt 80.1 kg (176 lb 9.4 oz) BMI 26.85 kg/m? General Appearance: Well appearing, alert, in no acute distress, well-hydrated, well nourished.. Back:no pain at this time Lungs: Lungs clear to auscultation. No wheezing, rhonchi, rales.. Heart: RRR without murmur, gallop, or rubs. No ectopy. Abdomen: Normal abdominal exam, Abdomen soft, non-tender. Bowel sounds normal. No masses, organomegaly. Health Maintenance List Depression Screening Never done Anxiety Screening Never done Hepatitis B Vaccine(1 of 3 - 19+ 3-dose series) Never done DTaP,T (more content not included)... Normal [facility] CT ABDOMEN/PELVIS Won 2023 CT ABDOMEN/PELVIS [place] [address] Patient: FEDE TURCIOS Phone#: : 1970 Age: 53 Gender: M Pt. Type: ER Account: [id number] Location: [facility] Ordering: DR. LACIE VALENTINO Exam Date: 06/22/2024/3:24 Family Phys: CORA MARS Charge Code: [id number] Physician: Zavala Order #: [id number] Dose#: 12.2 PROCEDURE: CT ABDOMEN/PELVIS WITH CONTRAST COMPARISON: None. INDICATIONS: ABDOMINAL PAIN. TECHNIQUE: After obtaining the patient's consent, CT images were created with non-ionic intravenous contrast material. All CT scans at this facility use dose modulation, iterative reconstruction, and/or weight based dosing when appropriate to reduce radiation dose to as low as reasonably achievable. IV CONTRAST: Omnipaque 350,80ml TOTAL DOSE: 12.0 CTDIvol(mGy) FINDINGS: LIVER: Normal. No enlargement, atrophy, abnormal density, or significant focal lesion. BILIARY: Normal. No visible dilatation or calcification. PANCREAS: Normal. No lesion, fluid collection, ductal dilatation, or atrophy. SPLEEN: Normal. No enlargement or focal lesion. KIDNEYS: Normal. No mass, obstruction, or calcification. ADRENALS: Normal. No mass or enlargement. AORTA/VASCULAR: Normal. No aneurysm or dissection. RETROPERITONEUM: Normal. No mass or adenopathy. BOWEL/MESENTERY: Normal. No visible mass, obstruction, or bowel wall thickening. ABDOMINAL WALL: Normal. No mass or hernia. URINARY BLADDER: Normal. No visible focal wall thickening, lesion, or calculus. PELVIC NODES: Normal. No adenopathy. PELVIC ORGANS: Normal. No visible mass. Pelvic organs appropriate for patient age. BONES: Mild degenerative changes of the spine are present. No bony lesion or fracture. LUNG BASES: Normal. No visible pulmonary or pleural disease. OTHER: Negative. Continued Report - Page 2 of 2 Patient: FEDE TURCIOS Phone#: : 1970 Age: 53 Gender: M Pt. Type: ER Account: [id number] Location: [facility] Ordering: DR. LACIE VALENTINO Exam Date: 06/22/2024/3:24 Family Phys: CORA MARS Charge Code: [id number] Physician: Zavala Order #: [id number] Dose#: 12.2 CONCLUSION: 1. There is no evidence of acute abdominal or pelvic abnormality. Dictated by: Mesha Pepe MD on 06/22/2024 at 3:54 Approved by: Mesha Pepe MD on 06/22/2024 at 4:29 Normal [facility] LIPASEon 06-22-2024 Lipase [Catalytic activity/Vol] 148.0 U/L High 15.0 - 78.0 [facility] Comment on above: Result Comment: *PLE ASE NOTE THAT RANGES FOR LIPASE HAVE CHANGED OF 10/17/23 DUE TO AN ASSAY UPDATE BY THE CONTRACT MANAGEMENT SPECIALIST.THE NEW ASSAY RANGE IS 6-250 U/L, WITH A REFERENCE RANGE OF 16-77 U/L. Performed By: #### 2 59779 #### [place] [address] URINALYSISon 06-22-2024 Amorphous NONE Normal [facility] Comment on above: Performed By: #### 2 98619 #### [place] [address] Bacteria TRACE Normal [facility] Comment on above: Performed By: #### 2 10588 #### [facility],[address] [place] [address] 26279 Bilirubin Ql (U) Negative Normal NORMAL: NEGATIVE [facility] Comment on above: Performed By: #### 2 32534 #### [facility],[address] [place] [address] 52272 Casts NONE Normal [facility] Comment on above: Performed By: #### 2 51817 #### [facility],[address] [place] [address] 60107 Clarity (U) CLEAR Normal NORMAL: CLEAR [facility] Comment on above: Performed By: #### 2 32104 #### [facility],[address] [place] [address] 89975 Color (U) YELLOW Normal NORMAL: YELLOW [facility] Comment on above: Performed By: #### 2 40887 #### [facility],[address] [place] [address] 86705 Crystals LM Nom (Urine sed) NONE Normal [facility] Comment on above: Performed By: #### 2 46294 #### [facility],[address] [place] [address] 12618 Epi Cells NONE Normal [facility] Comment on above: Performed By: #### 2 29222 #### [facility],[address] [place] [address] 27478 Glucose Ql (U) NORM Normal NORMAL: NORMAL [facility] Comment on above: Performed By: #### 2 31010 #### [facility],[address] [place] [address] 54814 Hemoglobin Ql (U) 25 Abnormal NORMAL: NEGATIVE [facility] Comment on above: Performed By: #### 2 70650 #### [facility],[address] [place] [address] 27453 Ketone 5 Abnormal NORMAL: NEGATIVE [facility] Comment on above: Performed By: #### 2 17009 #### [facility],[address] [place] [address] Leukocytes Negative Normal NORMAL: NEGATIVE [facility] Comment on above: Performed By: #### 2 53979 #### [facility],[address] [place] [address] Mucous NONE Normal [facility] Comment on above: Performed By: #### 2 33812 #### [facility],[address] [place] [address] Nitrite Ql (U) Negative Normal NORMAL: NEGATIVE [facility] Comment on above: Performed By: #### 2 52303 #### [facility],[address] [place] [address] pH (U) 7.0 [pH] Normal NORMAL: 5.0-8.0 [facility] Comment on above: Performed By: #### 2 70091 #### [facility],[address] [place] [address] Protein Ql (U) 30 Abnormal NORMAL: NEGATIVE [facility] Comment on above: Performed By: #### 2 02140 #### [facility],[address] [place] [address] Rbc 0-5 Normal 0-3/hpf [facility] Comment on above: Performed By: #### 2 75122 #### [facility],[address] [place] [address] Sp Logan 1.005 Low NORMAL: 1.010-1.030 [facility] Comment on above: Performed By: #### 2 25797 #### [facility],[address] [place] [address] Specimen Type Clean catch Normal [facility] Comment on above: Performed By: #### 2 23878 #### [facility],[address] [place] [address] Urinalysis dipstick W Reflex Microscopic panel (U) SEE BELOW Normal [facility] Comment on above: Result Comment: MICR OSCOPIC Performed By: #### 2 56439 #### [facility],[address] [place] [address] 97502 Urobilinog 4 Abnormal NORMAL: NORMAL [facility] Comment on above: Performed By: #### 2 76833 #### [facility],[address] [place] [address],[facility] [address] Wbc NONE Normal 0-5/hpf [facility] Comment on above: Performed By: #### 2 55260 #### [facility],[address] [place] [address],[facility] [address] Yeast NONE Normal [facility] [facility] Comment on above: Performed By: #### [id number] #### [facility],[address] [place] [address] CNOVon 11-20-2023 CNOV Office Visit ([facility] -- KAROLINAFEDE LESTER ([id number]) 1970 M Date Time Provider Department 11/20/23 3:40 PM CORA MARS [facility] During your visit today, we recorded the following information about you: Pulse Respiration Blood pressure Weight 78/minute 16/minute 120/74 82.6 kg Height 1.727 m Cora Mars MD 11/20/2023 3:47 PM Signed Chief Complaint Patient presents with: Physical HPI Fede Lester Patelgle is a 53 year old male who presents here today for physical. Last OV with PCP was April 2022. , 2 daughters, 1 at [employer] and other is a senior at [employer]. HM Depression screening; denies feeling depressed or hopeless. Depression screening tool completed and reviewed. Based on score and interview, patient is not at risk for depression. Screening tool discussed with patient, and I recommended no further intervention at this time. Declined Covid vaccines, Hep C and HIV screening. No tobacco use. Does not drink much alcohol, mostly recreational. No bowel, Gi, or urinary issues. Uses Viagra 50 mg as needed for ED. Last Colonoscopy done in December 2021. PSA checked routinely, pt father had prostate cancer in his 60s. GERD: Sx doing well with Prilosec 40 mg daily. Migraines: Stable; uses Imitrex 50 mg prn. He gets 2 a month to 0 a month, depending on how well managed his stress is. No chest pains, dizziness, or SOB. Feels he eats fairly well but does not have any exercise regimen he follows. He does walk some. His brother recently dx with HTN and on medications. Past medical history, appointments, medications, allergies reviewed. 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 Milton ESOPHAGOSCOPY FLEX BALLOON DILAT <30 MM DIAM 03/20/2004 Esophageal dilatation; Dr Milton Family History FAMILY HISTORY Problem Relation Age of Onset Hypertension Mother Coronary Artery Disease Mother 2 Heart attacks Heart Mother CABG in February 2017 Cancer Father 62 Prostate Hypertension Father 60 Diabetes Father 69 Cancer Paternal Grandfather Pancreatic Patient Allergies ALLERGIES No Known Allergies Current Medications Current Outpatient Medications on File Prior to Visit Medication Sig sildenafil (VIAGRA) 50 mg tablet Take 1 tablet by mouth as needed. omeprazole (PRILOSEC) 40 mg capsule Take 1 capsule by mouth daily before breakfast. clotrimazole-betamethasone (LOTRISONE) cream Apply to affected area twice daily. SUMAtriptan (IMITREX) 50 mg tablet Take 1 tablet by mouth as needed for migraine headache (see administration instructions) for up to 28 days. SUMAtriptan (IMITREX) 50 mg tablet Take 50 mg by mouth as needed. Tadalafil (CIALIS) 10 mg tablet Take 1 tablet by mouth as needed. Take one pill 30-60 minutes prior to sexual activity No current facility-administered medications on file prior to visit. Social History Social History Tobacco Use Smoking status: Never Smokeless tobacco: Never Substance Use Topics Alcohol use: Yes Comment: socially Drug use: No EXAM: BP 120/74 Pulse 78 Resp 16 Ht 172.7 cm (5' 8) Wt 82.6 kg (182 lb) BMI 27.67 kg/m? General Appearance: Well appearing, alert, in no acute distress, well-hydrated, well nourished.. Neck: Supple, no adenopathy; thyroid symmetric, normal size. Lungs: Lungs clear to auscultation. No wheezing, rhonchi, rales.. Heart: RRR without murmur, gallop, or rubs. No ectopy. Abdomen: Normal abdominal exam, Abdomen soft, non-tender. Bowel sounds normal. No masses, organomegaly. Health Maintenance List Hepatitis B Vaccine(1 of 3 - 3-dose series) Never done Hepatitis C Screening Never done HIV Screening Never done DTaP,Tdap,Td Vaccine(2 - Td or Tdap) due on 02/22/2015 Shingrix Vaccine(1 of 2) Never done Influenza Vaccine(1) due on 06/20/2023 Covid-19 Vaccine( season) due on 06/20/2023 Depression Assessment Never done Diabetes Screening due on 10/16/2024 Lipid Screening due on 10/16/2026 Colorectal Cancer Screening due on 12/20/2031 Data reviewed None ASSESSMENT/PLAN: 1. Wellness examination - ICD9: V70.0, ICD10: Z00.00 (primary diagnosis) - Counseled on healthy diet and regular exercise - Discussed need for and benefit of weight loss. BMI 27.67 kg/(m2) - Risks/benefits of prostate cancer screening discussed. screening PSA ordered - Counseled on limiting alcohol intake to 2 drinks per day - Depression screening tool completed and reviewed with patient. Based on score and interview, patient is not at risk for depression and recommende (more content not included)... Normal [facility] RESPIDon 01-02-2020 Adenovirus Not Detected Normal Not Detected [facility] ([place]) Comment on above: Performed By: #### R ESPID #### [address] [address] Bordetella Parapertussis Not Detected Normal Not Detected [facility] ([place]) Comment on above: Performed By: #### R ESPID #### [address] [address] Bordetella Pertussis Not Detected Normal Not Detected [facility] ([place]) Comment on above: Performed By: #### R ESPID #### [facility] [address] [place] [address] Chlamydophila pneumoniae Not Detected Normal Not Detected [facility] ([place] Comment on above: Performed By: #### R ESPID #### [facility] [address] [place] [address] Coronavirus 229E Not Detected Normal Not Detected [facility] ([place] Comment on above: Performed By: #### R ESPID #### [facility] [address] [place] [address] Coronavirus HKU1 Not Detected Normal Not Detected [facility] ([place] Comment on above: Performed By: #### R ESPID #### [place] [id number] Coronavirus NL63 Not Detected Normal Not Detected [facility] ([place]) Comment on above: Performed By: #### R ESPID #### [place] [address] Coronavirus OC43 Not Detected Normal Not Detected [facility] ([place]) Comment on above: Performed By: #### R ESPID #### [address] [address] Human Metapneumovirus Not Detected Normal Not Detected [facility] ([place]) Comment on above: Performed By: #### R ESPID #### [facility] [address] [place] [address] Influenza A Not Detected Normal Not Detected [facility] ([place]) Comment on above: Performed By: #### R ESPID #### [facility] [address] [place] [address] Influenza B Not Detected Normal Not Detected [facility] ([place]) Comment on above: Performed By: #### R ESPID #### [facility] [address] [place] [address] Mycoplasma pneumoniae Not Detected Normal Not Detected [facility] ([place] Comment on above: Performed By: #### R ESPID #### [facility] [address] [place] [address] Parainfluenza 1 Not Detected Normal Not Detected [facility] ([place] Comment on above: Performed By: #### R ESPID #### [facility] [address] [place] [address] Parainfluenza 2 Not Detected Normal Not Detected [facility] ([place] Comment on above: Performed By: #### R ESPID #### [facility] [address] [place] [address] Parainfluenza 3 Not Detected Normal Not Detected [facility] ([place] Comment on above: Performed By: #### R ESPID #### [facility] [address] [place] [address] Parainfluenza 4 Not Detected Normal Not Detected [facility] ([place]) Comment on above: Performed By: #### R ESPID #### [address] [address] Respiratory Syncytial Virus Not Detected Normal Not Detected [facility] ([place] Comment on above: Performed By: #### R ESPID #### [address] [address] Rhinovirus/Enteroviru s Detected Not Detected [facility] ([place]) Comment on above: Performed By: #### R ESPID #### [address] [address] Vital Signs Date Time Vital Sign Value Performing Clinician Quintoni osbaldo 07-16-2024 14:24-0400 Body mass index (BMI) [Ratio] 24.67 kg/m2 Cora Mars MD Work Phone: [facility] 07-16-2024 14:24-0400 Body weight 73.6 kg Cora Mars MD Work Phone: [facility] 07-16-2024 14:24-0400 Diastolic blood pressure 60 mm[Hg] Cora Mars MD Work Phone: [facility] 07-16-2024 14:24-0400 Heart rate 72 /min Cora Mars MD Work Phone: [facility] 07-16-2024 14:24-0400 Respiratory rate 16 /min Cora Mars MD Work Phone: [facility] 07-16-2024 14:24-0400 SaO2% (BldA) [Mass fraction] 98 % Cora Mars MD Work Phone: [facility] 07-16-2024 14:24-0400 Systolic blood pressure 110 mm[Hg] Cora Mars MD Work Phone: [facility] 06-29-2024 14:03-0400 Body mass index (BMI) [Ratio] 26.61 kg/m2 Pau Nichols MANAGER HOME HEALTHCARE.BORING MACHINE OPERATOR DOUBLE END Work Phone: [facility] 06-29-2024 14:03-0400 Body weight 79.38 kg Pau Nichols MANAGER HOME HEALTHCARE.BORING MACHINE OPERATOR DOUBLE END Work Phone: [facility] 06-29-2024 14:03-0400 Diastolic blood pressure 91 mm[Hg] Pau Nichols MANAGER HOME HEALTHCARE.BORING MACHINE OPERATOR DOUBLE END Work Phone: [facility] 06-29-2024 14:03-0400 Heart rate 90 /min Pau Nichols MANAGER HOME HEALTHCARE.BORING MACHINE OPERATOR DOUBLE END Work Phone: [facility] 06-29-2024 14:03-0400 Systolic blood pressure 134 mm[Hg] Pau Nichols MANAGER HOME HEALTHCARE.BORING MACHINE OPERATOR DOUBLE END Work Phone: [facility] 06-22-2024 14:05-0400 Body mass index (BMI) [Ratio] 26.85 kg/m2 Cora Mars MD Work Phone: [facility] 06-22-2024 14:05-0400 Body temperature 97.2 [degF] Cora Mars MD Work Phone: [facility] 06-22-2024 14:05-0400 Body weight 80.1 kg Cora Mars MD Work Phone: [facility] 06-22-2024 14:05-0400 Diastolic blood pressure 70 mm[Hg] Cora Mars MD Work Phone: [facility] 06-22-2024 14:05-0400 Heart rate 68 /min Cora Mars MD Work Phone: [facility] 06-22-2024 14:05-0400 Respiratory rate 16 /min Cora Mars MD Work Phone: [facility] 06-22-2024 14:05-0400 Systolic blood pressure 104 mm[Hg] Cora Mars MD Work Phone: [facility] 11-20-2023 15:27-0500 Body height 172.7 cm Cora Mars MD Work Phone: [facility] 11-20-2023 15:27-0500 Body weight 82.56 kg Cora Mars MD Work Phone: [facility] 11-20-2023 15:27-0500 Diastolic blood pressure 74 mm[Hg] Cora Mars MD Work Phone: [facility] 11-20-2023 15:27-0500 Heart rate 78 /min Cora Mars MD Work Phone: [facility] 11-20-2023 15:27-0500 Respiratory rate 16 /min Cora Mars MD Work Phone: [facility] 11-20-2023 15:27-0500 Systolic blood pressure 120 mm[Hg] Cora Mars MD Work Phone: [facility] 04-23-2022 14:25-0400 Body weight 79.15 kg Cora Mars MD Work Phone: [facility] 04-23-2022 14:25-0400 Diastolic blood pressure 74 mm[Hg] Cora Mars MD Work Phone: [facility] 04-23-2022 14:25-0400 Heart rate 68 /min Cora Mars MD Work Phone: [facility] 04-23-2022 14:25-0400 Respiratory rate 16 /min Cora Mars MD Work Phone: [facility] 04-23-2022 14:25-0400 Systolic blood pressure 120 mm[Hg] Cora Mars MD Work Phone: [facility] Encounters Encounter Date Encounter Type Care Provider Facility Start: 05-12-2025 End: 05-13-2025 Refill Leighton Blake MANAGER HOME HEALTHCARE.BORING MACHINE OPERATOR DOUBLE END Work Phone: [facility] [place] Comment on above: Refill Request Start: 02-11-2025 End: 02-11-2025 ambulatory Patrick Friend Facility:[facility] Start: 02-03-2025 End: 02-03-[address] Cora Mars MD Work Phone: [facility] Work Phone: Start: 02-03-2025 End: 02-03-2025 Patient encounter procedure Patrick Garcia DO -Laboratory Work Phone: Start: 02-03-2025 End: 02-03-2025 ambulatory Patrick Cloudcroft Facility:[facility] Start: 12-01-2024 End: 12-01-2024 Refill Leighton Blake MANAGER HOME HEALTHCARE.BORING MACHINE OPERATOR DOUBLE END Work Phone: [facility] [place] Comment on above: Refill Request Start: 09-06-2024 End: 09-06-2024 ambulatory Patrick Garcia Facility:[facility] Start: 09-06-2024 End: 09-06-2024 ambulatory [facility] Facility:[facility] Start: 08-30-2024 End: 08-30-2024 ambulatory [facility] Facility:[facility] Start: 08-05-2024 End: 08-05-2024 ambulatory [facility] Facility:[facility] Start: 07-26-2024 End: 07-27-2024 ambulatory Cora Mars MD Work Phone: [facility] Comment on above: Questions Start: 07-20-2024 End: 07-20-2024 ambulatory [employer] Facility:[facility] Start: 07-20-2024 End: 07-20-2024 ambulatory [facility] Facility:[facility] Start: 07-16-2024 End: 07-16-2024 ambulatory CORA MARS Facility:[facility] Start: 07-16-2024 End: 07-16-2024 Patient encounter procedure Cora Mars MD Work Phone: [facility] [place] Comment on above: Celiac disease (Prim madelin Dx); Gastroparesis; Inflammation of intestine Start: 07-13-2024 End: 07-13-2024 Patient Outreach Cora Mars MD Work Phone: [facility] [place] Comment on above: Transition Of Care Start: 07-07-2024 ambulatory Patrick Garcia Facility :[facility] Start: 07-06-2024 ambulatory [facility] Fac ility:[facility] Start: 07-05-2024 End: 07-10-2024 ambulatory [facility] Facility:[facility] Start: 07-01-2024 End: 07-01-2024 ambulatory Pau Nichols APRN.BORING MACHINE OPERATOR DOUBLE END Work Phone: [facility] [place] Comment on above: Extreme back pain Start: 07-01-2024 End: 07-01-2024 Subsequent hospital visit by physician Xr [facility] Work Phone: Radiology Comment on above: Acute bilateral back pain, unspecified back location [M54.9] Start: 06-30-2024 End: 07-02-2024 Telephone encounter Pau Nichols APRN.BORING MACHINE OPERATOR DOUBLE END Work Phone: [facility] [place] Comment on above: Results; Patient Upd ate Start: 06-29-2024 End: 06-29-2024 ambulatory CORA MARS Facility:[facility] Start: 06-29-2024 End: 06-29-2024 Patient encounter procedure Pau Nichols APRN.BORING MACHINE OPERATOR DOUBLE END Work Phone: [facility] [place] Comment on above: Abnormal urine (Prim madelin Dx); Acute constipation; Acute low back pain, unspecified back pain laterality, unspecified whether sciatica present Start: 06-29-2024 End: 06-29-2024 ambulatory PAU NICHOLS Facility:[facility] Start: 06-28-2024 End: 06-28-2024 ambulatory MONI RIBEIRO Facility:[facility] Start: 06-28-2024 End: 06-28-2024 Telephone encounter Cora Mars MD Work Phone: [facility] [place] Comment on above: Patient Update Start: 06-28-2024 End: 06-28-2024 Emergency department patient visit Ed Physician Provider Facility:[facility] Start: 06-27-2024 End: 06-27-2024 Emergency department patient visit Kofi Posada Facility:[facility] Start: 06-22-2024 End: 06-22-2024 [place] Start: 06-22-2024 End: 06-22-2024 Patient encounter procedure Cora Mars MD Work Phone: [facility] [place] Comment on above: Abdominal pain, unsp ecified abdominal location (Primary Dx); Viral syndrome Start: 06-22-2024 End: 06-22-2024 Emergency department patient visit CORA MARS [facility] Start: 06-04-2024 Refill Cora vega MD Work Phone: [facility] [place] Comment on above: Refill Request Start: 03-25-2024 Refill Leighton HERNÁNDEZ RN.BORING MACHINE OPERATOR DOUBLE END Work Phone: [facility] [place] Comment on above: Refill Request Start: 11-20-2023 End: 11-20-2023 [facility] Start: 11-20-2023 End: 11-20-2023 Patient encounter procedure Cora Mars MD Work Phone: [facility] [place] Comment on above: Wellness examination (Primary Dx); Screening for prostate cancer; Gastroesophageal reflux disease without esophagitis; Migraine without aura and with status migrainosus, not intractable; Family hx of prostate cancer; Hyperlipidemia, unspecified hyperlipidemia type Start: 11-20-2023 End: 11-20-2023 Patient encounter status Cora Mars MD Work Phone: [facility] Start: 04-29-2023 Refill Leighton HERNÁNDEZ RN.BORING MACHINE OPERATOR DOUBLE END Work Phone: [facility] [place] Comment on above: Refill Request Start: 03-24-2023 Refill Cora vega MD Work Phone: [facility] [place] Comment on above: Refill Request Start: 08-31-2022 ambulatory Cora vega MD Work Phone: [facility] [place] Comment on above: Insurance Change Start: 04-23-2022 End: 04-23-2022 Patient encounter procedure Cora Mars MD Work Phone: [facility] [place] Comment on above: Dermatitis (Primary Dx) Procedures Date Procedure Procedure Detail Performing Clinician Start: 07-01-2024 Radex spine lumbosac ral minimum 4 views Pau Nichols MANAGER HOME HEALTHCARE.BORING MACHINE OPERATOR DOUBLE END Work Phone: Start: 06-29-2024 Urnls dip stick/tabl et rgnt auto w/o microscopy Pau Nichols MANAGER HOME HEALTHCARE.BORING MACHINE OPERATOR DOUBLE END Work Phone: Start: 06-22-2024 Urinalysis CORA EARL Comment on above: Result Comment: URIN ALYSIS Performed By: #### 2 [id number] #### [facility],[address] [place] [address] Start: 04-23-2022 Adult depression screening assessment Cora Mars MD Work Phone: Start: 12-19-2021 Colonoscopy Cora earl MD Work Phone: Start: 10-16-2021 Lipid 1996 panel - Serum or Plasma Cora Mars MD Work Phone: Start: 10-30-2011 H/O: surgery S/P dilatation of esophageal stricture Cora Mars MD Work Phone: Plan of Treatment Date Care Activity Detail Author Start: 12-20-2031 Colonoscopy COLONOSCOPY [facility] Start: 12-20-2031 COLORECTAL CANCER SCREENING COLORECTAL CANCER SCREENING [facility] Start: 12-20-2031 Screening for malign ant neoplasm of colon [facility] Start: 06-28-2027 Diabetes Screening Diabetes Screenin g [facility] Start: 10-16-2026 Lipid panel Lipid Screening [facility] Start: 10-16-2026 LIPID SCREEN LIPID SCREEN [facility] Start: 06-20-2025 Influenza vaccination Influenza Vacc ine (#1) [facility] Start: 11-20-2024 Covid-19 Vaccine ( season) Covid-19 Vaccine ( season) [facility] Comment on above: Postponed from 06/20 (Declined at this time) Start: 11-20-2024 Hepatitis C screening Hepatitis C Sc nitin [facility] Comment on above: Postponed from 08/25 (Declined at this time) Start: 11-20-2024 HIV screening HIV Screening [facility] Comment on above: Postponed from 08/25 (Declined at this time) Start: 10-16-2024 DIABETES SCREEN DIABETES SCREEN [place] Start: 10-16-2024 [facility] Start: 10-08-2024 End: 10-08-2024 Patient encounter procedure 10/08/2024 10:40 AM EST Office Visit [facility] [place] [address] [place] [address] Cora Mars MD [address] [place], [place] [id number] 3 month follow up [facility] [place] Comment on above: 3 month follow up Start: 07-16-2024 End: 07-16-2024 Patient encounter procedure 07/16/2024 2:20 PM EDT Office Visit Family [facility] [place] [address] [place] [address] Cora Mars MD [address] [facility] [place] [address] Hospital Follow Up [facility] [place] Comment on above: Hospital Follow Up Start: 06-29-2024 End: 06-29-2024 Patient encounter procedure 06/29/2024 2:20 PM EDT Office Visit [facility] [place] [address] [place] [address] Pau Nichols APRN.BORING MACHINE OPERATOR DOUBLE END [address] [place] [address] [facility] ER follow up. Has a elevated labs [facility] [place] Comment on above: [facility] ER follow up. [place] s a elevated labs Start: 06-29-2024 End: 09-28-2024 PSA/PROSTATE SPECIFIC ANTIGEN SCREENING [facility] Comment on above: Expected: 06/29/2024 , Expires: 09/28/2024 Start: 06-29-2024 End: 09-28-2024 Urinalysis complete panel - Urine [facility] Work Phone: Comment on above: Expected: 06/29/2024 , Expires: 09/28/2024 Start: 06-28-2024 End: 09-27-2024 Amylase [Enzymatic activity/volume] in Serum or Plasma [facility] Comment on above: Expected: 06/28/2024 , Expires: 09/27/2024 Start: 06-28-2024 End: 09-27-2024 Comprehensive metabolic 2000 panel - Serum or Plasma [facility] Work Phone: Comment on above: Expected: 06/28/2024 , Expires: 09/27/2024 Start: 06-28-2024 End: 09-27-2024 Lipase [Enzymatic activity/volume] in Serum or Plasma [facility] Comment on above: Expected: 06/28/2024 , Expires: 09/27/2024 Start: 06-20-2024 Covid-19 Vaccine ( season) Covid-19 Vaccine ( season) [facility] Start: 06-20-2024 Covid-19 Vaccine ( season) Covid-19 Vaccine ( season) [facility] Start: 06-20-2024 Influenza vaccination Influenza Vacc ine (#1) [facility] Start: 11-20-2023 End: 02-19-2024 Comprehensive metabolic 2000 panel - Serum or Plasma COMP METABOLIC PANEL Lab Routine Wellness examination Hyperlipidemia, unspecified hyperlipidemia type Expected: 11/20/2023 (Approximate), Expires: 02/19/2024 [facility] Work Phone: Comment on above: Expected: 11/20/2023 (Approximate), Expires: 02/19/2024 Start: 11-20-2023 End: 02-19-2024 Lipid 1996 panel - Serum or Plasma LIPID PANEL BASIC Lab Routine Wellness examination Hyperlipidemia, unspecified hyperlipidemia type Expected: 11/20/2023 (Approximate), Expires: 02/19/2024 [facility] Work Phone: Comment on above: Expected: 11/20/2023 (Approximate), Expires: 02/19/2024 Start: 11-20-2023 End: 02-19-2024 PSA/PROSTSPECAG SCRN PSA/PROSTSPECAG SCRN Lab Routine Screening for prostate cancer Wellness examination Family hx of prostate cancer Expected: 11/20/2023 (Approximate), Expires: 02/19/2024 [facility] Work Phone: Comment on above: Expected: 11/20/2023 (Approximate), Expires: 02/19/2024 Start: 10-20-2023 Behavioral Health Screening Behavioral Health Screening [facility] Start: 06-20-2023 Influenza vaccination INFLUENZA (#1) [facility] Start: 04-23-2023 Adult depression screening assessment DEPRESSION SCREENING [facility] Start: 10-20-2022 DEPRESSION ASSESSMENT DEPRESSION ASS ESSMENT [facility] Start: 10-16-2022 HEPATITIS C SCREENING HEPATITIS C [facility] Comment on above: Postponed from 08/25 (Declined at this time) Start: 10-16-2022 HIV SCREENING HIV SCREENING [facility] Comment on above: Postponed from 08/25 (Declined at this time) Start: 06-20-2022 Influenza vaccination INFLUENZA (#1) [facility] Start: 01-31-2022 COVID-19 VACCINE (4 - Booster for Moderna series) COVID-19 VACCINE (4 - Booster for Moderna series) [facility] Start: 11-27-2021 COVID-19 VACCINE (4 - Booster for Moderna series) COVID-19 VACCINE (4 - Booster for Moderna series) [facility] Start: 11-27-2021 COVID-19 VACCINE (4 - Moderna series) COVID-19 VACCINE (4 - Moderna series) [facility] Start: 10-20-2021 DEPRESSION ASSESSMENT DEPRESSION ASS ESSMENT [facility] Start: 2021 Pneumococcal Vaccine : 50+ (1 of 1 - PCV) Pneumococcal Vaccine: 50+ (1 of 1 - PCV) [facility] Start: 2021 SHINGRIX VACCINE (1 of 2) SHINGRIX VACCINE (1 of 2) [facility] Start: 2016 COLOGUARD (FIT-DNA) COLOGUARD (FIT-D NA) [facility] Start: [address] COLONOGRAPHY [place] Start: 2016 FECAL OCCULT BLOOD FECAL OCCULT BLOO D [facility] Start: 2016 Screening for malign ant neoplasm of colon [facility] Start: 2016 SIGMOIDOSCOPY SIGMOIDOSCOPY [facility] Start: 02-22-2015 Urine microalbumin profile [facility] Start: 1990 Hepatitis B Vaccine (1 of 3 - 19+ 3-dose series) Hepatitis B Vaccine (1 of 3 - 19+ 3-dose series) [facility] Start: 1989 Anxiety Screening Anxiety Screening [facility] Start: 1989 Depression Screening Depression Scre ening [facility] Start: 1989 HEPATITIS C SCREENING HEPATITIS C [facility] Start: 1989 Hepatitis C screening Hepatitis C [facility] Start: 1989 HIV SCREENING HIV SCREENING [facility] Start: 1989 HIV screening HIV Screening [facility] Start: 1971 HEPATITIS B (1 of 3 - 3-dose series) HEPATITIS B (1 of 3 - 3-dose series) [facility] Start: 1971 Hepatitis B Vaccine (1 of 3 - 3-dose series) Hepatitis B Vaccine (1 of 3 - 3-dose series) [facility] Bacteria identified in Urine by Culture URINE CULTURE Microbiology Routine Abnormal urine 06/29/2024 2:53 PM EDT [facility] Immunizations Immunization Date Immunization Notes Care Provider Fa elvis 08-08-2023 influenza, injectabl e, quadrivalent, preservative free Dr. Cora Mars MD Work Phone: [facility] 08-08-2023 influenza, seasonal, injectable Cora Mars MD Work Phone: [facility] 08-08-2023 influenza virus vaccine, unspecified formulation Cora Mars MD Work Phone: [facility] 08-09-2022 influenza, seasonal, injectable, preservative free Dr. Cora Mars MD Work Phone: [facility] 10-16-2021 influenza, injectabl e, quadrivalent, contains preservative Cora Mars MD Work Phone: [facility] 10-16-2021 influenza, injectabl e, quadrivalent, preservative free Dr. Cora Mars MD Work Phone: [facility] 10-02-2021 COVID-19 vaccine, booster dose (MODERNA) Cora Mars MD Work Phone: [facility] 12-22-2020 Covid (Moderna) Dr. Cora flores MD Work Phone: [facility] 11-21-2020 Covid (Moderna) Dr. Cora flores MD Work Phone: [facility] 08-06-2018 influenza, injectabl e, quadrivalent, preservative free Dr. Cora Mars MD Work Phone: [facility] 07-26-2016 influenza, seasonal, injectable, preservative free Dr. Cora Mars MD Work Phone: [facility] 08-20-2015 influenza, injectabl e, quadrivalent, preservative free Dr. Cora Mars MD Work Phone: [facility] 08-20-2015 influenza, seasonal, injectable Cora Mars MD Work Phone: [facility] 10-05-2009 novel [id number], preservative-free, injectable Dr. Cora Mars MD Work Phone: [facility] 08-31-2007 influenza, injectabl e, quadrivalent, preservative free Dr. Cora Mars MD Work Phone: [facility] 02-22-2005 tetanus toxoid, reduced diphtheria toxoid, and acellular pertussis vaccine, adsorbed Cora Mars MD Work Phone: [facility] Work Phone: Payers Date Payer Category Payer Self-pay 2023 Private Health Insurance MMO S [id number] 2023 Unknown [id number] 2021 Unknown MMO MMO [employer] [id number] 2021-Present [phone] [address] [place] [address] PPO [id number] 2021 Unknown [id number] 1971 Unknown [id number] [id number]. 651 Unknown [id number] [id number]. 462 Unknown [id number] 2.16840.1.611298.3.579.2. 462 Unknown [id number] 2.16.840.1.673656.3.579.2. 462 Unknown [id number] 2.16.840.1.714244.3.579.2. 462 Unknown [id number] 2.16.840.1.386571.3.579.2. 462 Unknown [id number] 2.16840.1.956347.3.579.2. 462 Unknown [id number] 2.16.840.1.087346.3.579.2. 462 Unknown [id number] 2.16.840.1.358044.3.579.2. 462 Unknown [id number] 2.16.840.1.685628.3.579.2. 462 Unknown [id number] 2.16.840.1.508138.3.579.2. 462 Unknown [id number] 2.16.840.1.824957.3.579.2. 462 Unknown [id number] 2.16.840.1.075248.3.579.2. 462 Unknown [id number] 2.16.840.1.295864.3.579.2. 462 Unknown [id number] 2.16.840.1.409316.3.579.2. 462 Unknown [id number] 2.16.840.1.578907.3.579.2. 462 Unknown [id number] 2.16.840.1.768768.3.579.2. 462 Unknown [id number] 2.16.840.1.399210.3.579.2. 462 Unknown [id number] 2.16.840.1.286461.3.579.2. 462 Unknown [id number] 2.16.840.1.790294.3.579.2. 462 Unknown [id number] 2.16.840.1.817864.3.579.2. 462 Unknown [id number] [id number]. 462 Social History Date Type Detail Facility Start: 10-28-2011 End: 11-20-2023 Tobacco smoking status NHIS Never smoked tobacco [facility] Work Phone: Start: 10-28-2011 End: 11-20-2023 Tobacco use and exposure Smokeless tobacco non-user [facility] Work Phone: Start: 04-23-2022 End: 07-16-2024 Alcohol intake Current drinker of alcohol (finding) [facility] Start: 10-14-2021 History SDOH Alcohol Frequency 4 [facility] Start: 10-14-2021 History SDOH Alcohol Std Drinks 1 [facility] Start: 12-19-2021 History SDOH Alcohol Comment socially [facility] Start: 10-14-2021 History SDOH Social Connections Phone 3 [facility] Start: 10-14-2021 History SDOH Social Connections Get Together 2 [facility] Start: 10-14-2021 History SDOH Physica l Activity DPW 0 [facility] Start: 10-14-2021 History SDOH Financial 5 [facility] Start: 1970 Sex Assigned At Not on file [facility] Start: 04-13-2022 End: 04-23-2022 Exposure to SARS-CoV-2 (event) Not sure [facility] Start: 10-14-2021 End: 11-20-2023 Gender identity Not on file [facility] Start: 10-14-2021 End: 11-20-2023 History of Social function [place] [employer] Do you belong to any clubs or organizations such as jewish groups, unions, fraternal or athletic groups, or school groups? Yes [facility] Are you now , , , , never or living with a partner? [facility] How often to you hav e a drink containing alcohol? 2-3 time sa week [facility] How many standard dr inks containing alcohol do you have on a typical day? 1 or 2 [facility] How often do you hav e 6 or more drinks on 1 occasion? Never [facility] How hard is it for y ou to pay for the very basics like food, housing, medical care, and heating Not hard at all [facility] Do you feel stress - tense, restless, nervous, or anxious, or unable to sleep at night because your mind is troubled all the time - these days [OSQ] Only a little [facility] (I/We) worried wheth er (my/our) food would run out before (I/we) got money to buy more. Never true [facility] In the past 12 month s, was there a time when you were not able to pay the mortgage or rent on time? No [facility] Do you feel stress - tense, restless, nervous, or anxious, or unable to sleep at night because your mind is troubled all the time - these days [OSQ] Not at all [facility] Start: 02-08-2025 Sex Male (finding) [facility] Start: 1970 Sex Assigned At Male W [facility] Functional Status Date Assessment Result Facility 06-22-2014 Are you deaf, or do you have serious difficulty hearing No 06/22/2014 2:05 PM EDT Veronica Joshi LPN No [facility] 06-22-2014 Are you blind, or do you have serious difficulty seeing, even when wearing glasses No 06/22/2014 2:05 PM EDT Veronica Joshi LPN No [facility] 06-22-2014 Do you have serious difficulty walking or climbing stairs No 06/22/2014 2:05 PM EDT Veronica Joshi LPN No [facility] 06-22-2014 Do you have difficul ty dressing or bathing No 06/22/2014 2:05 PM EDT Veronica Joshi LPN No [facility] 06-22-2014 Because of a physica l, mental, or emotional condition, do you have difficulty doing errands alone such as visiting a physician's office or shopping No 06/22/2014 2:05 PM EDT Veronica Joshi LPN No [facility] Mental Status Date Assessment Result Facility 06-22-2014 Because of a physica l, mental, or emotional condition, do you have serious difficulty concentrating, remembering, or making decisions No 06/22/2014 2:05 PM EDT Veronica Joshi LPN No [facility] Clinical Notes 04-23-2022 to 05-13-2025 Telephone Encounter - Leighton Lozano APRN.[facility] - 05/13/2025 6:59 AM EDTTelephone Encounter - Leighton Lozano APRN.[facility] - 05/13/2025 6:59 AM Cora Yoon MD - 07/16/2024 2:20 PM EDT Note Date & Type Note Facility 05-13-2025 Telephone encounter Note The following approved medication requests have been transmitted electronically. Requested Prescriptions Pending Prescriptions Disp Refills SUMAtriptan (IMITREX) 50 mg tablet 18 tablet 3 Sig: Take 1 tablet by mouth as needed for migraine headache (see administration instructions) for up to 28 days. Leighton Lozano APRN.CNP [facility] 05-13-2025 Miscellaneous Notes The following approved medication requests have been transmitted electronically. Requested Prescriptions Pending Prescriptions Disp Refills SUMAtriptan (IMITREX) 50 mg tablet 18 tablet 3 Sig: Take 1 tablet by mouth as needed for migraine headache (see administration instructions) for up to 28 days. Leighton Lozano APRN.CNP Prescription Refill Information The patient has been identified by name and date of : Yes Caregiver verified no other encounters exist for this prescription request: Yes Caregiver confirmed with patient/requestor that no other refills are due, in the near future, with this provider at this time: Yes The last office visit in the department: 07/16/24 Does the patient have a future office visit with this provider/department: No Patient has been advised. Requested Prescriptions Pending Prescriptions Disp Refills SUMAtriptan (IMITREX) 50 mg tablet 18 tablet 3 Sig: Take 1 tablet by mouth as needed for migraine headache (see administration instructions) for up to 28 days. Halle Dickerson LPN May 12, 2025 1:26 PM documented in this encounter [facility] 05-12-2025 Telephone encounter Note Prescription Refill Information The patient has been identified by name and date of : Yes Caregiver verified no other encounters exist for this prescription request: Yes Caregiver confirmed with patient/requestor that no other refills are due, in the near future, with this provider at this time: Yes The last office visit in the department: 07/16/24 Does the patient have a future office visit with this provider/department: No Patient has been advised. Requested Prescriptions Pending Prescriptions Disp Refills SUMAtriptan (IMITREX) 50 mg tablet 18 tablet 3 Sig: Take 1 tablet by mouth as needed for migraine headache (see administration instructions) for up to 28 days. Halle Dickerson LPN May 12, 2025 1:26 PM [facility] 12-01-2024 Telephone encounter Note The following approved medication requests have been transmitted electronically. Requested Prescriptions Pending Prescriptions Disp Refills sildenafil (VIAGRA) 50 mg tablet 18 tablet 3 Sig: Take 1 tablet by mouth as needed. Leighton Lozano APRN.CNP [facility] 12-01-2024 Telephone encounter Note The following approved medication requests have been transmitted electronically. Requested Prescriptions Pending Prescriptions Disp Refills SUMAtriptan (IMITREX) 50 mg tablet 18 tablet 3 Sig: Take 1 tablet (50 mg) by mouth as needed for migraine headache (see administration instructions) for up to 28 days. Leighton Lozano APRN.CNP [facility] 12-01-2024 Miscellaneous Notes The following approved medication requests have been transmitted electronically. Requested Prescriptions Pending Prescriptions Disp Refills SUMAtriptan (IMITREX) 50 mg tablet 18 tablet 3 Sig: Take 1 tablet (50 mg) by mouth as needed for migraine headache (see administration instructions) for up to 28 days. Leighton Lozano APRN.CNP Left a detailed message for pt to call the office to reschedule his 3 month follow up that was cancelled in September. Fadia Mason LPN The patient has been identified by name and date of : Yes Caregiver verified no other encounters exist for this prescription request: Yes Caregiver confirmed with patient/requestor that no other refills are due, in the near future, with this provider at this time: Yes The last office visit in the department: 07/16/2024 Does the patient have a future office visit with this provider/department: No Visit date not found Requested Prescriptions Pending Prescriptions Disp Refills SUMAtriptan (IMITREX) 50 mg tablet 18 tablet 3 Sig: Take 1 tablet (50 mg) by mouth as needed for migraine headache (see administration instructions) for up to 28 days. Fadia Mason LPN December 01, 2024 10:02 AM documented in this encounter [facility] 12-01-2024 Miscellaneous Notes The following approved medication requests have been transmitted electronically. Requested Prescriptions Pending Prescriptions Disp Refills sildenafil (VIAGRA) 50 mg tablet 18 tablet 3 Sig: Take 1 tablet by mouth as needed. Leighton Lozano APRN.[facility] Left a detailed message for pt to call the office to schedule his past due 3 month FU that was cancelled in September. The patient has been identified by name and date of : Yes Caregiver verified no other encounters exist for this prescription request: Yes Caregiver confirmed with patient/requestor that no other refills are due, in the near future, with this provider at this time: Yes The last office visit in the department: 07/16/2024 Does the patient have a future office visit with this provider/department: Yes 12/01/2024 Requested Prescriptions Pending Prescriptions Disp Refills sildenafil (VIAGRA) 50 mg tablet 18 tablet 3 Sig: Take 1 tablet by mouth as needed. Fadia Mason LPN December 01, 2024 9:49 AM documented in this encounter [facility] 12-01-2024 Telephone encounter Note Left a detailed message for pt to call the office to reschedule his 3 month follow up that was cancelled in September. Fadia Mason LPN The patient has been identified by name and date of : Yes Caregiver verified no other encounters exist for this prescription request: Yes Caregiver confirmed with patient/requestor that no other refills are due, in the near future, with this provider at this time: Yes The last office visit in the department: 07/16/2024 Does the patient have a future office visit with this provider/department: No Visit date not found Requested Prescriptions Pending Prescriptions Disp Refills SUMAtriptan (IMITREX) 50 mg tablet 18 tablet 3 Sig: Take 1 tablet (50 mg) by mouth as needed for migraine headache (see administration instructions) for up to 28 days. Fadia Mason LPN December 01, 2024 10:02 AM [facility] 12-01-2024 Telephone encounter Note Left a detailed message for pt to call the office to schedule his past due 3 month FU that was cancelled in September. The patient has been identified by name and date of : Yes Caregiver verified no other encounters exist for this prescription request: Yes Caregiver confirmed with patient/requestor that no other refills are due, in the near future, with this provider at this time: Yes The last office visit in the department: 07/16/2024 Does the patient have a future office visit with this provider/department: Yes 12/01/2024 Requested Prescriptions Pending Prescriptions Disp Refills sildenafil (VIAGRA) 50 mg tablet 18 tablet 3 Sig: Take 1 tablet by mouth as needed. Fadia Mason LPN December 01, 2024 9:49 AM [facility] 07-26-2024 Telephone encounter Note Please see pt message and advise. Julienne Simental MA [facility] 07-26-2024 Miscellaneous Notes Please see pt message and advise. Julienne Simental MA documented in this encounter [facility] 07-16-2024 History of Present illness Narrative Transitional Care Management TCM Eligibility Documentation The following information was gathered during patient outreach 07/13/2024 Date of Outreach: Outreach Attempt 1: Contact Made Date of Discharge 07/10/2024 Provider Documentation Fede Turcios is a 53 year old male here today for a follow up from recent hospitalization. I have reviewed the patient's hospital course including discharge summary, discharge medications , and follow up needs with the patient and any family members present at today's visit. HPI Pt here today for a 7 day TCM. Was admitted after several visits to ER; diagnosed with celiac crises with inflammation in GI tract and gastroparesis. Doing much better now; on gluten free diet, low fiber, easily digested; prednisone for 3-4 months, bentyl, reglan, etc. Continues to lose weight. Pt is off work till 07/19/24. Follows with Gastro Dr. Garcia next week. Had upper GI done 07/07/24 with bx done for a few gastric polyps. -Pt discharged from [facility] on 07/10/24. -Admitted for: Date of Admission: 07/05/24 Date of Discharge: 07/10/24 Diagnosis Discharge Diagnosis (1) Abdominal pain: Status: Acute R10.9 - Unspecified abdominal pain (2) Intractable low back pain: Status: Acute M54.59 - Other low back pain (3) Paresthesia: Status: Acute R20.2 - Paresthesia of skin (4) Elevated lipase: Status: Inactive R74.8 - Abnormal levels of other serum enzymes (5) Acute hypokalemia: Status: Acute E87.6 - Hypokalemia Hospital Course: Patient is a 53-year-old male who presented [facility] ED on 07/05/2024 with intractable low back pain and abdominal pain. Hospital course as noted below. Patient discharged home in stable condition on 07/10. 1. Severe celiac disease with mild gastroparesis - GI followed. CT abdomen pelvis showed fluid-filled bowel loops possibly concerning for gastroenteritis, though patient notably had been taking magnesium citrate. Mild leukocytosis noted and patient reported subjective fevers. Stool studies unremarkable. Celiac studies showed > 100 TTG IgG antibody which is strongly positive for celiac disease. 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 Inflammatory markers significantly elevated. EGD on 07/07 showed no significant bowel changes aside from a few small hyperplastic polyps; biopsies were obtained. 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 Treated with IV Solu-Medrol, IV Reglan, IV azithromycin, p.o. dicyclomine and p.o. Xanax with good improvement in symptoms. Discharged on prednisone, Reglan, dicyclomine, Xanax, azithromycin and omeprazole as recommended by GI. Close outpatient follow-up with GI after discharge. 2. Intractable low back pain, improved - Suspected referred pain secondary to abdominal pain from likely celiac disease as noted below. MRI T-spine and L-spine on 07/05 were unremarkable. Started on scheduled tizanidine on admission and patient with some improvement. Most improvement was noted with treatment for celiac disease as above. Prescribed short course of tizanidine as needed on discharge. 3. Concern for Lyme disease - Lyme disease IgG antibody and total antibody positive on 07/06. Testing was obtained on admission per patient's request as family and friends had noted his symptoms could fit with Lyme disease. Patient notably denies known tick bite or rash. Suspected that patient either had prior infection or Lyme antibodies are positive due to cross reaction; low likelihood that patient has active infection. Further lab workup pending. Doxycycline discontinued on 07/09. 4. Hypokalemia - Potassium 3.1 on admit. Suspect due to poor p.o. intake recently. Mag and Phos normal. Repleted as needed. 5. Mild normocytic anemia - Hemoglobin 14.2 on admit, dropped to 12.7 on hospital day 2 likely due to IV fluid resuscitation. MCV 86. Iron studies consistent with anemia of chronic disease. Hemoglobin remained stable around 13 during hospitalization. 6. Elevated lipase - Lipase 89 in the ED on 06/27 and lipase 96 in ED on this admission. Suspect this is related to his likely celiac disease as noted above. Notably no pancreatitis findings on CT abdomen pelvis, amylase normal and lipid panel unremarkable. EGD 07/07/24: Findings: The Z-line was irregular and was found 39 cm from the incisors. Biopsies were taken with a cold forceps for histology. Verification of patient identification for the specimen was done. Estimated blood loss was minimal. A few small hyperplastic polyps with no bleeding and no stigmata of recent bleeding were found in the gastric body. No gross lesions were noted in the second portion of the duodenum. Biopsies were taken with a cold forceps for histology. Verification of patient identification for the specimen was done. Estimated blood loss was minimal. Impression: - Z-line irregular, 39 cm from the incisors. Biopsied. - A few gastric polyps. - No gross lesions in the second portion of the duodenum. Biopsied. Imaging: Gastric Emptying Nuclear Medicine 07/08/24 10:00 IMPRESSION: 1. ABNORMAL 99m Tc sulfur colloid semi-solid phase (oatmeal) gastric emptying imaging examination. A. There is delayed semi-solid phase gastric emptying compared to normal controls with maintained first order kinetics throughout all components of the examination. (Azael et al, J Nucl Med Tech 38: 186, 2010). Electronically Signed: Willi Mg DO at 12:18 EDT Lumbar Spine MRI 07/05/24 12:30 IMPRESSION: Normal unenhanced MR examination of the lumbar spine. Electronically Signed: Kobe Smith MD at 0:14 EDT Chest X-Ray 07/05/24 13:06 IMPRESSION: Normal x-ray examination of the chest. Electronically Signed: John Farah MD at 13:20 EDT Labs: 07/08/24 06:45: JULIET-1 Antibody <0.2, SS-A/Ro IgG Antibody < 0.2, SS-B/La IgG Antibody < 0.2, Sm ([place]) Antibody <0.2, SECURITY GUARD Antibody <0.2, Scl-70 Scleroderma Ab 0.2, Double Strand DNA Ab 1, Antichromatin Antibodies <0.2, Centromere B Antibody <0.2 07/05/24 04:34 Blood Culture (Wb) - Anticubital Left Blood Culture - Final No growth in 5 days. Medications: Discontinued omeprazole 40 mg capsule,delayed release(DR/EC) 40 mg PO DAILY acetaminophen [Tylenol] 325 mg tablet 650 mg PO Q6H ibuprofen [Advil] 200 mg tablet 400 mg PO Q6H simethicone [Gas Relief 80 (simethicone)] 80 mg tablet,chewable 80 mg PO BID Rx Instructions: after meals sennosides-docusate sodium [Senna-S] 8.6-50 mg tablet 1 tab-cap PO DAILY polyethylene glycol 3350 [Miralax] 17 gram/dose powder 17 g PO DAILY cyclobenzaprine 10 mg tablet 10 mg PO TID PRN PRN (Reason: muscle spasm) hydrocodone-acetaminophen 5-325 mg tablet 1 tab PO Q6H PRN PRN (Reason: Pain) 3 Days Qty: 10 0RF ondansetron 4 mg tablet,disintegrating 4 mg PO Q8H PRN PRN (Reason: Nausea) Qty: 10 0RF New: tizanidine 2 mg Tablet 4 mg PO TID PRN (Reason: muscle spasticity) 14 Days Qty: 28 0RF prednisone 20 mg Tablet 40 mg PO BREAKFAST 14 Days Qty: 28 0RF alprazolam 0.25 mg Tablet 0.125 mg PO TID 14 Days Qty: 21 0RF metoclopramide HCl 5 mg Tablet 5 mg PO TIDAC 14 Days Qty: 42 0RF dicyclomine 10 mg Capsule 10 mg PO TIDAC 14 Days Qty: 42 0RF trazodone 50 mg Tablet 50 mg PO QHS PRN (Reason: sleep) 14 Days Qty: 14 0RF omeprazole 20 mg capsule,delayed release(DR/EC) 20 mg PO BID 14 Days Qty: 28 0RF azithromycin 500 mg tablet 500 mg PO DAILY 7 Days Qty: 7 0RF Procedures EGD and - (CT abdomen pelvis, lumbar spine MRI, chest x-ray, gastric emptying study PHYSICAL EXAMINATION BP 110/60 Pulse 72 Resp 16 Wt 73.6 kg (162 lb 4.1 oz) SpO2 98% BMI 24.67 kg/m GENERAL: well appearing, alert, in no acute distress HEART: regular rate and rhythm. No murmur, rubs or gallops. LUNGS: clear to auscultation, no wheezing, rhonchi, or crackles ABDOMEN: soft, non-tender, non-distended, no masses or organomegaly ASSESSMENT/PLAN: 1. Celiac disease - ICD9: 579.0, ICD10: K90.0 (primary diagnosis) Continue current medications. Follow with GI Remain on gluten free diet 2. Gastroparesis - ICD9: 536.3, ICD10: K31.84 Follow with GI 3. Inflammation of intestine - ICD9: 558.9, ICD10: K52.9 Improving; follow with GI Follow up in 3 months I agree with the Chief Complaint, ROS, and Past Histories independently gathered by the clinical is support analyst and the remaining scribed note accurately describes my personal service to the patient. Cora Mars MD The documentation for this note was completed by Cherise Lugo MA acting as scribe for Cora Mars MD. July 16, 2024 2:15 PM. Cherise Lugo MA documented in this encounter [facility] 07-16-2024 Note HNO ID: [id number] Author: CORA MARS MD Service: ? Author Type: Physician Type: Progress Notes Filed: 07/16/2024 15:24 Note Text: Transitional Care Management TCM Eligibility Documentation The following information was gathered during patient outreach 07/13/2024 Date of Outreach: Outreach Attempt 1: Contact Made Date of Discharge 07/10/2024 Provider Documentation Fede Turcios is a 53 year old male here today for a follow up from recent hospitalization. I have reviewed the patient's hospital course including discharge summary, discharge medications , and follow up needs with the patient and any family members present at today's visit. HPI Pt here today for a 7 day TCM. Was admitted after several visits to ER; diagnosed with celiac crises with inflammation in GI tract and gastroparesis. Doing much better now; on gluten free diet, low fiber, easily digested; prednisone for 3-4 months, bentyl, reglan, etc. Continues to lose weight. Pt is off work till 07/19/24. Follows with Gastro Dr. Friend next week. Had upper GI done 07/07/24 with bx done for a few gastric polyps. -Pt discharged from [facility] on 07/10/24. -Admitted for: Date of Admission: 07/05/24 Date of Discharge: 07/10/24 Diagnosis Discharge Diagnosis (1) Abdominal pain: Status: Acute R10.9 - Unspecified abdominal pain (2) Intractable low back pain: Status: Acute M54.59 - Other low back pain (3) Paresthesia: Status: Acute R20.2 - Paresthesia of skin (4) Elevated lipase: Status: Inactive R74.8 - Abnormal levels of other serum enzymes (5) Acute hypokalemia: Status: Acute E87.6 - Hypokalemia Hospital Course: Patient is a 53-year-old male who presented [facility] ED on 07/05/2024 with intractable low back pain and abdominal pain. Hospital course as noted below. Patient discharged home in stable condition on 07/10. 1. Severe celiac disease with mild gastroparesis - GI followed. CT abdomen pelvis showed fluid-filled bowel loops possibly concerning for gastroenteritis, though patient notably had been taking magnesium citrate. Mild leukocytosis noted and patient reported subjective fevers. Stool studies unremarkable. Celiac studies showed > 100 TTG IgG antibody which is strongly positive for celiac disease. 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 Inflammatory markers significantly elevated. EGD on 07/07 showed no significant bowel changes aside from a few small hyperplastic polyps; biopsies were obtained. 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 Treated with IV Solu-Medrol, IV Reglan, IV azithromycin, p.o. dicyclomine and p.o. Xanax with good improvement in symptoms. Discharged on prednisone, Reglan, dicyclomine, Xanax, azithromycin and omeprazole as recommended by GI. Close outpatient follow-up with GI after discharge. 2. Intractable low back pain, improved - Suspected referred pain secondary to abdominal pain from likely celiac disease as noted below. MRI T-spine and L-spine on 07/05 were unremarkable. Started on scheduled tizanidine on admission and patient with some improvement. Most improvement was noted with treatment for celiac disease as above. Prescribed short course of tizanidine as needed on discharge. 3. Concern for Lyme disease - Lyme disease IgG antibody and total antibody positive on 07/06. Testing was obtained on admission per patient's request as family and friends had noted his symptoms could fit with Lyme disease. Patient notably denies known tick bite or rash. Suspected that patient either had prior infection or Lyme antibodies are positive due to cross reaction; low likelihood that patient has active infection. Further lab workup pending. Doxycycline discontinued on 07/09. 4. Hypokalemia - Potassium 3.1 on admit. Suspect due to poor p.o. intake recently. Mag and Phos normal. Repleted as needed. 5. Mild normocytic anemia - Hemoglobin 14.2 on admit, dropped to 12.7 on hospital day 2 likely due to IV fluid resuscitation. MCV 86. Iron studies consistent with anemia of chronic disease. Hemoglobin remained stable around 13 during hospitalization. 6. Elevated lipase - Lipase 89 in the ED on 06/27 and lipase 96 in ED on this admission. Suspect this is related to his likely celiac disease as noted above. Notably no pancreatitis findings on CT abdomen pelvis, amylase normal and lipid panel unremarkable. EGD 07/07/24: Findings: The Z-line was irregular and was found 39 cm from the incisors. Biopsies were taken with a cold forceps for histology. Verification of patient identification for the specimen was done. Estimated blood loss was minimal. A few small hyperplastic polyps with no bleeding and no stigmata of recent bleeding were found in the gastric body. No gross lesions were noted in the sec (more content not included)... [facility] 07-13-2024 Note HNO ID: [id number] Author: JULIENNE SIMENTAL MA Service: ? Author Type: Pipe Fitter Helper Type: Progress Notes Filed: 07/13/2024 11:17 Note Text: TRANSITION CARE MANAGEMENT (TCM) INITIAL CONTACT Pipe Fitter Helper Outreach Provider Action/FYI: Called and spoke with pt. Has f/u GI next Friday, with the HEMOTHERAPIST. Reports he's improving, compared to prior to going to ED. Still off work at this time, reports his paperwork states until 07/19/24. Asking if office can receive all paperwork from the Hospital. Pt notes that more than likely his medications are temporary and he should be finding out next week if he's to continue his GI medications from Dr. Teixeira office. Did notify pt we will discuss this at his visit. More than likely we will take care of sleep issues and other issues not pertaining too GI issues. Pt understood. Per pt he is using Miralax and Tylenol despite being on d/c med list. Initial contact with patient post discharge, spoke to patient. Patient identified by name and . TRANSITION CARE MANAGEMENT INITIAL OUTREACH DOCUMENTATION: No data to display SUMMARY: -Pt discharged from [facility] on 07/10/24. -Admitted for: Date of Admission: 07/05/24 Date of Discharge: 07/10/24 Diagnosis Discharge Diagnosis (1) Abdominal pain: Status: Acute R10.9 - Unspecified abdominal pain (2) Intractable low back pain: Status: Acute M54.59 - Other low back pain (3) Paresthesia: Status: Acute R20.2 - Paresthesia of skin (4) Elevated lipase: Status: Inactive R74.8 - Abnormal levels of other serum enzymes (5) Acute hypokalemia: Status: Acute E87.6 - Hypokalemia Hospital Course: Patient is a 53-year-old male who presented [facility] ED on 07/05/2024 with intractable low back pain and abdominal pain. Hospital course as noted below. Patient discharged home in stable condition on 07/10. 1. Severe celiac disease with mild gastroparesis - GI followed. CT abdomen pelvis showed fluid-filled bowel loops possibly concerning for gastroenteritis, though patient notably had been taking magnesium citrate. Mild leukocytosis noted and patient reported subjective fevers. Stool studies unremarkable. Celiac studies showed > 100 TTG IgG antibody which is strongly positive for celiac disease. 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 Inflammatory markers significantly elevated. EGD on 07/07 showed no significant bowel changes aside from a few small hyperplastic polyps; biopsies were obtained. 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 Treated with IV Solu-Medrol, IV Reglan, IV azithromycin, p.o. dicyclomine and p.o. Xanax with good improvement in symptoms. Discharged on prednisone, Reglan, dicyclomine, Xanax, azithromycin and omeprazole as recommended by GI. Close outpatient follow-up with GI after discharge. 2. Intractable low back pain, improved - Suspected referred pain secondary to abdominal pain from likely celiac disease as noted below. MRI T-spine and L-spine on 07/05 were unremarkable. Started on scheduled tizanidine on admission and patient with some improvement. Most improvement was noted with treatment for celiac disease as above. Prescribed short course of tizanidine as needed on discharge. 3. Concern for Lyme disease - Lyme disease IgG antibody and total antibody positive on 07/06. Testing was obtained on admission per patient's request as family and friends had noted his symptoms could fit with Lyme disease. Patient notably denies known tick bite or rash. Suspected that patient either had prior infection or Lyme antibodies are positive due to cross reaction; low likelihood that patient has active infection. Further lab workup pending. Doxycycline discontinued on 07/09. 4. Hypokalemia - Potassium 3.1 on admit. Suspect due to poor p.o. intake recently. Mag and Phos normal. Repleted as needed. 5. Mild normocytic anemia - Hemoglobin 14.2 on admit, dropped to 12.7 on hospital day 2 likely due to IV fluid resuscitation. MCV 86. Iron studies consistent with anemia of chronic disease. Hemoglobin remained stable around 13 during hospitalization. 6. Elevated lipase - Lipase 89 in the ED on 06/27 and lipase 96 in ED on this admission. Suspect this is related to his likely celiac disease as noted above. Notably no pancreatitis findings on CT abdomen pelvis, amylase normal and lipid panel unremarkable. EGD 07/07/24: Findings: The Z-line was irregular and was found 39 cm from the incisors. Biopsies were taken with a cold forceps for histology. Verification of patient identification for the specimen was done. Estimated blood loss was minimal. A few small hyperplastic polyps with no bleeding and no stigmata of recent bleeding were found in the gastric body. No gross lesions were noted in the second portion of (more content not included)... [facility] 07-13-2024 History of Present illness Narrative Images from the original note were not included. TRANSITION CARE MANAGEMENT (TCM) INITIAL CONTACT Pipe Fitter Helper Outreach Provider Action/FYI: Called and spoke with pt. Has f/u GI next Friday, with the HEMOTHERAPIST. Reports he's improving, compared to prior to going to ED. Still off work at this time, reports his paperwork states until 07/19/24. Asking if office can receive all paperwork from the Hospital. Pt notes that more than likely his medications are temporary and he should be finding out next week if he's to continue his GI medications from Dr. Teixeira office. Did notify pt we will discuss this at his visit. More than likely we will take care of sleep issues and other issues not pertaining too GI issues. Pt understood. Per pt he is using Miralax and Tylenol despite being on d/c med list. Initial contact with patient post discharge, spoke to patient. Patient identified by name and . TRANSITION CARE MANAGEMENT INITIAL OUTREACH DOCUMENTATION: No data to display SUMMARY: -Pt discharged from [facility] on 07/10/24. -Admitted for: Date of Admission: 07/05/24 Date of Discharge: 07/10/24 Diagnosis Discharge Diagnosis (1) Abdominal pain: Status: Acute R10.9 - Unspecified abdominal pain (2) Intractable low back pain: Status: Acute M54.59 - Other low back pain (3) Paresthesia: Status: Acute R20.2 - Paresthesia of skin (4) Elevated lipase: Status: Inactive R74.8 - Abnormal levels of other serum enzymes (5) Acute hypokalemia: Status: Acute E87.6 - Hypokalemia Hospital Course: Patient is a 53-year-old male who presented [facility] ED on 07/05/2024 with intractable low back pain and abdominal pain. Hospital course as noted below. Patient discharged home in stable condition on 07/10. 1. Severe celiac disease with mild gastroparesis - GI followed. CT abdomen pelvis showed fluid-filled bowel loops possibly concerning for gastroenteritis, though patient notably had been taking magnesium citrate. Mild leukocytosis noted and patient reported subjective fevers. Stool studies unremarkable. Celiac studies showed > 100 TTG IgG antibody which is strongly positive for celiac disease. 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 Inflammatory markers significantly elevated. EGD on 07/07 showed no significant bowel changes aside from a few small hyperplastic polyps; biopsies were obtained. 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 Treated with IV Solu-Medrol, IV Reglan, IV azithromycin, p.o. dicyclomine and p.o. Xanax with good improvement in symptoms. Discharged on prednisone, Reglan, dicyclomine, Xanax, azithromycin and omeprazole as recommended by GI. Close outpatient follow-up with GI after discharge. 2. Intractable low back pain, improved - Suspected referred pain secondary to abdominal pain from likely celiac disease as noted below. MRI T-spine and L-spine on 07/05 were unremarkable. Started on scheduled tizanidine on admission and patient with some improvement. Most improvement was noted with treatment for celiac disease as above. Prescribed short course of tizanidine as needed on discharge. 3. Concern for Lyme disease - Lyme disease IgG antibody and total antibody positive on 07/06. Testing was obtained on admission per patient's request as family and friends had noted his symptoms could fit with Lyme disease. Patient notably denies known tick bite or rash. Suspected that patient either had prior infection or Lyme antibodies are positive due to cross reaction; low likelihood that patient has active infection. Further lab workup pending. Doxycycline discontinued on 07/09. 4. Hypokalemia - Potassium 3.1 on admit. Suspect due to poor p.o. intake recently. Mag and Phos normal. Repleted as needed. 5. Mild normocytic anemia - Hemoglobin 14.2 on admit, dropped to 12.7 on hospital day 2 likely due to IV fluid resuscitation. MCV 86. Iron studies consistent with anemia of chronic disease. Hemoglobin remained stable around 13 during hospitalization. 6. Elevated lipase - Lipase 89 in the ED on 06/27 and lipase 96 in ED on this admission. Suspect this is related to his likely celiac disease as noted above. Notably no pancreatitis findings on CT abdomen pelvis, amylase normal and lipid panel unremarkable. EGD 07/07/24: Findings: The Z-line was irregular and was found 39 cm from the incisors. Biopsies were taken with a cold forceps for histology. Verification of patient identification for the specimen was done. Estimated blood loss was minimal. A few small hyperplastic polyps with no bleeding and no stigmata of recent bleeding were found in the gastric body. No gross lesions were noted in the second portion of the duodenum. Biopsies were taken with a cold forceps for histology. Verification of patient identification for the specimen was done. Estimated blood loss was minimal. Impression: - Z-line irregular, 39 cm from the incisors. Biopsied. - A few gastric polyps. - No gross lesions in the second portion of the duodenum. Biopsied. Imaging: Gastric Emptying Nuclear Medicine 07/08/24 10:00 IMPRESSION: 1. ABNORMAL 99m Tc sulfur colloid semi-solid phase (oatmeal) gastric emptying imaging examination. A. There is delayed semi-solid phase gastric emptying compared to normal controls with maintained first order kinetics throughout all components of the examination. (Azael gonzalez al, J Nucl Med Tech 38: 186, 2010). Electronically Signed: Willi Mg DO at 12:18 EDT Lumbar Spine MRI 07/05/24 12:30 IMPRESSION: Normal unenhanced MR examination of the lumbar spine. Electronically Signed: Kobe Smith MD at 0:14 EDT Chest X-Ray 07/05/24 13:06 IMPRESSION: Normal x-ray examination of the chest. Electronically Signed: John Farah MD at 13:20 EDT Labs: 07/08/24 06:45: JULIET-1 Antibody <0.2, SS-A/Ro IgG Antibody < 0.2, SS-B/La IgG Antibody < 0.2, Sm (Bettencourt) Antibody <0.2, SECURITY GUARD Antibody <0.2, Scl-70 Scleroderma Ab 0.2, Double Strand DNA Ab 1, Antichromatin Antibodies <0.2, Centromere B Antibody <0.2 07/05/24 04:34 Blood Culture (Wb) - Anticubital Left Blood Culture - Final No growth in 5 days. Medications: Discontinued omeprazole 40 mg capsule,delayed release(DR/EC) 40 mg PO DAILY acetaminophen [Tylenol] 325 mg tablet 650 mg PO Q6H ibuprofen [Advil] 200 mg tablet 400 mg PO Q6H simethicone [Gas Relief 80 (simethicone)] 80 mg tablet,chewable 80 mg PO BID Rx Instructions: after meals sennosides-docusate sodium [Senna-S] 8.6-50 mg tablet 1 tab-cap PO DAILY polyethylene glycol 3350 [Miralax] 17 gram/dose powder 17 g PO DAILY cyclobenzaprine 10 mg tablet 10 mg PO TID PRN PRN (Reason: muscle spasm) hydrocodone-acetaminophen 5-325 mg tablet 1 tab PO Q6H PRN PRN (Reason: Pain) 3 Days Qty: 10 0RF ondansetron 4 mg tablet,disintegrating 4 mg PO Q8H PRN PRN (Reason: Nausea) Qty: 10 0RF New: tizanidine 2 mg Tablet 4 mg PO TID PRN (Reason: muscle spasticity) 14 Days Qty: 28 0RF prednisone 20 mg Tablet 40 mg PO BREAKFAST 14 Days Qty: 28 0RF alprazolam 0.25 mg Tablet 0.125 mg PO TID 14 Days Qty: 21 0RF metoclopramide HCl 5 mg Tablet 5 mg PO TIDAC 14 Days Qty: 42 0RF dicyclomine 10 mg Capsule 10 mg PO TIDAC 14 Days Qty: 42 0RF trazodone 50 mg Tablet 50 mg PO QHS PRN (Reason: sleep) 14 Days Qty: 14 0RF omeprazole 20 mg capsule,delayed release(DR/EC) 20 mg PO BID 14 Days Qty: 28 0RF azithromycin 500 mg tablet 500 mg PO DAILY 7 Days Qty: 7 0RF Procedures EGD and - (CT abdomen pelvis, lumbar spine MRI, chest x-ray, gastric emptying study Records were copied from [facility] for continuity of care. Do you have a hospital follow up appointment with your PCP? Appointment on 07/16/24 @ 2:[address] Mars. Yes. Remind patient of appointment date, time, and location. If not within 14 calendar days of discharge - please reschedule accordingly. MEDICATIONS: Many patients have questions or concerns about their medications once they are home. Were you prescribed any new medications? If yes, what are those medications? Omeprazole 20 mg bid #14, Azithromycin 500 mg once daily for 7 days, Trazodone 50 mg once nightly, Dicyclomine 10 mg po TID, Metoclopramide 5 mg TID, Alprazolam 0.125 mg TID, Prednisone 20 mg 2 tabs with breakfast and Tizanidine 2 mg, 4 mg po TID prn Were you told to hold any medications? No Were any of your medications discontinued? If yes, what are those medications? Hydrocodone, Senna, Gas-X, Zofran, Omeprazole 40, Ibuprofen and Flexeril. Miralax and Tylenol were listed but pt is currently using. Do you have any questions about getting or taking your medications? No Your discharge instructions/After visit Summary (AVS) are important in guiding you through the recovery process. Is there anything I might help you understand? No Do you have all the necessary equipment and supplies at home? 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 Has f/u GI next Friday, with the HEMOTHERAPIST. Reports he's improving, compared to prior to going to ED. Still off work at this time, reports his paperwork states until 07/19/24. Asking if office can receive all paperwork from the Hospital. Pt notes that more than likely his medications are temporary and he should be finding out next week if he's to continue his GI medications from Dr. Teixeira office. Did notify pt we will discuss this at his visit. More than likely we will take care of sleep issues and other issues not pertaining too GI issues. Pt understood. Per pt he is using Miralax and Tylenol despite being on d/c med list. Initial contact with patient post discharge, spoke to patient. Patient identified by name and . TRANSITION CARE MANAGEMENT INITIAL OUTREACH DOCUMENTATION: No data to display SUMMARY: -Pt discharged from [facility] on 07/10/24. -Admitted for: Date of Admission: 07/05/24 Date of Discharge: 07/10/24 Diagnosis Discharge Diagnosis (1) Abdominal pain: Status: Acute R10.9 - Unspecified abdominal pain (2) Intractable low back pain: Status: Acute M54.59 - Other low back pain (3) Paresthesia: Status: Acute R20.2 - Paresthesia of skin (4) Elevated lipase: Status: Inactive R74.8 - Abnormal levels of other serum enzymes (5) Acute hypokalemia: Status: Acute E87.6 - Hypokalemia Hospital Course: Patient is a 53-year-old male who presented [facility] ED on 07/05/2024 with intractable low back pain and abdominal pain. Hospital course as noted below. Patient discharged home in stable condition on 07/10. 1. Severe celiac disease with mild gastroparesis - GI followed. CT abdomen pelvis showed fluid-filled bowel loops possibly concerning for gastroenteritis, though patient notably had been taking magnesium citrate. Mild leukocytosis noted and patient reported subjective fevers. Stool studies unremarkable. Celiac studies showed > 100 TTG IgG antibody which is strongly positive for celiac disease. 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 Inflammatory markers significantly elevated. EGD on 07/07 showed no significant bowel changes aside from a few small hyperplastic polyps; biopsies were obtained. 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 Treated with IV Solu-Medrol, IV Reglan, IV azithromycin, p.o. dicyclomine and p.o. Xanax with good improvement in symptoms. Discharged on prednisone, Reglan, dicyclomine, Xanax, azithromycin and omeprazole as recommended by GI. Close outpatient follow-up with GI after discharge. 2. Intractable low back pain, improved - Suspected referred pain secondary to abdominal pain from likely celiac disease as noted below. MRI T-spine and L-spine on 07/05 were unremarkable. Started on scheduled tizanidine on admission and patient with some improvement. Most improvement was noted with treatment for celiac disease as above. Prescribed short course of tizanidine as needed on discharge. 3. Concern for Lyme disease - Lyme disease IgG antibody and total antibody positive on 07/06. Testing was obtained on admission per patient's request as family and friends had noted his symptoms could fit with Lyme disease. Patient notably denies known tick bite or rash. Suspected that patient either had prior infection or Lyme antibodies are positive due to cross reaction; low likelihood that patient has active infection. Further lab workup pending. Doxycycline discontinued on 07/09. 4. Hypokalemia - Potassium 3.1 on admit. Suspect due to poor p.o. intake recently. Mag and Phos normal. Repleted as needed. 5. Mild normocytic anemia - Hemoglobin 14.2 on admit, dropped to 12.7 on hospital day 2 likely due to IV fluid resuscitation. MCV 86. Iron studies consistent with anemia of chronic disease. Hemoglobin remained stable around 13 during hospitalization. 6. Elevated lipase - Lipase 89 in the ED on 06/27 and lipase 96 in ED on this admission. Suspect this is related to his likely celiac disease as noted above. Notably no pancreatitis findings on CT abdomen pelvis, amylase normal and lipid panel unremarkable. EGD 07/07/24: Findings: The Z-line was irregular and was found 39 cm from the incisors. Biopsies were taken with a cold forceps for histology. Verification of patient identification for the specimen was done. Estimated blood loss (more content not included)... [facility] 07-10-2024 Note [facility] Medical Records Department [address] [place] [address] Discharge Summary 07/10/24 1238 MR#: [id number] Acct: [id number] Name: FEDE TURCIOS Rep #: [id number] : 1970 53 From: Osmar Villeda DO PCP: Dr. Cora Mars MD Status:DIS IN Location: [place] [address] Providers Date of Admission: 07/05/24 Date of Discharge: 07/10/24 Primary Care Physician: Dr. Cora Mars MD Consultations 07/06/24 11:33 Consult: Gastroenterology Routine Consulting Provider: [facility] Reason for Consult: persistent abd pain of unclear etiol, h/o esoph dilation w/ Kuldip EMERGENT Consult: No MD Notified: Yes Date Notified: 07/06/24 Time Notified: 11:48 Method of Notification: Text Reason For Visit: PERSISTENT ABDOMINAL PAIN W/ CONCERN FOR GASTROENT Diagnosis Discharge Diagnosis (1) Abdominal pain: Status: Acute Code(s): R10.9 - Unspecified abdominal pain (2) Intractable low back pain: Status: Acute Code(s): M54.59 - Other low back pain (3) Paresthesia: Status: Acute Code(s): R20.2 - Paresthesia of skin (4) Elevated lipase: Status: Inactive Code(s): R74.8 - Abnormal levels of other serum enzymes (5) Acute hypokalemia: Status: Acute Code(s): E87.6 - Hypokalemia Medications at Discharge Home Medications sumatriptan succinate 50 mg tablet 50 mg PO PRN PRN migraine 06/27/24 sildenafil 50 mg tablet 50 mg PO PRN 07/05/24 alprazolam 0.25 mg tablet 0.125 mg (1/2 x 0.25 mg) PO TID 14 days #21 tabs 07/10/24 azithromycin 500 mg tablet 500 mg PO DAILY 7 days #7 tabs 07/10/24 dicyclomine 10 mg capsule 10 mg PO TIDAC 14 days #42 caps 07/10/24 metoclopramide HCl 5 mg tablet 5 mg PO TIDAC 14 days #42 tabs 07/10/24 omeprazole 20 mg capsule,delayed release 20 mg PO BID 14 days #28 caps 07/10/24 prednisone 20 mg tablet 40 mg (2 x 20 mg) PO BREAKFAST 14 days #28 tabs 07/10/24 tizanidine 2 mg tablet 4 mg (2 x 2 mg) PO TID PRN muscle spasticity 14 days #28 tabs 07/10/24 trazodone 50 mg tablet 50 mg PO QHS PRN sleep 14 days #14 tabs 07/10/24 Hospital Course Operations None Procedures EGD and - (CT abdomen pelvis, lumbar spine MRI, chest x-ray, gastric emptying study) Summary of Care Provided Minutes Spent on Discharge: 35 Hospital Course: Patient is a 53-year-old male who presented [facility] ED on 07/05/2024 with intractable low back pain and abdominal pain. Hospital course as noted below. Patient discharged home in stable condition on 07/10. 1. Severe celiac disease with mild gastroparesis ??? GI followed. CT abdomen pelvis showed fluid-filled bowel loops possibly concerning for gastroenteritis, though patient notably had been taking magnesium citrate. Mild leukocytosis noted and patient reported subjective fevers. Stool studies unremarkable. Celiac studies showed > 100 TTG IgG antibody which is strongly positive for celiac disease. 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 Inflammatory markers significantly elevated. EGD on 07/07 showed no significant bowel changes aside from a few small hyperplastic polyps; biopsies were obtained. 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 Treated with IV Solu-Medrol, IV Reglan, IV azithromycin, p.o. dicyclomine and p.o. Xanax with good improvement in symptoms. Discharged on prednisone, Reglan, dicyclomine, Xanax, azithromycin and omeprazole as recommended by GI. Close outpatient follow-up with GI after discharge. 2. Intractable low back pain, improved ??? Suspected referred pain secondary to abdominal pain from likely celiac disease as noted below. MRI T-spine and L-spine on 07/05 were unremarkable. Started on scheduled tizanidine on admission and patient with some improvement. Most improvement was noted with treatment for celiac disease as above. Prescribed short course of tizanidine as needed on discharge. 3. Concern for Lyme disease ??? Lyme disease IgG antibody and total antibody positive on 07/06. Testing was obtained on admission per patient's request as family and friends had noted his symptoms could fit with Lyme disease. Patient notably denies known tick bite or rash. Suspected that patient either had prior infection or Lyme antibodies are positive due to cross reaction; low likelihood that patient has active infection. Further lab workup pending. Doxycycline discontinued on 07/09. 4. Hypokalemia ??? Potassium 3.1 on admit. Suspect due to poor p.o. intake recently. Mag and Phos normal. Repleted as needed. 5. Mild normocytic anemia ??? Hemoglobin 14.2 on admit, dropped to 12.7 on hospital day 2 likely due to IV fluid resuscitation. MCV 86. Iron studies consistent with anemia of chronic disease. Hemoglobin remained stable around (more content not included)... [facility] 07-02-2024 Telephone encounter Note Pt returned call and given provider's message below with verbalized understanding. [facility] 07-02-2024 Miscellaneous Notes Pt returned call and given provider's message below with verbalized understanding. Message left for pt to call back for results. Cherise Lugo MA I think this is gastrointestinal related but he will know more after seeing Dr. Milton. His labs, urine, CT and xrays have all been negative. Pt notified and verbalized understanding. Pt states he is still having numbness and bloating. He is asking if there is anything else that can be done in the meantime? And if you think it is all gastrointestinal related? Please advise Please let patient know xrays show mild degenerative changes of the thoracic spine but is otherwise normal. I have placed a referral to gastroenterology and have faxed it to Dr. Milton's office as requested. Pt notified and states all of his stools have been liquid. He is on his way to get his back x ray now Edith Husain MA Please let patient know his UA and culture are negative. Also his PSA is normal. Have his bm's all been liquid or has he had formed stools? Patient calling re: PSA, Urine culture, advised results are still In Process, office will call when finalized. Patient did take Magnesium Citrate, he did have liquidy bm through night, 2 this am. Stopped taking Sherborn d/t constipation, back to Tylenol/Ibuprofen every 3 hours d/t back pain, using heating pad to back. Asking if he needs to continue Magnesium Citrate, concerned about back pain returning. What is the next step. Please review & advise. Veronica Joshi LPN documented in this encounter [facility] 07-02-2024 Telephone encounter Note Message left for pt to call back for results. Cherise Lugo MA [facility] 07-01-2024 Telephone encounter Note I think this is gastrointestinal related but he will know more after seeing Dr. Milton. His labs, urine, CT and xrays have all been negative. [facility] 07-01-2024 Telephone encounter Note Pt notified and verbalized understanding. Pt states he is still having numbness and bloating. He is asking if there is anything else that can be done in the meantime? And if you think it is all gastrointestinal related? Please advise [facility] 07-01-2024 Telephone encounter Note Please let patient know xrays show mild degenerative changes of the thoracic spine but is otherwise normal. I have placed a referral to gastroenterology and have faxed it to Dr. Milton's office as requested. [facility] 07-01-2024 History of Present illness Narrative Radiology Service Progress Note PATIENT NAME: Fede Turcios DATE OF SERVICE: July 01, 2024 TIME: 10:11 AM PATIENT IDENTITY VERIFICATION COMPLETED USING TWO (2) IDENTIFIERS: Name and Date of confirmed by patient verbally. FALL SCREENING: Has the patient had 2 falls in the last year or 1 fall with injury or currently using an Ambulatory Assistive Device (Walker, Cane, Wheelchair, Crutches, etc.)? No PATIENT GENDER DATA: Male PATIENT RELEVANT IMPLANT DATA REVIEWED: Yes PATIENT PRESENTS WITH AN IMPLANTABLE OR ATTACHED FERN GATHERER: No RADIOLOGY DEPARTMENT: General X-ray: Exam(s) Completed: Spine X-Ray(s): Thoracic and Lumbar AP / LAT / L5-S1 / OBL PERIPHERAL IV DATA: Not applicable SIGNED BY: RT Kristy(R) July 01, 2024 10:11 AM documented in this encounter [facility] 07-01-2024 Note HNO ID: [id number] Author: MIGUEL VILLAFUERTE RT(R) Service: Radiology Author Type: Technologist Type: Progress Notes Filed: 07/01/2024 10:22 Note Text: Radiology Service Progress Note PATIENT NAME: Fede Turcios DATE OF SERVICE: July 01, 2024 TIME: 10:11 AM PATIENT IDENTITY VERIFICATION COMPLETED USING TWO (2) IDENTIFIERS: Name and Date of confirmed by patient verbally. FALL SCREENING: Has the patient had 2 falls in the last year or 1 fall with injury or currently using an Ambulatory Assistive Device (Walker, Cane, Wheelchair, Crutches, etc.)? No PATIENT GENDER DATA: Male PATIENT RELEVANT IMPLANT DATA REVIEWED: Yes PATIENT PRESENTS WITH AN IMPLANTABLE OR ATTACHED FERN GATHERER: No RADIOLOGY DEPARTMENT: General X-ray: Exam(s) Completed: Spine X-Ray(s): Thoracic and Lumbar AP / LAT / L5-S1 / OBL PERIPHERAL IV DATA: Not applicable SIGNED BY: RT Kristy(R) July 01, 2024 10:11 AM [facility] 07-01-2024 Telephone encounter Note Pt notified and states all of his stools have been liquid. He is on his way to get his back x ray now Edith Husain MA [facility] 07-01-2024 Telephone encounter Note Please let patient know his UA and culture are negative. Also his PSA is normal. Have his bm's all been liquid or has he had formed stools? [facility] 07-01-2024 Telephone encounter Note Please see pt message and advise. There is a TE in regarding this. Julienne Simental MA [facility] 07-01-2024 Miscellaneous Notes Please see pt message and advise. There is a TE in regarding this. Julienne Simental MA documented in this encounter [facility] 06-30-2024 Telephone encounter Note Patient calling re: PSA, Urine culture, advised results are still In Process, office will call when finalized. Patient did take Magnesium Citrate, he did have liquidy bm through night, 2 this am. Stopped taking Sherborn d/t constipation, back to Tylenol/Ibuprofen every 3 hours d/t back pain, using heating pad to back. Asking if he needs to continue Magnesium Citrate, concerned about back pain returning. What is the next step. Please review & advise. Veronica Joshi LPN [facility] 06-29-2024 Note HNO ID: [id number] Author: PAU NICHOLS APRN.BORING MACHINE OPERATOR DOUBLE END Service: ? Author Type: Nurse Practitioner Type: Progress Notes Filed: 06/29/2024 15:03 Note Text: Chief Complaint Patient presents with: ER F/U HPI Fede Turcios is a 53 year old male who presents here today for Above Complaints.. Patient presents for ER follow up. Patient reports he was seen at [facility] 06/22 and was told everything was normal. Seen at [facility] 06/27 and had an abnormal UA and Ct that showed constipation. Has been taking dulcolax, senna, miralax with no BM. Patient reports he has been taking advil and tylenol with no improvement of pain. Past medical history, appointments, medications, allergies reviewed. 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 Milton 03/20/2004: ESOPHAGOSCOPY FLEX BALLOON DILAT <30 MM DIAM Comment: Esophageal dilatation; Dr Milton Family History FAMILY HISTORY Problem Relation Age of Onset Hypertension Mother Coronary Artery Disease Mother 2 Heart attacks Heart Mother CABG in February 2017 Cancer Father 62 Prostate Hypertension Father 60 Diabetes Father 69 Cancer Paternal Grandfather Pancreatic Patient Allergies ALLERGIES No Known Allergies Current Medications Current Outpatient Medications on File Prior to Visit Medication Sig cyclobenzaprine (FLEXERIL) 10 mg tablet Take 1 tablet by mouth three times a day as needed for muscle spasm. omeprazole (PRILOSEC) 40 mg capsule Take 1 capsule by mouth daily before breakfast. SUMAtriptan (IMITREX) 50 mg tablet Take 1 tablet (50 mg) by mouth as needed for migraine headache (see administration instructions) for up to 28 days. sildenafil (VIAGRA) 50 mg tablet Take 1 tablet by mouth as needed. clotrimazole-betamethasone (LOTRISONE) cream Apply to affected area twice daily. No current facility-administered medications on file prior to visit. Social History Social History Tobacco Use Smoking status: Never Smokeless tobacco: Never Substance Use Topics Alcohol use: Yes Comment: socially Drug use: No Review of Symptoms REVIEW OF SYSTEMS SEE HPI EXAM: BP 134/91 Pulse 90 Wt 79.4 kg (175 lb) BMI 26.61 kg/m? General Appearance: Well appearing, alert, in no acute distress, well-hydrated, well nourished.. Lungs: Lungs clear to auscultation. No wheezing, rhonchi, rales.. Heart: RRR without murmur, gallop, or rubs. No ectopy. Abdomen: Negative findings: symmetric, no masses palpable, and no organomegaly, Positive findings: tenderness mild and voluntary guarding generalized. Health Maintenance List Depression Screening Never done Anxiety Screening Never done Hepatitis B Vaccine(1 of 3 - 19+ 3-dose series) Never done DTaP,Tdap,Td Vaccine(2 - Td or Tdap) due on 02/22/2015 Shingrix Vaccine(1 of 2) Never done Covid-19 Vaccine( season) due on 06/20/2024 Influenza Vaccine(1) due on 06/20/2024 Hepatitis C Screening due on 11/20/2024 HIV Screening due on 11/20/2024 Lipid Screening due on 10/16/2026 Diabetes Screening due on 06/28/2027 Colorectal Cancer Screening due on 12/20/2031 ASSESSMENT/PLAN: 1. Abnormal urine - ICD9: 791.9, ICD10: R82.90 (primary diagnosis) - UA DIP, URINE (POC) positive ketone, blood, urobili - URINALYSIS, WITH MICROSCOPIC - URINE CULTURE 2. Acute constipation - ICD9: 564.00, ICD10: K59.00 - MAGNESIUM CITRATE ORAL SOLUTION 3. Acute low back pain, unspecified back pain laterality, unspecified whether sciatica present - ICD9: 724.2, ICD10: M54.50 - PSA/PROSTATE SPECIFIC ANTIGEN SCREENING Pau Nichols APRN.[facility] 06-29-2024 History of Present illness Narrative Chief Complaint Patient presents with: ER F/U HPI Fede Turcios is a 53 year old male who presents here today for Above Complaints.. Patient presents for ER follow up. Patient reports he was seen at [facility] 06/22 and was told everything was normal. Seen at [facility] 06/27 and had an abnormal UA and Ct that showed constipation. Has been taking dulcolax, senna, miralax with no BM. Patient reports he has been taking advil and tylenol with no improvement of pain. Past medical history, appointments, medications, allergies reviewed. 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 Milton 03/20/2004: ESOPHAGOSCOPY FLEX BALLOON DILAT <30 MM DIAM Comment: Esophageal dilatation; Dr Milton Family History FAMILY HISTORY Problem Relation Age of Onset Hypertension Mother Coronary Artery Disease Mother 2 Heart attacks Heart Mother CABG in February 2017 Cancer Father 62 Prostate Hypertension Father 60 Diabetes Father 69 Cancer Paternal Grandfather Pancreatic Patient Allergies ALLERGIES No Known Allergies Current Medications Current Outpatient Medications on File Prior to Visit Medication Sig cyclobenzaprine (FLEXERIL) 10 mg tablet Take 1 tablet by mouth three times a day as needed for muscle spasm. omeprazole (PRILOSEC) 40 mg capsule Take 1 capsule by mouth daily before breakfast. SUMAtriptan (IMITREX) 50 mg tablet Take 1 tablet (50 mg) by mouth as needed for migraine headache (see administration instructions) for up to 28 days. sildenafil (VIAGRA) 50 mg tablet Take 1 tablet by mouth as needed. clotrimazole-betamethasone (LOTRISONE) cream Apply to affected area twice daily. No current facility-administered medications on file prior to visit. Social History Social History Tobacco Use Smoking status: Never Smokeless tobacco: Never Substance Use Topics Alcohol use: Yes Comment: socially Drug use: No Review of Symptoms REVIEW OF SYSTEMS SEE HPI EXAM: BP 134/91 Pulse 90 Wt 79.4 kg (175 lb) BMI 26.61 kg/m General Appearance: Well appearing, alert, in no acute distress, well-hydrated, well nourished.. Lungs: Lungs clear to auscultation. No wheezing, rhonchi, rales.. Heart: RRR without murmur, gallop, or rubs. No ectopy. Abdomen: Negative findings: symmetric, no masses palpable, and no organomegaly, Positive findings: tenderness mild and voluntary guarding generalized. Health Maintenance List Depression Screening Never done Anxiety Screening Never done Hepatitis B Vaccine(1 of 3 - 19+ 3-dose series) Never done DTaP,Tdap,Td Vaccine(2 - Td or Tdap) due on 02/22/2015 Shingrix Vaccine(1 of 2) Never done Covid-19 Vaccine(4 - 2022- season) due on 06/20/2024 Influenza Vaccine(1) due on 06/20/2024 Hepatitis C Screening due on 11/20/2024 HIV Screening due on 11/20/2024 Lipid Screening due on 10/16/2026 Diabetes Screening due on 06/28/2027 Colorectal Cancer Screening due on 12/20/2031 ASSESSMENT/PLAN: 1. Abnormal urine - ICD9: 791.9, ICD10: R82.90 (primary diagnosis) - UA DIP, URINE (POC) positive ketone, blood, urobili - URINALYSIS, WITH MICROSCOPIC - URINE CULTURE 2. Acute constipation - ICD9: 564.00, ICD10: K59.00 - MAGNESIUM CITRATE ORAL SOLUTION 3. Acute low back pain, unspecified back pain laterality, unspecified whether sciatica present - ICD9: 724.2, ICD10: M54.50 - PSA/PROSTATE SPECIFIC ANTIGEN SCREENING Pau Nichols APRN.ARABELLA documented in this encounter [facility] 06-28-2024 Telephone encounter Note Lab orders have been placed. Moni Ribeiro APRN.ARABELLA [facility] 06-28-2024 Miscellaneous Notes Lab orders have been placed. Moni Ribeiro APRN.ARABELLA Patient notified of CT and Lab results, verbalizes understanding of instructions. Pt stated he took one of the pain meds that he got from the ER and it dulls it some. Pt also stated to put in another Lipase lab order. He is going to have take back to ER to have Gastro look at him. Esperanza Patel LPN Can you please call the patient's back and let her know that if he is in extreme pain he needs to go back to the ER. I looked over the CT scan which was normal. Lipase was mildly elevated. Gastroenterology may take some time to get into. Unfortunately we do not have any local chief merchandising officer except for Dr. Garcia at [facility]. I would be happy to place repeat lipase labs to ensure that this is not worsening. Please let me know what they prefer. Moni Ribeiro APRN.CNP Patient has ER Follow-Up visit scheduled with Moni Ribeiro CNP for this , 07/01/24. states patient was seen at [facility] ER yesterday with back/flank pain and possible pancreatitis. Imaging and Labs were completed and pt was discharged home and told to follow up with PCP. calling to state patient remains in extreme pain and they are asking if they should wait until they see Moni on for a possible Gastro referral, or if a Gastro referral should be placed now, if appropriate, since patient was just seen by Dr. Mars on 06/22/24? Please advise , Kelsey, if able. [phone] Thank you. documented in this encounter [facility] 06-28-2024 Telephone encounter Note Patient notified of CT and Lab results, verbalizes understanding of instructions. Pt stated he took one of the pain meds that he got from the ER and it dulls it some. Pt also stated to put in another Lipase lab order. He is going to have take back to ER to have Gastro look at him. Esperanza Patel LPN [facility] 06-28-2024 Telephone encounter Note Can you please call the patient's back and let her know that if he is in extreme pain he needs to go back to the ER. I looked over the CT scan which was normal. Lipase was mildly elevated. Gastroenterology may take some time to get into. Unfortunately we do not have any local chief merchandising officer except for Dr. Garcia at [facility] hospital. I would be happy to place repeat lipase labs to ensure that this is not worsening. Please let me know what they prefer. Moni Ribeiro APRN.CNP [facility] 06-28-2024 Telephone encounter Note Patient has ER Follow-Up visit scheduled with Moni Ribeiro CNP for this , 07/01/24. states patient was seen at [facility] ER yesterday with back/flank pain and possible pancreatitis. Imaging and Labs were completed and pt was discharged home and told to follow up with PCP. calling to state patient remains in extreme pain and they are asking if they should wait until they see Moni on for a possible Gastro referral, or if a Gastro referral should be placed now, if appropriate, since patient was just seen by Dr. Mars on 06/22/24? Please advise , Kelsey, if able. [phone] Thank you. [facility] 06-22-2024 History of Present illness Narrative Chief Complaint Patient presents with: Hospital F/U HPI Fede Turcios is a 53 year old male who presents here today for an ED follow up. Pt here today with his . Started feeling unwell 5 days ago; tired, weak, poor appetite, mild nausea with no vomiting. No actual fever. Then developed left mid to lower back ba=apin, which moved around to his flank and then more anterior. Pt at this time is not having left sided flank pain, but when he called this morning he was still having this. At this time he reports occasionally still having the shivers. Notes feeling fatigued and tired, but this could be related to not sleeping all night. Denies any stomach or bowel issues, does have decreased appetite. ED Provider noted possible pancreas could be flared. feels he has more gas and is belching. Takes Prilosec 40 mg once daily. Pt seen at [facility] ED on 06/22/24 for flank pain that started two day prior. Pain described as constant, at times will shoot up to an 8/10. Denies any urinary symptoms, fevers or chills. Pt reports about 5 days ago he felt very tired and had chills at that time, but symptoms resolved. Denies any chest pain, sob or dizziness. No other concerns at this time. Pt does note occasional ETOH use. Pt had lab work up and CT of abd/pelv completed. Lipase was elevated at 140/ Pt denies any epigastric pain or abdominal tenderness. However, pt states he does drink alcohol couple times per week. Pt was advised to reduce alcohol consumption. Pt was given Dilaudid, Zofran and IV fluids in the ED. Pt advised to f/u with PCP. ED visit 06/22/24 labs and imaging: ALK PHOS 136 U/L High 46 - 116 [facility] LIPASE on 06-22-2024 Lipase [Catalytic activity/Vol] 148.0 U/L High 15.0 - 78.0 [facility] Imaging: CT ABDOMEN/PELVIS WITH CONTRAS 06/22/24: CONCLUSION: 1. There is no evidence of acute abdominal or pelvic abnormality. Dictated by: Mesha Pepe MD on 06/22/2024 at 3:54 Approved by: Mesha Pepe MD on 06/22/2024 at 4:29 Past medical history, appointments, medications, allergies reviewed. 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 Milton 03/20/2004: ESOPHAGOSCOPY FLEX BALLOON DILAT <30 MM DIAM Comment: Esophageal dilatation; Dr Milton Family History FAMILY HISTORY Problem Relation Age of Onset Hypertension Mother Coronary Artery Disease Mother 2 Heart attacks Heart Mother CABG in February 2017 Cancer Father 62 Prostate Hypertension Father 60 Diabetes Father 69 Cancer Paternal Grandfather Pancreatic Patient Allergies ALLERGIES No Known Allergies Current Medications Current Outpatient Medications on File Prior to Visit Medication Sig omeprazole (PRILOSEC) 40 mg capsule Take 1 capsule by mouth daily before breakfast. SUMAtriptan (IMITREX) 50 mg tablet Take 1 tablet (50 mg) by mouth as needed for migraine headache (see administration instructions) for up to 28 days. sildenafil (VIAGRA) 50 mg tablet Take 1 tablet by mouth as needed. clotrimazole-betamethasone (LOTRISONE) cream Apply to affected area twice daily. SUMAtriptan (IMITREX) 50 mg tablet Take 50 mg by mouth as needed. No current facility-administered medications on file prior to visit. Social History Social History Tobacco Use Smoking status: Never Smokeless tobacco: Never Substance Use Topics Alcohol use: Yes Comment: socially Drug use: No EXAM: BP 104/70 (BP Site: Right Arm, BP Position: Sitting, BP Cuff Size: Regular Adult) Pulse 68 Temp 36.2 C (97.2 F) (Tympanic) Resp 16 Wt 80.1 kg (176 lb 9.4 oz) BMI 26.85 kg/m General Appearance: Well appearing, alert, in no acute distress, well-hydrated, well nourished.. Back:no pain at this time Lungs: Lungs clear to auscultation. No wheezing, rhonchi, rales.. Heart: RRR without murmur, gallop, or rubs. No ectopy. Abdomen: Normal abdominal exam, Abdomen soft, non-tender. Bowel sounds normal. No masses, organomegaly. Health Maintenance List Depression Screening Never done Anxiety Screening Never done Hepatitis B Vaccine(1 of 3 - 19+ 3-dose series) Never done DTaP,Tdap,Td Vaccine(2 - Td or Tdap) due on 02/22/2015 Shingrix Vaccine(1 of 2) Never done Covid-19 Vaccine(4 - season) due on 06/20/2024 Influenza Vaccine(1) due on 06/20/2024 Hepatitis C Screening due on 11/20/2024 HIV Screening due on 11/20/2024 Diabetes Screening due on 10/16/2024 Lipid Screening due on 10/16/2026 Colorectal Cancer Screening due on 12/20/2031 Data reviewed External documentation ASSESSMENT/PLAN: 1. Abdominal pain, unspecified abdominal location - ICD9: 789.00, ICD10: R10.9 (primary diagnosis) Continue symptomatic treatment 2. Viral syndrome - ICD9: 079.99, ICD10: B34.9 - Discussed viral etiology and rationale for treatment. - Symptomatic treatment with prn analgesia - Supportive care with fluids and rest Call if not improving in 2-3 days; advance diet as tolerated Medical Decision Making: Problems: Low: Acute, uncomplicated illness or injury Data: Unique source(s) for external note(s) reviewed: 1 Risk: Low: Low risk from testing/treatment Medical Decision Making Level: 3 - Low Cora Mars MD documented in this encounter [facility] 06-22-2024 Note HNO ID: [id number] Author: CORA MARS MD Service: ? Author Type: Physician Type: Progress Notes Filed: 06/22/2024 14:51 Note Text: Chief Complaint Patient presents with: Hospital F/U HPI Fede Turcios is a 53 year old male who presents here today for an ED follow up. Pt here today with his . Started feeling unwell 5 days ago; tired, weak, poor appetite, mild nausea with no vomiting. No actual fever. Then developed left mid to lower back ba=apin, which moved around to his flank and then more anterior. Pt at this time is not having left sided flank pain, but when he called this morning he was still having this. At this time he reports occasionally still having the shivers. Notes feeling fatigued and tired, but this could be related to not sleeping all night. Denies any stomach or bowel issues, does have decreased appetite. ED Provider noted possible pancreas could be flared. feels he has more gas and is belching. Takes Prilosec 40 mg once daily. Pt seen at [facility] ED on 06/22/24 for flank pain that started two day prior. Pain described as constant, at times will shoot up to an 8/10. Denies any urinary symptoms, fevers or chills. Pt reports about 5 days ago he felt very tired and had chills at that time, but symptoms resolved. Denies any chest pain, sob or dizziness. No other concerns at this time. Pt does note occasional ETOH use. Pt had lab work up and CT of abd/pelv completed. Lipase was elevated at 140/ Pt denies any epigastric pain or abdominal tenderness. However, pt states he does drink alcohol couple times per week. Pt was advised to reduce alcohol consumption. Pt was given Dilaudid, Zofran and IV fluids in the ED. Pt advised to f/u with PCP. ED visit 06/22/24 labs and imaging: ALK PHOS 136 U/L High 46 - 116 [facility] LIPASE on 06-22-2024 Lipase [Catalytic activity/Vol] 148.0 U/L High 15.0 - 78.0 [facility] Imaging: CT ABDOMEN/PELVIS WITH CONTRAS 06/22/24: CONCLUSION: 1. There is no evidence of acute abdominal or pelvic abnormality. Dictated by: Mesha Pepe MD on 06/22/2024 at 3:54 Approved by: Mesha Pepe MD on 06/22/2024 at 4:29 Past medical history, appointments, medications, allergies reviewed. 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 Milton 03/20/2004: ESOPHAGOSCOPY FLEX BALLOON DILAT <30 MM DIAM Comment: Esophageal dilatation; Dr Milton Family History FAMILY HISTORY Problem Relation Age of Onset Hypertension Mother Coronary Artery Disease Mother 2 Heart attacks Heart Mother CABG in February 2017 Cancer Father 62 Prostate Hypertension Father 60 Diabetes Father 69 Cancer Paternal Grandfather Pancreatic Patient Allergies ALLERGIES No Known Allergies Current Medications Current Outpatient Medications on File Prior to Visit Medication Sig omeprazole (PRILOSEC) 40 mg capsule Take 1 capsule by mouth daily before breakfast. SUMAtriptan (IMITREX) 50 mg tablet Take 1 tablet (50 mg) by mouth as needed for migraine headache (see administration instructions) for up to 28 days. sildenafil (VIAGRA) 50 mg tablet Take 1 tablet by mouth as needed. clotrimazole-betamethasone (LOTRISONE) cream Apply to affected area twice daily. SUMAtriptan (IMITREX) 50 mg tablet Take 50 mg by mouth as needed. No current facility-administered medications on file prior to visit. Social History Social History Tobacco Use Smoking status: Never Smokeless tobacco: Never Substance Use Topics Alcohol use: Yes Comment: socially Drug use: No EXAM: BP 104/70 (BP Site: Right Arm, BP Position: Sitting, BP Cuff Size: Regular Adult) Pulse 68 Temp 36.2 ?C (97.2 ?F) (Tympanic) Resp 16 Wt 80.1 kg (176 lb 9.4 oz) BMI 26.85 kg/m? General Appearance: Well appearing, alert, in no acute distress, well-hydrated, well nourished.. Back:no pain at this time Lungs: Lungs clear to auscultation. No wheezing, rhonchi, rales.. Heart: RRR without murmur, gallop, or rubs. No ectopy. Abdomen: Normal abdominal exam, Abdomen soft, non-tender. Bowel sounds normal. No masses, organomegaly. Health Maintenance List Depression Screening Never done Anxiety Screening Never done Hepatitis B Vaccine(1 of 3 - 19+ 3-dose series) Never done DTaP,Tdap,Td Vaccine(2 - Td or Tdap) due on 02/22/2015 Shingrix Vaccine(1 of 2) Never done Covid-19 Vaccine(4 - season) due on 06/20/2024 Influenza Vaccine(1) due on 06/20/2024 Hepatitis C Screening due on 11/20/2024 HIV Screening due on 11/20/2024 Diabetes Screening due on 10/16/2024 Lipid (more content not included)... [facility] 06-04-2024 Telephone encounter Note The following approved medication requests have been transmitted electronically. Requested Prescriptions Pending Prescriptions Disp Refills omeprazole (PRILOSEC) 40 mg capsule 90 capsule 4 Sig: Take 1 capsule by mouth daily before breakfast. Leighton Lozano APRN.CNP [facility] 06-04-2024 Miscellaneous Notes The following approved medication requests have been transmitted electronically. Requested Prescriptions Pending Prescriptions Disp Refills omeprazole (PRILOSEC) 40 mg capsule 90 capsule 4 Sig: Take 1 capsule by mouth daily before breakfast. Leighton Lozano APRN.CNP Prescription Refill Information The patient has been identified by name and date of : Yes Caregiver verified no other encounters exist for this prescription request: Yes Caregiver confirmed with patient/requestor that no other refills are due, in the near future, with this provider at this time: Yes The last office visit in the department: 11/20/2023 Does the patient have a future office visit with this provider/department: No Requested Prescriptions Pending Prescriptions Disp Refills omeprazole (PRILOSEC) 40 mg capsule 90 capsule 4 Sig: Take 1 capsule by mouth daily before breakfast. Macie Valdes LPN June 04, 2024 1:18 PM documented in this encounter [facility] 06-04-2024 Telephone encounter Note Prescription Refill Information The patient has been identified by name and date of : Yes Caregiver verified no other encounters exist for this prescription request: Yes Caregiver confirmed with patient/requestor that no other refills are due, in the near future, with this provider at this time: Yes The last office visit in the department: 11/20/2023 Does the patient have a future office visit with this provider/department: No Requested Prescriptions Pending Prescriptions Disp Refills omeprazole (PRILOSEC) 40 mg capsule 90 capsule 4 Sig: Take 1 capsule by mouth daily before breakfast. Macie Valdes LPN June 04, 2024 1:18 PM [facility] 03-25-2024 Telephone encounter Note OK to refill as ordered Cora Mars MD [facility] 03-25-2024 Miscellaneous Notes OK to refill as ordered Cora Mars MD Patient MyChart message requesting the following refill Refill(s) Requested: Requested Prescriptions Pending Prescriptions Disp Refills sildenafil (VIAGRA) 50 mg tablet 18 tablet 3 Sig: Take 1 tablet by mouth as needed. ALLERGIES No Known Allergies (home) [phone] (cell) Last Office Visit Date: 11/20/2023 Last Distance Health Visit: Visit date not found Future Appointment: Visit date not found The patients preferred pharmacy has been captured for this encounter? yes Request is for script(s) to be escript to pharmacy. Oliva Walton LPN documented in this encounter [facility] 03-25-2024 Telephone encounter Note Patient [employer] message requesting the following refill Refill(s) Requested: Requested Prescriptions Pending Prescriptions Disp Refills sildenafil (VIAGRA) 50 mg tablet 18 tablet 3 Sig: Take 1 tablet by mouth as needed. ALLERGIES No Known Allergies (home) [phone] (cell) Last Office Visit Date: 11/20/2023 Last Distance Health Visit: Visit date not found Future Appointment: Visit date not found The patients preferred pharmacy has been captured for this encounter? yes Request is for script(s) to be escript to pharmacy. Oliva Walton LPN [facility] 03-25-2024 Telephone encounter Note Patient MyChart message requesting the following refill Refill(s) Requested: Requested Prescriptions Pending Prescriptions Disp Refills SUMAtriptan (IMITREX) 50 mg tablet 18 tablet 3 Sig: Take 1 tablet (50 mg) by mouth as needed for migraine headache (see administration instructions) for up to 28 days. ALLERGIES No Known Allergies (home) [phone] (cell) Last Office Visit Date: 11/20/2023 Last Distance Health Visit: Visit date not found Future Appointment: none found The patients preferred pharmacy has been captured for this encounter? yes Request is for script(s) to be escript to pharmacy. Oliva Walton LPN [facility] 03-25-2024 Miscellaneous Notes Patient MyChart message requesting the following refill Refill(s) Requested: Requested Prescriptions Pending Prescriptions Disp Refills SUMAtriptan (IMITREX) 50 mg tablet 18 tablet 3 Sig: Take 1 tablet (50 mg) by mouth as needed for migraine headache (see administration instructions) for up to 28 days. ALLERGIES No Known Allergies (home) [phone] (cell) Last Office Visit Date: 11/20/2023 Last Distance Health Visit: Visit date not found Future Appointment: none found The patients preferred pharmacy has been captured for this encounter? yes Request is for script(s) to be escript to pharmacy. Oliva Walton LPN documented in this encounter [facility] 11-20-2023 History of Present illness Narrative Chief Complaint Patient presents with: Physical HPI eFde Turcios is a 53 year old male who presents here today for physical. Last OV with PCP was April 2022. , 2 daughters, 1 at [employer] and other is a senior at [employer]. Depression screening; denies feeling depressed or hopeless. Depression screening tool completed and reviewed. Based on score and interview, patient is not at risk for depression. Screening tool discussed with patient, and I recommended no further intervention at this time. Declined Covid vaccines, Hep C and HIV screening. No tobacco use. Does not drink much alcohol, mostly recreational. No bowel, Gi, or urinary issues. Uses Viagra 50 mg as needed for ED. Last Colonoscopy done in December 2021. PSA checked routinely, pt father had prostate cancer in his 60s. GERD: Sx doing well with Prilosec 40 mg daily. Migraines: Stable; uses Imitrex 50 mg prn. He gets 2 a month to 0 a month, depending on how well managed his stress is. No chest pains, dizziness, or SOB. Feels he eats fairly well but does not have any exercise regimen he follows. He does walk some. His brother recently dx with HTN and on medications. Past medical history, appointments, medications, allergies reviewed. 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 Milton ESOPHAGOSCOPY FLEX BALLOON DILAT <30 MM DIAM 03/20/2004 Esophageal dilatation; Dr Milton Family History FAMILY HISTORY Problem Relation Age of Onset Hypertension Mother Coronary Artery Disease Mother 2 Heart attacks Heart Mother CABG in February 2017 Cancer Father 62 Prostate Hypertension Father 60 Diabetes Father 69 Cancer Paternal Grandfather Pancreatic Patient Allergies ALLERGIES No Known Allergies Current Medications Current Outpatient Medications on File Prior to Visit Medication Sig sildenafil (VIAGRA) 50 mg tablet Take 1 tablet by mouth as needed. omeprazole (PRILOSEC) 40 mg capsule Take 1 capsule by mouth daily before breakfast. clotrimazole-betamethasone (LOTRISONE) cream Apply to affected area twice daily. SUMAtriptan (IMITREX) 50 mg tablet Take 1 tablet by mouth as needed for migraine headache (see administration instructions) for up to 28 days. SUMAtriptan (IMITREX) 50 mg tablet Take 50 mg by mouth as needed. Tadalafil (CIALIS) 10 mg tablet Take 1 tablet by mouth as needed. Take one pill 30-60 minutes prior to sexual activity No current facility-administered medications on file prior to visit. Social History Social History Tobacco Use Smoking status: Never Smokeless tobacco: Never Substance Use Topics Alcohol use: Yes Comment: socially Drug use: No EXAM: BP 120/74 Pulse 78 Resp 16 Ht 172.7 cm (5' 8) Wt 82.6 kg (182 lb) BMI 27.67 kg/m General Appearance: Well appearing, alert, in no acute distress, well-hydrated, well nourished.. Neck: Supple, no adenopathy; thyroid symmetric, normal size. Lungs: Lungs clear to auscultation. No wheezing, rhonchi, rales.. Heart: RRR without murmur, gallop, or rubs. No ectopy. Abdomen: Normal abdominal exam, Abdomen soft, non-tender. Bowel sounds normal. No masses, organomegaly. Health Maintenance List Hepatitis B Vaccine(1 of 3 - 3-dose series) Never done Hepatitis C Screening Never done HIV Screening Never done DTaP,Tdap,Td Vaccine(2 - Td or Tdap) due on 02/22/2015 Shingrix Vaccine(1 of 2) Never done Influenza Vaccine(1) due on 06/20/2023 Covid-19 Vaccine(4 - season) due on 06/20/2023 Depression Assessment Never done Diabetes Screening due on 10/16/2024 Lipid Screening due on 10/16/2026 Colorectal Cancer Screening due on 12/20/2031 Data reviewed None ASSESSMENT/PLAN: 1. Wellness examination - ICD9: V70.0, ICD10: Z00.00 (primary diagnosis) - Counseled on healthy diet and regular exercise - Discussed need for and benefit of weight loss. BMI 27.67 kg/(m^2) - Risks/benefits of prostate cancer screening discussed. screening PSA ordered - Counseled on limiting alcohol intake to 2 drinks per day - Depression screening tool completed and reviewed with patient. Based on score and interview, patient is not at risk for depression and recommended no further intervention at this time. - Follow up for annual exam in one year 2. Screening for prostate cancer - ICD9: V76.44, ICD10: Z12.5 - Counseled on healthy diet and regular exercise - Discussed need for and benefit of weight loss. BMI 27.67 kg/(m^2) - Risks/benefits of prostate cancer screening discussed. screening PSA ordered - Counseled on limiting alcohol intake to 2 drinks per day - Depression screening tool completed and reviewed with patient. Based on score and interview, patient is not at risk for depression and recommended no further intervention at this time. - Follow up for annual exam in one year 3. Gastroesophageal reflux disease without esophagitis - ICD9: 530.81, ICD10: K21.9 Stable Continue current medications. 4. Migraine without aura and with status migrainosus, not intractable - ICD9: 346.12, ICD10: G43.001 Stable Continue current medications. 5. Family hx of prostate cancer - ICD9: V16.42, ICD10: Z80.42 Check PSA Follow up in 1 year or sooner if needed. Will notify if lab results. I agree with the Chief Complaint, ROS, and Past Histories independently gathered by the clinical is support analyst and the remaining scribed note accurately describes my personal service to the patient. Cora Mars MD The documentation for this note was completed by Cherise Lugo Ma acting as scribe for Cora Mars MD. November 20, 2023 3:29 PM. Cherise Lugo Ma documented in this encounter [facility] 11-20-2023 Note HNO ID: [id number] Author: CORA MARS MD Service: ? Author Type: Physician Type: Progress Notes Filed: 11/20/2023 15:47 Note Text: Chief Complaint Patient presents with: Physical HPI Fede Turcios is a 53 year old male who presents here today for physical. Last OV with PCP was April 2022. , 2 daughters, 1 at [employer] and other is a senior at [employer]. HM Depression screening; denies feeling depressed or hopeless. Depression screening tool completed and reviewed. Based on score and interview, patient is not at risk for depression. Screening tool discussed with patient, and I recommended no further intervention at this time. Declined Covid vaccines, Hep C and HIV screening. No tobacco use. Does not drink much alcohol, mostly recreational. No bowel, Gi, or urinary issues. Uses Viagra 50 mg as needed for ED. Last Colonoscopy done in December 2021. PSA checked routinely, pt father had prostate cancer in his 60s. GERD: Sx doing well with Prilosec 40 mg daily. Migraines: Stable; uses Imitrex 50 mg prn. He gets 2 a month to 0 a month, depending on how well managed his stress is. No chest pains, dizziness, or SOB. Feels he eats fairly well but does not have any exercise regimen he follows. He does walk some. His brother recently dx with HTN and on medications. Past medical history, appointments, medications, allergies reviewed. 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 Milton ESOPHAGOSCOPY FLEX BALLOON DILAT <30 MM DIAM 03/20/2004 Esophageal dilatation; Dr Milton Family History FAMILY HISTORY Problem Relation Age of Onset Hypertension Mother Coronary Artery Disease Mother 2 Heart attacks Heart Mother CABG in February 2017 Cancer Father 62 Prostate Hypertension Father 60 Diabetes Father 69 Cancer Paternal Grandfather Pancreatic Patient Allergies ALLERGIES No Known Allergies Current Medications Current Outpatient Medications on File Prior to Visit Medication Sig sildenafil (VIAGRA) 50 mg tablet Take 1 tablet by mouth as needed. omeprazole (PRILOSEC) 40 mg capsule Take 1 capsule by mouth daily before breakfast. clotrimazole-betamethasone (LOTRISONE) cream Apply to affected area twice daily. SUMAtriptan (IMITREX) 50 mg tablet Take 1 tablet by mouth as needed for migraine headache (see administration instructions) for up to 28 days. SUMAtriptan (IMITREX) 50 mg tablet Take 50 mg by mouth as needed. Tadalafil (CIALIS) 10 mg tablet Take 1 tablet by mouth as needed. Take one pill 30-60 minutes prior to sexual activity No current facility-administered medications on file prior to visit. Social History Social History Tobacco Use Smoking status: Never Smokeless tobacco: Never Substance Use Topics Alcohol use: Yes Comment: socially Drug use: No EXAM: BP 120/74 Pulse 78 Resp 16 Ht 172.7 cm (5' 8) Wt 82.6 kg (182 lb) BMI 27.67 kg/m? General Appearance: Well appearing, alert, in no acute distress, well-hydrated, well nourished.. Neck: Supple, no adenopathy; thyroid symmetric, normal size. Lungs: Lungs clear to auscultation. No wheezing, rhonchi, rales.. Heart: RRR without murmur, gallop, or rubs. No ectopy. Abdomen: Normal abdominal exam, Abdomen soft, non-tender. Bowel sounds normal. No masses, organomegaly. Health Maintenance List Hepatitis B Vaccine(1 of 3 - 3-dose series) Never done Hepatitis C Screening Never done HIV Screening Never done DTaP,Tdap,Td Vaccine(2 - Td or Tdap) due on 02/22/2015 Shingrix Vaccine(1 of 2) Never done Influenza Vaccine(1) due on 06/20/2023 Covid-19 Vaccine( - 2022- season) due on 06/20/2023 Depression Assessment Never done Diabetes Screening due on 10/16/2024 Lipid Screening due on 10/16/2026 Colorectal Cancer Screening due on 12/20/2031 Data reviewed None ASSESSMENT/PLAN: 1. Wellness examination - ICD9: V70.0, ICD10: Z00.00 (primary diagnosis) - Counseled on healthy diet and regular exercise - Discussed need for and benefit of weight loss. BMI 27.67 kg/(m2) - Risks/benefits of prostate cancer screening discussed. screening PSA ordered - Counseled on limiting alcohol intake to 2 drinks per day - Depression screening tool completed and reviewed with patient. Based on score and interview, patient is not at risk for depression and recommended no further intervention at this time. - Follow up for annual exam in one year 2. Screening for prostate cancer - ICD9: V76.44, ICD10: Z12.5 - Counseled on healthy diet and regular exercise - Discussed need for and benefit of weight loss. BMI 27.67 kg/(m2) - Risks/benefits of prostate (more content not included)... [facility] 04-29-2023 Miscellaneous Notes OK to refill as ordered Cora Mars MD Pharmacy updated to [facility]. Angy Salcedo MA Message left for pt to call back or respond back via [employer] regarding below. This was was sent to pt via [employer]. Spoke with Dilia at [facility] ph: [phone]. She stated that [facility] is not a pharmacy they just work with prescription coverage for pt insurance. She stated that pt can use ANY retail pharmacy of his choice or he can use [facility] or [facility] pharmacy. Awaiting pt response on where to send his script. Cherise Lugo Ma documented in this encounter [facility] 03-24-2023 Miscellaneous Notes The following approved medication requests have been transmitted electronically. Requested Prescriptions Pending Prescriptions Disp Refills clotrimazole-betamethasone (LOTRISONE) cream 30 g 2 Sig: Apply to affected area twice daily. Leighton Lozano APRN.CNP Patient has been identified by name and date of : Yes Requested Prescriptions Pending Prescriptions Disp Refills clotrimazole-betamethasone (LOTRISONE) cream 30 g 2 Sig: Apply to affected area twice daily. RX INSTRUCTIONS: Patient aware RX will be sent to pharmacy. No need to notify patient. Patient last office visit: 04/23/22 Patient next office visit: none scheduled Angy Salcedo MA documented in this encounter [facility] 09-02-2022 Miscellaneous Notes The following approved medication requests have been transmitted electronically. Requested Prescriptions Signed Prescriptions Disp Refills omeprazole (PRILOSEC) 40 mg capsule 90 capsule 4 Sig: Take 1 capsule by mouth daily before breakfast. Leighton Lozano APRN.CNP Last Rx: 10/15/21 #90 w/3. Julienne Simental Ma documented in this encounter [facility] 04-23-2022 History of Present illness Narrative Chief Complaint Patient presents with: jock itch HPI Fede Turcios is a 51 year old male who presents here today for jock itch. Pt c/o jock itch and rash x 2.5 weeks, it eases up some but does not go compeletly away. He has used Lotrimin sprays OTC with some improvement, but not resolution. Positive itching.. Past medical history, appointments, medications, allergies reviewed. 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 Milton ESOPHAGOSCOPY FLEX BALLOON DILAT <30 MM DIAM 03/20/2004 Esophageal dilatation; Dr Milton Family History FAMILY HISTORY Problem Relation Age of Onset Hypertension Mother Coronary Artery Disease Mother 2 Heart attacks Heart Mother CABG in February 2017 Cancer Father 62 Prostate Hypertension Father 60 Diabetes Father 69 Cancer Paternal Grandfather Pancreatic Patient Allergies ALLERGIES No Known Allergies Current Medications Current Outpatient Medications on File Prior to Visit Medication Sig SUMAtriptan (IMITREX) 50 mg tablet Take 50 mg by mouth as needed. sildenafil (VIAGRA) 50 mg tablet Take 1 tablet by mouth as needed. omeprazole (PRILOSEC) 40 mg capsule TAKE 1 CAPSULE DAILY BEFORE EATING SUMAtriptan (IMITREX) 50 mg tablet Take 1 tablet by mouth as needed for migraine headache (see administration instructions) for up to 28 days. Tadalafil (CIALIS) 10 mg tablet Take 1 tablet by mouth as needed. Take one pill 30-60 minutes prior to sexual activity No current facility-administered medications on file prior to visit. Social History Social History Tobacco Use Smoking status: Never Smoker Smokeless tobacco: Never Used Substance Use Topics Alcohol use: Yes Comment: socially Drug use: No EXAM: BP 120/74 Pulse 68 Resp 16 Wt 79.2 kg (174 lb 8 oz) BMI 26.53 kg/m General Appearance: Well appearing, alert, in no acute distress, well-hydrated, well nourished.. Skin: underside of scrotum with areas of erythema, inflammation. Health Maintenance List DTAP,TDAP,TD(2 - Td or Tdap) due on 02/22/2015 DEPRESSION SCREENING due on 07/19/2020 SHINGRIX VACCINE(1 of 2) Never done COVID-19 VACCINE(4 - Booster for Moderna series) due on 01/31/2022 HEPATITIS C SCREENING due on 10/16/2022 HIV SCREENING due on 10/16/2022 INFLUENZA(1) due on 06/20/2022 DIABETES SCREEN due on 10/16/2024 LIPID SCREEN due on 10/16/2026 COLORECTAL CANCER SCREENING due on 12/20/2031 Data reviewed None ASSESSMENT/PLAN: 1. Dermatitis - ICD9: 692.9, ICD10: L30.9 - CLOTRIMAZOLE-BETAMETHASONE 1 %-0.05 % TOPICAL CREAM Call if not improving in 1-2 weeks Medical Decision Making: Problems: Low: Acute, uncomplicated illness or injury Risk: Moderate: Drug management Medical Decision Making Level: 3 - Low Cora Mars MD documented in this encounter [facility] Evaluation note Diagnosis Dermatitis- Primary Contact dermatitis and other eczema, due to unspecified cause [facility] Diagnosis Gastroesophageal reflux disease without esophagitis Esophageal reflux [facility] Diagnosis Dermatitis Contact dermatitis and other eczema, due to unspecified cause [facility] Gastroesophageal reflux disease without esophagitis Esophageal reflux [facility] Diagnosis Wellness examination- Primary Screening for prostate cancer Special screening for malignant neoplasm of prostate Gastroesophageal reflux disease without esophagitis Esophageal reflux Migraine without aura and with status migrainosus, not intractable Migraine without aura, without mention of intractable migraine with status migrainosus Family hx of prostate cancer Family history of malignant neoplasm of prostate Hyperlipidemia, unspecified hyperlipidemia type [facility] Diagnosis Migraine without status migrainosus, not intractable, unspecified migraine type [facility] Diagnosis ED (erectile dysfunction) of organic origin Impotence of organic origin [facility] Diagnosis Abdominal pain, unspecified abdominal location- Primary Viral syndrome Unspecified viral infection, in conditions classified elsewhere and of unspecified site [facility] Diagnosis Generalized abdominal pain- Primary Abdominal pain, generalized [facility] Diagnosis Abnormal urine- Primary Other nonspecific finding on examination of urine Acute constipation Unspecified constipation Acute low back pain, unspecified back pain laterality, unspecified whether sciatica present [facility] Diagnosis Acute bilateral back pain, unspecified back location- Primary Acute bilateral back pain, unspecified back location [facility] Diagnosis Generalized abdominal pain- Primary Abdominal pain, generalized documented in this encounter [facility] note* Diagnosis Acute bilateral back pain, unspecified back location documented in this [facility]* Diagnosis Celiac disease- Primary Gastroparesis Inflammation of intestine documented in this [facility] note* Diagnosis Migraine without status migrainosus, not intractable, unspecified migraine type documented in this [facility] note* Diagnosis ED (erectile dysfunction) of organic origin Impotence of organic origin documented in this [facility] noteNo assessment information availableWSelect Medical [facility] [place] Work Phone: Evaluation note* Diagnosis Migraine without status migrainosus, not intractable, unspecified migraine type documented in this encounter [facility] for referral (narrative)* Diagnostic Procedure Only (Urgent) - Closed Specialty Diagnoses / Procedures Referred By Contac t Referred To Contact XR IMAGING Diagnoses Acute bilateral back pain, unspecified back location Procedures XR THORACIC GENERAL 3V AP/LAT/SWIMMERS RADEX SPINE THORACIC 3 VIEWS Pau Nichols APRN.BORING MACHINE OPERATOR DOUBLE END [address] [place], [place] [phone] [place] [address] Referral ID Status Reason Start Date Expiration Date V isits Requested Visits Authorized [id number] Closed Auto-Generate d Referral 07/01/2024 07/31/2025 1 1 * Diagnostic Procedure Only (Urgent) - Closed Specialty Diagnoses / Procedures Referred By Contac t Referred To Contact XR IMAGING Diagnoses Acute bilateral back pain, unspecified back location Procedures XR LUMBAR PARS DEFECT 4V AP/LAT/BOTH OBL RADEX SPINE LUMBOSACRAL MINIMUM 4 VIEWS Pau Nichols APRN.BORING MACHINE OPERATOR DOUBLE END [address] [phone] [place] [address] Referral ID Status Reason Start Date Expiration Date V isits Requested Visits Authorized [id number] Closed Auto-Generate d Referral 07/01/2024 07/31/2025 1 1 [facility] for referral (narrative)* Diagnostic Procedure Only (Urgent) - Closed Specialty Diagnoses / Procedures Referred By Contac t Referred To Contact XR IMAGING Diagnoses Acute bilateral back pain, unspecified back location Procedures XR THORACIC GENERAL 3V AP/LAT/SWIMMERS RADEX SPINE THORACIC 3 VIEWS Pau Nichols APRN.CNP [address] [place], [place] [phone] [place] [address] Referral ID Status Reason Start Date Expiration Date V isits Requested Visits Authorized [id number] Closed Auto-Generate d Referral 07/01/2024 07/31/2025 1 1 * Diagnostic Procedure Only (Urgent) - Closed Specialty Diagnoses / Procedures Referred By Contac t Referred To Contact XR IMAGING Diagnoses Acute bilateral back pain, unspecified back location Procedures XR LUMBAR PARS DEFECT 4V AP/LAT/BOTH OBL RADEX SPINE LUMBOSACRAL MINIMUM 4 VIEWS Pau Nichols APRN.BORING MACHINE OPERATOR DOUBLE END [address] [place] [address] [place] [address] Referral ID Status Reason Start Date Expiration Date V isits Requested Visits Authorized [id number] Closed Auto-Generate d Referral 07/01/2024 07/31/2025 1 1 [facility])No reason for referral information availableWSelect [facility] Work Phone: Reason for visit Narrative* Diagnostic Procedure Only (Urgent) - Closed Specialty Diagnoses / Procedures Referred By Contac t Referred To Contact XR IMAGING Diagnoses Acute bilateral back pain, unspecified back location Procedures XR THORACIC GENERAL 3V AP/LAT/SWIMMERS RADEX SPINE THORACIC 3 VIEWS Pau Nichols APRN.BORING MACHINE OPERATOR DOUBLE END [address] [place], [place] [phone] [place] [address] Referral ID Status Reason Start Date Expiration Date V isits Requested Visits Authorized [id number] Closed Auto-Generate d Referral 07/01/2024 07/31/2025 1 1 [facility] Summary Purpose Family History No Family History Records FoundNo Family History Records FoundNo Family History Records FoundNo Family History Records Found Advance Directives Documents on File Type Date Recorded 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 Advance Directive(s) 12/19/2021 6:48 AM Advance Directive(s) 12/05/2021 6:46 PM Reason for Referral Specialty Diagnoses / Procedures Referred By Contac t Referred To Contact Gastroenterology Diagnoses Generalized abdominal pain Procedures CONSULT TO GASTROENTEROLOGY Pau Nicohls APRN.BORING MACHINE OPERATOR DOUBLE END [address] [place] [address] Ayaan Milton MD [address] [place] [address] Referral ID Status Reason Start Date Expiration Date Visits Requested Visits Authorized [id number] Ref Not Required PCP Requested Referral 07/01/2024 07/01/2025 1 1 Chief Complaint and Reason for Visit Chief Complaint Admit Date INT LAB ORDER February 03, 2025 3:5 6pm Additional Source Comments (unrecognized sect ion and content) No Status Records FoundNo Status Records FoundNo Status Records FoundNo Status Records Found INFORMATION SOURCE (unrecogn ized section and content) DATE CREATED AUTHOR 01/02/2020 [facility] [place]) DATE CREATED AUTHOR AUTHOR'S ORGANIZ ATION 06/22/2024 [facility] DATE CREATED AUTHOR AUTHOR'S ORGANIZ ATION 07/17/2024 [facility] DATE CREATED AUTHOR AUTHOR'S ORGANIZ ATION 03/17/2025 [facility] Source Comments (unrecognize d section and content) In the event this informatio n is protected by the Federal Confidentiality of Alcohol and Drug Abuse Patient Records regulations: The Federal rules restrict any use of the information to criminally investigate or prosecute any alcohol or drug abuse patient.[facility] the event this information is protected by the Federal Confidentiality of Alcohol and Drug Abuse Patient Records regulations: The Federal rules restrict any use of the information to criminally investigate or prosecute any alcohol or drug abuse patient.[facility] HospitalIn the event this information is protected by the Federal Confidentiality of Alcohol and Drug Abuse Patient Records regulations: The Federal rules restrict any use of the information to criminally investigate or prosecute any alcohol or drug abuse patient.[facility] HospitalIn the event this information is protected by the Federal Confidentiality of Alcohol and Drug Abuse Patient Records regulations: The Federal rules restrict any use of the information to criminally investigate or prosecute any alcohol or drug abuse patient.[facility] HospitalIn the event this information is protected by the Federal Confidentiality of Alcohol and Drug Abuse Patient Records regulations: The Federal rules restrict any use of the information to criminally investigate or prosecute any alcohol or drug abuse patient.[facility] HospitalIn the event this information is protected by the Federal Confidentiality of Alcohol and Drug Abuse Patient Records regulations: The Federal rules restrict any use of the information to criminally investigate or prosecute any alcohol or drug abuse patient.[facility] HospitalIn the event this information is protected by the Federal Confidentiality of Alcohol and Drug Abuse Patient Records regulations: The Federal rules restrict any use of the information to criminally investigate or prosecute any alcohol or drug abuse patient.[facility] HospitalIn the event this information is protected by the Federal Confidentiality of Alcohol and Drug Abuse Patient Records regulations: The Federal rules restrict any use of the information to criminally investigate or prosecute any alcohol or drug abuse patient.[facility] HospitalIn the event this information is protected by the Federal Confidentiality of Alcohol and Drug Abuse Patient Records regulations: The Federal rules restrict any use of the information to criminally investigate or prosecute any alcohol or drug abuse patient.[facility] HospitalIn the event this information is protected by the Federal Confidentiality of Alcohol and Drug Abuse Patient Records regulations: The Federal rules restrict any use of the information to criminally investigate or prosecute any alcohol or drug abuse patient.[facility] HospitalIn the event this information is protected by the Federal Confidentiality of Alcohol and Drug Abuse Patient Records regulations: The Federal rules restrict any use of the information to criminally investigate or prosecute any alcohol or drug abuse patient.[facility] HospitalIn the event this information is protected by the Federal Confidentiality of Alcohol and Drug Abuse Patient Records regulations: The Federal rules restrict any use of the information to criminally investigate or prosecute any alcohol or drug abuse patient.[facility] HospitalIn the event this information is protected by the Federal Confidentiality of Alcohol and Drug Abuse Patient Records regulations: The Federal rules restrict any use of the information to criminally investigate or prosecute any alcohol or drug abuse patient.[facility] HospitalIn the event this information is protected by the Federal Confidentiality of Alcohol and Drug Abuse Patient Records regulations: The Federal rules restrict any use of the information to criminally investigate or prosecute any alcohol or drug abuse patient.[facility] HospitalIn the event this information is protected by the Federal Confidentiality of Alcohol and Drug Abuse Patient Records regulations: The Federal rules restrict any use of the information to criminally investigate or prosecute any alcohol or drug abuse patient.[facility] HospitalIn the event this information is protected by the Federal Confidentiality of Alcohol and Drug Abuse Patient Records regulations: The Federal rules restrict any use of the information to criminally investigate or prosecute any alcohol or drug abuse patient.[facility] HospitalIn the event this information is protected by the Federal Confidentiality of Alcohol and Drug Abuse Patient Records regulations: The Federal rules restrict any use of the information to criminally investigate or prosecute any alcohol or drug abuse patient.[facility] HospitalIn the event this information is protected by the Federal Confidentiality of Alcohol and Drug Abuse Patient Records regulations: The Federal rules restrict any use of the information to criminally investigate or prosecute any alcohol or drug abuse patient.[facility] HospitalIn the event this information is protected by the Federal Confidentiality of Alcohol and Drug Abuse Patient Records regulations: The Federal rules restrict any use of the information to criminally investigate or prosecute any alcohol or drug abuse patient.[facility] HospitalIn the event this information is protected by the Federal Confidentiality of Alcohol and Drug Abuse Patient Records regulations: The Federal rules restrict any use of the information to criminally investigate or prosecute any alcohol or drug abuse patient.[facility] Reason for Visit (unrecogniz ed section and content) Reason Comments jock itch Reason Onset Date Comments Refill Request 03/24/2023 Reason Onset Date Comments Refill Request 04/29/2023 Reason Comments Physical Reason Onset Date Comments Refill Request 03/25/2024 Reason Onset Date Comments Refill Request 06/04/2024 Reason Comments Hospital F/U Reason Comments Patient Update Reason Comments ER F/U Reason Comments Results Patient Update Reason Onset Date Comments Transition Of Care 07/13/2024 Reason Comments Hospital F/U 7 day TCM Reason Onset Date Comments Refill Request 12/01/2024 Reason Onset Date Comments Refill Request 05/12/2025 Care Teams (unrecognized sec tion and content) Hand Booked Folder And Stitcher Relationship Specialty Start Date End Date Cora Mars MD [address] [place] [address] PCP - General Family Practice 10/28/11 Hand Booked Folder And Stitcher Relationship Specialty Start Date End Date Cora Mars MD [address] [place] [address] PCP - General Family Medicine 10/28/11 Hand Booked Folder And Stitcher Relationship Specialty Start Date End Date Cora Mars MD [address] [place] [address] PCP - General Family Medicine 10/28/11 Hand Booked Folder And Stitcher Relationship Specialty Start Date End Date Cora Mars MD [address] [facility] [address] PCP - General Family Medicine 10/28/11 Hand Booked Folder And Stitcher Relationship Specialty Start Date End Date Cora Mars MD [address] [place] [address] PCP - General Family Medicine 10/28/11 Hand Booked Folder And Stitcher Relationship Specialty Start Date End Date Cora Mars MD [address] [place] [address] PCP - General Family Medicine 10/28/11 Hand Booked Folder And Stitcher Relationship Specialty Start Date End Date Cora Mars MD [address] [facility] [place] [address] PCP - General Family Medicine 10/28/11 Hand Booked Folder And Stitcher Relationship Specialty Start Date End Date Cora Mars MD [address] [facility] [place] [address] PCP - General Family Medicine 10/28/11 Hand Booked Folder And Stitcher Relationship Specialty Start Date End Date Cora Mars MD [address] [facility] [place] [address] PCP - General Family Medicine 10/28/11 Hand Booked Folder And Stitcher Relationship Specialty Start Date End Date Cora Mars MD [address] [facility] [place] [address] PCP - General Family Medicine 10/28/11 Hand Booked Folder And Stitcher Relationship Specialty Start Date End Date Cora Mars MD [address] [facility] [place] [address] PCP - General Family Medicine 10/28/11 Hand Booked Folder And Stitcher Relationship Specialty Start Date End Date Cora Mars MD [address] [facility] [place] [address] PCP - General Family Medicine 10/28/11 Hand Booked Folder And Stitcher Relationship Specialty Start Date End Date Cora Mars MD [address] [facility] [place] [address] PCP - General Family Medicine 10/28/11 Moni Ribeiro APRN.CNP [address] [facility] [place] [address] Rep[facility]r [facility] 09/26/24 Leighton Lozano APRN.BORING MACHINE OPERATOR DOUBLE END [address] [place], [place] [id number] [facility] 10/05/24 Hand Booked Folder And Stitcher Relationship Specialty Start Date End Date Cora Mars MD [address] [place], [place] [address] PCP - General Family Medicine 10/28/11 Moni Ribeiro APRN.BORING MACHINE OPERATOR DOUBLE END [address] [place], [place] [id number] [facility] 09/26/24 Leighton Lozano APRN.BORING MACHINE OPERATOR DOUBLE END [address] [place], [place] [address] [facility] 10/05/24 Team Status: Active Member Role Status Dates Dr. Cora Mars MD Primary Care Provider Active Team Status: Inactive Member Role Status Dates Dr. Cora Mars MD Primary Care Provider Active Start: February 03, 2025 End: February 03, 2025 Dr. Patrick Garcia DO Attending Provider Active Start: February 03, 2025 End: February 03, 2025 Dr. Patrick Garcia DO Referring Provider Active Start: February 03, 2025 End: February 03, 2025 Hand Booked Folder And Stitcher Relationship Specialty Start Date End Date Cora Mars MD [address] [place], [place] [id number] [phone] PCP - General Family Medicine 10/28/11 Leighton Lozano APRN.BORING MACHINE OPERATOR DOUBLE END [address] [place] [address] [facility] 10/05/24 Goals (unrecognized section and content) Goals may be documented in a n alternate section FOR RECORDS PERTAINING TO PATIENTS WHO ARE OR HAVE BEEN ENROLLED IN A CHEMICAL DEPENDENCY/SUBSTANCEABUSE PROGRAM, SOME INFORMATION MAY BE OMITTED. This clinical summary was aggregated from multiple sources. Caution should be exercised in using it in the provision of clinical care. This summary normalizes information from multiple sources, and as a consequence, information in this document may materially change the coding, format and clinical context of patient data. In addition, data may be omitted in some cases. CLINICAL DECISIONS SHOULD BE BASED ON THE PRIMARY CLINICAL RECORDS. [facility]. provides no warranty or guarantee of the accuracy or completeness of information in this document.
== END 2025-08-16 23:59 | disposition home or self-care (01) ==
LOC: LAB 07:47
PROVIDERS: Referring Provider Student in an Organized Health Care Education/Training Program; Visit Provider Student in an Organized Health Care Education/Training Program
DX: K90.0 Celiac disease (principal)
CPT/HCPCS: 36415; 83516

== ENCOUNTER → 2025-10-11 | Outpatient (CLI) | payer OTHER, SELFPAY ==
--- OUTSIDE RECORDS SUMMARY | 2025-10-11 07:24 | XMS RPT_ITS | CCD ---
Author Organization [facility] Care Team Providers Care Civil Engineer'S Aide Name Role Phone Cora Marte MD Primary Care Provider [phone] CORA MARTE Consulting Unavailable LACIE VALENTINO MD Attending Unavailable LACIE VALENTINO MD Primary Care Unavailable LACIE VALENTINO MD Admitting Unavailable PROVIDER, UNKNOWN Consulting Unavailable Cora Marte MD Primary Care Provider MONI RIBEIRO Referring Unavailable CORA MARTE Primary Care Unavailable CORA MARTE Attending Unavailable CORA MARTE Primary Care Unavailable CORA MARTE Attending Unavailable CORA MARTE Primary Care Unavailable CORA MARTE Primary Care Unavailable CORA MARTE Attending Unavailable CORA MARTE Primary Care Unavailable PAU DOOLEY Referring Unavailable CORA MARTE Primary Care Unavailable PAU DOOLEY Referring Unavailable PAU DOOLEY Attending Unavailable CORA MARTE Primary Care Unavailable Quintin PLANT OPERATIONS WORKER.Moni BELL Unavailable Blake PLANT OPERATIONS WORKER.Leighton BELL Unavailable [phone] Dr. Cora Marte MD Primary Care Provider Friend Dr. Patrick UNDERWOOD Attending Provider Dr. Patrick Garcia DO Referring Provider Cora Marte Primary Care Unavailable Emma Wallace Attending Unavailable Emma Wallace Referring Unavailable Cora Marte Primary Care Unavailable Emma Wallace Attending Unavailable Emma Wallace Referring Unavailable Patrick Garcia Attending Unavailable Patrick Garcia Referring Unavailable Cora Marte Primary Care Unavailable Care Physician, No Primary Primary Care Unava ilable Emma Wallace Attending Unavailable Emma Wallace Referring Unavailable Care Physician, No Primary Primary Care Unava ilable Cora Marte Referring Unavailable Emma Wallace Attending Unavailable Cora Marte Referring Unavailable FriendPatrick Attending Unavailable Cora Marte Primary Care Unavailable Friend, Patrick Attending Unavailable Cora Marte Referring Unavailable Cora Marte Primary Care Unavailable Medications Current Medications Medication [...] Active docusate sodium 50 mg / sennosides, assisted 8.6 mg oral tablet (6 sources) Start: [...] 20 mg PO TWICE A DAY 180 90 September 06, 2024 9:47am Start: 10-15-2021 End: 07-10-2024 take 1 capsule by mouth once daily Omeprazole 40 mg capsule,delayed release(DR/EC) Discontinued 40 mg PO DAILY July 05, 2024 12:00am July 10, 2024 12:34pm Comment on above: TAKE 1 CAPSULE DAILY BEFORE EATING Take 1 capsule by mo uth daily before breakfast. polyethylene glycol 3350 14150 mg powder for oral solution (6 sources) [...] 1 tablet by luciano th as needed. Take one pill 30-60 minutes prior to sexual activity Problems Active Problems Problem Classification Problem Date Documented Da te Episodic/Chronic Abdominal pain (6 sources) Abdominal pain; Translations: [Unspecified abdominal pain] Onset: 4 06-22-2024 Episodic Administrative/social admission (1 source) Persons encountering health services in other specified circumstances; Translations: [Persons encountering health services in other specified circumstances] Onset: 5 Episodic Allergic reactions (2 sources) Inflammatory dermatosis; Translations: [Dermatitis, unspecified] Episodic Disorders of lipid metabolism (1 source) Hyperlipidemia; Translations: [Hyperlipidemia, unspecified] 11-20-2023 Chronic Esophageal disorders (20 sources) Gastroesophageal reflux disease; Translations: [Gastro-esophageal reflux disease without esophagitis] Onset: 2 10-30-2011 Chronic Fluid and electrolyte disorders (1 source) Acute hypokalemia; Translations: [Hypokalemia] 07-18-2024 Episodic Genitourinary symptoms and ill-defined conditions [...] Gastroparesis syndrome; Translations: [Gastroparesis] 07-16-2024 Episodic Other gastrointestinal disorders (2 sources) Celiac disease; Translations: [Celiac disease] 07-16-2024 Chronic Other gastrointestinal disorders (1 source) Celiac disease; Translations: [Celiac disease] Onset: 5 Chronic Other gastrointestinal disorders (1 source) Acute constipation; Translations: [Constipation, unspecified] 06-29-2024 Episodic Other gastrointestinal disorders (1 source) Constipation, unspecified; Translations: [Acute constipation] Onset: 4 Episodic Other liver diseases (1 source) High lipase level in serum; Translations: [Abnormal levels of other serum enzymes] 07-05-2024 Episodic Other male genital disorders (2 sources) [...] Spondylosis; intervertebral disc disorders; other back problems (6 sources) Acute low back pain; Translations: [Acute low back pain, unspecified back pain laterality, unspecified whether sciatica present] Onset: 4 06-29-2024 Episodic Unclassified (1 source) Acute low back pain, unspecified back pain laterality, unspecified whether sciatica present; Translations: [Acute low back pain, unspecified back pain laterality, unspecified whether sciatica present] Onset: 4 Viral infection (1 source) Viral disease; Translations: [Viral infection, unspecified] 06-22-2024 Episodic Past or Other Problems Problem Classification Problem Date Documented Da te Episodic/Chronic Other disorders of stomach and duodenum (1 source) Gastroparesis; Translations: [Gastroparesis] Onset: 02-08-2025 Episodic Results Test Name Value Interpretation Reference Range Facility t-Transglutaminase IgGon tTG IGG 7 U/mL Abnormal 0-5 [facility] Comment on above: Result Comment: Nega tive 0 - 5 Weak Positive 6 - 9 Positive >9 Performed at: [facility] [address] [id number] Scudding Inspector: Ayaan Zaldivar PhD, Phone: [phone] Performed By: #### L 3410.2970 #### [facility] Laboratory [address] [place], [place], [id number] Gastroenterology Visit Repor ton 08-16-2025 Gastroenterology Visit Report [facility] Gastroenterology [address] [place] [address] OFFICE VISIT Date of Service: 08/16/25 MR#: [id number] Acct: [id number] Name: TARSHAFEDE Radha Rep #: [id number] : 1970 Provider: ALICIA Fontanez Age/Sex: 54/M [place] [facility] [place]: Signed Intake Vital Signs 09/06/24 10:06 Height 5 ft 8 in Weight: 158 lb BMI 24.0 BP 119/85 H Position Sitting Respiration 18 Pulse 68 Pulse Oximetry (%) 97 Intake Visit Reasons: Celiac disease Chief Complaint: celiac disease Allergies No Known Allergies Allergy (Verified 07/20/24 13:36) Medications ???Medication ???Instructions ???Recorded ???Confirmed ???Type sumatriptan succinate 50 mg tablet 50 mg PO PRN PRN migraine 08/16/25 History sildenafil 50 mg tablet 50 mg PO PRN 07/05/24 08/16/25 His tory tizanidine 2 mg tablet 4 mg (2 x 2 mg) PO TID PRN muscle 07/10/24 08/16/25 Rx spasticity 14 days #28 tabs trazodone 50 mg tablet 50 mg PO QHS PRN sleep 14 days #14 07/10/24 08/16/25 Rx tabs omeprazole 20 mg capsule,delayed 20 mg PO BID 3 months #180 caps 08/16/25 Rx release PFSH Medical History GERD (gastroesophageal reflux disease) Surgical History H/O vasectomy S/P dilatation of esophageal stricture Hx of elbow surgery Social History Smoking Status: Never smoker alcohol intake: current alcohol intake frequency: a few times a month HPI HPI Chief Complaint: celiac disease Details: FEDE TURCIOS, is a 54 M who presents to the office today for follow-up. Last office visit 02/11/2025 for follow-up regarding celiac disease. Patient feeling well overall without GI symptoms. Continues with omeprazole 20 mg twice a day. OV 08/16/2025 patient doing well today. He continues to avoid all gluten. He denies abdominal pain, heartburn, nausea, vomiting, constipation or diarrhea. ROS Const Constitutional: No fatigue, fever(s) or [...] bleeding or easy bruising Exam Const General: cooperative, healthy appearing and comfortable Nutritional Appearance: average body habitus Orientation: alert HENCA Head: normal to inspection Eyes General: appearance normal, both eyes and all related structures Neck Neck: normal visual inspection Chest Chest palpation inspection: normal inspection of the chest Resp Effort Inspection: normal respiratory effort GI Inspection: normal to inspection Assessment and Plan Assessment and Plan (1) Celiac disease: Status: Acute Plan: Fede is a 54-year-old male patient here today for follow-up regarding his celiac disease. Patient was hospitalized in June 2024 due to severe celiac disease and mild gastroparesis. Patient doing well today with no GI concerns. He continues to avoid all gluten. Patient continues with omeprazole 20 mg twice a day. Will repeat tissue transglutaminase IgG as this was still elevated in January 2025. Recommend continuing gluten-free diet and following up as needed. Patient's primary care provider has retired and he requests referral to a new PCP. Referral sent to [facility]. - Continue gluten-free diet -Continue omeprazole 20 mg twice a day - Ordered tissue transglutaminase IgG -Establish with primary care provider, referral sent - Follow-up as needed (2) Establishing care with new doctor, encounter for: Status: Acute Orders: Orders [facility] Misc. Today Referrals Internal Medicine K90.0 - Celiac disease, Z76.89 - Persons encountering health services in other specified circumstances Coding Level of Care Code Off vis,est,level 3 Diagnoses Celiac disease K90.0 Establishing care with new doctor, encounter for Z76.89 08/16/25 0748 Date Emma Kitchen Signature: Date (if applicable) CC: Normal [facility] Gastroenterology Visit Repor ton 02-11-2025 Gastroenterology Visit Report [facility] Gastroenterology [address] [place] [address] OFFICE VISIT Date of Service: 02/11/25 MR#: [id number] Acct: [id number] Name: MARK TURCIOSIAN Radha Rep #: [id number] : 1970 Provider: Patrick Garcia DO Age/Sex: 54/M [place] [facility] [place]: Signed Intake Vital Signs 09/06/24 10:06 [...] few times a month HPI HPI Details: FDEE TURCIOS, is a 54 M who presents to the office today for follow up. EGD 07.07.24 Z-line irregular, 39 cm from the incisors. Biopsied. A few gastric polyps. No gross lesions in the second portion of the duodenum. Biopsied. GET 07.08.24 abnormal 147 minutes GET 08.30.24 abnormal 59.50 minutes OV 09.06.24 pt reports that his MRI is scheduled for today after this appt. Pt reports that he is feeling well, occasionally will have some breakthrough HB, but that omeprazole seems to be effective. MREnterography 09.06.24 Normal in caliber small bowel loops and colon without evidence of inflammatory changes OV 02.11. pt reports that he is feeling well [...] 53 yo male here for f/u after [facility] admission for severe celiac disease. Since his [...] MR ent (more content not included)... Normal [facility] Celiac AB,Comprehensiveon ANTIGLIADIN IGA 4 units Normal 0-19 [facility] Comment on above: Result Comment: Nega tive 0 - 19 Weak Positive 20 - 30 Moderate to Strong Positive >30 Performed By: #### L 3410.2350 #### [facility] Laboratory [address] [place], [place], [id number] ANTIGLIADIN IGG 3 units Normal 0-19 [facility] Comment on above: Result Comment: Nega tive 0 - 19 Weak Positive 20 - 30 Moderate to Strong Positive >30 Performed By: #### L 3410.2350 #### [facility] [address] [place], [place], [id number] ENDOMYSIAL IGA Negative Normal Negative [facility] Comment on above: Performed By: #### L 3410.2350 #### [facility] [address] [place] [id number] IMMUNOGLOB A QN 54 mg/dL Low 90-386 [facility] Comment on above: Result Comment: Perf ormed at: - [facility] [id number] Scudding Inspector: Ayaan Zaldivar PhD, Phone: [phone] Performed By: #### L 3410.2350 #### [facility] Laboratory [address] [facility] [id number] tTG IGA <2 Normal 0-3 [facility] Comment on above: Result Comment: Nega tive 0 - 3 Weak Positive 4 - 10 Positive >10 Tissue Transglutaminase (tTG) has been identified as the endomysial antigen. Studies have demonstr- ated that endomysial IgA antibodies have over 99% specificity for gluten sensitive enteropathy. Performed By: #### L 3410.2350 #### [facility] [address] [facility] [id number] tTG IGG 7 U/mL Abnormal 0-5 [facility] Comment on above: Result Comment: Nega tive 0 - 5 Weak Positive 6 - 9 Positive >9 Performed By: #### L 3410.2350 #### [facility] [address] [place], [address] Deamidated gliadin IgA antib rosalva assayOrdered By: Patrick Garcia on 02-03-2025 Anti-Gliadin IgA Antibody 4 units 0-19 [facility] Comment on above: Negative 0 - 19 Weak Positive 20 - 30 Moderate to Strong Positive >30 Deamidated gliadin IgG antib rosalva assayOrdered By: Patrick Garcia on 02-03-2025 Anti-Gliadin IgG Antibody 3 units 0-19 [facility] Comment on above: Negative 0 - 19 Weak Positive 20 - 30 Moderate to Strong Positive >30 Endomysial IgA antibody assa yOrdered By: Patrick Garcia on 02-03-2025 Endomysial IgA Antibody Negative Negative [facility] No Panel InformationOrdered By: Patrick Garcia on 02-03-2025 Tissue Transglutaminase IgG Ab 7 U/mL High 0-5 [facility] Comment on above: Negative 0 - 5 Weak Positive 6 - 9 Positive >9 Serum immunoglobulin A measu rementOrdered By: Patrick Garcia on 02-03-2025 Immunoglobulin A 54 mg/dL Low 90-386 [facility] Comment on above: Performed at: [place] [id number] Director: Ayaan Zaldivar PhD, Phone: [phone] tTG IgA Qn (S)Ordered By: Ra maryjane Garcia on 02-03-2025 Tissue Transglutaminase IgA Ab <2 U/mL 0-3 [facility] Comment on above: Negative 0 - 3 Weak Positive 4 - 10 Positive >10 Tissue Transglutaminase (tTG) has been identified as the endomysial antigen. Studies have demonstr- ated that endomysial IgA antibodies have over 99% specificity for gluten sensitive enteropathy. Enterography Abd/Robert 09-06 Enterography Abd/Pel [facility] Imaging Services [address] [place] [address] Enterography Abd/Pel MR#: [id number] Acct: [id number] Name: FEDE TURCIOS Rep #: [id number] : 1970 M 54 From: Vic Enriquez PCP: Dr. Cora Marte MD Status: [facility] Study: Enterography Abd/Pel Date of Exam: 09/06/24 Exam# [id number] Ordering Dr: Emma Wallace [id number] INDICATION: K90.0 - Celiac disease EXAMINATION: MRI [...] at 11:29 EST , CC: Dr. Cora Marte MD; ALICIA Fontanez Powder Guard: Signed Normal [facility] Gastroenterology Visit Repor ton 09-06-2024 Gastroenterology Visit Report [facility] Gastroenterology [address] [place] [address] OFFICE VISIT Date of Service: 09/06/24 MR#: [id number] Acct: [id number] Name: FEDE TURCIOS Rep #: [id number] : 1970 Provider: Patrick Garcia DO Age/Sex: 54/M [place] [facility] [place] Status: Signed Intake Vital Signs 07/09/24 16:03 [...] second portion of the duodenum. Biopsied. GET 07.08.24 abnormal 147 minutes GET 08.30.24 abnormal 59.50 minutes OV 09.06.24 pt reports that his MRI is scheduled [...] Appearance: average body habitus and well nourished [facility] Head: normal to inspection Ears: hearing grossly [...] 53 yo male here for f/u after [facility] admission for severe celiac disease. Since his [...] We missy (more content not included)... Normal [facility] Gastric Emptying Studyon Gastric Emptying Study [facility] Imaging Services [address] [place] [id number] Gastric Emptying Study MR#: [id number] Acct: [id number] Name: FEDE TURCIOS Rep #: [id number] : 1970 M 54 From: Willi Huynh PCP: Dr. Cora Marte MD Status: REG CLI Study: Gastric Emptying Study Date of Exam: 08/30/24 Exam# [id number] Ordering Dr: Emma Wallace [id number] CLINICAL: 54-year-old male with history of clinical [...] at 10:07 EST , CC: Dr. Cora Marte MD; ALICIA Fontanez Powder Guard: Signed Normal [facility] CNOVon 07-16-2024 CNOV Office Visit (FAMPWS ) -- FEDE TURCIOS ([id number]) 1970 M Date Time Provider Department 07/16/24 2:20 PM [facility] your visit today, we recorded the following information about you: Pulse Respiration Blood pressure Weight 72/minute 16/minute 110/60 73.6 kg Cora Marte MD 07/16/2024 3:24 PM Signed Transitional Care [...] off work till 07/19/24. Follows with [facility] next week. Had upper GI done 07/07/24 with bx done for a few gastric polyps. -Pt discharged from [facility] on 07/10/24. -Admitted for: Date of Admission: [...] Patient is a 53-year-old male who presented [facility] ED on 07/05/2024 with intractable low back [...] cold force (more content not included)... Normal [facility] No Panel Informationon 07-01 Radiology Study observation (narrative) [facility] XR LUMBAR PARS 4V AP/LAT/OBL X2on [...] spine are presented. FINDINGS: There are five gyn-vad-ycksyhk lumbar vertebrae. No fracture or subluxations are noted. The disc spaces are well preserved. There is no significant osteophyte formation. IMPRESSION: Negative lumbar spine X-ray. Powder Guard: NOEMI Transcribe Date/Time: Jul 01 2024 10:21A Dictated by : NEHA CHAPMAN MD This examination was interpreted and the report reviewed and electronically signed by: NEHA CHAPMAN MD on Jul 01 2024 10:24AM EST [id number] Normal [facility] XR Lumbar spine AP and Later al and obliqueon 07-01-2024 IMPRESSION: Negative lumbar spine X-ray. Powder Guard: NOEMI Transcribe Date/Time: Jul 01 2024 10:21A Dictated by : NEHA CHAPMAN MD This examination was interpreted and the report reviewed and electronically signed by: NEHA CHAPMAN MD on Jul 01 2024 10:24AM EST DIVISION OF RADIOLOGY * * *Final [...] spine are presented. FINDINGS: There are five qpx-zew-qetvtbh lumbar vertebrae. No fracture or subluxations are noted. The disc spaces are well preserved. There is no significant osteophyte formation. DIVISION OF RADIOLOGY Provider, [facility] - 07/01/2024 * * *Final Report* * [...] spine are presented. FINDINGS: There are five vwe-edr-tbnrswb lumbar vertebrae. No fracture or subluxations are noted. The disc spaces are well preserved. There is no significant osteophyte formation. IMPRESSION IMPRESSION: Negative lumbar spine X-ray. Powder Guard: NOEMI Transcribe Date/Time: Jul 01 2024 10:21A Dictated by : NEHA CHAPMAN MD This examination was interpreted and the report reviewed and electronically signed by: NEHA CHAPMAN MD on Jul 01 2024 10:24AM EST [facility] XR Lumbar spine AP and Later al and obliqueOrdered By: [facility]cf Provider on 07-01-2024 [facility] XR THORACIC 3V AP/LAT/SWIMME RSon 07-01-2024 [...] destructive process. IMPRESSION: Thoracic spine degenerative changes. Powder Guard: NOEMI Transcribe Date/Time: Jul 01 2024 10:25A Dictated by : NEHA CHAPMAN MD This examination was interpreted and the report reviewed and electronically signed by: NEHA CHAPMAN MD on Jul 01 2024 10:28AM EST [id number] Normal [facility] XR Thoracic spine AP and Lat eral and [place] 07-01-2024 IMPRESSION: Thoracic spine degenerative changes. Powder Guard: NOEMI Transcribe Date/Time: Jul 01 2024 10:25A Dictated by : NEHA CHAPMAN MD This examination was interpreted and the report reviewed and electronically signed by: NEHA CHAPMAN MD on Jul 01 2024 10:28AM [facility] DIVISION OF RADIOLOGY * * *Final Report* [...] bony destructive process. DIVISION OF RADIOLOGY Provider, [facility] - 07/01/2024 * * *Final Report* * [...] process. IMPRESSION IMPRESSION: Thoracic spine degenerative changes. Powder Guard: PSCB Transcribe Date/Time: Jul 01 2024 10:25A Dictated by : NEHA CHAPMAN MD This examination was interpreted and the report reviewed and electronically signed by: NEHA CHAPMAN MD on Jul 01 2024 10:28AM [facility] TARSHAFEDE Bagley ([id number]) 1970 M Date Time Provider Department 06/30/24 PAU DOOLEY During your visit today, we recorded the following information about you: Veronica Joshi LPN 06/30/2024 11:42 AM Signed Patient calling re: PSA, Urine culture, advised results are still In Process, office will call when finalized. Patient did take Magnesium Citrate, he did have liquidy bm through night, 2 this am. Stopped taking Hyden d/t constipation, back to Tylenol/Ibuprofen every 3 hours d/t back pain, using heating pad to back. Asking if he needs to continue Magnesium Citrate, concerned about back pain returning. What is the next step. Please review AND advise. Pau Castillo LPN, APRN.COPPER MINER 07/01/2024 8:42 AM Signed Please let patient [...] back x ray now JAZMYNE Mitchell Danielle, APRN.COPPER MINER 07/01/2024 10:45 AM Signed Please let patient [...] is all gastrointestinal related? Please advise Pau Dooley APRN.COPPER MINER 07/01/2024 4:43 PM Signed I think this is gastrointestinal related but he will know more after seeing Dr. Milton. His labs, urine, CT and xrays have all been negative. Cherise Lugo MA 07/02/2024 8:53 AM Signed Message left for pt to call back for results. Kaela Cheema MA RN 07/02/2024 9:08 AM Signed Pt returned call and given provider's message below with verbalized understanding. Allergies As of Date: 06/30/2024 (No Known Allergies) Date Reviewed: 06/29/2024 Reviewed by: Edith Husain MA - Fully Assessed Reason for Visit: Results [95] Patient Update [1234] Primary Visit Diagnosis:Generalized abdominal pain [R10.84] Order(s):CONSULT TO GASTROENTEROLOGY [9010] Order #: [id number]: 1 FUTURE Prescriptions as of 07/02/2024 - [...] Migraine [G43.909] 10/30/2011 Encounter Status:Closed by Kaela BEJARANO on 07/02/24 Normal [facility] Bacteria Ur Culton 4 Bacteria identified Cx Nom (U) ORGANISM ID: 1 <10,000 CFU/ml Normal urogenital lesley Normal [facility] Comment on above: Performed By: #### 6 30-4 ####[facility] CATHLEEN [id number] [place] [id number] [place] CNOVon 06-29-2024 CNOV Office Visit (FAMPWS ) -- FEDE TURCIOS ([id number]) 1970 M Date Time Provider Department 06/29/24 2:20 PM [facility] During your visit today, we recorded the following information about you: Pulse Blood pressure Weight 90/minute 134/91 79.4 kg Pau Dooley APRN.COPPER MINER 06/29/2024 3:03 PM Signed Chief Complaint Patient presents with: ER F/U HPI Fede Turcios is a 53 year old male who presents here today for Above Complaints.. Patient presents for ER follow up. Patient reports he was seen at [facility] 06/22 and was told everything was normal. Seen at [facility] 06/27 and had an abnormal UA and [...] M54.50 - PSA/PROSTATE SPECIFIC ANTIGEN SCREENING Pau Dooley APRN.COPPER MINER Allergies As of Date: 06/29/2024 (No Known Allergies) Date Reviewed: 06/29/2024 Reviewed by: Edith Husain MA - Fully Assessed Reason for Visit: ER F/U [41] Primary Visit Diagnosis:Abnormal urine [R82.90] Other Visit Diagnoses:Acute constipation [K59.00] Acute low back pain, unspecified back pain laterality, unspecified whether sciatica present [M54.50] Order(s):UA DIP, URINE (POC) [[id number]] Order #: [id number]. #:[id number] 1-LAB magnesium citrate solutionDrink 1/3 of bottle, wait 4hrs for results. If no stool, drink next 1/3 bottle. Wait 4hrs. No results, then drink last 1/3 of bottle. For severe constipation.Disp: Rfl: URINALYSIS, WITH MICROSCOPIC [SQUAWMIC] Order #: [id number] FUTURE URINE CULTURE [SQURCUL] Orde (more content not included)... Normal [facility] PSA/PROSTATE SPECIFIC ANTIGE N SCREENINGon 06-29-2024 Prostate specific Ag [Mass/Vol] 0.94 ng/mL Normal <2.60 [facility] Comment on above: Order Comment: Speci men Type: BLOOD SPECIMENOrdering Facility: [facility] Address: [address] [place] [address] Result Comment: Tota l PSA test methodology used is the Electrochemiluminescence Immunoassay by [employer]. Total PSA values by differing methodologies cannot be interchanged. Performed By: #### P SAS1 ####[facility] LABCLIA [id number] [place] [address] [place] UA DIP, URINE (POC)on 2023 BILIRUBIN UA (POCT) Negative Negative [facility] CLARITY UA (POCT) Clear [facility] COLOR UA (POCT) Yellow [facility] GLUCOSE UA (POCT) Negative Negative mg/dL [facility] Hemoglobin Ql (U) Trace-intact Abnormal Negative [facility] Interpretation and review of laboratory results Abnormal [facility] KETONE UA (POCT) 80 mg/dL Abnormal Negative [facility] LEUKOCYTES UA (POCT) Negative [facility] NITRITE UA (POCT) Negative Negative [facility] PH UA (POCT) 6.5 4.5 - 8.0 [facility] Protein Ql (U) Negative Negative mg/dL [facility] SPECIFIC GRAVITY UA (POCT) 1.010 1.005 - 1.030 [facility] UROBILINOGEN UA (POCT) 4.0 Abnormal Normal E.U./dL [facility] Location:[address], [address] [place] [address] POINT OF CARE [facility] Urinalysis complete panel (U )on 06-29-2024 Bacteria LM.HPF (Urine sed) [#/Area] Negative Normal Negative [facility] Comment on above: Order Comment: Speci men Type: URINE SPECIMENOrdering Facility: [facility] Address: [address] [place] [address] Performed By: #### 2 4356-8 ####[facility] LABIA [id number] [place] [address] [place] Bilirubin Ql (U) Negative Normal Negative [facility] Comment on above: Order Comment: Speci men Type: URINE SPECIMENOrdering Facility: [facility] Address: [address] [place] [address] Performed By: #### 2 4356-8 ####[facility] LABIA [id number] [place] [address] [place] Clarity (Unsp spec) Clear Normal Clear [facility] Comment on above: Order Comment: Speci men Type: URINE SPECIMENOrdering Facility: [facility] Address: [address] [place] [address] Performed By: #### 2 4356-8 ####[facility] LABCLIA [id number] [place] [address] [place] Color (U) Yellow Normal Yellow [facility] Comment on above: Order Comment: Speci men Type: URINE SPECIMENOrdering Facility: [facility] Address: [address] [place] [address] Performed By: #### 2 4356-8 ####[facility] LABCLIA [id number] [place] [address] [place] Epithelial cells LM.HPF (Urine sed) [#/Area] None Seen Normal [facility] Comment on above: Order Comment: Speci men Type: URINE SPECIMENOrdering Facility: [facility] Address: [address] [place] [address] Performed By: #### 2 4356-8 ####[facility] LABCLIA [id number] [address] [place] Glucose Test strip (U) [Mass/Vol] Negative Normal Negative [facility] Comment on above: Order Comment: Speci men Type: URINE SPECIMENOrdering Facility: [facility] Address: [address] [place] [address] Performed By: #### 2 4356-8 ####[facility] LABIA [id number] [place] [address] [place] Hemoglobin Ql (U) Negative Normal Negative [facility] Comment on above: Order Comment: Speci men Type: URINE SPECIMENOrdering Facility: [facility] Address: [address] [place] [address] Performed By: #### 2 4356-8 ####[facility] LABCLIA [id number] [place] [address] [place] Hyaline casts (Urine sed) [#/Area] 0 /[LPF] Normal 0 /LPF [facility] Comment on above: Order Comment: Speci men Type: URINE SPECIMENOrdering Facility: [facility] Address: [address] [place] [address] Performed By: #### 2 4356-8 ####[facility] LABCLIA [id number] [place] [address] [place] Ketones Ql (U) 2+ Abnormal Negative [facility] Comment on above: Order Comment: Speci men Type: URINE SPECIMENOrdering Facility: [facility] Address: [address] [place] [address] Performed By: #### 2 4356-8 ####[facility] LABCLIA [id number] [place] [address] [place] Leukocyte esterase Test strip Ql (U) Negative Normal Negative [facility] Comment on above: Order Comment: Speci men Type: URINE SPECIMENOrdering Facility: [facility] Address: [address] [place] [address] Performed By: #### 2 4356-8 ####[facility] LABCLIA [id number] [place] [address] [place] Nitrite Ql (U) Negative Normal Negative [facility] Comment on above: Order Comment: Speci men Type: URINE SPECIMENOrdering Facility: [facility] Address: [address] [place] [address] Performed By: #### 2 4356-8 ####[facility] LABCLIA [id number] [place] [address] [place] pH (U) 6.5 [pH] Normal <8.5 [facility] Comment on above: Order Comment: Speci men Type: URINE SPECIMENOrdering Facility: [facility] Address: [address] [place] [address] Performed By: #### 2 4356-8 ####[facility] LABCLIA [id number] [place] [address] [place] Protein (U) [Mass/Vol] Negative Normal Negative [facility] Comment on above: Order Comment: Speci men Type: URINE SPECIMENOrdering Facility: [facility] Address: [address] [place] [address] Performed By: #### 2 4356-8 ####[facility] [id number] [place] [address] [place] RBC LM.HPF (Urine sed) [#/Area] 0-2 /HPF Normal 0-2 /HPF [facility] Comment on above: Order Comment: Speci men Type: URINE SPECIMENOrdering Facility: [facility] Address: [address] [place] [address] Performed By: #### 2 4356-8 ####[facility] [id number] [place] [address] [place] Specific gravity (U) [Rel density] 1.009 Normal 1.005-1.030 [facility] Comment on above: Order Comment: Speci men Type: URINE SPECIMENOrdering Facility: [facility] Address: [address] [place] [address] Performed By: #### 2 4356-8 ####[facility] [id number] [place] [address] [place] Urobilinogen Ql (U) 1.0 EU/dL Normal 0.2-1.0 EU/dL [facility] Comment on above: Order Comment: Speci men Type: URINE SPECIMENOrdering Facility: [facility] Address: [address] [place] [address] Performed By: #### 2 4356-8 ####[facility] [id number] [place] [address] [place] WBC LM.HPF (Urine sed) [#/Area] 0-5 /HPF Normal 0-5 /HPF [facility] Comment on above: Order Comment: Speci men Type: URINE SPECIMENOrdering Facility: [facility] Address: [address] [place] [address] Performed By: #### 2 4356-8 ####[facility] LABCLIA [id number] [place] [address] [place] Amylase SerPl-cCncon 024 Amylase [Catalytic activity/Vol] 77 U/L Normal 30-104 [facility] Comment on above: Order Comment: Speci men Type: BLOOD SPECIMENOrdering Facility: [facility] Address: [address] [place] [address] Performed By: #### 2 4323-8, 3040-3, 1798-8 ####[facility] LABCLIA [id number] [place] [address] [place] CBC W Auto Differential pane l (Bld)on 06-28-2024 Basophils (Bld) [#/Vol] 0.05 10*3/uL [facility] Basophils/100 WBC (Bld) 0.5 % [facility] Differential cell count method Nom (Bld) Auto [facility] Eosinophils (Bld) [#/Vol] 0.12 10*3/uL [facility] Eosinophils/100 WBC (Bld) 1.3 % [facility] Erythrocyte distribution width (RBC) [Ratio] 12.4 % 11.5 - 15.0 % [facility] Hematocrit (Bld) [Volume fraction] 41.4 % 39.0 - 51.0 % [facility] Hemoglobin (Bld) [Mass/Vol] 13.8 g/dL 13.0 - 17.0 g/dL [facility] Immature granulocytes (Bld) [#/Vol] 0.06 10*3/uL [facility] Immature granulocytes/100 WBC (Bld) 0.6 % [facility] Interpretation and review of laboratory results Abnormal [facility] Lymphocytes (Bld) [#/Vol] 1.06 10*3/uL [facility] Lymphocytes/100 WBC (Bld) 11.3 % [facility] MCH (RBC) [Entitic mass] 29.4 pg 26.0 - 34.0 pg [facility] MCHC (RBC) [Mass/Vol] 33.3 g/dL 30.5 - 36.0 g/dL [facility] MCV (RBC) [Entitic vol] 88.1 fL 80.0 - 100.0 fL [facility] Monocytes (Bld) [#/Vol] 0.48 10*3/uL [facility] Monocytes/100 WBC (Bld) 5.1 % [facility] Neutrophils (Bld) [#/Vol] 7.63 10*3/uL High [facility] Neutrophils/100 WBC (Bld) 81.2 % [facility] Nucleated RBC (Bld) [#/Vol] NINF [facility] Nucleated RBC/100 WBC (Bld) [Ratio] 0.0 % /100 WBC [facility] Platelet mean volume (Bld) [Entitic vol] 8.7 fL Low 9.0 - 12.7 fL [facility] Platelets (Bld) [#/Vol] 416 10*3/uL High [facility] RBC (Bld) [#/Vol] 4.70 10*6/uL 4.20 - 6.0 0 m/uL [facility] WBC (Bld) [#/Vol] 9.40 10*3/uL [facility] Basophils (Bld) [#/Vol] 0.05 10*3/uL Normal <0.11 [facility] Comment on above: Order Comment: Speci men Type: BLOOD SPECIMENOrdering Facility: [facility] Address: [address] [place] [address] Performed By: #### 5 7021-8 ####[facility] LABCLIA [id number] [place] [address] [place] Basophils/100 WBC (Bld) 0.5 % Normal [facility] Comment on above: Order Comment: Speci men Type: BLOOD SPECIMENOrdering Facility: [facility] Address: [address] [place] [address] Performed By: #### 5 7021-8 ####[facility] LABCLIA [id number] [place] [address] [place] Differential cell count method Nom (Bld) Auto Normal [facility] Comment on above: Order Comment: Speci men Type: BLOOD SPECIMENOrdering Facility: [facility] Address: [address] [place] [address] Performed By: #### 5 7021-8 ####[facility] LABCLIA [id number] [place] [address] [place] Eosinophils (Bld) [#/Vol] 0.12 10*3/uL Normal <0.46 [facility] Comment on above: Order Comment: Speci men Type: BLOOD SPECIMENOrdering Facility: [facility] Address: [address] [place] [address] Performed By: #### 5 7021-8 ####[facility] LABCLIA [id number] [place] [address] [place] Eosinophils/100 WBC (Bld) 1.3 % Normal [facility] Comment on above: Order Comment: Speci men Type: BLOOD SPECIMENOrdering Facility: [facility] Address: [address] [place] [address] Performed By: #### 5 7021-8 ####[facility] LABCLIA [id number] [place] [address] [place] Erythrocyte distribution width (RBC) [Ratio] 12.4 % Normal 11.5-15.0 [facility] Comment on above: Order Comment: Speci men Type: BLOOD SPECIMENOrdering Facility: [facility] Address: [address] [place] [address] Performed By: #### 5 7021-8 ####[facility] LABCLIA [id number] [place] [address] [place] Hematocrit (Bld) [Volume fraction] 41.4 % Normal 39.0-51.0 [facility] Comment on above: Order Comment: Speci men Type: BLOOD SPECIMENOrdering Facility: [facility] Address: [address] [place] [address] Performed By: #### 5 7021-8 ####[facility] LABCLIA [id number] [place] [address] [place] Hemoglobin (Bld) [Mass/Vol] 13.8 g/dL Normal 13.0-17.0 [facility] Comment on above: Order Comment: Speci men Type: BLOOD SPECIMENOrdering Facility: [facility] Address: [address] [place] [address] Performed By: #### 5 7021-8 ####[facility] LABCLIA [id number] [place] [address] [place] Immature granulocytes (Bld) [#/Vol] 0.06 10*3/uL Normal <0.10 [facility] Comment on above: Order Comment: Speci men Type: BLOOD SPECIMENOrdering Facility: [facility] Address: [address] [place] [address] Performed By: #### 5 7021-8 ####[facility] LABCLIA [id number] [place] [address] [place] Immature granulocytes/100 WBC (Bld) 0.6 % Normal [facility] Comment on above: Order Comment: Speci men Type: BLOOD SPECIMENOrdering Facility: [facility] Address: [address] [place] [address] Performed By: #### 5 7021-8 ####[facility] LABCLIA [id number] [place] [address] [place] Lymphocytes (Bld) [#/Vol] 1.06 10*3/uL Normal 1.00-4.00 [facility] Comment on above: Order Comment: Speci men Type: BLOOD SPECIMENOrdering Facility: [facility] Address: [address] [place] [address] Performed By: #### 5 7021-8 ####[facility] LABCLIA [id number] [place] [address] [place] Lymphocytes/100 WBC (Bld) 11.3 % Normal [facility] Comment on above: Order Comment: Speci men Type: BLOOD SPECIMENOrdering Facility: [facility] Address: [address] [place] [address] Performed By: #### 5 7021-8 ####[facility] [id number] [place] [address] [place] MCH (RBC) [Entitic mass] 29.4 pg Normal 26.0-34.0 [facility] Comment on above: Order Comment: Speci men Type: BLOOD SPECIMENOrdering Facility: [facility] Address: [address] [place] [address] Performed By: #### 5 7021-8 ####[facility] [id number] [place] [address] [place] MCHC (RBC) [Mass/Vol] 33.3 g/dL Normal 30.5-36.0 [facility] Comment on above: Order Comment: Speci men Type: BLOOD SPECIMENOrdering Facility: [facility] Address: [address] [place] [address] Performed By: #### 5 7021-8 ####[facility] [id number] [place] [address] [place] MCV (RBC) [Entitic vol] 88.1 fL Normal 80.0-100.0 [facility] Comment on above: Order Comment: Speci men Type: BLOOD SPECIMENOrdering Facility: [facility] Address: [address] [place] [address] Performed By: #### 5 7021-8 ####[facility] [id number] [place] [address] [place] Monocytes (Bld) [#/Vol] 0.48 10*3/uL Normal <0.87 [facility] Comment on above: Order Comment: Speci men Type: BLOOD SPECIMENOrdering Facility: [facility] Address: [address] [place] [address] Performed By: #### 5 7021-8 ####[facility] LABCLIA [id number] [address] [address] [place] Monocytes/100 WBC (Bld) 5.1 % Normal [facility] Comment on above: Order Comment: Speci men Type: BLOOD SPECIMENOrdering Facility: [facility] Address: [address] [place] [address] Performed By: #### 5 7021-8 ####[facility] LABCLIA [id number] [place] [address] [place] Neutrophils (Bld) [#/Vol] 7.63 10*3/uL High 1.45-7.50 [facility] Comment on above: Order Comment: Speci men Type: BLOOD SPECIMENOrdering Facility: [facility] Address: [address] [place] [address] Performed By: #### 5 7021-8 ####[facility] LABCLIA [id number] [place] [address] [place] Neutrophils/100 WBC (Bld) 81.2 % Normal [facility] Comment on above: Order Comment: Speci men Type: BLOOD SPECIMENOrdering Facility: [facility] Address: [address] [place] [address] Performed By: #### 5 7021-8 ####[facility] LABCLIA [id number] [place] [address] [place] Nucleated RBC (Bld) [#/Vol] 10*3/uL Normal <0.01 [facility] Comment on above: Order Comment: Speci men Type: BLOOD SPECIMENOrdering Facility: [facility] Address: [address] [place] [address] Performed By: #### 5 7021-8 ####[facility] LABCLIA [id number] [address] [address] [place] Nucleated RBC/100 WBC (Bld) [Ratio] 0.0 /100 WBC Normal [facility] Comment on above: Order Comment: Speci men Type: BLOOD SPECIMENOrdering Facility: [facility] Address: [address] [place] [address] Performed By: #### 5 7021-8 ####[facility] LABIA [id number] [place] [address] [place] Platelet mean volume (Bld) [Entitic vol] 8.7 fL Low 9.0-12.7 [facility] Comment on above: Order Comment: Speci men Type: BLOOD SPECIMENOrdering Facility: [facility] Address: [address] [place] [address] Performed By: #### 5 7021-8 ####[facility] LABIA [id number] [place] [address] [place] Platelets (Bld) [#/Vol] 416 10*3/uL High 150-400 [facility] Comment on above: Order Comment: Speci men Type: BLOOD SPECIMENOrdering Facility: [facility] Address: [address] [place] [address] Performed By: #### 5 7021-8 ####[facility] LABIA [id number] [place] [address] [place] RBC (Bld) [#/Vol] 4.70 10*6/uL Normal 4.20-6.00 [facility] Comment on above: Order Comment: Speci men Type: BLOOD SPECIMENOrdering Facility: [facility] Address: [address] [place] [address] Performed By: #### 5 7021-8 ####[facility] LABIA [id number] [place] [address] [place] WBC (Bld) [#/Vol] 9.40 10*3/uL Normal 3.70-11.00 [facility] Comment on above: Order Comment: Speci men Type: BLOOD SPECIMENOrdering Facility: [facility] Address: [address] [place] [address] Performed By: #### 5 7021-8 ####[facility] LABANTHONY [id number] [address] [address] [place] Kostas 06-28-2024 CNPN Telephone (FAMPWS) -- FEDE TURCIOS ([id number]) 1970 M Date Time Provider Department 06/28/24 CORA MARTE FAMWS During your visit today, we recorded the following information about you: Aurora Hodges, RILEY 06/28/2024 11:30 AM Signed Patient has ER Follow-Up visit scheduled with Moni Ribeiro CNP for this , 07/01/24. states patient was seen at [facility] ER yesterday with back/flank pain and possible [...] since patient was just seen by Dr. Marte on 06/22/24? Please advise , Kelsey, if able. [phone] Thank you. Moni Ribeiro APRN.CNP 06/28/2024 11:37 AM Signed Can you please call the patient's back and let her know that if he is in extreme pain he needs to go back to the ER. I looked over the CT scan which was normal. Lipase was mildly elevated. Gastroenterology may take some time to get into. Unfortunately we do not have any local bacteriologist industrial except for Dr. aGrcia at [facility] hospital. I would be happy to place repeat lipase labs to ensure that this is not worsening. Please let me know what they prefer. Moni JESSICA Ribeiro Barbara, LPN 06/28/2024 11:55 AM Signed Patient [...] BLOOD COUNT AND DIFFERENTIAL [SQCBCDIF] Order #: [id number] FUTURE COMPREHENSIVE METABOLIC PANEL [SQCMP] Order #: [id number] FUTURE LIPASE [SQLIPA] Order #: [id number] FUTURE AMYLASE [SQAMYL] Order #: [id number] FUTURE Prescriptions as of 06/28/2024 - cyclobenzaprine [...] Status:Closed by MONI RIBEIRO on 06/28/24 Normal [facility] Comprehensive metabolic 2000 panelon 06-28-2024 Albumin [Mass/Vol] 4.2 g/dL Normal 3.9-4.9 [facility] Comment on above: Order Comment: Speci men Type: BLOOD SPECIMENOrdering Facility: [facility] Address: [address] [place] [address] Performed By: #### 2 4323-8, 3039-3, 1798-05 ####[facility] LABCLIA [id number] [place] [address] [place] ALP [Catalytic activity/Vol] 169 U/L High 38-113 [facility] Comment on above: Order Comment: Speci men Type: BLOOD SPECIMENOrdering Facility: [facility] Address: [address] [place] [address] Performed By: #### 2 4323-8, 3, 1798-05 ####[facility] LABCLIA [id number] [place] [address] [place] ALT [Catalytic activity/Vol] 47 U/L Normal 10-54 [facility] Comment on above: Order Comment: Speci men Type: BLOOD SPECIMENOrdering Facility: [facility] Address: [address] [place] [address] Performed By: #### 2 4323-8, 3, 1798-05 ####[facility] LABCLIA [id number] [place] [address] [place] Anion gap [Moles/Vol] 12 mmol/L Normal 8-15 [facility] Comment on above: Order Comment: Speci men Type: BLOOD SPECIMENOrdering Facility: [facility] Address: [address] [place] [address] Performed By: #### 2 4323-8, 3, 1798-05 ####[facility] LABCLIA [id number] [address] [address] [place] AST [Catalytic activity/Vol] 30 U/L Normal 14-40 [facility] Comment on above: Order Comment: Speci men Type: BLOOD SPECIMENOrdering Facility: [facility] Address: [address] [place] [address] Performed By: #### 2 4323-8, 3, 1798-05 ####[facility] LABCLIA [id number] [address] [address] [place] Bilirubin [Mass/Vol] 0.6 mg/dL Normal 0.2-1.3 [facility] Comment on above: Order Comment: Speci men Type: BLOOD SPECIMENOrdering Facility: [facility] Address: [address] [place] [id number] Performed By: #### 2 4323-8, 3039-12, 1798-05 ####[facility] LABCLIA [id number] [place] [address] [place] Calcium [Mass/Vol] 9.2 mg/dL Normal 8.5-10.2 [facility] Comment on above: Order Comment: Speci men Type: BLOOD SPECIMENOrdering Facility: [facility] Address: [address] [place], [place] [id number] Performed By: #### 2 4323-8, 3039-12, 1798-05 ####[facility] LABCLIA [id number] [place] [id number] [place] Chloride [Moles/Vol] 96 mmol/L Low 98-107 [facility] Comment on above: Order Comment: Speci men Type: BLOOD SPECIMENOrdering Facility: [facility] Address: [address] [place] [address] Performed By: #### 2 4323-8, 3, 1798-05 ####[facility] LABCLIA [id number] [address] [address] [place] CO2 [Moles/Vol] 27 mmol/L Normal 22-30 [facility] Comment on above: Order Comment: Speci men Type: BLOOD SPECIMENOrdering Facility: [facility] Address: [address] [place] [id number] Performed By: #### 2 4323-8, 3039-3, 1798-05 ####[facility] LABIA [id number] [address] [address] [place] Creatinine [Mass/Vol] 0.99 mg/dL Normal 0.73-1.22 [facility] Comment on above: Order Comment: Speci men Type: BLOOD SPECIMENOrdering Facility: [facility] Address: [address] [place] [address] Performed By: #### 2 4323-8, 3, 1798-05 ####[facility] LABIA [id number] [place] [address] [place] Creatinine and Glomerular filtration rate.predicted panel (S/P/Bld) 92 mL/min/1.73m??? Normal >=60 [facility] Comment on above: Order Comment: Speci men Type: BLOOD SPECIMENOrdering Facility: [facility] Address: [address] [place] [address] Result Comment: Adrienne mated Glomerular Filtration Rate [...] actual GFR. Performed By: #### 2 4323-8, 3, 1798-05 ####[facility] LABIA [id number] [place] [id number] [place] Glucose [Mass/Vol] 94 mg/dL Normal 74-99 [facility] Comment on above: Order Comment: Speci men Type: BLOOD SPECIMENOrdering Facility: [facility] Address: [address] [place], [place] [address] Result Comment: The [place] Diabetes Association (ADA) provides guidance for cutoff [...] Standards of Medical Care in Diabetes 2016, [place] [employer]. Diabetes Care. 2016.39(Suppl 1). Performed By: #### 2 4323-8, 3039-3, 1798-05 ####[facility] LABIA [id number] [place] [address] [place] Potassium [Moles/Vol] 3.9 mmol/L Normal 3.7-5.1 [facility] Comment on above: Order Comment: Speci men Type: BLOOD SPECIMENOrdering Facility: [facility] Address: [address] [place] [address] Performed By: #### 2 4323-8, 3, 1798-05 ####[facility] LABIA [id number] [place] [address] [place] Protein [Mass/Vol] 7.2 g/dL Normal 6.3-8.0 [facility] Comment on above: Order Comment: Speci men Type: BLOOD SPECIMENOrdering Facility: [facility] Address: [address] [place] [address] Performed By: #### 2 4323-8, 3, 1798-05 ####[facility] LABIA [id number] [place] [address] [place] Sodium [Moles/Vol] 135 mmol/L Low 136-144 [facility] Comment on above: Order Comment: Speci men Type: BLOOD SPECIMENOrdering Facility: [facility] Address: [address] [place] [address] Performed By: #### 2 4323-8, 3040-3, 1798-05 ####[facility] LABCLIA [id number] [place] [id number] [place] Urea nitrogen [Mass/Vol] 12 mg/dL Normal 9-24 [facility] Comment on above: Order Comment: Speci men Type: BLOOD SPECIMENOrdering Facility: [facility] Address: [address] [place] [address] Performed By: #### 2 4323-8, 3040-3, 1798-05 ####[facility] LABCLIA [id number] [place] [address] [place] Lipase SerPl-cCncon 06-28-20 24 Lipase [Catalytic activity/Vol] 60 U/L Normal 16-61 [facility] Comment on above: Order Comment: Speci men Type: BLOOD SPECIMENOrdering Facility: [facility] Address: [address] [place] [address] Performed By: #### 2 4323-8, 3039-3, 1798-05 ####[facility] LABCLIA [id number] [place] [address] [place] CBC + DIFFon 06-22-2024 Baso # 0.02 x10EE3/UL Normal 0.00 - 0.10 [facility] Comment on above: Performed By: #### 2 19142 #### [facility],[address] [place] [address] Basophils/100 WBC (Bld) 0.3 % Normal 0.0 - 2.0 [facility] Comment on above: Performed By: #### 2 41527 #### [facility],[address] [place] [address] CBC + DIFF Normal [facility] Comment on above: Result Comment: CBC- COMPLETE BLOOD COUNT Performed By: #### 2 81714 #### [facility],[address] [place], [place] [address] EO # 0.14 x10EE3/UL Normal 0.00 - 0.50 [facility] Comment on above: Performed By: #### 2 50330 #### [facility],[address] [place] [address] Eosinophils/100 WBC (Bld) 1.8 % Normal 0.0 - 7.0 [facility] Comment on above: Performed By: #### 2 41777 #### [facility],[address] [place] [address] Erythrocyte distribution width (RBC) [Ratio] 13.3 % Normal 12.0 - 15.6 [facility] Comment on above: Performed By: #### 2 74238 #### [facility],[address] [place] [address] Hematocrit (Bld) [Volume fraction] 41.7 % Normal 40.0 - 52.0 [facility] Comment on above: Performed By: #### 2 17237 #### [facility],[address] [place] [address] Hemoglobin (Bld) [Mass/Vol] 14.6 g/dL Normal 13.0 - 17.5 [facility] Comment on above: Performed By: #### 2 57303 #### [facility],[address] [place] [address] Lymph # 1.43 x10EE3/UL Normal 0.80 - 2.80 [facility] Comment on above: Performed By: #### 2 64146 #### [facility],[address] [place] [address] Lymphocytes/100 WBC (Bld) 18.2 % Low 20.0 - 45.0 [facility] Comment on above: Performed By: #### 2 65595 #### [facility],[address] [place] [address] MANUAL DIFF N/A Normal [facility] Comment on above: Performed By: #### 2 63465 #### [facility],[address] [place] [address] MCH (RBC) [Entitic mass] 30 pg Normal 27 - 33 [facility] Comment on above: Performed By: #### 2 19170 #### [facility],[address] [place] [address] MCHC 35 X10 3 Normal 32 - 36 [facility] Comment on above: Performed By: #### 2 85809 #### [facility],[address] [place] [address] MCV (RBC) [Entitic vol] 86 fL Normal 81 - 98 [facility] Comment on above: Performed By: #### 2 66413 #### [facility],[address] [place] [address] [place] # 0.61 x10EE3/UL Normal 0.20 - 1.00 [facility] Comment on above: Performed By: #### 2 23666 #### [facility],[address] [place] [address] MONOS % 7.8 % Normal 0.0 - 10.0 [facility] Comment on above: Performed By: #### 2 56703 #### [facility],[address] [place], [place] [address] Morphology Jaleel (Bld) [Interp] N/A Normal [facility] Comment on above: Performed By: #### 2 69004 #### [facility],[address] [place] [address] Neut # 5.63 x10EE3/UL Normal 1.50 - 7.10 [facility] Comment on above: Performed By: #### 2 77345 #### [facility],[address] [place] [address] Neutrophils/100 WBC (Bld) 72.0 % Normal 46.0 - 76.0 [facility] Comment on above: Performed By: #### 2 26314 #### [facility],[address] [place] [address] PLATELET 234 x10EE3/UL Normal 150 - 450 [facility] Comment on above: Performed By: #### 2 90035 #### [facility],[address] [place] [address] Platelet mean volume (Bld) [Entitic vol] 6.9 fL Normal 6.4 - 10.5 [facility] Comment on above: Result Comment: AUTO MATED DIFFERENTIAL Performed By: #### 2 41189 #### [facility],[address] [place] [address] RBC 4.86 x 10EE6/UL Normal 4.50 - 6.00 [facility] Comment on above: Performed By: #### 2 97629 #### [facility],[address] [place] [address] WBC 7.8 x 10EE3/UL Normal 4.5 - 10.8 [facility] Comment on above: Performed By: #### 2 51769 #### [facility],[address] [place] [address] CMP with eGFRon 06-22-2024 AGE 53 years Normal [facility] Comment on above: Performed By: #### 2 10795 #### [facility],[address] [place] [address] Albumin [Mass/Vol] 3.7 g/dL Normal 3.4 - 5.0 [facility] Comment on above: Performed By: #### 2 93334 #### [facility],[address] [place] [address] Albumin/Globulin [Mass ratio] 1.0 {ratio} Normal 0.9 - 1.6 [facility] Comment on above: Performed By: #### 2 20800 #### [facility],[address] [place] [address] ALK PHOS 136 U/L High 46 - 116 [facility] Comment on above: Performed By: #### 2 98293 #### [facility],[address] [place] [address]89 ALT [Catalytic activity/Vol] 52 U/L Normal 16 - 63 [facility] Comment on above: Performed By: #### 2 40590 #### [facility],[address] [place] [address] Anion gap [Moles/Vol] 13 mmol/L Normal 10 - 20 [facility] Comment on above: Performed By: #### 2 85530 #### [facility],[address] [place] [address] 455[address] AST [Catalytic activity/Vol] 27 U/L Normal 15 - 37 [facility] Comment on above: Performed By: #### 2 11287 #### [facility],[address] [place] [address] B/C RATIO 12 ratio Normal 0 - 30 [facility] Comment on above: Performed By: #### 2 48210 #### [facility],[address] [place] [address] Bilirubin [Mass/Vol] 1.0 mg/dL Normal 0.2 - 1.0 [facility] Comment on above: Performed By: #### 2 34931 #### [facility],[address] [place] [address] Calcium [Mass/Vol] 9.0 mg/dL Normal 8.5 - 10.1 [facility] Comment on above: Performed By: #### 2 94460 #### [facility],[address] [place] [address] Chloride [Moles/Vol] 100 mmol/L Normal 98 - 107 [facility] Comment on above: Performed By: #### 2 25930 #### [facility],[address] [place] [address] CMP with eGFR Normal [facility] Comment on above: Result Comment: COMP REHENSIVE METABOLIC PANEL Performed By: #### 2 91455 #### [facility],[address] [place] [address]682 CO2 [Moles/Vol] 29.8 mmol/L Normal 21.0 - 32.0 [facility] Comment on above: Performed By: #### 2 26079 #### [facility],[address] [place] [address] Creatinine [Mass/Vol] 1.17 mg/dL Normal 0.70 - 1.30 [facility] Comment on above: Performed By: #### 2 00107 #### [facility],[address] [place] [address] GFR/1.73 sq M.predicted among non-blacks MDRD (S/P/Bld) [Vol rate/Area] mL/min/{1.73_m2} Normal 60 - 999 [facility] Comment on above: Performed By: #### 2 74047 #### [facility],[address] [place] [address] Result Comment: ACCO RDING TO THE NATIONAL KIDNEY DISEASE EDUCATION PROGRAM(NKDE), A NORMAL eGFR IS A VALUE GREATER THAN OR EQUAL TO 60 ML/MIN/1.73 SQ METERS. CHRONIC KIDNEY DISEASE: <60mL/MIN/1.73 SQ METERS KIDNEY FAILURE: <15mL/MIN/1.73 SQ METERS THIS TEST SHOULD ONLY BE USED FOR PATIENTS 18 YEARS OF AGE AND OLDER. Globulin (S) [Mass/Vol] 3.7 g/dL Normal 1.5 - 3.8 [facility] Comment on above: Performed By: #### 2 49645 #### [facility],[address] [place] [address] Glucose [Mass/Vol] 111 mg/dL High 74 - 106 [facility] Comment on above: Performed By: #### 2 64591 #### [facility],[address] [place] [address] Potassium [Moles/Vol] 3.4 mmol/L Low 3.5 - 5.1 [facility] Comment on above: Performed By: #### 2 58445 #### [facility],[address] [place] [address]89[address] Protein [Mass/Vol] 7.4 g/dL Normal 6.4 - 8.2 [facility] Comment on above: Performed By: #### 2 39954 #### [facility],[address] [place] [address] Sodium [Moles/Vol] 139 mmol/L Normal 136 - 145 [facility] Comment on above: Performed By: #### 2 20534 #### [facility],[address] [place] [address] 59021 Urea nitrogen [Mass/Vol] 14 mg/dL Normal 7 - 18 [facility] Comment on above: Performed By: #### 2 15947 #### [facility],[address] [place] [address]245 CNOVon 06-22-2024 CNOV Office Visit (FAMPWS ) -- FEDE TURCIOS ([id number]) 1970 M Date Time Provider Department 06/22/24 2:00 [facility] visit today, we recorded the following information about you: Temperature Pulse Respiration Blood pressure 97.2 degrees 68/minute 16/minute 104/70 Weight 80.1 kg Cora Marte MD 06/22/2024 2:51 PM Signed Chief Complaint Patient presents with: Hospital F/U [facility] Fede Turcios is a 53 year old [...] 40 mg once daily. Pt seen at [facility] ED on 06/22/24 for flank pain [...] PHOS 136 U/L High 46 - 116 [facility] LIPASE on 06-22-2024 Lipase [Catalytic activity/Vol] 148.0 U/L High 15.0 - 78.0 [facility] Imaging: CT ABDOMEN/PELVIS WITH CONTRAS 06/22/24: CONCLUSION: [...] done DTaP,T (more content not included)... Normal [facility] CT ABDOMEN/PELVIS [facility] 2023 CT ABDOMEN/PELVIS [place] [address] Patient: FEDE TURCIOS Phone#: : 1970 Age: 53 Gender: M Pt. Type: ER Account: [id number] Location: 052 Ordering: DR. LACIE VALENTINO Exam Date: 06/22/2024/3:24 Family Phys: CORA EnriquezJasmine MARTE Charge Code: [id number] Physician: Thurston Order #: [id number] Dose#: 12.2 PROCEDURE: CT ABDOMEN/PELVIS WITH CONTRAST [...] 53 Gender: M Pt. Type: ER Account: [id number] Location: 052 Ordering: DR. LACIE VALENTINO Exam Date: 06/22/2024/3:24 Family Phys: CORA Erin MARTE Charge Code: [id number] Physician: Thurston Order #: [id number] Dose#: 12.2 CONCLUSION: 1. There is no evidence of acute abdominal or pelvic abnormality. Dictated by: Mesha Pepe MD on 06/22/2024 at 3:54 Approved by: Mesha Pepe MD on 06/22/2024 at 4:29 Normal [facility] LIPASEon 06-22-2024 Lipase [Catalytic activity/Vol] 148.0 U/L High 15.0 - 78.0 [facility] Comment on above: Result Comment: *PLE ASE NOTE THAT RANGES FOR LIPASE HAVE CHANGED OF 10/17/23 DUE TO AN ASSAY UPDATE BY THE HAND COPER.THE NEW ASSAY RANGE IS 6-250 U/L, WITH A REFERENCE RANGE OF 16-77 U/L. Performed By: #### 2 35970 #### [facility],[address] [place] [address] URINALYSISon 06-22-2024 Amorphous NONE Normal [facility] Comment on above: Performed By: #### 2 26771 #### [facility],[address] [place] [address] Bacteria TRACE Normal [facility] Comment on above: Performed By: #### 2 35716 #### [facility],[address] [place] [address] Bilirubin Ql (U) Negative Normal NORMAL: NEGATIVE [facility] Comment on above: Performed By: #### 2 26209 #### [facility],[address] [place] [address] Casts NONE Normal [facility] Comment on above: Performed By: #### 2 06210 #### [facility],[address] [place] [address] Clarity (U) CLEAR Normal NORMAL: CLEAR [facility] Comment on above: Performed By: #### 2 93074 #### [facility],[address] [place] [address] 65678 Color (U) YELLOW Normal NORMAL: YELLOW [facility] Comment on above: Performed By: #### 2 59704 #### [facility],[address] [place] [address] 73772 Crystals LM Nom (Urine sed) NONE Normal [facility] Comment on above: Performed By: #### 2 16653 #### [facility],[address] [place] [address] 29789 Epi Cells NONE Normal [facility] Comment on above: Performed By: #### 2 24728 #### [facility],[address] [place] [address] 04462 Glucose Ql (U) NORM Normal NORMAL: NORMAL [facility] Comment on above: Performed By: #### 2 21463 #### [facility],[address] [place] [address] 31941 Hemoglobin Ql (U) 25 Abnormal NORMAL: NEGATIVE [facility] Comment on above: Performed By: #### 2 56975 #### [facility],[address] [place] [address] 80998 Ketone 5 Abnormal NORMAL: NEGATIVE [facility] Comment on above: Performed By: #### 2 46024 #### [facility],[address] [place] [address] 65937 Leukocytes Negative Normal NORMAL: NEGATIVE [facility] Comment on above: Performed By: #### 2 50514 #### [facility],[address] [place] [address] 19908 Mucous NONE Normal [facility] Comment on above: Performed By: #### 2 41634 #### [facility],[address] [place] [address] 02439 Nitrite Ql (U) Negative Normal NORMAL: NEGATIVE [facility] Comment on above: Performed By: #### 2 03085 #### [facility],[address] [place] [address] 67861 pH (U) 7.0 [pH] Normal NORMAL: 5.0-8.0 [facility] Comment on above: Performed By: #### 2 70825 #### [facility],[address] [place] [address] Protein Ql (U) 30 Abnormal NORMAL: NEGATIVE [facility] Comment on above: Performed By: #### 2 64291 #### [facility],[address] [place] [address] Rbc 0-5 Normal 0-3/hpf [facility] Comment on above: Performed By: #### 2 61572 #### [facility],[address] [place] [address] Sp [place] 1.005 Low NORMAL: 1.010-1.030 [facility] Comment on above: Performed By: #### 2 04480 #### [facility],[address] [place] [address] Specimen Type Clean catch Normal [facility] Comment on above: Performed By: #### 2 22275 #### [facility],[address] [place] [address] Urinalysis dipstick W Reflex Microscopic panel (U) SEE BELOW Normal [facility] Comment on above: Result Comment: MICR OSCOPIC Performed By: #### 2 82968 #### [facility],[address] [place] [address] Urobilinog 4 Abnormal NORMAL: NORMAL [facility] Comment on above: Performed By: #### 2 46172 #### [facility],[address] [place] [address] Wbc NONE Normal 0-5/hpf [facility] Comment on above: Performed By: #### 2 36944 #### [facility],[address] [place] [address] Yeast NONE Normal [facility] Comment on above: Performed By: #### 2 16705 #### [facility],[address] [place] [address] 34139 CNOVon 11-20-2023 CNOV Office Visit (FAMPWS ) -- FEDE TURCIOS ([id number]) 1970 M Date Time Provider Department 11/20/23 3:40 PM CORA MARTE FAMPWS During your visit today, we recorded the following information about you: Pulse Respiration Blood pressure Weight 78/minute 16/minute 120/74 82.6 kg Height 1.727 m Cora Marte MD 11/20/2023 3:47 PM Signed Chief Complaint Patient presents with: Physical HPI Fede Turcios is a 53 year old male who presents here today for physical. Last OV with PCP was April 2022. , 2 daughters, 1 at [employer] and other is a senior at [employer]. HM Depression screening; denies feeling depressed or [...] and recommende (more content not included)... Normal [facility] RESPIDon 01-02-2020 Adenovirus Not Detected Normal Not Detected [facility] [place] Comment on above: Performed By: #### R ESPID #### [address] [address] Bordetella Parapertussis Not Detected Normal Not Detected [facility] [place] Comment on above: Performed By: #### R ESPID #### [address] [address] Bordetella Pertussis Not Detected Normal Not Detected [facility] [place] Comment on above: Performed By: #### R ESPID #### [address] [address] Chlamydophila pneumoniae Not Detected Normal Not Detected [facility] [place] Comment on above: Performed By: #### R ESPID #### [place] [id number] [address] [place] [address] Coronavirus 229E Not Detected Normal Not Detected [facility] [place] Comment on above: Performed By: #### R ESPID #### [address] [address] Coronavirus HKU1 Not Detected Normal Not Detected [facility] [place] Comment on above: Performed By: #### R ESPID #### [facility] [address] [place] [address] 67552 Coronavirus NL63 Not Detected Normal Not Detected [facility] [place] Comment on above: Performed By: #### R ESPID #### [facility] [address] [place] [address] 24082 Coronavirus OC43 Not Detected Normal Not Detected [facility] [place] Comment on above: Performed By: #### R ESPID #### [facility] [address] [place] [address] 91720 Human Metapneumovirus Not Detected Normal Not Detected [facility] [place] Comment on above: Performed By: #### R ESPID #### [facility] [address] [place] [address] 24207 Influenza A Not Detected Normal Not Detected [facility] [place] Comment on above: Performed By: #### R ESPID #### [facility] [address] [place] [address] 42631 Influenza B Not Detected Normal Not Detected [facility] [place] Comment on above: Performed By: #### R ESPID #### [facility] [address] [place] [address] 96585 Mycoplasma pneumoniae Not Detected Normal Not Detected [facility] [place] Comment on above: Performed By: #### R ESPID #### [facility] [address] [place] [address] 60445 Parainfluenza 1 Not Detected Normal Not Detected [facility] [place] Comment on above: Performed By: #### R ESPID #### [facility] [address] [place] [address] 21971 Parainfluenza 2 Not Detected Normal Not Detected [facility] [place] Comment on above: Performed By: #### R ESPID #### [facility] [address] [place] [address] 31684 Parainfluenza 3 Not Detected Normal Not Detected [facility] [place] Comment on above: Performed By: #### R ESPID #### [facility] [address] [place] [address] 46798 Parainfluenza 4 Not Detected Normal Not Detected [facility] [place] Comment on above: Performed By: #### R ESPID #### [facility] [address] [place] [address] 97000 Respiratory Syncytial Virus Not Detected Normal Not Detected [facility] [place] Comment on above: Performed By: #### R ESPID #### [facility] [address] [place] [address] 82355 Rhinovirus/Enteroviru s Detected Not Detected [facility] ([place] Comment on above: Performed By: #### R ESPID #### [facility] [address] [place] [address] 91450 Vital Signs Date Time Vital Sign Value Performing Clinician Faci lity 07-16-2024 14:24-0400 Body mass index (BMI) [Ratio] 24.67 kg/m2 Cora Marte MD Work Phone: [facility] 07-16-2024 14:24-0400 Body weight 73.6 kg Cora Marte MD Work Phone: [facility] 07-16-2024 14:24-0400 Diastolic blood pressure 60 mm[Hg] Cora Marte MD Work Phone: [facility] 07-16-2024 14:24-0400 Heart rate 72 /min Cora Marte MD Work Phone: [facility] 07-16-2024 14:24-0400 Respiratory rate 16 /min Cora Marte MD Work Phone: [facility] 07-16-2024 14:24-0400 SaO2% (BldA) [Mass fraction] 98 % Cora Marte MD Work Phone: [facility] 07-16-2024 14:24-0400 Systolic blood pressure 110 mm[Hg] Cora Marte MD Work Phone: [facility] 06-29-2024 14:03-0400 Body mass index (BMI) [Ratio] 26.61 kg/m2 Pau Dooley APRN.COPPER MINER Work Phone: [facility] 06-29-2024 14:03-0400 Body weight 79.38 kg Pau Dooley APRN.COPPER MINER Work Phone: [facility] 06-29-2024 14:03-0400 Diastolic blood pressure 91 mm[Hg] Pau Dooley PLANT OPERATIONS WORKER.COPPER MINER Work Phone: [facility] 06-29-2024 14:03-0400 Heart rate 90 /min Pau Dooley PL[employer] OPERATIONS WORKER.COPPER MINER Work Phone: [facility] 06-29-2024 14:03-0400 Systolic blood pressure 134 mm[Hg] Pau Dooley PL[employer] OPERATIONS WORKER.COPPER MINER Work Phone: [facility] 06-22-2024 14:05-0400 Body mass index (BMI) [Ratio] 26.85 kg/m2 Cora Marte MD Work Phone: [facility] 06-22-2024 14:05-0400 Body temperature 97.2 [degF] Cora Marte MD Work Phone: [facility] 06-22-2024 14:05-0400 Body weight 80.1 kg Cora Marte MD Work Phone: [facility] 06-22-2024 14:05-0400 Diastolic blood pressure 70 mm[Hg] Cora Marte MD Work Phone: [facility] 06-22-2024 14:05-0400 Heart rate 68 /min Cora Marte MD Work Phone: [facility] 06-22-2024 14:05-0400 Respiratory rate 16 /min Cora Marte MD Work Phone: [facility] 06-22-2024 14:05-0400 Systolic blood pressure 104 mm[Hg] Cora Marte MD Work Phone: [facility] 11-20-2023 15:27-0500 Body height 172.7 cm Cora Marte MD Work Phone: [facility] 11-20-2023 15:27-0500 Body weight 82.56 kg Cora Marte MD Work Phone: [facility] 11-20-2023 15:27-0500 Diastolic blood pressure 74 mm[Hg] Cora Marte MD Work Phone: [facility] 11-20-2023 15:27-0500 Heart rate 78 /min Cora Marte MD Work Phone: [facility] 11-20-2023 15:27-0500 Respiratory rate 16 /min Cora Marte MD Work Phone: [facility] 11-20-2023 15:27-0500 Systolic blood pressure 120 mm[Hg] Cora Marte MD Work Phone: [facility] 04-23-2022 14:25-0400 Body weight 79.15 kg Cora Marte MD Work Phone: [facility] 04-23-2022 14:25-0400 Diastolic blood pressure 74 mm[Hg] Cora Marte MD Work Phone: [facility] 04-23-2022 14:25-0400 Heart rate 68 /min Cora Marte MD Work Phone: [facility] 04-23-2022 14:25-0400 Respiratory rate 16 /min Cora Marte MD Work Phone: [facility] 04-23-2022 14:25-0400 Systolic blood pressure 120 mm[Hg] Cora Marte MD Work Phone: [facility] Encounters Encounter Date Encounter Type Care Provider Facility Start: 2025 Encounter for genera l adult medical examination without abnormal findings Emma Wallace [facility] Start: 08-16-2025 End: 08-16-2025 ambulatory No Primary Care Physician Facility[place] Start: 08-16-2025 End: 08-16-2025 ambulatory No Primary Care Physician Facility:[facility] Start: 05-12-2025 End: 05-13-2025 Refill Leighton Lozano APRN.CNP Work Phone: [facility] [place] Comment on above: Refill Request Start: 02-11-2025 End: 02-11-2025 ambulatory Patrick Garcia Facility[facility] Start: 02-03-2025 End: 02-03-[address] Cora Marte MD Work Phone: [facility] Work Phone: Start: 02-03-2025 End: 02-03-2025 Patient encounter procedure Patrick Garcia DO -Laboratory Work Phone: Start: 02-03-2025 End: 02-03-2025 ambulatory Patrick Garcia Facility:[facility] Start: 12-01-2024 End: 12-01-2024 Refill Leighton Lozano APRN.COPPER MINER Work Phone: [facility] [place] Comment on above: Refill Request Start: 09-06-2024 End: 09-06-2024 ambulatory Cora [facility] Facility:[facility] Start: 09-06-2024 End: 09-06-2024 [facility] Start: 08-30-2024 End: 08-30-2024 ambulatory Cora [facility] Facility:[facility] Start: 07-26-2024 End: 07-27-2024 ambulatory Cora Marte MD Work Phone: [facility] [place] Comment on above: Questions Start: 07-16-2024 End: 07-16-2024 ambulatory CORA MARTE Facility:[facility] Start: 07-16-2024 End: 07-16-2024 Patient encounter procedure Cora Marte MD Work Phone: [facility] [place] Comment on above: Celiac disease (Prim madelin Dx); Gastroparesis; Inflammation of intestine Start: 07-13-2024 End: 07-13-2024 Patient Outreach Cora Marte MD Work Phone: [facility] [place] Comment on above: Transition Of Care Start: 07-01-2024 End: 07-01-2024 ambulatory Pau Dooley APRN.COPPER MINER Work Phone: [facility] [place] Comment on above: Extreme back pain Start: 07-01-2024 End: 07-01-2024 Subsequent hospital visit by physician Magaly [facility] [place] Work Phone: Radiology Comment on above: Acute bilateral back pain, unspecified back location [M54.9] Start: 06-30-2024 End: 07-02-2024 Telephone encounter Pau Dooley APRN.COPPER MINER Work Phone: [facility] [place] Comment on above: Results; Patient Upd ate Start: 06-29-2024 End: 06-29-2024 ambulatory CORA MARTE Facility:[facility] Start: 06-29-2024 End: 06-29-2024 Patient encounter procedure Pau Dooley APRN.COPPER MINER Work Phone: [facility] [place] Comment on above: Abnormal urine (Prim madelin Dx); Acute constipation; Acute low back pain, unspecified back pain laterality, unspecified whether sciatica present Start: 06-29-2024 End: 06-29-2024 ambulatory PAU DOOLEY Facility:[facility] Start: 06-28-2024 End: 06-28-2024 ambulatory MONI RIBEIRO Facility:[facility] Start: 06-28-2024 End: 06-28-2024 Telephone encounter Cora Marte MD Work Phone: [facility] [place] Comment on above: Patient Update Start: 06-22-2024 End: 06-22-2024 ambulatory CORA MARTE Facility:[facility] Start: 06-22-2024 End: 06-22-2024 Patient encounter procedure Cora Marte MD Work Phone: [facility] [place] Comment on above: Abdominal pain, unsp ecified abdominal location (Primary Dx); Viral syndrome Start: 06-22-2024 End: 06-22-2024 Emergency department patient visit CORA MARTE [facility] Start: 06-04-2024 Refill Cora vega MD Work Phone: Family [facility] [place] Comment on above: Refill Request Start: 03-25-2024 Refill Leighton HERNÁNDEZ RN.COPPER MINER Work Phone: [facility] [place] Comment on above: Refill Request Start: 11-20-2023 End: 11-20-2023 ambulatory CORA MARTE Facility:[facility] Start: 11-20-2023 End: 11-20-2023 Patient encounter procedure Cora Marte MD Work Phone: [facility] [place] Comment on above: Wellness examination (Primary Dx); Screening for prostate cancer; Gastroesophageal reflux disease without esophagitis; Migraine without aura and with status migrainosus, not intractable; Family hx of prostate cancer; Hyperlipidemia, unspecified hyperlipidemia type Start: 11-20-2023 End: 11-20-2023 Patient encounter status Cora Marte MD Work Phone: [facility] Start: 04-29-2023 Refill Leighton HERNÁNDEZ RN.COPPER MINER Work Phone: [facility] [place] Comment on above: Refill Request Start: 03-24-2023 Refill Cora vega MD Work Phone: [facility] [place] Comment on above: Refill Request Start: 08-31-2022 ambulatory Cora vega MD Work Phone: [facility] [place] Comment on above: Insurance Change Start: 04-23-2022 End: 04-23-2022 Patient encounter procedure Cora Marte MD Work Phone: [facility] [place] Comment on above: Dermatitis (Primary Dx) Procedures Date Procedure Procedure Detail Performing Clinician Start: 07-01-2024 Radex spine lumbosac ral minimum 4 views Pau Dooley APRN.COPPER MINER Work Phone: Start: 06-29-2024 Urnls dip stick/tabl et rgnt auto w/o microscopy Pau Dooley APRN.COPPER MINER Work Phone: Start: 06-22-2024 Urinalysis CORA RUSS Comment on above: Result Comment: URIN ALYSIS Performed By: #### [id number] #### [facility],[address] [place] [address] Start: 04-23-2022 Adult depression screening assessment Cora Marte MD Work Phone: Start: 12-19-2021 Colonoscopy Cora russ MD Work Phone: Start: 10-16-2021 Lipid 1996 panel - Serum or Plasma Cora Marte MD Work Phone: Start: 10-30-2011 H/O: surgery S/P dilatation of esophageal stricture Cora Marte MD Work Phone: Plan of Treatment Date Care Activity Detail Author Start: 12-20-2031 Colonoscopy COLONOSCOPY [facility] Start: 12-20-2031 COLORECTAL CANCER SCREENING COLORECTAL CANCER SCREENING [facility] Start: 12-20-2031 Screening for malign ant neoplasm of colon [facility] Start: 06-28-2027 Diabetes Screening Diabetes Screenin g [facility] Start: 10-16-2026 Lipid panel Lipid Screening [facility] Start: 10-16-2026 LIPID SCREEN LIPID SCREEN [facility] Start: 06-20-2025 Influenza vaccination Influenza Vacc ine (#1) [facility] Start: 11-20-2024 Covid-19 Vaccine () Covid-19 Vaccine () [facility] Comment on above: Postponed from 06/20 (Declined at this time) Start: 11-20-2024 Hepatitis C screening Hepatitis C Sc [facility] Comment on above: Postponed from 08/25 (Declined at this time) Start: 11-20-2024 HIV screening HIV Screening [facility] Comment on above: Postponed from 08/25 (Declined at this time) Start: 10-16-2024 DIABETES SCREEN DIABETES SCREEN [facility] Start: 10-16-2024 [facility] Start: 10-08-2024 End: 10-08-2024 Patient encounter procedure 10/08/2024 10:40 AM EST Office Visit Family [facility] [address] [place] [address] Coar Marte MD [address] [place] [id number] 3 month follow up Family [facility] Comment on above: 3 month follow up Start: 07-16-2024 End: 07-16-2024 Patient encounter procedure 07/16/2024 2:20 PM EDT Office Visit Family Ranjana [place] [address] [place] [phone] Cora Marte MD [address] [facility], [place] [id number] Hospital Follow Up [facility] Comment on above: Hospital Follow Up Start: 06-29-2024 End: 06-29-2024 Patient encounter procedure 06/29/2024 2:20 PM EDT Office Visit [facility] [address] [place], [place] [id number] Pau Dooley APRN.COPPER MINER [address] [place], [place] [address] [facility] ER follow up. Has a elevated labs [facility] Comment on above: [facility] ER follow up. Cooley s a elevated labs Start: 06-29-2024 End: 09-28-2024 PSA/PROSTATE SPECIFIC ANTIGEN SCREENING [facility] Comment on above: Expected: 06/29/2024 , Expires: 09/28/2024 Start: 06-29-2024 End: 09-28-2024 Urinalysis complete panel - Urine [facility] Work Phone: Comment on above: Expected: 06/29/2024 , Expires: 09/28/2024 Start: 06-28-2024 End: 09-27-2024 Amylase [Enzymatic activity/volume] in Serum or Plasma [facility] Comment on above: Expected: 06/28/2024 , Expires: 09/27/2024 Start: 06-28-2024 End: 09-27-2024 Comprehensive metabolic 2000 panel - Serum or Plasma [facility] Work Phone: Comment on above: Expected: 06/28/2024 , Expires: 09/27/2024 Start: 06-28-2024 End: 09-27-2024 Lipase [Enzymatic activity/volume] in Serum or Plasma [facility] Comment on above: Expected: 06/28/2024 , Expires: 09/27/2024 Start: 06-20-2024 Covid-19 Vaccine () Covid-19 Vaccine () [facility] Start: 06-20-2024 Covid-19 Vaccine ( season) Covid-19 Vaccine ( season) [facility] Start: 06-20-2024 Influenza vaccination Influenza Vacc ine (#1) [facility] Start: 11-20-2023 End: 02-19-2024 Comprehensive metabolic 2000 panel - Serum or Plasma COMP METABOLIC PANEL Lab Routine Wellness examination Hyperlipidemia, unspecified hyperlipidemia type Expected: 11/20/2023 (Approximate), Expires: 02/19/2024 [facility] Work Phone: Comment on above: Expected: 11/20/2023 (Approximate), Expires: 02/19/2024 Start: 11-20-2023 End: 02-19-2024 Lipid 1996 panel - Serum or Plasma LIPID PANEL BASIC Lab Routine Wellness examination Hyperlipidemia, unspecified hyperlipidemia type Expected: 11/20/2023 (Approximate), Expires: 02/19/2024 [facility] Work Phone: Comment on above: Expected: 11/20/2023 (Approximate), Expires: 02/19/2024 Start: 11-20-2023 End: 02-19-2024 PSA/PROSTSPECAG SCRN PSA/PROSTSPECAG SCRN Lab Routine Screening for prostate cancer Wellness examination Family hx of prostate cancer Expected: 11/20/2023 (Approximate), Expires: 02/19/2024 [facility] Work Phone: Comment on above: Expected: 11/20/2023 (Approximate), Expires: 02/19/2024 Start: 10-20-2023 Behavioral Health Screening Behavioral Health Screening [facility] Start: 06-20-2023 Influenza vaccination INFLUENZA (#1) [facility] Start: 04-23-2023 Adult depression screening assessment DEPRESSION SCREENING [facility] Start: 10-20-2022 DEPRESSION ASSESSMENT DEPRESSION ASS ESSMENT [facility] Start: 10-16-2022 HEPATITIS C SCREENING HEPATITIS C SC [facility] Comment on above: Postponed from 08/25 (Declined at this time) Start: 10-16-2022 HIV SCREENING HIV SCREENING [facility] Comment on above: Postponed from 08/25 (Declined at this time) Start: 06-20-2022 Influenza vaccination INFLUENZA (#1) [facility] Start: 01-31-2022 COVID-19 VACCINE (4 - Booster for Moderna series) COVID-19 VACCINE (4 - Booster for Moderna series) [facility] Start: 11-27-2021 COVID-19 VACCINE (4 - Booster for Moderna series) COVID-19 VACCINE (4 - Booster for Moderna series) [facility] Start: 11-27-2021 COVID-19 VACCINE (4 - Moderna series) COVID-19 VACCINE (4 - Moderna series) [facility] Start: 10-20-2021 DEPRESSION ASSESSMENT DEPRESSION ASS ESSMENT [facility] Start: 2021 Pneumococcal Vaccine : 50+ (1 of 1 - PCV) Pneumococcal Vaccine: 50+ (1 of 1 - PCV) [facility] Start: 2021 SHINGRIX VACCINE (1 of 2) SHINGRIX VACCINE (1 of 2) [facility] Start: 2016 COLOGUARD (FIT-DNA) COLOGUARD (FIT-D NA) [facility] Start: [address] COLONOGRAPHY [facility] Start: 2016 FECAL OCCULT BLOOD FECAL OCCULT BLOO D [facility] Start: 2016 Screening for malign ant neoplasm of colon [facility] Start: 2016 SIGMOIDOSCOPY SIGMOIDOSCOPY [facility] Start: 02-22-2015 Urine microalbumin profile [facility] Start: 1990 Hepatitis B Vaccine (1 of 3 - 19+ 3-dose series) Hepatitis B Vaccine (1 of 3 - 19+ 3-dose series) [facility] Start: 1989 Anxiety Screening Anxiety Screening [facility] Start: 1989 Depression Screening Depression Scre ening [facility] Start: 1989 HEPATITIS C SCREENING HEPATITIS C [facility] Start: 1989 Hepatitis C screening Hepatitis C [facility] Start: 1989 HIV SCREENING HIV SCREENING [facility] Start: 1989 HIV screening HIV Screening [facility] Start: 1971 HEPATITIS B (1 of 3 - 3-dose series) HEPATITIS B (1 of 3 - 3-dose series) [facility] Start: 1971 Hepatitis B Vaccine (1 of 3 - 3-dose series) Hepatitis B Vaccine (1 of 3 - 3-dose series) [facility] Bacteria identified in Urine by Culture URINE CULTURE Microbiology Routine Abnormal urine 06/29/2024 2:53 PM EDT [facility] Immunizations Immunization Date Immunization Notes Care Provider Shyanne hinds 08-08-2023 influenza, injectabl e, quadrivalent, preservative free Dr. Cora Marte MD Work Phone: [facility] 08-08-2023 influenza, seasonal, injectable Cora Marte MD Work Phone: [facility] 08-08-2023 influenza virus vaccine, unspecified formulation Cora Marte MD Work Phone: [facility] 08-09-2022 influenza, seasonal, injectable, preservative free Dr. Cora Marte MD Work Phone: [facility] 10-16-2021 influenza, injectabl e, quadrivalent, contains preservative Cora Marte MD Work Phone: [facility] 10-16-2021 influenza, injectabl e, quadrivalent, preservative free Dr. Cora Marte MD Work Phone: [facility] 10-02-2021 COVID-19 vaccine, booster dose (MODERNA) Cora Marte MD Work Phone: [facility] 12-22-2020 Covid (Moderna) Dr. Cora flores MD Work Phone: [facility] 11-21-2020 Covid (Moderna) Dr. Cora flores MD Work Phone: [facility] 08-06-2018 influenza, injectabl e, quadrivalent, preservative free Dr. Cora Marte MD Work Phone: [facility] 07-26-2016 influenza, seasonal, injectable, preservative free Dr. Cora Marte MD Work Phone: [facility] 08-20-2015 influenza, injectabl e, quadrivalent, preservative free Dr. Cora Marte MD Work Phone: [facility] 08-20-2015 influenza, seasonal, injectable Cora Marte MD Work Phone: [facility] 10-05-2009 novel [id number], preservative-free, injectable Dr. Cora Marte MD Work Phone: [facility] 08-31-2007 influenza, injectabl e, quadrivalent, preservative free Dr. Cora Marte MD Work Phone: [facility] 02-22-2005 tetanus toxoid, reduced diphtheria toxoid, and acellular pertussis vaccine, adsorbed Cora Marte MD Work Phone: [facility] Work Phone: Payers Date Payer Category Payer Self-pay 2023 Private Health Insurance [employer] [id number] 2023 Unknown [id number] 2021 Unknown O O [employer] [id number] 2021-Present [phone] [address] [place] [address] PPO [id number] 2021 Unknown [id number] 1971 Unknown [id number] Unknown [id number] Unknown [id number] Unknown [id number] Unknown [id number] Unknown [id number] Unknown [id number] Unknown [id number] Social History Date Type Detail Facility Start: 10-28-2011 End: 11-20-2023 Tobacco smoking status CAIS Never smoked tobacco [facility] Work Phone: Start: 10-28-2011 End: 11-20-2023 Tobacco use and exposure Smokeless tobacco non-user [facility] Work Phone: Start: 04-23-2022 End: 07-16-2024 Alcohol intake Current drinker of alcohol (finding) [facility] Start: 10-14-2021 History SDOH Alcohol Frequency 4 [facility] Start: 10-14-2021 History SDOH Alcohol Std Drinks 1 [facility] Start: 12-19-2021 History SDOH Alcohol Comment socially [facility] Start: 10-14-2021 History SDOH Social Connections Phone 3 [facility] Start: 10-14-2021 History SDOH Social Connections Get Together 2 [facility] Start: 10-14-2021 History SDOH Physica l Activity DPW 0 [facility] Start: 10-14-2021 History SDOH Financial 5 [facility] Start: 1970 Sex Assigned At Not on file C [facility] Start: 04-13-2022 End: 04-23-2022 Exposure to SARS-CoV-2 (event) Not sure [facility] Start: 10-14-2021 End: 11-20-2023 Gender identity Not on file [facility] Start: 10-14-2021 End: 11-20-2023 History of Social function [place] [employer] [facility] Do you belong to any clubs or organizations such as alevism groups, unions, fraternal or athletic groups, or school groups? Yes [facility] Are you now , , , , never or living with a partner? [facility] How often to you hav e a drink containing alcohol? 2-3 time sa week [facility] How many standard dr inks containing alcohol do you have on a typical day? 1 or 2 [facility] How often do you hav e 6 or more drinks on 1 occasion? Never [facility] How hard is it for y ou to pay for the very basics like food, housing, medical care, and heating Not hard at all [facility] Do you feel stress - tense, restless, nervous, or anxious, or unable to sleep at night because your mind is troubled all the time - these days [OSQ] Only a little [facility] (I/We) worried jeb howard (my/our) food would run out before (I/we) got money to buy more. Never true [facility] In the past 12 month s, was there a time when you were not able to pay the mortgage or rent on time? No [facility] Do you feel stress - tense, restless, nervous, or anxious, or unable to sleep at night because your mind is troubled all the time - these days [OSQ] Not at all [facility] Start: 02-08-2025 Sex Male (finding) [facility] Start: 1970 Sex Assigned At Male [facility] Functional Status Date Assessment Result Facility 06-22-2014 Are you deaf, or do you have serious difficulty hearing No 06/22/2014 2:05 PM Veronica Stewart LPN No [facility] 06-22-2014 Are you blind, or do you have serious difficulty seeing, even when wearing glasses No 06/22/2014 2:05 PM Veronica Stewart LPN No [facility] 06-22-2014 Do you have serious difficulty walking or climbing stairs No 06/22/2014 2:05 PM Veronica Stewart LPN No [facility] 06-22-2014 Do you have difficul ty dressing or bathing No 06/22/2014 2:05 PM EDT Veronica Joshi LPN No [facility] 06-22-2014 Because of a physica l, mental, or emotional condition, do you have difficulty doing errands alone such as visiting a physician's office or shopping No 06/22/2014 2:05 PM EDT Veronica Joshi LPN No [facility] Mental Status Date Assessment Result Facility 06-22-2014 Because of a physica l, mental, or emotional condition, do you have serious difficulty concentrating, remembering, or making decisions No 06/22/2014 2:05 PM EDT Veronica Joshi LPN No [facility] Clinical Notes 04-23-2022 to 05-13-2025 Telephone Encounter - Leighton Lozano APRN.CNP - 05/13/2025 6:59 AM EDTTelephone Encounter - Leighton Lozano APRN.CNP - 05/13/2025 6:59 AM Cora Yoon MD [...] up to 28 days. Leighton Lozano APRN.CNP [facility] 05-13-2025 Miscellaneous Notes The following approved [...] 2025 1:26 PM documented in this encounter [facility] 05-12-2025 Telephone encounter Note Prescription Refill [...] Dickerson LPN May 12, 2025 1:26 PM [facility] 12-01-2024 Telephone encounter Note The following approved medication requests have been transmitted electronically. Requested Prescriptions Pending Prescriptions Disp Refills sildenafil (VIAGRA) 50 mg tablet 18 tablet 3 Sig: Take 1 tablet by mouth as needed. Leighton Lozano APRN.CNP [facility] 12-01-2024 Telephone encounter Note The following approved medication requests have been transmitted electronically. Requested Prescriptions Pending Prescriptions Disp Refills SUMAtriptan (IMITREX) 50 mg tablet 18 tablet 3 Sig: Take 1 tablet (50 mg) by mouth as needed for migraine headache (see administration instructions) for up to 28 days. Leighton Lozano APRN.CNP [facility] 12-01-2024 Miscellaneous Notes The following approved [...] 2024 10:02 AM documented in this encounter [facility] 12-01-2024 Miscellaneous Notes The following approved [...] 2024 9:49 AM documented in this encounter [facility] 12-01-2024 Telephone encounter Note Left a [...] Mason LPN December 01, 2024 10:02 AM [facility] 12-01-2024 Telephone encounter Note Left a [...] Mason LPN December 01, 2024 9:49 AM [facility] 07-26-2024 Telephone encounter Note Please see pt message and advise. Julienne Simental MA [facility] 07-26-2024 Miscellaneous Notes Please see pt message and advise. Julienne Simental MA documented in this encounter [facility] 07-16-2024 History of Present illness Narrative [...] a few gastric polyps. -Pt discharged from [facility] on 07/10/24. -Admitted for: Date of Admission: [...] Patient is a 53-year-old male who presented [facility] ED on 07/05/2024 with intractable low back [...] MD at 13:20 EDT Labs: 07/08/24 06:45: MILDRED-1 Antibody <0.2, SS-A/Ro IgG Antibody < 0.2, SS-B/La IgG Antibody < 0.2, Sm ([place]court) Antibody <0.2, PILOT CONTROL OPERATOR Antibody <0.2, Scl-70 Scleroderma Ab 0.2, Double [...] Past Histories independently gathered by the clinical applications support lead and the remaining scribed note accurately describes my personal service to the patient. Cora Marte MD The documentation for this note was completed by Cherise Lugo MA acting as scribe for Cora Marte MD. July 16, 2024 2:15 PM. Chersie Lugo MA documented in this encounter [facility] 07-16-2024 Note HNO ID: [id number] Author: CORA MARTE MD Service: ? Author Type: Physician Type: [...] off work till 07/19/24. Follows with [facility] next week. Had upper GI done 07/07/24 with bx done for a few gastric polyps. -Pt discharged from [facility] on 07/10/24. -Admitted for: Date of Admission: [...] Patient is a 53-year-old male who presented [facility] ED on 07/05/2024 with intractable low back [...] in the sec (more content not included)... [facility] 07-13-2024 Note HNO ID: [id number] Author: JULIENNE SIMENTAL MA Service: ? Author Type: Manager City Type: Progress Notes Filed: 07/13/2024 11:17 Note Text: TRANSITION CARE MANAGEMENT (TCM) INITIAL CONTACT Manager City Outreach Provider Action/FYI: Called and spoke with pt. Has f/u GI next Friday, with the TOOL DESIGNER. Reports he's improving, compared to prior to [...] data to display SUMMARY: -Pt discharged from [facility] on 07/10/24. -Admitted for: Date of Admission: [...] Patient is a 53-year-old male who presented [facility] ED on 07/05/2024 with intractable low back [...] second portion of (more content not included)... [facility] 07-13-2024 History of Present illness Narrative Images from the original note were not included. TRANSITION CARE MANAGEMENT (TCM) INITIAL CONTACT Manager City Outreach Provider Action/FYI: Called and spoke with pt. Has f/u GI next Friday, with the TOOL DESIGNER. Reports he's improving, compared to prior to [...] data to display SUMMARY: -Pt discharged from [facility] on 07/10/24. -Admitted for: Date of Admission: [...] Patient is a 53-year-old male who presented [facility] ED on 07/05/2024 with intractable low back [...] MD at 13:20 EDT Labs: 07/08/24 06:45: MILDRED-1 Antibody <0.2, SS-A/Ro IgG Antibody < 0.2, SS-B/La IgG Antibody < 0.2, Sm ([place]court) Antibody <0.2, PILOT CONTROL OPERATOR Antibody <0.2, Scl-70 Scleroderma Ab 0.2, Double [...] gastric emptying study Records were copied from [facility] for continuity of care. Do you have a hospital follow up appointment with your PCP? Appointment on 07/16/24 @ 2:[address] Marte. Yes. Remind patient of appointment date, time, [...] home? Yes Medical records from recent hospitalization: [place] Julienne Simental MA documented in this encounter [facility] 07-13-2024 Note Patient Outreach (FA MPWS) FEDE TURCIOS ([id number]) 1970 M Date Time Provider Department 07/13/24 CORA MARTE During your visit today, we recorded the following information about you: Julienne Simental MA 07/13/2024 11:17 AM Signed TRANSITION CARE MANAGEMENT (TCM) INITIAL CONTACT Manager City Outreach Provider Action/FYI: Called and spoke with pt. Has f/u GI next Friday, with the TOOL DESIGNER. Reports he's improving, compared to prior to [...] data to display SUMMARY: -Pt discharged from [facility] on 07/10/24. -Admitted for: Date of Admission: [...] Patient is a 53-year-old male who presented [facility] ED on 07/05/2024 with intractable low back [...] Estimated blood loss (more content not included)... [facility] 07-02-2024 Telephone encounter Note Pt returned call and given provider's message below with verbalized understanding. [facility] 07-02-2024 Miscellaneous Notes Pt returned call [...] through night, 2 this am. Stopped taking Hyden d/t constipation, back to Tylenol/Ibuprofen every 3 hours d/t back pain, using heating pad to back. Asking if he needs to continue Magnesium Citrate, concerned about back pain returning. What is the next step. Please review & advise. Veronica Joshi LPN documented in this encounter [facility] 07-02-2024 Telephone encounter Note Message left for pt to call back for results. Cherise Lugo MA [facility] 07-01-2024 Telephone encounter Note I think this is gastrointestinal related but he will know more after seeing Dr. Milton. His labs, urine, CT and xrays have all been negative. [facility] 07-01-2024 Telephone encounter Note Pt notified and verbalized understanding. Pt states he is still having numbness and bloating. He is asking if there is anything else that can be done in the meantime? And if you think it is all gastrointestinal related? Please advise [facility] 07-01-2024 Telephone encounter Note Please let patient know xrays show mild degenerative changes of the thoracic spine but is otherwise normal. I have placed a referral to gastroenterology and have faxed it to Dr. Milton's office as requested. [facility] 07-01-2024 History of Present illness Narrative [...] PATIENT PRESENTS WITH AN IMPLANTABLE OR ATTACHED BUSINESS PRACTICES OFFICER: No RADIOLOGY DEPARTMENT: General X-ray: Exam(s) Completed: Spine X-Ray(s): Thoracic and Lumbar AP / LAT / L5-S1 / OBL PERIPHERAL IV DATA: Not applicable SIGNED BY: RT Kristy(Octaviano) July 01, 2024 10:11 AM documented in this encounter [facility] 07-01-2024 Note HNO ID: [id number] Author: MIGUEL VILLAFUERTE RT(R) Service: Radiology Author [...] PATIENT PRESENTS WITH AN IMPLANTABLE OR ATTACHED BUSINESS PRACTICES OFFICER: No RADIOLOGY DEPARTMENT: General X-ray: Exam(s) Completed: Spine X-Ray(s): Thoracic and Lumbar AP / LAT / L5-S1 / OBL PERIPHERAL IV DATA: Not applicable SIGNED BY: RT Kristy(Octaviano) July 01, 2024 10:11 AM [facility] 07-01-2024 Telephone encounter Note Pt notified and states all of his stools have been liquid. He is on his way to get his back x ray now Edith Husain MA [facility] 07-01-2024 Telephone encounter Note Please let patient know his UA and culture are negative. Also his PSA is normal. Have his bm's all been liquid or has he had formed stools? [facility] 07-01-2024 Telephone encounter Note Please see pt message and advise. There is a TE in regarding this. Julienne Simental MA [facility] 07-01-2024 Miscellaneous Notes Please see pt message and advise. There is a TE in regarding this. Julienne Simental MA documented in this encounter [facility] 06-30-2024 Telephone encounter Note Patient calling re: PSA, Urine culture, advised results are still In Process, office will call when finalized. Patient did take Magnesium Citrate, he did have liquidy bm through night, 2 this am. Stopped taking Hyden d/t constipation, back to Tylenol/Ibuprofen every 3 hours d/t back pain, using heating pad to back. Asking if he needs to continue Magnesium Citrate, concerned about back pain returning. What is the next step. Please review & advise. Veronica Joshi LPN [facility] 06-29-2024 Note HNO ID: [id number] Author: PAU DOOLEY APRN.COPPER MINER Service: ? Author Type: Nurse Practitioner Type: Progress Notes Filed: 06/29/2024 15:03 Note Text: Chief Complaint Patient presents with: ER F/U HPI Fede Turcios is a 53 year old male who presents here today for Above Complaints.. Patient presents for ER follow up. Patient reports he was seen at [facility] 06/22 and was told everything was normal. Seen at [facility] 06/27 and had an abnormal UA and [...] M54.50 - PSA/PROSTATE SPECIFIC ANTIGEN SCREENING Pau Dooley APRN.[facility] 06-29-2024 History of Present illness Narrative Chief Complaint Patient presents with: ER F/U HPI Fede Turcios is a 53 year old male who presents here today for Above Complaints.. Patient presents for ER follow up. Patient reports he was seen at [facility] 06/22 and was told everything was normal. Seen at [facility] 06/27 and had an abnormal UA and [...] M54.50 - PSA/PROSTATE SPECIFIC ANTIGEN SCREENING Pau Dooley APRN.ARABELLA documented in this encounter [facility] 06-28-2024 Telephone encounter Note Lab orders have been placed. Moni Ribeiro APRN.CNP [facility] 06-28-2024 Miscellaneous Notes Lab orders have been placed. Moni Ribeiro APRN.CNP Patient notified of CT and Lab results, [...] Unfortunately we do not have any local bacteriologist industrial except for Dr. Garcia at [facility] hospital. I would be happy to place repeat lipase labs to ensure that this is not worsening. Please let me know what they prefer. Moni Ribeiro APRN.ARABELLA Patient has ER Follow-Up visit scheduled with Moni Ribeiro CNP for this , 07/01/24. states patient was seen at [facility] ER yesterday with back/flank pain and possible [...] since patient was just seen by Dr. Marte on 06/22/24? Please advise , Kelsey, if able. [phone] Thank you. documented in this encounter [facility] 06-28-2024 Telephone encounter Note Patient notified [...] Gastro look at him. Esperanza Patel LPN [facility] 06-28-2024 Telephone encounter Note Can you please call the patient's back and let her know that if he is in extreme pain he needs to go back to the ER. I looked over the CT scan which was normal. Lipase was mildly elevated. Gastroenterology may take some time to get into. Unfortunately we do not have any local bacteriologist industrial except for Dr. Garcia at [facility] hospital. I would be happy to place repeat lipase labs to ensure that this is not worsening. Please let me know what they prefer. Moni Ribeiro APRN.ARABELLA T [facility] 06-28-2024 Telephone encounter Note Patient has ER Follow-Up visit scheduled with Moni Ribeiro CNP for this , 07/01/24. states patient was seen at [facility] ER yesterday with back/flank pain and possible [...] since patient was just seen by Dr. Marte on 06/22/24? Please advise , Kelsey, if able. [phone] Thank you. T [facility] 06-22-2024 History of Present illness Narrative [...] 40 mg once daily. Pt seen at [facility] ED on 06/22/24 for flank pain [...] PHOS 136 U/L High 46 - 116 [facility] LIPASE on 06-22-2024 Lipase [Catalytic activity/Vol] 148.0 U/L High 15.0 - 78.0 [facility] Imaging: CT ABDOMEN/PELVIS WITH CONTRAS 06/22/24: CONCLUSION: [...] Vaccine(1 of 2) Never done Covid-19 Vaccine( - season) due on 06/20/2024 Influenza Vaccine(1) [...] Decision Making Level: 3 - Low Cora Marte MD documented in this encounter [facility] 06-22-2024 Note HNO ID: [id number] Author: CORA MARTE MD Service: ? Author Type: Physician Type: Progress Notes Filed: 06/22/2024 14:51 Note Text: Chief Complaint Patient presents with: Hospital F/U [facility] Fede Turcios is a 53 year old [...] 40 mg once daily. Pt seen at [facility] ED on 06/22/24 for flank pain [...] PHOS 136 U/L High 46 - 116 [facility] LIPASE on 06-22-2024 Lipase [Catalytic activity/Vol] 148.0 U/L High 15.0 - 78.0 [facility] Imaging: CT ABDOMEN/PELVIS WITH CONTRAS 06/22/24: CONCLUSION: [...] on 10/16/2024 Lipid (more content not included)... [facility] 06-04-2024 Telephone encounter Note The following approved medication requests have been transmitted electronically. Requested Prescriptions Pending Prescriptions Disp Refills omeprazole (PRILOSEC) 40 mg capsule 90 capsule 4 Sig: Take 1 capsule by mouth daily before breakfast. Leighton Lozano APRN.COPPER MINER [facility] 06-04-2024 Miscellaneous Notes The following approved [...] 2024 1:18 PM documented in this encounter [facility] 06-04-2024 Telephone encounter Note Prescription Refill [...] Valdes LPN June 04, 2024 1:18 PM [facility] 03-25-2024 Telephone encounter Note OK to refill as ordered Cora Marte MD [facility] 03-25-2024 Miscellaneous Notes OK to refill as ordered Cora Marte MD Patient MyChart message requesting the following refill Refill(s) Requested: Requested Prescriptions Pending Prescriptions Disp Refills sildenafil (VIAGRA) 50 mg tablet 18 tablet 3 Sig: Take 1 tablet by mouth as needed. ALLERGIES No Known Allergies (home) [phone] (cell) Last Office Visit Date: 11/20/2023 Last Distance Health Visit: Visit date not found Future Appointment: Visit date not found The patients preferred pharmacy has been captured for this encounter? yes Request is for script(s) to be escript to pharmacy. Oliva Walton LPN documented in this encounter [facility] 03-25-2024 Telephone encounter Note Patient MyChart message requesting the following refill Refill(s) Requested: Requested Prescriptions Pending Prescriptions Disp Refills sildenafil (VIAGRA) 50 mg tablet 18 tablet 3 Sig: Take 1 tablet by mouth as needed. ALLERGIES No Known Allergies (home) [phone] (cell) Last Office Visit Date: 11/20/2023 Last Distance Health Visit: Visit date not found Future Appointment: Visit date not found The patients preferred pharmacy has been captured for this encounter? yes Request is for script(s) to be escript to pharmacy. Oliva Walton LPN [facility] 03-25-2024 Telephone encounter Note Patient MyChart message requesting the following refill Refill(s) Requested: Requested Prescriptions Pending Prescriptions Disp Refills SUMAtriptan (IMITREX) 50 mg tablet 18 tablet 3 Sig: Take 1 tablet (50 mg) by mouth as needed for migraine headache (see administration instructions) for up to 28 days. ALLERGIES No Known Allergies (home) [phone] (cell) Last Office Visit Date: 11/20/2023 Last Distance Health Visit: Visit date not found Future Appointment: none found The patients preferred pharmacy has been captured for this encounter? yes Request is for script(s) to be escript to pharmacy. Oliva Walton LPN [facility] 03-25-2024 Miscellaneous Notes Patient Flextript message requesting the following refill Refill(s) Requested: Requested Prescriptions Pending Prescriptions Disp Refills SUMAtriptan (IMITREX) 50 mg tablet 18 tablet 3 Sig: Take 1 tablet (50 mg) by mouth as needed for migraine headache (see administration instructions) for up to 28 days. ALLERGIES No Known Allergies (home) [phone] (cell) Last Office Visit Date: 11/20/2023 Last Distance Health Visit: Visit date not found Future Appointment: none found The patients preferred pharmacy has been captured for this encounter? yes Request is for script(s) to be escript to pharmacy. Oliva Walton LPN documented in this encounter [facility] 11-20-2023 History of Present illness Narrative Chief Complaint Patient presents with: Physical HPI Fede Turcios is a 53 year old male who presents here today for physical. Last OV with PCP was April 2022. , 2 daughters, 1 at [employer] and other is a senior at [employer]. Depression screening; denies feeling depressed or hopeless. [...] Vaccine(1) due on 06/20/2023 Covid-19 Vaccine( - season) due on 06/20/2023 Depression Assessment [...] Past Histories independently gathered by the clinical applications support lead and the remaining scribed note accurately describes my personal service to the patient. Cora Marte MD The documentation for this note was completed by Cherise Lugo Ma acting as scribe for Cora Marte MD. November 20, 2023 3:29 PM. Cherise Lugo Ma documented in this encounter [facility] 11-20-2023 Note HNO ID: [id number] Author: CORA MARTE MD Service: ? Author Type: Physician Type: Progress Notes Filed: 11/20/2023 15:47 Note Text: Chief Complaint Patient presents with: Physical HPI Fede Turcios is a 53 year old male who presents here today for physical. Last OV with PCP was April 2022. , 2 daughters, 1 at [employer] and other is a senior at [employer]. HM Depression screening; denies feeling depressed or [...] Risks/benefits of prostate (more content not included)... [facility] 04-29-2023 Miscellaneous Notes OK to refill as ordered Cora Marte MD Pharmacy updated to [facility]. Angy Salcedo MA Message left for pt to call back or respond back via [employer] regarding below. This was was sent to pt via [employer]. Spoke with Dilia at [facility]. ph: [phone]. She stated that [facility] is not a pharmacy they just work with prescription coverage for pt insurance. She stated that pt can use ANY retail pharmacy of his choice or he can use [facility]. Awaiting pt response on where to send his script. Cherise Lugo Ma documented in this encounter [facility] 03-24-2023 Miscellaneous Notes The following approved [...] Angy Salcedo MA documented in this encounter [facility] 09-02-2022 Miscellaneous Notes The following approved medication requests have been transmitted electronically. Requested Prescriptions Signed Prescriptions Disp Refills omeprazole (PRILOSEC) 40 mg capsule 90 capsule 4 Sig: Take 1 capsule by mouth daily before breakfast. Leighton Lozano APRN.CNP Last Rx: 10/15/21 #90 w/3. Julienne Simental Ma documented in this encounter [facility] 04-23-2022 History of Present illness Narrative [...] Decision Making Level: 3 - Low Cora Marte MD documented in this encounter [facility] Evaluation note Diagnosis Dermatitis- Primary Contact dermatitis and other eczema, due to unspecified cause [facility] Gastroesophageal reflux disease without esophagitis Esophageal reflux [facility] Diagnosis Dermatitis Contact dermatitis and other eczema, due to unspecified cause [facility] Diagnosis Gastroesophageal reflux disease without esophagitis Esophageal reflux [facility] Diagnosis Wellness examination- Primary Screening for prostate cancer Special screening for malignant neoplasm of prostate Gastroesophageal reflux disease without esophagitis Esophageal reflux Migraine without aura and with status migrainosus, not intractable Migraine without aura, without mention of intractable migraine with status migrainosus Family hx of prostate cancer Family history of malignant neoplasm of prostate Hyperlipidemia, unspecified hyperlipidemia type [facility] Diagnosis Migraine without status migrainosus, not intractable, unspecified migraine type [facility] Diagnosis ED (erectile dysfunction) of organic origin Impotence of organic origin [facility] Diagnosis Abdominal pain, unspecified abdominal location- Primary Viral syndrome Unspecified viral infection, in conditions classified elsewhere and of unspecified site documented in this encounter [facility] note* Diagnosis Generalized abdominal pain- Primary Abdominal pain, generalized [facility] Diagnosis Abnormal urine- Primary Other nonspecific finding on examination of urine Acute constipation Unspecified constipation Acute low back pain, unspecified back pain laterality, unspecified whether sciatica present documented in this encounter [facility] note* Diagnosis Acute bilateral back pain, unspecified back location- Primary Acute bilateral back pain, unspecified back location documented in this encounter [facility] note* Diagnosis Generalized abdominal pain- Primary Abdominal pain, generalized documented in this encounter [facility] note* Diagnosis Acute bilateral back pain, unspecified back location documented in this encounter [facility] note* Diagnosis Celiac disease- Primary Gastroparesis Inflammation of intestine documented in this encounter [facility] note* Diagnosis Migraine without status migrainosus, not intractable, unspecified migraine type documented in this encounter [facility] note* Diagnosis ED (erectile dysfunction) of organic origin Impotence of organic origin documented in this encounter [facility] noteNo assessment information availableWKeenan Private [facility] Work Phone: Evaluation note* Diagnosis Migraine without status migrainosus, not intractable, unspecified migraine type documented in this encounter [facility] for referral (narrative)* Diagnostic Procedure Only (Urgent) - Closed Specialty Diagnoses / Procedures Referred By Contac t Referred To Contact XR IMAGING Diagnoses Acute bilateral back pain, unspecified back location Procedures XR THORACIC GENERAL 3V AP/LAT/SWIMMERS RADEX SPINE THORACIC 3 VIEWS Pau Dooley APRN.CNP [address] [place] [address] [place] [address] Referral ID Status Reason Start Date Expiration Date V isits Requested Visits Authorized [id number] Closed Auto-Generate d Referral 07/01/2024 07/31/2025 1 1 * Diagnostic Procedure Only (Urgent) - Closed Specialty Diagnoses / Procedures Referred By Contac t Referred To Contact XR IMAGING Diagnoses Acute bilateral back pain, unspecified back location Procedures XR LUMBAR PARS DEFECT 4V AP/LAT/BOTH OBL RADEX SPINE LUMBOSACRAL MINIMUM 4 VIEWS Pau Dooley APRN.COPPER MINER [address] [place] [id number] [place] [address] Referral ID Status Reason Start Date Expiration Date V isits Requested Visits Authorized [id number] Closed Auto-Generate d Referral 07/01/2024 07/31/2025 1 1 [facility] for referral (narrative)* Diagnostic Procedure Only (Urgent) - Closed Specialty Diagnoses / Procedures Referred By Contac t Referred To Contact XR IMAGING Diagnoses Acute bilateral back pain, unspecified back location Procedures XR THORACIC GENERAL 3V AP/LAT/SWIMMERS RADEX SPINE THORACIC 3 VIEWS Pau Dooley APRN.COPPER MINER [address] [place] [address] [place] [address] Referral ID Status Reason Start Date Expiration Date V isits Requested Visits Authorized [id number] Closed Auto-Generate d Referral 07/01/2024 07/31/2025 1 1 * Diagnostic Procedure Only (Urgent) - Closed Specialty Diagnoses / Procedures Referred By Contac t Referred To Contact XR IMAGING Diagnoses Acute bilateral back pain, unspecified back location Procedures XR LUMBAR PARS DEFECT 4V AP/LAT/BOTH OBL RADEX SPINE LUMBOSACRAL MINIMUM 4 VIEWS Pau Dooley APRN.COPPER MINER [address] [place], [place] [id number] [place] [address] Referral ID Status Reason Start Date Expiration Date V isits Requested Visits Authorized [id number] Closed Auto-Generate d Referral 07/01/2024 07/31/2025 1 1 [facility] for referral (narrative)No reason for referral information availableWKeenan [facility] Work Phone: Reason for visit Narrative* Diagnostic Procedure Only (Urgent) - Closed Specialty Diagnoses / Procedures Referred By Contac t Referred To Contact XR IMAGING Diagnoses Acute bilateral back pain, unspecified back location Procedures XR THORACIC GENERAL 3V AP/LAT/SWIMMERS RADEX SPINE THORACIC 3 VIEWS Pau Dooley APRN.COPPER MINER [address] [place] [address] [place] [address] Referral ID Status Reason Start Date Expiration Date V isits Requested Visits Authorized [id number] Closed Auto-Generate d Referral 07/01/2024 07/31/2025 1 1 [facility] Summary Purpose Family History No Family History Records FoundNo Family History Records FoundNo Family History Records FoundNo Family History Records Found Advance Directives No Advanced Directives Records FoundDocuments on File Type Date 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 Advance Directive(s) 12/19/2021 6:48 AM Advance Directive(s) 12/05/2021 6:46 PM Reason for Referral Specialty Diagnoses / Procedures Referred By Galileaac t Referred To Contact Gastroenterology Diagnoses Generalized abdominal pain Procedures CONSULT TO GASTROENTEROLOGY Pau Dooley, CATALINO.COPPER MINER [address] [place] [address] Ayaan Milton MD [address] [place] [address] Referral ID Status Reason Start Date Expiration Date Visits Requested Visits Authorized [id number] Ref Not Required PCP Requested Referral 07/01/2024 07/01/2025 1 1 Chief Complaint and Reason for Visit Chief Complaint Admit Date INT LAB ORDER February 03, 2025 3:5 6pm Additional Source Comments (unrecognized sect ion and content) No Status Records FoundNo Status Records FoundNo Status Records FoundNo Status Records Found INFORMATION SOURCE (unrecogn ized section and content) DATE CREATED AUTHOR 01/02/2020 [facility] ([place]) DATE CREATED AUTHOR AUTHOR'S ORGANIZ ATION 06/22/2024 [facility] DATE CREATED AUTHOR AUTHOR'S ORGANIZ ATION 07/17/2024 [facility] DATE CREATED AUTHOR AUTHOR'S ORGANIZ ATION 08/27/2025 [facility] Source Comments (unrecognize d section and content) In the event this informatio n is protected by the Federal Confidentiality of Alcohol and Drug Abuse Patient Records regulations: The Federal rules restrict any use of the information to criminally investigate or prosecute any alcohol or drug abuse patient.[facility] the event this information is protected by the Federal Confidentiality of Alcohol and Drug Abuse Patient Records regulations: The Federal rules restrict any use of the information to criminally investigate or prosecute any alcohol or drug abuse patient.[facility] HospitalIn the event this information is protected by the Federal Confidentiality of Alcohol and Drug Abuse Patient Records regulations: The Federal rules restrict any use of the information to criminally investigate or prosecute any alcohol or drug abuse patient.[facility] HospitalIn the event this information is protected by the Federal Confidentiality of Alcohol and Drug Abuse Patient Records regulations: The Federal rules restrict any use of the information to criminally investigate or prosecute any alcohol or drug abuse patient.[facility] HospitalIn the event this information is protected by the Federal Confidentiality of Alcohol and Drug Abuse Patient Records regulations: The Federal rules restrict any use of the information to criminally investigate or prosecute any alcohol or drug abuse patient.[facility] HospitalIn the event this information is protected by the Federal Confidentiality of Alcohol and Drug Abuse Patient Records regulations: The Federal rules restrict any use of the information to criminally investigate or prosecute any alcohol or drug abuse patient.[facility] HospitalIn the event this information is protected by the Federal Confidentiality of Alcohol and Drug Abuse Patient Records regulations: The Federal rules restrict any use of the information to criminally investigate or prosecute any alcohol or drug abuse patient.[facility] HospitalIn the event this information is protected by the Federal Confidentiality of Alcohol and Drug Abuse Patient Records regulations: The Federal rules restrict any use of the information to criminally investigate or prosecute any alcohol or drug abuse patient.[facility] HospitalIn the event this information is protected by the Federal Confidentiality of Alcohol and Drug Abuse Patient Records regulations: The Federal rules restrict any use of the information to criminally investigate or prosecute any alcohol or drug abuse patient.[facility] HospitalIn the event this information is protected by the Federal Confidentiality of Alcohol and Drug Abuse Patient Records regulations: The Federal rules restrict any use of the information to criminally investigate or prosecute any alcohol or drug abuse patient.[facility] HospitalIn the event this information is protected by the Federal Confidentiality of Alcohol and Drug Abuse Patient Records regulations: The Federal rules restrict any use of the information to criminally investigate or prosecute any alcohol or drug abuse patient.[facility] HospitalIn the event this information is protected by the Federal Confidentiality of Alcohol and Drug Abuse Patient Records regulations: The Federal rules restrict any use of the information to criminally investigate or prosecute any alcohol or drug abuse patient.[facility] HospitalIn the event this information is protected by the Federal Confidentiality of Alcohol and Drug Abuse Patient Records regulations: The Federal rules restrict any use of the information to criminally investigate or prosecute any alcohol or drug abuse patient.[facility] HospitalIn the event this information is protected by the Federal Confidentiality of Alcohol and Drug Abuse Patient Records regulations: The Federal rules restrict any use of the information to criminally investigate or prosecute any alcohol or drug abuse patient.[facility] HospitalIn the event this information is protected by the Federal Confidentiality of Alcohol and Drug Abuse Patient Records regulations: The Federal rules restrict any use of the information to criminally investigate or prosecute any alcohol or drug abuse patient.[facility] HospitalIn the event this information is protected by the Federal Confidentiality of Alcohol and Drug Abuse Patient Records regulations: The Federal rules restrict any use of the information to criminally investigate or prosecute any alcohol or drug abuse patient.[facility] HospitalIn the event this information is protected by the Federal Confidentiality of Alcohol and Drug Abuse Patient Records regulations: The Federal rules restrict any use of the information to criminally investigate or prosecute any alcohol or drug abuse patient.[facility] HospitalIn the event this information is protected by the Federal Confidentiality of Alcohol and Drug Abuse Patient Records regulations: The Federal rules restrict any use of the information to criminally investigate or prosecute any alcohol or drug abuse patient.[facility] HospitalIn the event this information is protected by the Federal Confidentiality of Alcohol and Drug Abuse Patient Records regulations: The Federal rules restrict any use of the information to criminally investigate or prosecute any alcohol or drug abuse patient.[facility] HospitalIn the event this information is protected by the Federal Confidentiality of Alcohol and Drug Abuse Patient Records regulations: The Federal rules restrict any use of the information to criminally investigate or prosecute any alcohol or drug abuse patient.[facility] Reason for Visit (unrecogniz ed section [...] Care Teams (unrecognized sec tion and content) Civil Engineer'S Aide Relationship Specialty Start Date End Date Cora Marte MD [address] [place], [place] [address] PCP - General Family Practice 10/28/11 Civil Engineer'S Aide Relationship Specialty Start Date End Date Cora Marte MD [address] [place], [place] [id number] PCP - General Family Medicine 10/28/11 Civil Engineer'S Aide Relationship Specialty Start Date End Date Cora Marte MD [address] [place], [place] [id number] PCP - General Family Medicine 10/28/11 Civil Engineer'S Aide Relationship Specialty Start Date End Date Coar Marte MD [address] [place], [place] [id number] PCP - General Family Medicine 10/28/11 Civil Engineer'S Aide Relationship Specialty Start Date End Date Cora Marte MD [address] [facility] [place] [address] PCP - General Family Medicine 10/28/11 Civil Engineer'S Aide Relationship Specialty Start Date End Date Cora Marte MD [address] [facility] [place] [address] PCP - General Family Medicine 10/28/11 Civil Engineer'S Aide Relationship Specialty Start Date End Date Cora Marte MD [address] [facility] [place] [address] PCP - General Family Medicine 10/28/11 Civil Engineer'S Aide Relationship Specialty Start Date End Date Cora Marte MD [address] [facility] [place] [address] PCP - General Family Medicine 10/28/11 Civil Engineer'S Aide Relationship Specialty Start Date End Date Cora Marte MD [address] [facility] [place] [address] PCP - General Family Medicine 10/28/11 Civil Engineer'S Aide Relationship Specialty Start Date End Date Cora Marte MD [address] [facility] [place] [address] PCP - General Family Medicine 10/28/11 Civil Engineer'S Aide Relationship Specialty Start Date End Date Cora Marte MD [address] [facility] [place] [address] PCP - General Family Medicine 10/28/11 Civil Engineer'S Aide Relationship Specialty Start Date End Date Cora Marte MD [address] [facility] [place] [address] PCP - General Family Medicine 10/28/11 Civil Engineer'S Aide Relationship Specialty Start Date End Date Cora Marte MD [address] [place] [address] PCP - General Family Medicine 10/28/11 Moni Ribeiro PLANT OPERATIONS WORKER.COPPER MINER [address] [place] [address] Supervisor [facility]el[facility] 09/26/24 Leighton Lozano PLANT OPERATIONS WORKER.COPPER MINER [address] [place] [address] Supervisor [facility]el[facility] 10/05/24 Civil Engineer'S Aide Relationship Specialty Start Date End Date Cora Marte MD [address] [place] [address] PCP - General Family Medicine 10/28/11 Moni Ribeiro PLANT OPERATIONS WORKER.COPPER MINER [address] [place] [address] Supervisor [facility]elry [facility] 09/26/24 Leighton Lozano PLANT OPERATIONS WORKER.COPPER MINER [address] [place] [address] [facility] Medicine 10/05/24 Team Status: Active Member Role Status Dates Dr. Cora Marte MD Primary Care Provider Active Team Status: Inactive Member Role Status Dates Dr. Cora Marte MD Primary Care Provider Active Start: February 03, 2025 End: February 03, 2025 Dr. Patrick Garcia DO Attending Provider Active Start: February 03, 2025 End: February 03, 2025 Dr. Patrick Garcia DO Referring Provider Active Start: February 03, 2025 End: February 03, 2025 Civil Engineer'S Aide Relationship Specialty Start Date End Date Cora Marte MD [address] [place], [place] [id number] PCP - General Family Medicine 10/28/11 Leighton Lozano APRN.[facility] [address] [place], [place] [address] Supervisor Jewelry Department Family Medicine 10/05/24 Goals (unrecognized section and content) Goals [...] BE BASED ON THE PRIMARY CLINICAL RECORDS. [facility] provides no warranty or guarantee of the accuracy or completeness of information in this document.
[2025-10-11 07:48] LABS: Hematocrit 46.3 % (40-54); Hemoglobin 15.5 g/dL (13.0-16.5); Immature Granulocytes Count 0.010 X10^3/uL (0.0-0.0); Mean Corp Hgb Conc 33.5 g/dL (32-36); Mean Corpuscular Volume 87.7 fL (80-94); Mean Platelet Vol. 9.2 fl (6.2-12.0); NRBC Flagged by Analyzer 0 % (0-5); Platelet Count 251 K/mm3 (150-450); RBC Distribution Width CV 12.6 % (11.6-14.6); RBC Distribution Width SD 40.6 fl (35.1-43.9); Red Blood Count 5.28 M/mm3 (4.6-6.2); White Blood Count 4.6 K/mm3 (4.4-11.0)
[2025-10-11 08:22] LABS: AST(SGOT) 25 U/L (<=37); Alanine Aminotransfer ALT/SGPT 28 U/L (<=46); Albumin, Serum 4.6 g/dL (3.5-5.0); Alkaline Phosphatase 59 U/L (40-129); Anion Gap 9 (7-18); BUN 19 mg/dL (4-19); BUN/Creat Ratio 15.1 RATIO (10-20); Calcium,Total 9.4 mg/dL (7.6-11.0); Carbon Dioxide 26.9 mmol/L (20.0-29.0); Chloride 106 mmol/L (96-106); Cholesterol 166 mg/dL (<=200); Globulin 2.2 g/dL (2.2-4.2); Glucose 118 mg/dL (70-99); Low Density Lipoprotein Calc. 85 mg/dL; PSA,Total - Annual Screen 1.00 ng/mL (0.02-4.00); Potassium 4.3 mmol/L (3.5-5.1); Triglycerides 266 mg/dL; Very Low Density Lipoprotein 53 mg/dL (5-40); cholesterol:hdl ratio screen 4.47
== END | disposition home or self-care (01) ==
LOC: LAB 07:21
PROVIDERS: PCP Internal Medicine; Referring Provider Physician Assistant; Visit Provider Physician Assistant
DX: Z00.00 Encounter for general adult medical examination without abnormal findings (principal); Z12.5 Encounter for screening for malignant neoplasm of prostate
CPT/HCPCS: 36415; 80053; 80061; 84153; 85025; G0103